=== PATIENT | male | born 1965 | race Caucasian/White ===

== ENCOUNTER 2020-08-28 13:30 | Outpatient (CLI) | payer OTHER, SELFPAY | END 2020-08-28 13:31 | disposition home or self-care (01) | LOC: ANHAUDIO 13:32 | PROVIDERS: PCP Internal Medicine Infectious Disease | DX: H90.3 Sensorineural hearing loss, bilateral (principal) | CPT/HCPCS: 92557; 92567 ==

== ENCOUNTER 2020-10-03 09:00 | Outpatient (RCR) | payer OTHER, SELFPAY | END 2020-11-28 23:59 | disposition home or self-care (01) | LOC: ANHAUDIO 09:00 | PROVIDERS: PCP Internal Medicine Infectious Disease; Visit Provider Internal Medicine Infectious Disease | DX: Z46.1 Encounter for fitting and adjustment of hearing aid (principal) | CPT/HCPCS: V5160; V5261; V5264 ==

== ENCOUNTER 2021-01-16 15:16 | Outpatient (RCR) | payer OTHER, SELFPAY | END 2021-01-16 23:59 | disposition home or self-care (01) | LOC: ANHAUDIO 15:16 | PROVIDERS: PCP Internal Medicine Infectious Disease; Visit Provider Internal Medicine Gastroenterology | DX: Z46.1 Encounter for fitting and adjustment of hearing aid (principal) | CPT/HCPCS: 99199 ==

== ENCOUNTER 2025-03-26 15:28 | Emergency (ER) | payer OTHER, MEDICAID, SELFPAY ==
--- NOTE | ~2025-03-26 | CT_ITS ---
CT ANGIOGRAM NECK AND HEAD History: CVA, metastatic disease. Technique: Serial spiral axial images through the head and neck were obtained during arterial phase I V injection of 100 cc of Omnipaque 350. 3-D postprocessing and MIP images were then reconstructed on the remote workstation. Dose reduction technique was used on this scan by utilizing automated exposur e control and iterative reconstruction technique. The dose-length product (DLP) was 1184.72 mGy-cm. CTA neck findings: Bilateral vertebral arteries are patent. Bilateral common carotid, internal carot id, and external carotid arteries are patent. No large vessel occlusion or stenosis. No aneurysm. The proximal right internal carotid artery demonstrates 0% stenosis relative to the normal distal artery lumen diameter. The proximal left internal carotid artery demonstrates 0% stenosis relative to the n ormal distal artery lumen diameter. There is advanced emphysematous lung apices. There is a 7 mm left apical nodule (series 5 image 63). There is an additional 7 mm left apical nodule (series 5 image 65). There is a large right paratrache al lymph node measuring 4.5 x 3.4 x 6.5 cm in size. CTA head findings: Distal vertebral arteries, basilar artery, and posterior cerebral arteries are pat ent. Distal internal carotid arteries, middle cerebral arteries, and anterior cerebral arteries are p atent. No large vessel occlusion or stenosis. No aneurysm. Intracranial metastatic lesions in the brain are unchanged from prior noncontrast CT scan earlier tod ay. Impression: No significant vascular abnormality. Intracranial masses are stable from prior noncontrast brain CT, compatible with metastatic disease. 4.5 x 3.4 x 6.5 cm right paratracheal mass/lymphadenopathy, compatible with neoplastic or metastatic disease. Two separate 7 mm left upper lobe pulmonary nodules, indeterminate. Advanced emphysema in the visualized lung apices. Reviewed, dictated and finalized at location . Impression: No significant vascular abnormality. Intracranial masses are stable from prior noncontrast brain CT, compatible with metastatic disease. 4.5 x 3.4 x 6.5 cm right paratracheal mass/lymphadenopathy, compatible with damien plastic or metastatic disease. Two separate 7 mm left upper lobe pulmonary nodules, indeterminate. Advanced emphysema in the visualized lung apices.
--- NOTE | ~2025-03-26 | CT_ITS ---
Non-contrast Head CT History: Left leg numbness, metastatic cancer Technique: Axial non-contrast imaging of the brain was performed. Dose reduction technique was used on this scan by utilizing automated exposure control and iterative reconstruction technique. The dose -length product (DLP) was 681.00 mGy-cm. Findings: There is a 2.0 cm hypodense mass at the very superior right cerebral hemisphere (axial imag e 54). There is a 0.8 cm subtle hypodense mass in the medial left frontal lobe adjacent to the falx c erebri (axial image 43). There is a 0.8 cm hypodense mass in the left cerebellar hemisphere (axial im age 18). Questionable small subtle mass in the left caudate head nucleus. No significant mass effect or midline shift. No definite acute infarct seen. The ventricles and subarachnoid spaces are normal i n size. The calvarium appears normal. The visualized paranasal sinuses and mastoid air cells are cl ear. Impression: Hyperdense intracranial masses, as detailed above, compatible with metastatic disease. These could be hemorrhagic lesions given hyperdensity. Reviewed, dictated and finalized at location M. Impression: Hyperdense intracranial masses, as detailed above, compatible with metastatic d isease. These could be hemorrhagic lesions given hyperdensity.
--- NOTE | ~2025-03-26 | CT_ITS ---
Noncontrast CT scan of the lumbar spine CLINICAL HISTORY: Left leg numbness, metastatic cancer TECHNIQUE: Axial noncontrast imaging of the lumbar spine was performed. Sagittal and coronal reformat brent images were constructed. Dose reduction technique was used on this scan by utilizing automated ex posure control and iterative reconstruction technique. The dose-length product (DLP) was 881.16 mGy-c m. FINDINGS: No acute fracture or subluxation identified. No aggressive/destructive osseous lesion seen. At L1-L2, there is mild degenerative disc narrowing with minimal disc bulge and mild to moderate face t arthropathy. No mainor central canal stenosis. Neural foramina are preserved. At L2-L3, there is moderate degenerative disc narrowing. There is mild disc bulge with moderate facet hypertrophy. Probable minimal central canal stenosis. There is moderate to advanced right neural for aminal narrowing, and moderate left neural foraminal narrowing. At L3-L4, there is advanced degenerative disc narrowing. Disc bulge and facet hypertrophy result in m oderate to severe spinal canal stenosis/thecal sac compression. There is severe right neural foramina l narrowing, and moderate to severe left neural foraminal narrowing. At L4-L5, there is advanced degenerative disc narrowing. Disc bulge and advanced facet arthropathy re sult in mild to moderate central canal stenosis. There is severe bilateral neural foraminal narrowing . At L5-S1, there is minimal disc bulge. No definite canal stenosis. There is severe left neural forami nal narrowing, and mild right neural foraminal narrowing. Paravertebral soft tissues are unremarkable. Impression: Advanced degenerative spondylosis, with multilevel neural foraminal narrowing and canal stenosis, as detailed above. No fracture or subluxation. No aggressive/destructive osseous lesion identified. Reviewed, dictated and finalized at location . Impression: Advanced degenerative spondylosis, with multilevel neural foraminal narrowing a nd canal stenosis, as detailed above. No fracture or subluxation. No aggressive/destructive osseous lesion identified.
--- NOTE | ~2025-03-26 | XR_ITS ---
Portable chest x-ray Comparison: 04/22/2012 Clinical History: Lung cancer Findings: There is abnormal prominence along the right paratracheal stripe. There is probable discoi d right basilar atelectasis. Left lung clear. Cardiomediastinal silhouette is stable. Bones and soft tissues are unremarkable. Impression: Abnormal prominence along the right paratracheal stripe, suspicious for adenopathy/mass. Contrast-enh anced chest CT advised for further evaluation. Probable discoid right basilar atelectasis. Reviewed, dictated and finalized at location M. Impression: Abnormal prominence along the right paratracheal stripe, suspicious for adenopa thy/mass. Contrast-enhanced chest CT advised for further evaluation. Probable discoid right basilar atelectasis.
--- OUTSIDE RECORDS SUMMARY | 2025-03-26 15:30 | XMS_ITS | Encounter Summary ---
Author Organization [facility] Address [address] [place] [address] Care Team Providers Care Art Class Model Name Role Phone Shraddha Barrow MD Primary Care Provider + [phone] Manuel Osorio MD Unavailable Reason for Visit * Reason Onset Date Comments Question 03/26/2025 Encounter Details Date Type Department Care Team (Late st Contact Info) Description 03/26/2025 Telephone [facility] - Hematology/Oncology [address] [place] [address] Rojas Macedo DO [address] [facility] [address] [place] [address] Question Social History Tobacco Use Types Packs/Day Years Used Date Smoking Tobacco: Every Day Cigarettes 1 46.5 Started: 1979 Smokeless Tobacco: Never Alcohol Use Standard Drinks/Week Comments Not Currently 0 (1 standard drink = 0.6 oz pur e alcohol) AUDIT-C Answer Date Recorded Q1: How often do you have a drink containing alcohol? Never 09/30/2024 Q2: How many drinks containi ng alcohol do you have on a typical day when you are drinking? Patient does not drink Q3: How often do you have si x or more drinks on one occasion? Never 09/30/2024 Overall Financial Resource Strain (CARDIA) Answe r Date Recorded How hard is it for you to pa y for the very basics like food, housing, medical care, and heating? Not hard at all 09/30/2024 PHQ-2 Answer Date Recorded Patient Health Questionnaire-2 Score 0 02/16/2025 [facility]at [facility] - Occupational Stress Questionnaire Answer Date Recorded Do you feel stress - tense, restless, nervous, or anxious, or unable to sleep at night because your mind is troubled all the time - these days? Not at all 09/30/2024 Hunger Vital Sign Answer Date Recorded Within the past 12 months, y ou worried that your food would run out before you got the money to buy more. Never true 09/30/19 25 Within the past 12 months, t he food you bought just didn't last and you didn't have money to get more. Never true 09/30/2024 PRAPARE - Transportation Answer Date Re corded In the past 12 months, has l ack of transportation kept you from medical appointments or from getting medications? No 09/09 In the past 12 months, has l ack of transportation kept you from meetings, work, or from getting things needed for daily living? No 09/30/2024 Housing Stability Vital Sign Answer Manny e Recorded In the last 12 months, was t here a time when you were not able to pay the mortgage or rent on time? No 09/30/2024 In the past 12 months, how m any times have you moved where you were living? 1 09/30/2024 At any time in the past 12 m [facility], were you homeless or living in a residential (including now)? No 09/30/2024 Sex and Gender Information Value Date Recorded Sex Assigned at Male 08/19/2024 9:03 PM COPIER OPERATOR Legal Sex Male 5:09 AM COPIER OPERATOR Gender Identity Male 08/19/2024 9:03 PM COPIER OPERATOR Sexual Orientation Straight 08/19/2024 9: 03 PM COPIER OPERATOR documented as of this encounter Functional Status * Is person deaf or have serious hearing difficulty? Answer Date of Assessment Author No 09/30/2024 8:46 PM Gallo Jay RN * Is person blind or have serious difficulty seeing? Answer Date of Assessment Author No 09/30/2024 8:46 PM Gallo Jay RN * Does person have serious difficulty walking/climbing stairs? Answer Date of Assessment Author No 09/30/2024 8:46 PM Gallo Jay RN * Does person have difficulty dressing/bathing? Answer Date of Assessment Author No 09/30/2024 8:46 PM Gallo Jay RN * Does person have difficulty doing errands alone? Answer Date of Assessment Author No 09/30/2024 8:46 PM Gallo Jay RN documented as of this encounter Mental Status * Does person have difficulty concentrating/remembering/making decisions? Answer Entry Date Author No 09/30/2024 8:46 PM Gallo Jay RN documented in this encounter Miscellaneous Notes * Telephone Encounter - Rojas Macedo DO - 03/26/2025 12:38 PM CDT Was called by the automatic coil machine operator about this patient. Patient was reached via the number in the chart. Patient is following Dr. Osorio. Patient was having lower extremity weakness with numbness and tingling. It has been going on for 2 to 3 days and is getting worse. Patient was recommended to go to he nearest ER for evaluation. Patient/family agreed. Rojas Macedo DO, PGY-4 Hematology and Oncology Fellow Department of Hematology and Oncology [facility] documented in this encounter Plan of Treatment Upcoming Encounters Date Type Department Care Team (Late st Contact Info) Description 03/30/2025 8:40 AM CDT Office Visit [facility] - Hematology/Oncology [address] [place] [phone] Yessenia Kirkpatrick, TOY ASSEMBLER WOOD-CINDER PITMAN [address] [place] [phone] 04/07/2025 2:40 PM CDT Appointment [facility] CAT SCAN [address] [place] [phone] Vangie Montero, PEPE-CINDER PITMAN [address] [place] [address] 04/07/2025 3:30 PM CDT Appointment [facility] MRI [address] [place] [address] Lauren Skinner MD [address] [place] [phone] 04/08/2025 1:00 PM CDT Office Visit [facility] - Pain Management [address] [place] [phone] Manuel Osorio MD [address] [place] [phone] Ladarius Egan MD [address] [place] [phone] 05/16/2025 9:30 AM CDT Office Visit [facility] - Internal Med [address] [facility], [place] [phone] Yvette Schulz PA-C [address] [place] [address] documented as of this encounter Visit Diagnoses Not on filedocumented in this encounter Care Teams Art Class Model Relationship Specialty [place] [address] [place] [phone] PCP - General 12/01/18 Manuel Osorio MD [address] [place] [address] Hematology and Oncology 12/15/24 documented as of this encounter
--- OUTSIDE RECORDS SUMMARY | 2025-03-26 15:30 | XMS_ITS | Encounter Summary ---
Author Organization [facility] Address [address] [place] [address] Care Team Providers Care Diesel Machinist Name Role Phone Shraddha Barrow MD Primary Care Provider + [phone] Manuel Osorio MD Unavailable Encounter Details Date Type Department Care Team (Late st Contact Info) Description 03/22/2025 Orders Only [facility] [address] [place] [phone] Reuben Lan, PharmD Social History Tobacco Use Types Packs/Day Years [...] Recorded Patient Health Questionnaire-2 Score 0 02/16/2025 [facility] [place] of Occupat ional Health - Occupational Stress Questionnaire Answer Date Recorded [...] any time in the past 12 m [facility], were you homeless or living in a retirement (including now)? No 09/30/2024 Sex and Gender Information Value Date Recorded Sex Assigned at Male 08/19/2024 9:03 PM EQUIPMENT TECH Legal Sex Male 5:09 AM EQUIPMENT TECH Gender Identity Male 08/19/2024 9:03 PM EQUIPMENT TECH Sexual Orientation Straight 08/19/2024 9: 03 PM EQUIPMENT TECH documented as of this encounter Functional Status [...] Gallo Jay RN documented in this encounter Plan of Treatment Upcoming Encounters Date Type Department Care Team (Late st Contact Info) Description 03/30/2025 8:40 AM CDT Office Visit [facility] - Hematology/Oncology [address] [place] [phone] Yessenia Kirkpatrick, RD MECHANICAL ENGINEER-LEAD CASTER HELPER [address] [place] [phone] 04/07/2025 2:40 PM CDT Appointment [facility] CAT SCAN [address] [place] [phone] Vangie Montero RD MECHANICAL ENGINEER-LEAD CASTER HELPER [address] [place], [place] [phone] 04/07/2025 3:30 PM CDT Appointment [facility] MRI [address] [place] [phone] Lauren Skinner MD [address] [place] [phone] 04/08/2025 1:00 PM CDT Office Visit [facility] - Pain Management [address] [place] [phone] Manuel Osorio MD [address] [place] [phone] Ladarius Egan MD [facility] [place] [place] [phone] 05/16/2025 9:30 AM CDT Office Visit [facility] - Internal Med [address] [facility], [place] [phone] Yvette Schulz PA-C [address] [place] [address] documented as of this encounter Visit Diagnoses Not on filedocumented in this encounter Care Teams Diesel Machinist Relationship Specialty Start Date End Date Shraddha Barrow MD [address] [place] [phone] PCP - General 12/01/18 Manuel Osorio MD [address] [place] [phone] Hematology and Oncology 12/15/24 documented as of this encounter
--- OUTSIDE RECORDS SUMMARY | 2025-03-26 15:31 | XMS_ITS | Encounter Summary ---
Author Organization [facility] Address [address] [place] [address] Care Team Providers Care Asphalt Mixer Name Role Phone Shraddha Barrow MD Primary Care Provider + [phone] Manuel Osorio MD Unavailable Reason for Visit * Reason Onset Date Comments MEDICATION REFILL 02/02/2025 Encounter Details Date Type Department Care Team (Late st Contact Info) Description 02/02/2025 Refill [facility] - Hematology/Oncology [address] [place] [address] Sandrita Ybarra MD [address] [place] [address] MEDICATION REFILL Social History Tobacco Use Types Packs/Day Years [...] Date Recorded Patient Health Questionnaire-2 Score 0 08/27/2024 [facility] [place] of Occupat ional Health - Occupational Stress [...] any time in the past 12 m [facility], were you homeless or living in a snf (including now)? No 09/30/2024 Sex and Gender Information Value Date Recorded Sex Assigned at Male 08/19/2024 9:03 PM UROLOGY PHYSICIAN Legal Sex Male 5:09 AM UROLOGY PHYSICIAN Gender Identity Male 08/19/2024 9:03 PM UROLOGY PHYSICIAN Sexual Orientation Straight 08/19/2024 9: 03 PM UROLOGY PHYSICIAN documented as of this encounter Functional Status [...] Description 03/30/2025 8:40 AM CDT Office Visit [facility] - Hematology/Oncology [address] [place] [phone] Yessenia Kirkpatrick, DOCUMENT IMAGE TECHNICIAN-STEAM HAMMER OPERATOR [address] [place] [phone] 04/07/2025 2:40 PM CDT Appointment [facility] CAT SCAN [address] [place] [phone] Vangie Montero, DOCUMENT IMAGE TECHNICIAN-STEAM HAMMER OPERATOR [address] [place], [place] [phone] 04/07/2025 3:30 PM CDT Appointment [facility] MRI [address] [place] [phone] Lauren Skinner MD [address] [place] [address] 04/08/2025 1:00 PM CDT Office Visit [facility] - Pain Management [address] [place] [address] [place] [address] [place] [address] Ladarius Egan MD [address] [place] [phone] 05/16/2025 9:30 AM CDT Office Visit [facility] - Internal Med [address] [facility], [place] [phone] Yvette Schulz PA-C [address] [place] [address] documented as of this encounter Visit Diagnoses Diagnosis 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
--- OUTSIDE RECORDS SUMMARY | 2025-03-26 15:31 | XMS_ITS ---
Author Organization [facility] Address [address] [place] [address] Care Team Providers Care Carpenter General Name Role Phone Shraddha Barrow MD Primary Care Provider [phone] Manuel Osorio MD Unavailable Active Problems Problem Noted Date Diagnosed Date Seasonal allergic rhinitis 02/23/2025 Nicotine dependence with withdrawal 02/23/2025 Hypoxia 09/30/2024 Malignant neoplasm of lung, unspecified laterality, unspecified part of lung 09/30/2024 Malignant neoplasm metastatic to brain Acute nonintractable headache, unspecified heada raz type 09/30/2024 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 08/27/2024 Complete tear of right rotator cuff 12/04/2018 Current Treatment and Therapy Plans SMALL CELL LUNG MET EXTENSIVE STAGE (ATEZOLIZUMAB CARBOPLATIN ETOPOSIDE) Q21 DAYS --> MAINTENANCE (ATEZOLIZUMAB) Q21 DAYS* Plan Start Date:08/26/2024 Plan Provider:Manuel Osorio MD Linked Problems Small cell carcinoma of hilu m of lung, unspecified laterality (HCC) Treatment Medications Current Day (Day 1 , Cycle 10 - Planned for 03/30/2025) Next Day (Day 1, Cycle 11 - Planned for 04/20/2025) atezolizumab (Tecentriq) infusionCARBOplatin (Paraplatin) Infusion (AUC Dosing)etoposide (Vepesid)etoposide (Vepesid) 1000 mL infusion atezolizumab (Tecentriq) 1,200 mg in NaCl IV 0.9 % 270 mL infusion atezolizumab (Tecentriq) 1,200 mg in NaCl IV 0.9 % 270 mL infusion Past Treatment and Therapy Plans No past plan information found. Lifetime Dose Tracking * Chemical Lifetime Dose Automatic Entry Manual Entr y Dose Length Product 1,215.9 mGy-cm 1,215.9 mGy-cm 0 mG y-cm Resolved Problems Problem Noted Date Diagnosed Date Resolved Date Rash 02/23/2025 03/23/2025
--- OUTSIDE RECORDS SUMMARY | 2025-03-26 15:31 | XMS_ITS | Clinical Summary ---
Author Organization [facility] Address [address] [place] [address] Care Team Providers Care Sheet Rock Sander Name Role Phone Shraddha Barrow MD Primary Care Provider Unavail able Social History Tobacco Use Types Packs/Day Years Used Date Smoking Tobacco: Never Assessed Sex and Gender Information Value Date Recorded Sex Assigned at Not on file Legal Sex Male 3:03 PM CDT Gender Identity Not on file Sexual Orientation Not on file Plan of Treatment Health Maintenance Due Date Last Done Comments Colorectal Cancer Screening Colonoscopy (10 Years) 1964 Annual Physical 1967 Hepatitis C 1982 DTaP, Tdap and Td Vaccines ( 1 - Tdap) 1983 Pneumococcal Vaccine: 50+ Ye ars (1 of 1 - PCV) 2014 Zoster Vaccines (1 of 2) 2014 COVID-19 Vaccine ( - 2023-2 5 season) 2024 RSV Immunization or 60+ Years (1 - 1-dose 75+ series) 2039 Meningococcal B Vaccine Aged Out No l onger eligible based on patient's age to complete this topic Meningococcal Vaccine Aged Out No nuno ramandeep eligible based on patient's age to complete this topic RSV Immunizations Under 20 Months Aged Out No longer eligible based on patient's age to complete this topic Insurance 2 [place] [address] [facility] Care Teams Sheet Rock Sander Relationship Specialty Start Date End Date Shraddha Barrow MD PCP - General INTERNAL MEDICINE 01/11/19
--- OUTSIDE RECORDS SUMMARY | 2025-03-26 15:31 | XMS_ITS | Encounter Summary ---
Author Organization [facility] Address [address] [place] [address] Care Team Providers Care Arresting Gear Operator Name Role Phone Shraddha Barrow MD Primary Care Provider + [phone] Manuel Osorio MD Unavailable Reason for Visit * Reason Onset Date Comments MEDICATION REFILL 02/16/2025 Encounter Details Date Type Department Care Team (Late st Contact Info) Description 02/16/2025 Refill [facility] - Hematology/Oncology [address] [place] [address] Manuel Osorio MD [address] [place] [address] MEDICATION REFILL Social History Tobacco Use Types [...] Recorded Patient Health Questionnaire-2 Score 0 02/16/2025 [facility] of Occupat ional [facility] - Occupational Stress Questionnaire Answer Date Recorded [...] any time in the past 12 m [facility], were you homeless or living in a retirement (including now)? No 09/30/2024 Sex and Gender Information Value Date Recorded Sex Assigned at Male 08/19/2024 9:03 PM CLERICAL ADJUDICATOR Legal Sex Male 5:09 AM CLERICAL ADJUDICATOR Gender Identity Male 08/19/2024 9:03 PM CLERICAL ADJUDICATOR Sexual Orientation Straight 08/19/2024 9: 03 PM CLERICAL ADJUDICATOR documented as of this encounter Functional Status [...] 09/30/2024 8:46 PM Gallo Jay RN * Over the past 2 weeks, how often have you been bothered by any of the following problems? Question Answer Date of Assessment Author Little interest or pleasure in doing things Not at all 02/16/2025 8:49 AM CDT Olive Conde R N Feeling down, depressed, or hopeless Not at all 02/16/2025 8:49 AM CDT Olive Conde R N Patient Health Questionnaire -2 Score 0 02/16/2025 8:49 AM CDT Olive Conde R N documented as of this encounter Mental Status * Does person have difficulty concentrating/remembering/making decisions? Answer Entry Date Author No 09/30/2024 8:46 PM Gallo Jay RN documented in this encounter Plan of Treatment Upcoming Encounters Date Type Department Care Team (Late st Contact Info) Description 03/30/2025 8:40 AM CDT Office Visit [facility] - Hematology/Oncology [address] [place] [address] Yessenia Kirkpatrick, DIRECTOR OF HEAD START-HOME THERAPY TEACHER [address] [place] [address] 04/07/2025 2:40 PM CDT Appointment [facility] CAT SCAN [address] [place] [phone] Vangie Montero, DIRECTOR OF HEAD START-HOME THERAPY TEACHER [address] [place], [place] [phone] 04/07/2025 3:30 PM CDT Appointment [facility] MRI [address] [place] [phone] Lauren Skinner MD [address] [place] [address] 04/08/2025 1:00 PM CDT Office Visit [facility] - Pain Management [address] [place] [address] Manuel Osorio MD [address] [place] [phone] Ladarius Egan MD [address] [place] [phone] 05/16/2025 9:30 AM CDT Office Visit [facility] - Internal Med [address] 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
--- OUTSIDE RECORDS SUMMARY | 2025-03-26 15:31 | XMS_ITS | Clinical Summary ---
Author Organization [facility] [email or web address] Address [address] [facility] [place] [address] Care Team Providers Care Oven Press Tender Name Role Phone Shraddha Barrow MD Primary Care Provider [phone] Manuel Osorio MD Unavailable Source Comments [facility] [email or web address],non-owned Affiliates and Associated Physician Practices is amultiple site organization consisting of ambulatory clinics and hospital sitesin [place], [place], [place] and [place]. This disclosure is being madepursuant to the Care Everywhere program and may not contain all information available regarding this patient. Last updated 18.[facility] [email or web address] Allergies No known active allergies Medications * Be aware that medications may not be up to date on this document. Alwaysverify current medications with the patient. albuterol-iprat ropium (Duo-Neb) 0.5-2.5 (3) MG/3ML nebulizer solution Inhale 3 mL by mouth every 4 hours as needed for Shortness of Breath or Wheezing 360 mL 3 08/16/20 24 Active albuterol HFA (Proventil; Ventolin; Proair) 108 (90 Base) MCG/ACT inhaler Inhale 2 (two) puffs by mouth every 6 hours as needed Active ibuprofen (Motrin) 200 MG tablet Take 2 (two) tablets by mouth every 6 hours as needed for Pain 400- 600 mg Active Breztri Aerosphere 160-9-4.8 MCG/ACT inhaler Inhale 2 (two) puffs by mouth 11/19/19 25 Active clobetasol emollient (Temovate E) 0.05 % cream Apply to affected area 2 times daily 30 g 01/27/20 25 Active oxyCODONE, immediate release, (Roxicodone) 10 MG tabletIndicatio ns: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, unspecified laterality (HCC) Take 1 (one) tablet by mouth every 6 hours as needed for Pain (pain) 12 tablet 02/12/20 25 Active triamcinolone acetonide (Kenalog) 0.1 % ointment Apply to affected area 3 times daily 30 g 2 02/23/20 25 Active senna-docusate (Senokot-S) 8.6-50 MG tablet Take 2 (two) tablets by mouth once daily 100 tablet 2 02/23/20 25 Active cetirizine (ZyrTEC) 10 MG chew tabletIndicatio ns:Seasonal allergic rhinitis, unspecified trigger Take 1 (one) tablet by mouth once daily (chew and swallow) 30 tablet 02/24/20 25 Active guaiFENesin ER 12hr (Mucinex) 600 MG tabletIndicatio ns:Seasonal allergic rhinitis, unspecified trigger Take 1 (one) tablet by mouth every 12 hours 60 tablet 02/24/20 25 Active benzonatate (Tessalon) 200 MG capsuleIndicati ons:Cough Take 1 (one) capsule by mouth 3 times daily as needed for Cough Reasons: Cough 90 capsule 1 02/24/20 25 Active fluticasone propionate (Flonase) 50 MCG/ACT nasal sprayIndication s:Seasonal allergic rhinitis, unspecified trigger [place] 2 (two) sprays into each nostril once daily 1 Each 02/24/20 25 Active LORazepam (Ativan) 0.5 MG tablet Take 1 (one) tablet by mouth once as needed for Anxiety (take one tablet 30 minutes prior to MRI scan; take another 5 minutes before if needed) 2 tablet 03/09/20 25 Active morphine CR 12hr (MS Contin) 15 MG tabletIndicatio ns: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) Take 1 (one) tablet by mouth every 8 hours for 60 doses 60 tablet 03/16/20 25 025 Active prochlorperazin e (Compazine) 10 MG tabletIndicatio ns: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, unspecified laterality (HCC) Take 1 (one) tablet by mouth every 6 hours as needed for Nausea/Vomiting 30 tablet 6 08/27/20 24 025 Discontin ued(List Clean-Up) ondansetron (Zofran) 8 MG tabletIndicatio ns: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 Reasons: Nausea and Vomiting caused by Cancer Chemotherapy 8 tablet 1 09/07/20 24 025 Discontin ued(List Clean-Up) polyethylene glycol 3350 (Miralax) 17 GM/SCOOP powder Take 17 (seventeen) g by mouth once daily 238 g 2 09/15/19 25 Discontin ued(List Clean-Up) butalbital-acet aminophen-caffe ine (Fioricet) 50-325-40 MG tablet Take 1 (one) tablet by mouth every 6 hours as needed for Headache or Migraine 30 tablet 1 10/02/19 25 025 Discontin ued(List Clean-Up) budesonide-form oterol (Symbicort) 160-4.5 MCG/ACT inhaler Inhale 2 (two) puffs by mouth 2 times daily 10.2 g 2 10/02/19 25 025 Discontin ued(List Clean-Up) umeclidinium (Incruse Ellipta) 62.5 MCG/ACT inhaler Inhale 1 (one) puff by mouth once daily 7 Each 2 10/03/19 25 Discontin ued(List Clean-Up) melatonin 3 MG tablet Take 2 (two) tablets by mouth at bedtime for 90 days 60 tablet 2 10/02/19 25 025 Discontin ued(List Clean-Up) dexAMETHasone (Decadron) 4 MG tabletIndicatio ns:Cancer Chemotherapy-In duced Nausea and Vomiting Take 2 (two) tablets by mouth once a day on day 4 during cycles 1 through 4. Cycle length is 21 days. 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) Take 1 (one) tablet by mouth every 8 hours for 60 doses 60 tablet 02/12/20 025 Discontin ued(Reord er) Active Problems Problem Noted Date Diagnosed Date Seasonal allergic rhinitis 02/23/2025 Nicotine dependence with withdrawal 02/23/2025 Hypoxia 09/30/2024 Malignant neoplasm of lung, unspecified laterality, unspecified part of lung 09/30/2024 Malignant neoplasm metastatic to brain Acute nonintractable headache, unspecified heada raz type 09/30/2024 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 08/27/2024 Complete tear of right rotator cuff 12/04/2018 Resolved Problems Problem Noted Date Diagnosed Date Resolved Date Rash 02/23/2025 03/23/2025 Encounters Date Type Department Care Team Description 03/26/2025 Telephone [facility] - Hematology/Oncology [address] [place] [phone] Rojas Macedo DO Question 03/22/2025 Orders Only [facility] [address] [place] [phone] Reuben Lan, PharmD 03/14/2025 Refill [facility] - Hematology/Oncology [address] [place] [phone] Manuel Osorio MD MEDICATION REFILL 03/10/2025 Travel 03/09/2025 9:40 AM CDT Office Visit [facility] - Hematology/Oncology [address] [place] [phone] Manuel Osorio MD 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, unspecified laterality (HCC) (Primary Dx); Encounter to establish care; Chronic right shoulder pain; Chronic obstructive pulmonary disease, unspecified COPD type (HCC); Smoking addiction 03/09/2025 8:21 AM CDT - 03/09/2025 11:59 PM CDT Hospital Encounter [facility] [address] [place] [address] Shraddha Barrow MD Discharge Disposition: Home or Self Care 03/09/2025 Refill [facility] - Hematology/Oncology [address] [place] [address] Manuel Osorio MD MEDICATION REFILL 03/09/2025 Telephone [facility] - Internal Med [address] [place] [phone] Robert Rock, RN Appointment; Establish Care 03/09/2025 Telephone [facility] - Internal Med [address] [place] [phone] Shraddha Barrow MD Encounter Opened In Error 03/09/2025 Travel 03/02/2025 Orders Only [facility] [address] [place] [phone] Reuben Lan, PharmD 02/25/2025 Telephone [facility] - Hematology/Oncology [address] [place] [phone] Manuel Osorio MD Record Request 02/23/2025 10:00 AM CDT Office Visit [facility] - Hematology/Oncology [address] [place] [phone] Yessenia Kirkpatrick, INSTRUMENT MAINTENANCE SUPERVISOR-PAPER GOODS MACHINE OPERATOR Seasonal allergic rhinitis, unspecified trigger (Primary Dx); 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); Nicotine dependence with withdrawal, unspecified nicotine product type; Rash 02/21/2025 Refill [facility] - Hematology/Oncology [facility] [place] [address] Manuel Osorio MD MEDICATION REFILL 02/20/2025 Refill [facility] - Hematology/Oncology [address] [place] [phone] Manuel Osorio MD MEDICATION REFILL 02/18/2025 Refill [facility] - Hematology/Oncology [facility] [place] [address] Manuel Osorio MD MEDICATION REFILL 02/18/2025 Refill [facility] - Hematology/Oncology [address] [place] [phone] Manuel Osorio MD MEDICATION REFILL 02/16/2025 9:40 AM CDT Office Visit [facility] - Hematology/Oncology [address] [place] [phone] Montero, Vangie, INSTRUMENT MAINTENANCE SUPERVISOR-PAPER GOODS MACHINE OPERATOR 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) (Primary Dx); Rash; Cancer associated pain 02/16/2025 8:38 AM CDT - 02/16/2025 11:59 PM CDT Hospital Encounter [facility] [address] [place] [phone] Shraddha Barrow MD Discharge Disposition: Home or Self Care 02/16/2025 Refill [facility] - Hematology/Oncology [address] [place] [phone] Manuel Osorio MD MEDICATION REFILL 02/16/2025 Orders Only [facility] [address] [address] Manuel Osorio MD 02/16/2025 Travel 02/11/2025 Refill [facility] - Hematology/Oncology [address] [place] [phone] Manuel Osorio MD MEDICATION REFILL 02/11/2025 Refill [facility] - Hematology/Oncology [address] [place] [phone] Sandrita Ybarra MD MEDICATION REFILL 02/08/2025 Refill [facility] - Hematology/Oncology [address] [place] [phone] Manuel Osorio MD MEDICATION REFILL 02/08/2025 Refill [facility] - Hematology/Oncology [address] [place] [phone] Sandrita Ybarra MD MEDICATION REFILL 02/02/2025 Refill [facility] - Hematology/Oncology [address] [place] [phone] Sandrita Ybarra MD MEDICATION REFILL 02/01/2025 Telephone [facility] - Hematology/Oncology [address] [place] [phone] Марина Snyder, RN Forms/questionnaire s ([facility] Emergency Certificate) 01/27/2025 Refill [facility] - Hematology/Oncology [address] [place] [phone] Manuel Osorio MD MEDICATION REFILL 01/26/2025 9:40 AM CDT Office Visit [facility] - Hematology/Oncology [address] [place] [phone] Manuel Osorio MD Cancer associated pain (Primary Dx); 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); Rash 01/26/2025 8:42 AM CDT - 01/26/2025 11:59 PM CDT Hospital Encounter [facility] [address] [place] [phone] Shraddha Barrow MD Discharge Disposition: Home or Self Care 01/26/2025 Travel 01/20/2025 Refill [facility] - Hematology/Oncology [address] [place] [phone] Manuel Osorio MD MEDICATION REFILL 01/20/2025 Refill [facility] - Hematology/Oncology [address] [place] [phone] Manuel Osorio MD MEDICATION REFILL 01/19/2025 Orders Only [facility] [address] [place] [phone] Reuben Lan, PharmD 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, unspecified laterality (HCC) 01/13/2025 Refill [facility] - Hematology/Oncology [address] [place] [phone] Manuel Osorio MD MEDICATION REFILL 01/13/2025 Refill [facility] - Hematology/Oncology [address] [place] [phone] Manuel Osorio MD MEDICATION REFILL 01/07/2025 Telephone [facility] - [address] [phone] Kizzy Limon, RN Appointment 01/07/2025 Refill [facility] - Hematology/Oncology [address] [place] [phone] Manuel Osorio MD MEDICATION REFILL 01/07/2025 Refill [facility] - Hematology/Oncology [address] [place] [phone] Manuel Osorio MD MEDICATION REFILL 01/05/2025 9:40 AM CDT Office Visit [facility] - Hematology/Oncology [address] [place] [phone] Manuel Osorio MD Malignant neoplasm of lung, unspecified laterality, unspecified part of lung (HCC) (Primary Dx); Malignant neoplasm metastatic to brain (HCC); Cancer associated pain; Chronic bronchitis, unspecified chronic bronchitis type (HCC); Dyspnea, unspecified type 01/05/2025 8:33 AM CDT - 01/05/2025 10:59 AM CDT Hospital Encounter [facility] [address] [place] [phone] Shraddha Barrow MD Discharge Disposition: Home or Self Care 01/05/2025 Travel 01/03/2025 Refill [facility] - Hematology/Oncology [address] [place] [phone] Manuel Osorio MD MEDICATION REFILL 12/29/2024 12:30 PM CDT - 12/29/2024 11:59 PM CDT Hospital Encounter [facility] ONC [address] [place] [phone] Lauren Skinner MD Discharge Disposition: Home or Self Care from Last 3 Months Social History Tobacco Use Types Packs/Day Years Used Date Smoking Tobacco: Every Day Cigarettes 1 46.5 Started: 1979 Smokeless Tobacco: Never Tobacco Cessation:Ready to Q uit: Not Asked; Counseling Given: Not Answered Alcohol Use Standard Drinks/Week Comments Not Currently [...] Recorded Patient Health Questionnaire-2 Score 0 02/16/2025 [facility] - Occupational Stress [...] any time in the past 12 m [facility], were you homeless or living in a detention (including now)? No 09/30/2024 Sex and Gender Information Value Date Recorded Sex Assigned at Male 08/19/2024 9:03 PM WORKSHOP MANAGER Legal Sex Male 5:09 AM WORKSHOP MANAGER Gender Identity Male 08/19/2024 9:03 PM WORKSHOP MANAGER Sexual Orientation Straight 08/19/2024 9: 03 PM WORKSHOP MANAGER Last Filed Vital Signs Vital Sign Reading Time Taken Comments Blood Pressure 130/98 03/09/2025 9:28 AM CDT Pulse 95 03/09/2025 9:28 AM CDT Temperature 36.9 C (98.4 F) 03/09/2025 9:28 AM CDT Respiratory Rate 18 03/09/2025 9:28 AM CDT Oxygen Saturation 95% 03/09/2025 9:28 AM CDT Inhaled Oxygen Concentration - - Weight 83 kg (183 lb) 03/09/2025 9:28 AM CDT Height 167.6 cm (5' 6) 01/05/2025 9:31 AM CDT Body Mass Index 29.54 01/05/2025 9:31 AM CDT Plan of Treatment Upcoming Encounters Date Type Department Care Team (Late st Contact Info) Description 03/30/2025 8:40 AM CDT Office Visit [facility] - Hematology/Oncology [address] [place] [phone] Yessenia Kirkpatrick, INSTRUMENT MAINTENANCE SUPERVISOR-PAPER GOODS MACHINE OPERATOR [address] [place] [phone] 04/07/2025 2:40 PM CDT Appointment [facility] CAT SCAN [address] [place] [phone] Vangie Montero, INSTRUMENT MAINTENANCE SUPERVISOR-PAPER GOODS MACHINE OPERATOR [address] [place], [place] [phone] 04/07/2025 3:30 PM CDT Appointment [facility] MRI [address] [place] [phone] Lauren Skinner MD [address] [place] [phone] 04/08/2025 1:00 PM CDT Office Visit [facility] - Pain Management [address] [place] [phone] Manuel Osorio MD [address] [place] [phone] Ladarius Egan MD [address] [place] [phone] 05/16/2025 9:30 AM CDT Office Visit [facility] - Internal Med [address] [facility] [place] [phone] Yvette Schulz PA-C [address] [place] [phone] Health Maintenance Due Date Last Done Comments COLOGUARD (AGES 45-75) - COLON CA SCREENING 1964 COLON MONITORING 1964 COLONOSCOPY - COLON CA SCREENING 1964 CT COLONOGRAPHY - COLON CA SCREENING 1964 Colorectal Cancer Screening 1964 FIT - COLON CA SCREENING 1964 FLEX SIG - COLON CA SCREENING 1964 LIPID TESTING 1964 Opioid Medication Agreement - Annual 1964 Opioid Medication Urine Drug Screening 1964 HIV SCREENING 1979 DTAP/TDAP/TD VACCINES (1 - Tdap) 1983 PNEUMOCOCCAL VACCINE 50+ (1 of 2 - PCV) 1983 ZOSTER VACCINE (1 of 2) 1983 LUNG CANCER SCREENING 2014 COVID-19 VACCINE (3 - Pfizer risk series) 05/24/2021 04/26/2021, 03/31/2021 HEPATITIS B VACCINE (1 of 3 - Risk 3-dose series) 2024 Respiratory Syncytial Virus (RSV) Vaccine Pt: or over 60 yrs (1 - Risk 60-74 years 1-dose series) 2024 INFLUENZA VACCINE (#1) 2025 07/27/2024 SCREENING FOR DIABETES 03/09/2028 , 02/16/2025, 01/26/2025, Additional history exists HEPATITIS C SCREENING Completed 12/13/2024 , 10/01/2024, 10/01/2024, Additional history exists DEPRESSION SCREENING Completed 02/16/2025, 08/27/20 HIB VACCINE Aged Out No longer eligi ble based on patient's age to complete this topic HPV VACCINE Aged Out No longer eligi ble based on patient's age to complete this topic MENINGOCOCCAL (Group B) VACCINE SHARED DECISION-MAKING Aged Out No longer eligible based on patient's age to complete this topic MENINGOCOCCAL GROUPS A/C/Y/W VACCINE Aged Out No longer eligible based on patient's age to complete this topic Procedures Procedure Name Priority Date/Time Associated Diagnosis Comments TSH Routine 03/09/2025 8:41 AM CDT 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, unspecified laterality (HCC) COMPREHENSIVE METABOLIC PANEL Routine 03/09/2025 8:41 AM CDT 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, unspecified laterality (HCC) CBC W AUTO DIFFERENTIAL Routine 03/09/2025 8:41 AM CDT 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, unspecified laterality (HCC) TSH Routine 02/16/2025 8:55 AM CDT 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, unspecified laterality (HCC) COMPREHENSIVE METABOLIC PANEL Routine 02/16/2025 8:55 AM CDT 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, unspecified laterality (HCC) CBC W AUTO DIFFERENTIAL Routine 02/16/2025 8:55 AM CDT 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, unspecified laterality (HCC) TSH Routine 01/26/2025 8:55 AM CDT 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, unspecified laterality (HCC) COMPREHENSIVE METABOLIC PANEL Routine 01/26/2025 8:55 AM CDT 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, unspecified laterality (HCC) CBC W AUTO DIFFERENTIAL Routine 01/26/2025 8:55 AM CDT 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, unspecified laterality (HCC) TSH Routine 01/05/2025 8:48 AM CDT 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 WBC 6.1 4.0 - 10.7 x10E9/L 03/09/2025 9:01 AM [facility] RBC Count 4.99 4.30 - 5.80 x10E12/L 03/09/2025 9:01 AM [facility] Hemoglobin 15.0 13.3 - 17.5 g/dL 03/09/2025 9:01 AM [facility] Hematocrit 45.1 38.7 - 51.1 % 03/09/2025 9:01 AM [facility] MCV 90.4 80.0 - 98.0 fL 03/09/2025 9:01 AM [facility] MCH 30.1 26.7 - 33.6 pg 03/09/2025 9:01 AM [facility] MCHC 33.3 31.7 - 36.3 g/dL 03/09/2025 9:01 AM [facility] RDW-CV 14.0 11.3 - 14.8 % 03/09/2025 9:01 AM [facility] Platelet Count 213 150 - 420 x10E9/L 03/09/2025 9:01 AM [facility] MPV 9.6 7.8 - 11.4 fL 03/09/2025 9:01 AM [facility] Preliminary Absolute Neutrophil 3.80 1.60 - 7.50 x10E9/L 03/09/2025 9:01 AM [facility] Neutrophil % 62.3 41.0 - 74.0 % 03/09/2025 9:01 AM [facility] Lymphocyte % 21.3 17.0 - 47.0 % 03/09/2025 9:01 AM [facility] Monocyte % 11.6(H) 3.0 - 11.0 % 03/09/2025 9:01 AM [facility] Eosinophil % 4.1 0.0 - 7.0 % 03/09/2025 9:01 AM [facility] Basophil % 0.5 0.0 - 1.6 % 03/09/2025 9:01 AM [facility] Immature Granulocytes % 0.2 0.0 - 1.0 % 03/09/2025 9:01 AM [facility] Neutrophil Absolute 3.80 1.60 - 7.50 x10E9/L 03/09/2025 9:01 AM [facility] Lymphocyte Absolute 1.30 1.00 - 4.40 x10E9/L 03/09/2025 9:01 AM [facility] Monocyte Absolute 0.71 0.15 - 1.00 x10E9/L 03/09/2025 9:01 AM [facility] Eosinophil Absolute 0.25 0.00 - 0.60 x10E9/L 03/09/2025 9:01 AM [facility] Basophil Absolute 0.03 0.00 - 0.13 x10E9/L 03/09/2025 9:01 AM [facility] Blood BLOOD SPECIMEN / Unknown Venipuncture / Unknown 03/09/2025 8:41 AM CDT 03/09/2025 8:53 AM CDT us Manuel Osorio MD LAB - HEMATOLOGY ORDERABLES Candi dong Result [facility] [address] [place] [address], [facility] [phone] * (ABNORMAL) COMPREHENSIVE METABOLIC PANEL (03/09/2025 8:41 AM CDT) Only the most recent of4 resultswithin the time period is included. BUN 19 7 - 26 mg/dL 03/09/2025 10:40 AM [facility] Creatinine 0.79 0.71 - 1.16 mg/dL 03/09/2025 10:40 AM [facility] Sodium 138 136 - 145 mmol/L 03/09/2025 10:40 AM [facility] Potassium 4.0 3.5 - 4.5 mmol/L 03/09/2025 10:40 AM [facility] Chloride 109(H) 98 - 107 mmol/L 03/09/2025 10:40 AM [facility] CO2 24 22 - 29 mmol/L 03/09/2025 10:40 AM [facility] Glucose 100(H) 70 - 99 mg/dL 03/09/2025 10:40 AM [facility] Calcium 9.1 8.4 - 10.2 mg/dL 03/09/2025 10:40 AM [facility] Protein Total 7.4 6.0 - 8.3 g/dL 03/09/2025 10:40 AM [facility] Albumin 3.8 3.4 - 5.0 g/dL 03/09/2025 10:40 AM [facility] Bilirubin Total 0.2 0.2 - 1.2 mg/dL 03/09/2025 10:40 AM [facility] Alkaline Phosphatase 80 40 - 150 U/L 03/09/2025 10:40 AM [facility] ALT 33 5 - 55 U/L 03/09/2025 10:40 AM [facility] AST 26 5 - 34 U/L 03/09/2025 10:40 AM [facility] Anion Gap 5(L) 6 - 16 03/09/2025 10:40 AM [facility] BUN/Creatinine Ratio 24(H) 7 - 23 03/09/2025 10:40 AM [facility] Osmolality Calculated 288 275 - 295 mOsm/kg 03/09/2025 10:40 AM [facility] Albumin/Globulin Ratio 1.1 1.1 - 2.3 03/09/2025 10:40 AM [facility] eGFR by CKD-EPI >90 >=90 mL/min/1.7 3 m2 03/09/2025 10:40 AM [facility] Comment:Estimated Glomerular Filtration Rate (eGFR) calculated using the CKD-EPI Creatinine Equation (2020), per the National Kid[employer] Foundation and [place] [employer] recommendations. Blood BLOOD SPECIMEN / Unknown Venipuncture / Unknown 03/09/2025 8:41 AM CDT 03/09/2025 8:52 AM CDT us Manuel Osorio MD LAB - CHEMISTRY ORDERABLES Final Result [address] [address], [place] [phone] * TSH (03/09/2025 8:41 AM CDT) Only the most recent of4 resultswithin the time period is included. TSH 1.515 0.350 - 4.940 uIU/mL 03/09/2025 9:[address] [facility] Blood BLOOD SPECIMEN / Unknown Venipuncture / Unknown 03/09/2025 8:41 AM CDT 03/09/2025 8:52 AM CDT us Manuel Osorio MD LAB - CHEMISTRY ORDERABLES Final Result Performing Organization Address City/[facility]/ZIP Co de Phone Number [address] [address], [place] [phone] * (ABNORMAL) HEPATITIS C AB SCREEN RFLX NAAT QUANT (10/01/2024 4:34 AM WORKSHOP MANAGER) Hepatitis C Antibody Reactive( A) Non-react connie 10/01/2024 5:47 AM WORKSHOP MANAGER [facility] Comment:Serum for supplement al Hepatitis C quantitative RNA PCR testing will be reflexively sent out by the lab. Blood BLOOD SPECIMEN / Unknown Venipuncture / Unknown 10/01/2024 4:34 AM WORKSHOP MANAGER 10/01/2024 4:43 AM WORKSHOP MANAGER us Aguila Tinoco DO LAB - CHEMISTRY ORDERABLES Fin al Result [facility] [address] [place] [address], [facility] [phone] from Last 3 Months or Most Recently Relevant to Health Maintenance Insurance MEDICAID - [place] AETNA Advance Directives Documents on File Type Date Recorded Patient Seasoner Hand Expl anation Adv Directive/Living Will/POA 08/30/2024 12:44 PM * Full Code (Latest Code Status on File) Date Activated Date Inactivated Comments 09/30/2024 4:21 AM 10/02/2024 7:22 PM Care Teams Oven Press Tender Relationship Specialty Start Date End Date Shraddha Barrow MD [address] [place] [id number] PCP - General 12/01/18 Manuel Osorio MD [facility] [place] [id number] Hematology and Oncology 12/15/24
--- OUTSIDE RECORDS SUMMARY | 2025-03-26 15:31 | XMS_ITS | Data Portability ---
Author Organization [facility], Main Office Address [address] [place] [address] Assessment Encounter Date Assessment Date Assessment LastModified by Organization Details LastModified Time 08/09/2024 08/09/2024 Assessment: Cough Dyspnea Hemoptysis RLL consolidation 20 mm RUL nodule 3.[address] Plan: The following were reviewed and explained to the patient: primary care/referral note Chest CT 08/04/24 RLL consolidation, 20 mm RUL nodule, 3.[address] Chest 1 view 11/19/20 no acute process Chest 1 view 04/17/23 right mid lung atelectasis or scarring INR 04/17/23 1.0 Hgb 04/17/23 15.1 gm% Hgb 04/18/23 13.1 gm% Hct 04/17/23 46.4% Hct 04/18/23 40.2% Platelets 04/17/23 364 Platelets 04/18/23 346 Nicotine cessation counseling provided for 4 minutes. [place]kiss for quitting nicotine include getting ready, getting support and encouragement, learning new skills and behaviors and being prepared to handle slips. Tips for dealing with cravings provided. Prevention of subsequent illnesses from nicotine addiction discussed. Comorbidities include but are not limited to hypertension, cerebrovascular disease, coronary heart disease, congestive heart failure, hyperlipidemia, COPD/asthma, peptic ulcer disease, esophagitis/gastri tis, and osteoporosis. Therapy options offered include: Quitting by total abstinence Receiving nicotine replacement therapy Undergoing hypnosis Filling a bupropion or varenicline prescription Enrolling in Quit For Life program Registering at [email or web address] Making a call to 4-653-IZBZ-NOW ( ). A strong, clear, personalized message was given to the patient to quit smoking. The patient was urged to set a quit date. We discussed patient's barriers to quitting and I will be of assistance when patient is ready to quit. I encouraged patient to inform friends and family of plans to quit with a request for support. I encouraged the patient to remove all cigarettes from the environment. We reviewed any previous quit attempts and lessons learned from them. I encouraged total abstinence from smoking and advised the patient that drinking alcohol and/or associating with other smokers are associated with failure or relapse. Patient can enroll in [facility]'s smoking cessation class through Marianne Baez RN at . Enrollment is free and classes are held every friday of the month from 1:30 pm to 2:30 pm at the conference room next to the cafeteria on the ground floor. Patient has problems chewing the nicotine gums because of poor dentition. I recommended a switch to nicotine lozenges. Patient will be referred to Dr. Bhavin Menchaca , at [facility] for advanced diagnostic and therapeutic bronchoscopy regarding the pulm nodule and lymphadenopathy. Avoid NSAIDs and discontinue regular strength ASA for now. Cough/Dyspnea workup will be done as follows: Respiratory allergen panel for [facility] Serum IgE Serum total IgG, IgG1, IgG2, IgG3, IgG4 [id number] n phenotype and level TB stimulated gamma interferon B-type natriuretic peptide (BNP) Eosinophil count Complete pulmonary function testing (PFT) Minimize albuterol tabs. Continue albuterol HFA as needed. The patient does not know how to accurately administer the inhaler. Today, the patient was shown how to take this medication. The proper technique for delivering this medication was instructed. The patient expressed a clear understanding and demonstrated back how to use this medication. Without the proper technique, the patient will not reap the benefits of the treatment as the contents of the inhaler will not reach the lower airways as intended to be. Adherence to therapy is advocated. Nonadherence may lead to treatment failure, further progression of the condition, and other complications. Hospitals admissions are often the result of individuals not taking prescription medications accurately. Alternatively, greater adherence to medication regimens have shown to lower rates of hospitalization and decrease total medical costs in patients with chronic medical conditions. Advocated influenza vaccination annually and pneumonia vaccination COURTNEY. Advocated weight loss through diet and exercise. Patient's ideal body weight according to height and gender is up to 155 lbs. Encouraged patient to adjust caloric intake to maintain/achieve ideal body weight, emphasizing on fruits, vegetables, whole grains, and fat-free or low-fat products. These include lean meats, poultry, fish, beans, eggs, and nuts and foods that are low in saturated fats, trans-fats, cholesterol, salt (sodium), and glycemic index. Stressed the importance of regular exercise up to the patient's capacity limits. In this case, we recommend 20 min daily walking, 2 days a week of resistance training. Patient to monitor BP daily and bring records to PCP for further management. Follow-up: 1 week after PFT Not available 08/09/2024 10:41:10 10/19/2024 10/19/2024 Assessment: Severe COPD Right small cell lung ca Plan: The following were reviewed and explained to the patient: Chest CT 08/04/24 RLL consolidation, 20 mm RUL nodule, 3.[address] Chest 1 view 11/19/20 no acute process Chest 1 view 04/17/23 right mid lung atelectasis or scarring INR 04/17/23 1.0 Hgb 04/17/23 15.1 gm% Hgb 04/18/23 13.1 gm% Hct 04/17/23 46.4% Hct 04/18/23 40.2% Platelets 04/17/23 364 Platelets 04/18/[address] Menchaca bronchoscopy 08/16/24 right small cell lung ca Lab data 08/09/24 allergic to dust mites PFT 10/11/24 FEV1 0.86 L (32%) Nicotine cessation counseling provided. Hotchkiss for quitting nicotine include getting ready, getting support and encouragement, learning new skills and behaviors and being prepared to handle slips. Tips for dealing with cravings provided. Prevention of subsequent illnesses from nicotine addiction discussed. Comorbidities include but are not limited to hypertension, cerebrovascular disease, coronary heart disease, congestive heart failure, hyperlipidemia, COPD/asthma, peptic ulcer disease, esophagitis/gastri tis, and osteoporosis. Therapy options offered include: Quitting by total abstinence Receiving nicotine replacement therapy Undergoing hypnosis Filling a bupropion or varenicline prescription Enrolling in Quit For Life program Registering at [email or web address] Making a call to 5-871-HOXE-NOW ( ). A strong, clear, personalized message was given to the patient to quit smoking. The patient was urged to set a quit date. We discussed patient's barriers to quitting and I will be of assistance when patient is ready to quit. I encouraged patient to inform friends and family of plans to quit with a request for support. I encouraged the patient to remove all cigarettes from the environment. We reviewed any previous quit attempts and lessons learned from them. I encouraged total abstinence from smoking and advised the patient that drinking alcohol and/or associating with other smokers are associated with failure or relapse. Patient can enroll in [facility]'s smoking cessation class through Marianne Baez RN at . Enrollment is free and classes are held every friday of the month from 1:30 pm to 2:30 pm at the conference room next to the cafeteria on the ground floor. Patient has problems chewing the nicotine gums because of poor dentition. I recommended a switch to nicotine lozenges. General information on COPD was covered. Educational video was shown. The video explained what COPD is and how it affects breathing. Self-care skills such as not smoking, using medications as prescribed, oxygen therapy, and knowing when to contact the healthcare provider are covered. Diaphragmatic breathing and pursed lip breathing are explained and demonstrated. Positive lifestyle changes are introduced. Following these self-care skills will help in the management of COPD so the patient can stay out of the hospital. Continue albuterol HFA as needed. Change Symbicort HFA 160/4.5 mcg to Breztri 160/9/4.8 mcg 2puffs BID. Gargle after use. The patient does not know how to accurately administer the inhalers. Today, the patient was shown how to take these medications. The proper technique for delivering these medications was instructed. The patient expressed a clear understanding and demonstrated back how to use these medications. Without the proper technique, the patient will not reap the benefits of these medications as the contents will not reach the lower airways as intended to be. Adherence to therapy is advocated. Nonadherence may lead to treatment failure, further progression of the condition, and other complications. Hospitals admissions are often the result of individuals not taking prescription medications accurately. Alternatively, greater adherence to medication regimens have shown to lower rates of hospitalization and decrease total medical costs in patients with chronic medical conditions. Advocated influenza vaccination annually and pneumonia vaccination COURTNEY. Advocated weight loss through diet and exercise. Patient's ideal body weight according to height and gender is up to 155 lbs. Encouraged patient to adjust caloric intake to maintain/achieve ideal body weight, emphasizing on fruits, vegetables, whole grains, and fat-free or low-fat products. These include lean meats, poultry, fish, beans, eggs, and nuts and foods that are low in saturated fats, trans-fats, cholesterol, salt (sodium), and glycemic index. Stressed the importance of regular exercise up to the patient's capacity limits. In this case, we recommend 20 min daily walking, 2 days a week of resistance training. Patient to monitor BP daily and bring records to PCP for further management. Follow-up: 3 months, January 2025 [facility] Not available 10/19/2024 10:46:50 12/13/2024 12/13/2024 Assessment: Nicotine smoke: 2 ppd 1989-present (quit 4 years in between) = 62 pack years Postnasal drip Severe COPD Right small cell lung ca Plan: The following were reviewed and explained to the patient: Chest CT 08/04/24 RLL consolidation, 20 mm RUL nodule, 3.[address] Chest CT 12/09/24 decreased right lung ca and lymphadenopathy, pulmonary nodules, right iliac bone and proximal femoral metastases, resolved RLL pneumonia Chest 1 view 11/19/20 no acute process Chest 1 view 04/17/23 right mid lung atelectasis or scarring INR 04/17/23 1.0 Hgb 04/17/23 15.1 gm% Hgb 04/18/23 13.1 gm% Hct 04/17/23 46.4% Hct 04/18/23 40.2% Platelets 04/17/23 364 Platelets 04/18/[address] Menchaca bronchoscopy 08/16/24 right small cell lung ca Lab data 08/09/24 allergic to dust mites PFT 10/11/24 FEV1 0.86 L (32%) Start Atrovent nasal spray 0.06% 1 spray to each nostril up to 4 times a day for postnasal drip. Collect sputum for gram stain and culture. Nicotine cessation counseling provided. Hotchkiss for quitting nicotine include getting ready, getting support and encouragement, learning new skills and behaviors and being prepared to handle slips. Tips for dealing with cravings provided. Prevention of subsequent illnesses from nicotine addiction discussed. Comorbidities include but are not limited to hypertension, cerebrovascular disease, coronary heart disease, congestive heart failure, hyperlipidemia, COPD/asthma, peptic ulcer disease, esophagitis/gastri tis, and osteoporosis. Therapy options offered include: Quitting by total abstinence Receiving nicotine replacement therapy Undergoing hypnosis Filling a bupropion or varenicline prescription Enrolling in Quit For Life program Registering at [email or web address] Making a call to 8-045-GZRT-NOW ( ). A strong, clear, personalized message was given to the patient to quit smoking. The patient was urged to set a quit date. We discussed patient's barriers to quitting and I will be of assistance when patient is ready to quit. I encouraged patient to inform friends and family of plans to quit with a request for support. I encouraged the patient to remove all cigarettes from the environment. We reviewed any previous quit attempts and lessons learned from them. I encouraged total abstinence from smoking and advised the patient that drinking alcohol and/or associating with other smokers are associated with failure or relapse. Patient can enroll in [facility]'s smoking cessation class through Marianne Baez RN at . Enrollment is free and classes are held every friday of the month from 1:30 pm to 2:30 pm at the conference room next to the cafeteria on the ground floor. Patient has problems chewing the nicotine gums because of poor dentition. I recommended a switch to nicotine lozenges. General information on COPD was covered. The video explained what COPD is and how it affects breathing. Self-care skills such as not smoking, using medications as prescribed, oxygen therapy, and knowing when to contact the healthcare provider are covered. Diaphragmatic breathing and pursed lip breathing are explained and demonstrated. Positive lifestyle changes are introduced. Following these self-care skills will help in the management of COPD so the patient can stay out of the hospital. Continue albuterol HFA as needed. Change Symbicort HFA 160/4.5 mcg to Breztri 160/9/4.8 mcg 2puffs BID. Gargle after use. The patient does not know how to accurately administer the inhalers. Today, the patient was shown how to take these medications. The proper technique for delivering these medications was instructed. The patient expressed a clear understanding and demonstrated back how to use these medications. Without the proper technique, the patient will not reap the benefits of these medications as the contents will not reach the lower airways as intended to be. Adherence to therapy is advocated. Nonadherence may lead to treatment failure, further progression of the condition, and other complications. Hospitals admissions are often the result of individuals not taking prescription medications accurately. Alternatively, greater adherence to medication regimens have shown to lower rates of hospitalization and decrease total medical costs in patients with chronic medical conditions. Advocated influenza vaccination annually and pneumonia vaccination COURTNEY. Advocated weight loss through diet and exercise. Patient's ideal body weight according to height and gender is up to 155 lbs. Encouraged patient to adjust caloric intake to maintain/achieve ideal body weight, emphasizing on fruits, vegetables, whole grains, and fat-free or low-fat products. These include lean meats, poultry, fish, beans, eggs, and nuts and foods that are low in saturated fats, trans-fats, cholesterol, salt (sodium), and glycemic index. Stressed the importance of regular exercise up to the patient's capacity limits. In this case, we recommend 20 min daily walking, 2 days a week of resistance training. Patient to monitor BP daily and bring records to PCP for further management. Follow-up: Keep appointment on 01/18/25 Not available 12/13/2024 09:42:11 01/18/2025 01/18/2025 Assessment: Nicotine smoke: 2 ppd 1989-present (quit 4 years in between) = 62 pack years Postnasal drip Severe COPD Right small cell lung ca, on chemotherapy Plan: The following were reviewed and explained to the patient: INR 04/17/23 1.0 Hgb 04/17/23 15.1 gm% Hgb 04/18/23 13.1 gm% Hct 04/17/23 46.4% Hct 04/18/23 40.2% Platelets 04/17/23 364 Platelets 04/18/[address] Menchaca bronchoscopy 08/16/24 right small cell lung ca Lab data 08/09/24 allergic to dust mites Sputum gm stain & culture 12/14/24 normal upper respiratory shayne Chest CT 08/04/24 RLL consolidation, 20 mm RUL nodule, 3.[address] Chest CT 12/09/24 decreased right lung ca and lymphadenopathy, pulmonary nodules, right iliac bone and proximal femoral metastases, resolved RLL pneumonia PFT 10/11/24 FEV1 0.86 L (32%) Continue Atrovent nasal spray 0.06% 1 spray to each nostril up to 4 times a day for postnasal drip. Collect sputum for gram stain and culture when purulent. Nicotine cessation counseling provided. [place]kiss for quitting nicotine include getting ready, getting support and encouragement, learning new skills and behaviors and being prepared to handle slips. Tips for dealing with cravings provided. Prevention of subsequent illnesses from nicotine addiction discussed. Comorbidities include but are not limited to hypertension, cerebrovascular disease, coronary heart disease, congestive heart failure, hyperlipidemia, COPD/asthma, peptic ulcer disease, esophagitis/gastri tis, and osteoporosis. Therapy options offered include: Quitting by total abstinence Receiving nicotine replacement therapy Undergoing hypnosis Filling a bupropion or varenicline prescription Enrolling in Quit For Life program Registering at [email or web address] Making a call to 4-697-PYQW-NOW ( ). A strong, clear, personalized message was given to the patient to quit smoking. The patient was urged to set a quit date. We discussed patient's barriers to quitting and I will be of assistance when patient is ready to quit. I encouraged patient to inform friends and family of plans to quit with a request for support. I encouraged the patient to remove all cigarettes from the environment. We reviewed any previous quit attempts and lessons learned from them. I encouraged total abstinence from smoking and advised the patient that drinking alcohol and/or associating with other smokers are associated with failure or relapse. Patient can enroll in [facility]'s smoking cessation class through Marianne Baez RN at . Enrollment is free and classes are held every second Friday of the month from 1:30 pm to 2:30 pm at the conference room next to the cafeteria on the ground floor. Patient has problems chewing the nicotine gums because of poor dentition. I recommended a switch to nicotine lozenges. General information on COPD was covered. COPD affects breathing. Self-care skills such as not smoking, using medications as prescribed, oxygen therapy, and knowing when to contact the healthcare provider are covered. Diaphragmatic breathing and pursed lip breathing are explained and demonstrated. Positive lifestyle changes are introduced. Following these self-care skills will help in the management of COPD so the patient can stay out of the hospital. Continue albuterol HFA as needed. Continue Breztri 160/9/4.8 mcg 2 puffs BID. Gargle after use. The patient does not know how to accurately administer the inhalers. Today, the patient was shown how to take these medications. The proper technique for delivering these medications was instructed. The patient expressed a clear understanding and demonstrated back how to use these medications. Without the proper technique, the patient will not reap the benefits of these medications as the contents will not reach the lower airways as intended to be. Adherence to therapy is advocated. Nonadherence may lead to treatment failure, further progression of the condition, and other complications. Hospitals admissions are often the result of individuals not taking prescription medications accurately. Alternatively, greater adherence to medication regimens have shown to lower rates of hospitalization and decrease total medical costs in patients with chronic medical conditions. Advocated influenza vaccination annually and pneumonia vaccination COURTNEY. Advocated weight loss through diet and exercise. Patient's ideal body weight according to height and gender is up to 155 lbs. Encouraged patient to adjust caloric intake to maintain/achieve ideal body weight, emphasizing on fruits, vegetables, whole grains, and fat-free or low-fat products. These include lean meats, poultry, fish, beans, eggs, and nuts and foods that are low in saturated fats, trans-fats, cholesterol, salt (sodium), and glycemic index. Stressed the importance of regular exercise up to the patient's capacity limits. In this case, we recommend 20 min daily walking, 2 days a week of resistance training. Patient to monitor BP daily and bring records to PCP for further management. Follow-up: 9 months, October 2025 Not available 01/18/2025 11:39:26 Plan of Treatment Reminders Order Date Submit Date Provider Last Modified By Organization Details Last Modified Time Details Appointments Any 30 2025 10:30A M Alberto Hernandez MD Not available Not available Not available Lab culture, sputum 2024 025 2 [facility] (Lab), [address] [place], [address], 02/03/2025 09:14:56 culture, sputum 2024 025 [facility] (Lab), [address] [place], [address], 12/16/2024 12:23:36 alpha-1-a ntitrypsi n (aat) phenotype , serum 2023 024 [facility] (Lab), [address] [place], [address], 08/17/2024 17:03:14 BNP (B-type natriuret ic peptide), serum or plasma 2023 024 [facility] (Lab), [address] [place], [address], 08/09/2024 13:23:02 ige, total, serum [address] (Lab), [address] [place], [address], 08/19/2024 14:26:03 tb (M tuberculo sis), ifn-gamma pelon, blood [address] (Lab), [address] [place], [address], 08/19/2024 14:26:03 [address] s 1+2+3+4, serum [address] (Lab), [address] [place], [address], 08/19/2024 14:26:03 respirato ry allergen panel, [facility] A, serum [address] (Lab), [address] [place], [address], 08/19/2024 14:26:03 respirato ry allergen panel - [facility] b 2023 024 2 [facility] ([facility]), [address], [place], [address], 08/19/2024 14:26:03 Referral pulmonolo gist referral - Please call patient to schedule. Note from provider: Hemoptysi s; RLL consolida tion on Augmentin until 08/14/24; 20 mm RUL nodule; 3.[address] 2023 024 [email or web address] 2 Bhavin Menchaca MD, [address] [place], [address], 02/07/2025 08:22:36 Procedures None recorded. Surgeries None recorded. Imaging None recorded. Medication Orders ipratropi um bromide 42 mcg (0.06 %) nasal spray 2024 025 [facility] [employer] [facility] #[id number], [address], [id number], 01/18/2025 11:37:24 Breztri Aerospher e 160 mcg-9mcg- 4.8mcg/ac tuation HFA aerosol inhaler [address] [id number] [address] [place], [id number], 01/18/2025 11:37:25 albuterol sulfate HFA 90 mcg/actua tion aerosol inhaler [address] [id number], [address], [place], [place], [id number], 01/18/2025 11:37:25 ipratropi um bromide 42 mcg (0.06 %) nasal spray 2024 025 [facility] #[id number], [address], [place], [address], 12/13/2024 09:45:30 Breztri Aerospher e 160 mcg-9mcg- 4.8mcg/ac tuation HFA aerosol inhaler 2024 025 [facility]acy #[id number], [address], [place], [address], 12/13/2024 09:45:30 albuterol sulfate HFA 90 mcg/actua tion aerosol inhaler 2024 025 [facility]armacy #[id number], [address], [place], [address], 12/13/2024 09:45:29 Breztri Aerospher e 160 mcg-9mcg- 4.8mcg/ac tuation HFA aerosol inhaler 2024 025 [facility] #[id number], [address], [place], [address], 10/19/2024 10:48:03 albuterol sulfate HFA 90 mcg/actua tion aerosol inhaler 2024 025 [id number] [address], [place], [address], 10/19/2024 10:48:04 Patient TargetsNo targets recorded. Patient Instructions Encounter Date Encounter Id Patient Instructions Last Modified By Organization Details Last Modified Time 08/09/2024 [id number] complete PFT w/ post bronchodilator spirometry* - Please call patient to schedule. REESE [id number] per [facility]. [email or web address] Not available 10/25/2024 17:21:19 01/18/2025 [id number] complete PFT w/ post bronchodilator spirometry* Not available 01/18/2025 11:35:54 Reason for Referral Recreation Program Specialist Referral for S olitary nodule of lung Please call patient to schedule.Note from provider: Hemoptysis; RLL consolidation on Augmentin until 08/14/24; 20 mm RUL nodule; 3.6 cm right paratracheal LN Referring Physician: Alberto Hernandez, Pulmonary Disease, Encounter Date: 08/09/2024 Results Created Date Observation Date Name Description Value Unit Range Abnormal Flag Note LastModifiedBy Organization Detail LastModifiedTime 08/03/2011/19/2020 XR, chest , 1 view No observ ation record ed. BARCODE Not Available 2023 15:00:02 08/03/20 24 04/17/2023 XR, chest , 1 view No observ ation record ed. BARCODE Not Available 2023 15:00:02 08/09/20 24 08/04/2024 CT, chest , w/o contr ast No observ ation record ed. BARCODE Not Available 2023 14:32:27 10/14/1910/11/2024 pre/p ost [facility] hodil ator sofia metry * No observ ation record ed. [facility] ([employer]) [address] [place], [address], 10/14/2024 12:48:05 Result Notes None recorded. Problems Name Problem SNOMED Code Status Onset Date Resolution Date Notes Provider Name and Address Organization Details Recorded Time Full thickness rotator cuff tear 142594528 Active Not Available [facility] 3 18:54:04 Disorder of bursa of shoulder region 23186175 Active Not Available [facility] 3 18:54:04 Smoker 00634928 Active 2023 Alberto Hernandez MD [address], [place], [address] , [employer] 4 10:29:35 Severe chronic obstructive pulmonary disease 822120032 Active 2024 Alberto Hernandez MD [address], [place], [address] , [employer] 5 10:31:28 Posterior rhinorrhea 15218634 Active 2024 Alberto Hernandez MD [address], [place], [address] , [employer] 5 09:44:25 Notes:Medical History: Anxie ty R>L hearing loss Eosinophils 370/uL Rhinitis to dust mites with postnasal drip AAT PiMM 193 mg% Nicotine use Severe COPD, on 2.5 Lpm nocturnal & exertional O2 c/o [employer] Right small cell lung ca on chemotherapy and immunotherapy Hepatitis C Vit B12 deficiency Vit D deficiency Right rotator cuff tear Right hand ganglion cyst Procedure History: Right knee surgery 1982 Right gynecomastia surgery 1982 Bilateral inguinal herniorrhaphy 2017 Right hydrocele repair 2017 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 Medical Equipment None Reported. Allergies No known drug allergies Medications Name Sig Start Date Stop Date Status Note LastModified by Organization Details LastModified Time amoxicillin 500 mg capsule 11/04 completed Not Available Not Available Not Available hydrocodone 7.5 mg-ibuprofe n 200 mg tablet TK 1 T PO Q 6 HOURS PRN 11/04 completed Not Available Not Available Not Available ipratropium 0.5 mg-albutero l 3 mg (2.5 mg base)/3 mL nebulizatio n soln INHALE CONTENTS OF 1 VIAL NEBULIZED EVERY 4 HOURS NEEDED FOR SHORTNESS OF BREATH/WH EEZING 10/19 completed Not Available Not Available Not Available albuterol sulfate 2.5 mg/3 mL (0.083 %) solution for nebulizatio n INHALE 3 ML BY NEBULIZAT ION 3 TIMES A DAY NEEDED 10/19 completed Not Available Not Available Not Available nicotine (polacrilex ) 2 mg gum CHEW 1 PIECE OF GUM BY MOUTH EVERY 2 HOURS NEEDED. 08/09 completed Not Available Not Available Not Available ofloxacin 0.3 % eye drops 11/04 completed Not Available Not Available Not Available benzonatate 200 mg capsule TAKE 1 CAPSULE BY MOUTH THREE TIMES A DAY 10/19 completed Not Available Not Available Not Available hydrocodone 5 mg-acetamin ophen 325 mg tablet TK 1 T PO QD PRN 11/04 completed Not Available Not Available Not Available ondansetron HCl 8 mg tablet TAKE 1 TABLET BY MOUTH EVERY 8 HOURS NEEDED FOR NAUSEA AND VOMITING 12/10 completed Not Available Not Available Not Available prednisone 20 mg tablet TAKE 2 (TWO) TABLETS BY MOUTH DAILY WITH BREAKFAST FOR 2 DOSES 10/19 completed Not Available Not Available Not Available olanzapine 5 mg tablet TAKE 1 TABLET BY MOUTH DIRECTED AT BEDTIME ON DAYS 1 THROUGH 4 OF EACH 21 DAY CYCLE. 2024 active Not Available Not Available Not Avai lable naproxen 250 mg tablet TK 1 T PO BID 11/04 completed Not Available Not Available Not Available diphenoxyla te-atropine 2.5 mg-0.025 mg tablet TK 1 T PO Q 8 H PRN 11/04 completed Not Available Not Available Not Available melatonin 3 mg tablet Take by oral route. active Not Available Not Available No t Available prochlorper azine maleate 10 mg tablet TAKE 1 TABLET BY MOUTH EVERY 6 HOURS NEEDED FOR NAUSEA AND VOMITING 12/10 completed Not Available Not Available Not Available tramadol 50 mg tablet TK 2 TS PO BID 11/04 completed Not Available Not Available Not Available butalbital- acetaminoph en-caffeine 50 mg-325 mg-40 mg tablet TAKE 1 (ONE) TABLET BY MOUTH EVERY 6 HOURS NEEDED FOR HEADACHE OR MIGRAINE active Not Available Not Available No t Available nicotine (polacrilex ) 4 mg gum 11/04 completed Not Available Not Available Not Available diazepam 2 mg tablet TK 1 T PO TID 11/04 completed Not Available Not Available Not Available cephalexin 500 mg capsule TK ONE C PO QID 11/04 completed Not Available Not Available Not Available tobramycin 0.3 % eye drops 11/04 completed Not Available Not Available Not Available triamcinolo ne acetonide 0.1 % topical ointment APPLY TOPICALLY TO THE AFFECTED AREA THREE TIMES DAILY active Not Available Not Available No t Available dexamethaso ne 4 mg tablet TAKE 2 TABS BY MOUTH ONCE A DAY ON DAY 4 DURING CYCLES 1 THROUGH 4 FOR NAUSEA/VO MITING *NOT COVERED* active Not Available Not Available No t Available polymyxin B sulfate 10,000 unit-trimet hoprim 1 mg/mL eye drops INSTILL 1-2 DROPS IN AFFECTED EYE 4 TIMES A DAY NEEDED FOR 7 DAYS 08/09 completed Not Available Not Available Not Available butalbital- aspirin-caf feine 50 mg-325 mg-40 mg capsule 11/04 completed Not Available Not Available Not Available buspirone 7.5 mg tablet 11/04 completed Not Available Not Available Not Available diclofenac sodium 75 mg tablet,erin downey release TK 1 T PO QD 11/04 completed Not Available Not Available Not Available morphine ER 15 mg tablet,exte nded release TAKE 1 TABLET BY MOUTH EVERY 8 HOURS FOR 60 DOSES active Not Available Not Available No t Available polyethylen e glycol 3350 17 gram/dose oral powder TAKE 17 GRAMS BY MOUTH ONCE EVERY DAY 12/10 completed Not Available Not Available Not Available levofloxaci n 500 mg tablet TK 1 T PO QD 11/04 completed Not Available Not Available Not Available hydrocodone 10 mg-chlorphe niramine 8 mg/5 mL oral susp extend.rel 12hr TK 5 ML PO BID 11/04 completed Not Available Not Available Not Available albuterol sulfate HFA 90 mcg/actuati on aerosol inhaler INHALE 1 PUFF BY MOUTH EVERY 4 HOURS NEEDED active Not Available Not Available No t Available ipratropium bromide 42 mcg (0.06 %) nasal spray USE 1 SPRAY IN EACH NOSTRIL FOUR TIMES DAILY NEEDED active Not Available Not Available No t Available albuterol sulfate 2 mg tablet TAKE 1 TABLET BY MOUTH THREE TIMES A DAY 10/19 completed Not Available Not Available Not Available ondansetron 4 mg disintegrat ing tablet 11/04 completed Not Available Not Available Not Available fluticasone propionate 50 mcg/actuati on nasal spray,suspe nsion 11/04 completed Not Available Not Available Not Available sertraline 50 mg tablet 11/04 completed Not Available Not Available Not Available diazepam 5 mg tablet 11/04 completed Not Available Not Available Not Available amoxicillin 875 mg-potassiu m clavulanate 125 mg tablet 11/04 completed Not Available Not Available Not Available amoxicillin 500 mg-potassiu m clavulanate 125 mg tablet TAKE 1 TABLET BY MOUTH EVERY 12 HOURS 10/08 completed Not Available Not Available Not Available oxycodone 5 mg tablet TAKE 1 TABLET BY MOUTH EVERY 6 HOURS NEEDED FOR PAIN 12/13 completed Not Available Not Available Not Available senna-docus ate sodium 8.6 mg-50 mg tablet Take by oral route. 10/19 completed Not Available Not Available Not Available clobetasol- emollient 0.05 % topical cream APPLY TOPICALLY TO THE AFFECTED AREA TWICE DAILY active Not Available Not Available No t Available Symbicort 160 mcg-4.5 mcg/actuati on HFA aerosol inhaler INHALE 2 PUFFS INTO THE LUNGS TWICE A DAY 12/13 completed Not Available Not Available Not Available Symbicort 80 mcg-4.5 mcg/actuati on HFA aerosol inhaler 11/04 completed Not Available Not Available Not Available oxycodone 10 mg tablet TAKE 1 TABLET BY MOUTH EVERY 6 HOURS NEEDED FOR PAIN active Not Available Not Available No t Available Senexon-S 8.6 mg-50 mg tablet TAKE 2 TABLETS BY MOUTH ONCE DAILY 10/19 completed Not Available Not Available Not Available Virtussin AC 10 mg-100 mg/5 mL oral liquid 11/04 completed Not Available Not Available Not Available fluticasone 232 mcg-salmete rol 14 mcg/actuati on breath activated powdr 11/04 completed Not Available Not Available Not Available Breztri Aerosphere 160 mcg-9mcg-4. 8mcg/actuat ion HFA aerosol inhaler Inhale 2 puffs twice a day by inhalatio n route. 2024 active Not Available Not Available Not Avai lable albuterol 90 mcg-budeson grace 80 mcg/actuati on HFA aerosol inhaler Inhale by inhalatio n route. 10/19 completed Not Available Not Available Not Available Vitals Date Recorded Oxygen saturation Oxygen saturation in Arterial blood by Pulse oximetry Heart rate Respiratory rate Provider Name and Address Organization Details Last Updated DateTime 10/19/2024 93 % 93 % 94 /min 14 /min Alberto Hernandez MD [address] [facility], [facility] [address], [place], [address], [facility] [employer] 5 11:04:23 Date Recorded Body height Body mass index (BMI) Body weight Body temperature Heart rate Systolic And Diastolic Provider Name and Address Organization Details Last Updated DateTime 167.64 cm 31.5 kg/m2 55685.5 1 g 98.3 [degF] 94 /min 120/74 mm[Hg] Alma Jarrett MA [employer] 5 10:30:24 Date Recorded Oxygen saturation Oxygen saturation in Arterial blood by Pulse oximetry Heart rate Respiratory rate Provider Name and Address Organization Details Last Updated DateTime 12/13/2024 92 % 92 % 94 /min 15 /min Alberto Hernandez MD [address], [place], [address], [employer] [facility] [employer] 5 09:30:17 Date Recorded Body height Body mass index (BMI) Body weight Body temperature Heart rate Systolic And Diastolic Provider Name and Address Organization Details Last Updated DateTime 5 167.64 cm 31.2 kg/m2 01577.3 3 g 97.7 [degF] 94 /min 120/74 mm[Hg] Alma Jarrett MA [employer] [facility] [employer] 5 09:06:02 Date Recorded Heart rate Oxygen saturation Oxygen saturation in Arterial blood by Pulse oximetry Respiratory rate Heart rate Provider Name and Address Organization Details Last Updated DateTime 5 97 /min 91 % 91 % 14 /min 97 /min Alberto Hernandez MD [address], [place], [address], [employer] [facility] [employer] 5 11:31:00 Date Recorded Body height Body mass index (BMI) Body weight Body temperature Systolic And Diastolic Provider Name and Address Organization Details Last Updated DateTime 01/18/2025 167.64 cm 28.6 kg/m2 66332.8 5 g 98.2 [degF] 118/78 mm[Hg] Alma Jarrett MA [employer] [facility] [employer] 5 11:14:53 Date Recorded Heart rate Respiratory rate Provider N bravo and Address Organization Details Last Updated DateTime 08/09/2024 79 /min 15 /min Alberto Hernandez MD [address], [place], [address], [employer] [facility] [employer] 08/09/2024 10:14:03 Date Recorded Body height Body mass index (BMI) Body weight Body temperature Heart rate Oxygen saturation Oxygen saturation in Arterial blood by Pulse oximetry Systolic And Diastolic Provider Name and Address Organization Details Last Updated DateTime 167.64 cm 29.7 kg/m2 64503 g 98.6 [degF] 79 /min 94 % 94 % 118/74 mm[Hg] Alma Jarrett MA [employer] [facility] [employer] 10:01:48 Social History Question Answer Notes LastModified by Organizat ion Details LastModified Time Tobacco Smoking Status Current Every Day Smoker Alma Jarrett MA null, [facility] [employer] [facility] 08/09/2024 09:58:19 What Is Your Level Of Caffeine Consumption? Moderate Information not available 08/09/2024 In The 14 Days Before Symptom Onset, Have You Had Close Contact With A Laboratory-confir med COVID-19 While That Case Was Ill? No Information not available 08/09/2024 In The 14 Days Before Symptom Onset, Have You Had Close Contact With A Person Who Is Under Investigation For COVID-19 While That Person Was Ill? No Information not available 08/09/2024 What Type Of Diet Are You Following? REGULAR Information not available 08/09/2024 Do You Have An Electrostatic Air Filter? No Information not available 08/09/2024 Do You Have A Humidifier? No Information not available 08/09/2024 Do You Have Moisture Problems In Your Home? No Information not available 08/09/2024 What Was The Date Of Your Most Recent Tobacco Screening? 01/18/2025 Information not available 01/18/2025 What Is Your Current Pack Years? 30ormorepack years Information not available 08/09/2024 Do You Have Any Pets? Yes Information not available 08/09/2024 Do You Use Your Seat Belt Or Car Seat Routinely? Yes Information not available 08/09/2024 Do You Have Smoke And Carbon Monoxide Detectors In Your Home? Yes Information not available 08/09/2024 Are You Passively Exposed To Smoke? Yes Information no t available 08/09/2024 How Much Tobacco Do You Smoke? 0.5 PPD Pack Every 3 Days Information not available 10/19/2024 Do You Use Sunscreen Routinely? No Information not available 08/09/2024 Have You Recently Traveled Abroad? No Information not available 08/09/2024 Do You Have Any Dietary Restrictions? No Information not available 08/09/2024 Sex: Unknown Functional Status Question Answer Note LastModified by Organizat ion Details LastModified Time Do you use any illicit or recreational drugs? No Information not available 08/09/2024 Do you or have you ever used any other forms of tobacco or nicotine? No Information not available 01/18/2025 What is your level of alcohol consumption? Occasional Information not available 08/09/2024 Are you currently employed? Yes Information not available 08/09/2024 Have you been exposed to chemicals or toxins? 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 Occasional Information not available 08/09/2024 Mental Status Question Answer Note LastModified by Organization D etails LastModified Time Do you feel stressed (tense, restless, nervous, or anxious, or unable to sleep at night)? [id number] Information not available 08/09/2024 Family History Relationship Description Onset Age of this Age Resolved Age Notes LastModified by Organization Details LastModified Time Mother Myocardial infarction Not available 08/09 10:41:17 Maternal Grandfather Gangrenous disorder Not available 2023 10:42:01 Medical History No medical history recorded. Past Encounters Encounter ID Performer Location Encounter Start Date Encounter Closed Date Diagnosis/Indication Diagnosis SNOMED-CT Code Diagnosis ICD10 Code Diagnosis Note [id number] Alberto Hernandez MD [facility] [address] 08/09/2024 09:39:18 08/09/2024 16:53:21 Dyspnea on exertion 85004110 R06.09 R05.9 T78.40XA D89.9 Solitary n odule of lung 635765440 R91.1 R59.0 R04.2 Smoker 33608849 F17.218 F17.219 Z87.122 [id number] MD [facility]Y [facility] [address] 10/19/2024 09:35:56 10/19/2024 11:09:26 Smoker 60467259 F17.218 F17.219 Z87.891 Severe chr onic obstructive pulmonary disease 418539674 J44.9 [id number] Alberto Hernandez MD [facility] [address] 12/13/2024 08:47:32 12/15/2024 12:55:20 Smoker 22854575 F17.218 F17.219 Z87.891 Severe chr onic obstructive pulmonary disease 234923577 J44.9 Posterior rhinorrhea 758 15650 R09.82 [id number] MD IVY [facility] [place] [address] 01/18/2025 10:46:18 01/24/2025 15:16:48 Smoker 96333582 F17.218 F17.219 Z87.891 Severe chr onic obstructive pulmonary disease 919643651 J44.9 Posterior rhinorrhea 758 61790 R09.82 Health Concerns Section Related Observation LastModified by Organization Detai ls LastModified Time None Recorded Concern Status LastModified by Organization Details LastModified Time None Recorded Advance Directives Directive None Recorded Payers Insurance Date Sequence Insurance Name Policy Number Policy Capps Covered Member ID Capps Member ID Guarantor Name 01/24/2025 1 [employer] (POS II) [id number] Adolfo Reyez [id number] Adolfo Reyez 01/24/2025 2 MEDICAID-[place]: [place] [employer] A[employer] Adolfo Reyez [id number] Adolfo Reyez 01/24/2025 1 [facility] (MEDICAID HMO) [id number] Adolfo Reyez [id number] Adolfo Reyez 01/24/2025 1 [facility] - DOS PRIOR TO 2021 (MEDICAID REPLACEMENT - HMO) Adolfo Reyez [id number] Adolfo Reyez Notes Date Note Type Note Provider Name and Address Organization Details Recorded Time 4 text/html Primary care/Referring provider: Shraddha Barrow MD Patient is here to go over shortness of breath evaluation/management. Initial development of shortness of breath: 05/2024 Duration of shortness of breath: 3 months Condition of shortness of breath: stable Timing of shortness of breath: none Frequency: up to 10 times a day Limits activities: yes Aggravating factors: walking to the bus stop 1.5 block away; carrying groceries Alleviating factors: rest Modified [employer] (mMRC) Dyspnea Scale - Grade 2 Grade 0 I only get breathless with strenuous exercise . Grade 1 I get short of breath when hurrying on the level or walking up a slight hill . Grade 2 I walk slower than people of the same age on the level because of breathlessness or have to stop for breath when walking at my own pace on the level . Grade 3 I stop for breath after walking about 100 yards or after a few minutes on the level . Grade 4 I am too breathless to leave the house or I am breathless when dressing . Treatment history: Albuterol HFA as needed since 2016Albuterol tabs 3 x a day since 2015 Symbicort HFA 80/4.5 mcg 2 puffs BID 2016-2017Symbicort HFA 160/4.5 mcg 2 puffs BID 9971-8506 Augmentin 500/125 mg q 12 hours 08/05/24 - 08/14/24 Other symptoms: Drooling: no Dysarthria: no Neck pain: no Odynophagia: no Dysphagia: no Weak mastication: no Facial weakness: no Nasal speech: no Protruding tongue: no Productive cough: greenish, blood tinged, occasionally dark blood clot Wheezing: yes Chest tightness: yes Orthopnea: 2-pillow Frequent throat clearing or swallowing: no Palpitations: no Heartburn: no Edema: no Environmental exposures: Nicotine smoke: 2 ppd 1989-present (quit 4 years in between) = 60 pack years [place]: no Dye: no Dust mites: yes Mold: no Damp basement: no Wood burning stove: no Animal dander: 2 dogs Cockroaches: no Pollen: yes Arsenic: no Asbestos: no Beryllium: no Cadmium: no Chromium: no [place] smoke: no Diesel fumes: no Nickel: no Silica: no Soot: no EPWORTH SLEEPINESS SCALE (ESS) CHANCE OF DOZING SCORE 0 = would never doze 1 = slight chance of dozing 2 = moderate chance of dozing 3 = high chance of dozing SITUATION AND CHANCE OF DOZING Sitting and reading - 3 Watching television - 3 Sitting inactive in a public place (e.g. a theater or meeting) - 3 As a passenger in a car for an hour without a break - 1 Lying down to rest in the afternoon when circumstances permit - 1 Sitting and talking to someone - 3 Sitting quietly after lunch without alcohol - 3 In a car, while stopped for a few minutes in the traffic - 1 TOTAL SCORE 18 Subjectively, patient has a high chance of dozing. Alberto Hernandez MD [address] [place] [address], [facility] [address], [place], [address], [place] [employer] 08/09/2024 10:44:58 5 text/html Primary care/Referring provider: Shraddha Barrow MD CC: My insurance is not covering [employer]. Patient is here to go over his severe COPD and right small cell lung ca management. Initial development of shortness of breath: uration of shortness of breath: 5 monthsCondition of shortness of breath: stableTiming of shortness of breath: noneFrequency: up to 9 times a dayLimits activities: yesAggravating factors: walking to the bus stop 1.5 block away; carrying groceriesAlleviating factors: rest Modified [employer] (mMRC) Dyspnea Scale - Grade 2Grade 0 I only get breathless with strenuous exercise .Grade 1 I get short of breath when hurrying on the level or walking up a slight hill .Grade 2 I walk slower than people of the same age on the level because of breathlessness or have to stop for breath when walking at my own pace on the level .Grade 3 I stop for breath after walking about 100 yards or after a few minutes on the level .Grade 4 I am too breathless to leave the house or I am breathless when dressing . Treatment history: Albuterol HFA as needed since 2016Albuterol tabs 3 x a day since 2015 Symbicort HFA 80/4.5 mcg 2 puffs BID 2016-2017Symbicort HFA 160/4.5 mcg 2 puffs BID 2017-2018Symbicort HFA 160/4.5 mcg 2 puffs BID since 09/2024 Augmentin 500/125 mg q 12 hours 08/05/24 - 08/14/24 Other symptoms:Drooling: noDysarthria: noNeck pain: noOdynophagia: noDysphagia: noWeak mastication: noFacial weakness: noNasal speech: noProtruding tongue: noProductive cough: greenish, blood tinged, occasionally dark blood clotWheezing: yesChest tightness: yesOrthopnea: 2-pillowFrequent throat clearing or swallowing: noPalpitations: noHeartburn: noEdema: no Environmental exposures:Nicotine smoke: 2 ppd 1989-present (quit 4 years in between) = 60 pack yearsPaint: noDye: noDust mites: yesMold: noDamp basement: noWood burning stove: noAnimal dander: 2 dogsCockroaches: noPollen: yesArsenic: noAsbestos: noBeryllium: noCadmium: noChromium: noCoal smoke: noDiesel fumes: noNickel: noSilica: noSoot: no EPWORTH SLEEPINESS SCALE (ESS) CHANCE OF DOZING SCORE0 = would never doze1 = slight chance of dozing2 = moderate chance of dozing3 = high chance of dozing SITUATION AND CHANCE OF DOZINGSitting and reading - 3Watching television - 3Sitting inactive in a public place (e.g. a theater or meeting) - 2As a passenger in a car for an hour without a break - 1Lying down to rest in the afternoon when circumstances permit - 3Sitting and talking to someone - 1Sitting quietly after lunch without alcohol - 3In a car, while stopped for a few minutes in the traffic - 2TOTAL SCORE 18Subjectively, patient has a high chance of dozing. Alberto Hernandez MD [address] [place] [address], [facility] [address], [place], [address], [facility] [employer] 10/19/2024 11:05:03 5 text/html Primary care/Referring provider: Shraddha Barrow MD CC: My breathing is improved compared to 2 weeks ago but I still have postnasal drip and green sputum. I finally got Breztri approved because I switched to Medicare. I am undergoing chemotherapy and immunotherapy but have not started on radiation therapy. Patient is here to go over his severe COPD and right small cell lung ca management. Initial development of shortness of breath:uration of shortness of breath: 1 yearCondition of shortness of breath: stableTiming of shortness of breath: noneFrequency: up to 9 times a dayLimits activities: yesAggravating factors: walking to the bus stop 1.5 block away; carrying groceriesAlleviating factors: rest Modified [employer] (mMRC) Dyspnea Scale - Grade 2Grade 0 I only get breathless with strenuous exercise .Grade 1 I get short of breath when hurrying on the level or walking up a slight hill .Grade 2 I walk slower than people of the same age on the level because of breathlessness or have to stop for breath when walking at my own pace on the level .Grade 3 I stop for breath after walking about 100 yards or after a few minutes on the level .Grade 4 I am too breathless to leave the house or I am breathless when dressing . Treatment history: Albuterol HFA as needed since 2016Albuterol tabs 3 x a day since 2015 Symbicort HFA 80/4.5 mcg 2 puffs BID 2016-2017Symbicort HFA 160/4.5 mcg 2 puffs BID 2017-2018Symbicort HFA 160/4.5 mcg 2 puffs BID reztri aerosphere 160/9/4.8 mcg 2 puffs BID since 10/2024 Augmentin 500/125 mg q 12 hours 08/05/24 - 08/14/24 Other symptoms:Drooling: noDysarthria: noNeck pain: noOdynophagia: noDysphagia: noWeak mastication: noFacial weakness: noNasal speech: noProtruding tongue: noProductive cough: greenish, blood tinged, occasionally dark blood clotWheezing: yesChest tightness: yesOrthopnea: 2-pillowFrequent throat clearing or swallowing: noPalpitations: noHeartburn: noEdema: no Environmental exposures:Nicotine smoke: 2 ppd 1989-present (quit 4 years in between) = 62 pack yearsPaint: noDye: noDust mites: yesMold: noDamp basement: noWood burning stove: noAnimal dander: 2 dogsCockroaches: noPollen: yesArsenic: noAsbestos: noBeryllium: noCadmium: noChromium: noCoal smoke: noDiesel fumes: noNickel: noSilica: noSoot: no EPWORTH SLEEPINESS SCALE (ESS) CHANCE OF DOZING SCORE0 = would never doze1 = slight chance of dozing2 = moderate chance of dozing3 = high chance of dozing SITUATION AND CHANCE OF DOZINGSitting and reading - 2Watching television - 3Sitting inactive in a public place (e.g. a theater or meeting) - 2As a passenger in a car for an hour without a break - 2Lying down to rest in the afternoon when circumstances permit - 3Sitting and talking to someone - 1Sitting quietly after lunch without alcohol - 2In a car, while stopped for a few minutes in the traffic - 1TOTAL SCORE 16Subjectively, patient has a moderate chance of dozing. Primary care/Referring provider: Shraddha Barrow MD; Manuel Osorio MD (medical oncologist) CC: My insurance is not covering Incruse Ellipta. Patient is here to go over his severe COPD and right small cell lung ca management. Initial development of shortness of breath: uration of shortness of breath: 5 monthsCondition of shortness of breath: stableTiming of shortness of breath: noneFrequency: up to 9 times a dayLimits activities: yesAggravating factors: walking to the bus stop 1.5 block away; carrying groceriesAlleviating factors: rest Modified [employer] (mMRC) Dyspnea Scale - Grade 2Grade 0 I only get breathless with strenuous exercise .Grade 1 I get short of breath when hurrying on the level or walking up a slight hill .Grade 2 I walk slower than people of the same age on the level because of breathlessness or have to stop for breath when walking at my own pace on the level .Grade 3 I stop for breath after walking about 100 yards or after a few minutes on the level .Grade 4 I am too breathless to leave the house or I am breathless when dressing . Treatment history: Albuterol HFA as needed since 2017Albuterol tabs 3 x a day since 2016 Symbicort HFA 80/4.5 mcg 2 puffs BID 2016-2017Symbicort HFA 160/4.5 mcg 2 puffs BID 2017-2018Symbicort HFA 160/4.5 mcg 2 puffs BID since 09/2024 Augmentin 500/125 mg q 12 hours 08/05/24 - 08/14/24 Other symptoms:Drooling: noDysarthria: noNeck pain: noOdynophagia: noDysphagia: noWeak mastication: noFacial weakness: noNasal speech: noProtruding tongue: noProductive cough: greenish, blood tinged, occasionally dark blood clotWheezing: yesChest tightness: yesOrthopnea: 2-pillowFrequent throat clearing or swallowing: noPalpitations: noHeartburn: noEdema: no Environmental exposures:Nicotine smoke: 2 ppd 1989-present (quit 4 years in between) = 60 pack yearsPaint: noDye: noDust mites: yesMold: noDamp basement: noWood burning stove: noAnimal dander: 2 dogsCockroaches: noPollen: yesArsenic: noAsbestos: noBeryllium: noCadmium: noChromium: noCoal smoke: noDiesel fumes: noNickel: noSilica: noSoot: no EPWORTH SLEEPINESS SCALE (ESS) CHANCE OF DOZING SCORE0 = would never doze1 = slight chance of dozing2 = moderate chance of dozing3 = high chance of dozing SITUATION AND CHANCE OF DOZINGSitting and reading - 3Watching television - 3Sitting inactive in a public place (e.g. a theater or meeting) - 2As a passenger in a car for an hour without a break - 1Lying down to rest in the afternoon when circumstances permit - 3Sitting and talking to someone - 1Sitting quietly after lunch without alcohol - 3In a car, while stopped for a few minutes in the traffic - 2TOTAL SCORE 18Subjectively, patient has a high chance of dozing. Alberto Hernandez MD [address] [place] [address] [address], [place], [address], [facility] [place] 12/13/2024 09:53:30 5 text/html Primary care/Referring provider: Shraddha Barrow MD; Manuel Osorio MD (medical oncologist) CC: My breathing is improved compared to 2 weeks ago but I still have postnasal drip and green sputum. I finally got Breztri approved because I switched to Medicare. I am undergoing chemotherapy and immunotherapy but have not started on radiation therapy. Patient is here to go over his severe COPD and right small cell lung ca management. Initial development of shortness of breath:uration of shortness of breath: 1 yearCondition of shortness of breath: stableTiming of shortness of breath: noneFrequency: up to 9 times a dayLimits activities: yesAggravating factors: walking to the bus stop 1.5 block away; carrying groceriesAlleviating factors: rest Modified Medical Research [employer] (mMRC) Dyspnea Scale - Grade 2Grade 0 I only get breathless with strenuous exercise .Grade 1 I get short of breath when hurrying on the level or walking up a slight hill .Grade 2 I walk slower than people of the same age on the level because of breathlessness or have to stop for breath when walking at my own pace on the level .Grade 3 I stop for breath after walking about 100 yards or after a few minutes on the level .Grade 4 I am too breathless to leave the house or I am breathless when dressing . Treatment history: Albuterol HFA as needed since 2016Albuterol tabs 3 x a day since 2015 Symbicort HFA 80/4.5 mcg 2 puffs BID 2016-2017Symbicort HFA 160/4.5 mcg 2 puffs BID 2017-2018Symbicort HFA 160/4.5 mcg 2 puffs BID reztri aerosphere 160/9/4.8 mcg 2 puffs BID since 10/2024 Augmentin 500/125 mg q 12 hours 08/05/24 - 08/14/24 Other symptoms:Drooling: noDysarthria: noNeck pain: noOdynophagia: noDysphagia: noWeak mastication: noFacial weakness: noNasal speech: noProtruding tongue: noProductive cough: greenish, blood tinged, occasionally dark blood clotWheezing: yesChest tightness: yesOrthopnea: 2-pillowFrequent throat clearing or swallowing: noPalpitations: noHeartburn: noEdema: no Environmental exposures:Nicotine smoke: 2 ppd 1989-present (quit 4 years in between) = 62 pack yearsPaint: noDye: noDust mites: yesMold: noDamp basement: noWood burning stove: noAnimal dander: 2 dogsCockroaches: noPollen: yesArsenic: noAsbestos: noBeryllium: noCadmium: noChromium: noCoal smoke: noDiesel fumes: noNickel: noSilica: noSoot: no EPWORTH SLEEPINESS SCALE (ESS) CHANCE OF DOZING SCORE0 = would never doze1 = slight chance of dozing2 = moderate chance of dozing3 = high chance of dozing SITUATION AND CHANCE OF DOZINGSitting and reading - 2Watching television - 2Sitting inactive in a public place (e.g. a theater or meeting) - 2As a passenger in a car for an hour without a break - 2Lying down to rest in the afternoon when circumstances permit - 3Sitting and talking to someone - 2Sitting quietly after lunch without alcohol - 2In a car, while stopped for a few minutes in the traffic - 1TOTAL SCORE 16Subjectively, patient has a moderate chance of dozing. Alberto Hernandez MD [address] [place] [address], [place], [address], [place] - [facility] 01/18/2025 11:39:40
--- OUTSIDE RECORDS SUMMARY | 2025-03-26 15:31 | XMS_ITS | Encounter Summary ---
Author Organization [facility] Address [address] [facility] [place] [address] Care Team Providers Care Newspaper Photo Editor Name Role Phone Shraddha Barrow MD Primary Care Provider + [phone] Manuel Osorio MD Unavailable Reason for Visit * Reason Onset Date Comments MEDICATION REFILL 12/13/2024 Encounter Details Date Type Department Care Team (Late st Contact Info) Description 12/13/2024 Refill [facility] - Hematology/Oncology [address] [place] [address] Manuel Osorio MD [address] [place] [address] MEDICATION REFILL Social History Tobacco [...] Recorded Patient Health Questionnaire-2 Score 0 08/27/2024 [facility] of Occupat ional [facility] - Occupational Stress Questionnaire Answer Date [...] any time in the past 12 m [facility], were you homeless or living in a intermediate (including now)? No 09/30/2024 Sex and Gender Information Value Date Recorded Sex Assigned at Male 08/19/2024 9:03 PM FUR MIXER Legal Sex Male 5:09 AM FUR MIXER Gender Identity Male 08/19/2024 9:03 PM FUR MIXER Sexual Orientation Straight 08/19/2024 9: 03 PM FUR MIXER documented as of this encounter Functional Status [...] Description 03/30/2025 8:40 AM CDT Office Visit [facility] - Hematology/Oncology [address] [place] [phone] Yessenia Kirkpatrick, PROCESS LINE OPERATOR-EQUIPMENT SERVICE ENGINEER [address] [place] [phone] 04/07/2025 2:40 PM CDT Appointment [facility] CAT SCAN [address] [place] [phone] Vangie Montero PROCESS LINE OPERATOR-EQUIPMENT SERVICE ENGINEER [address] [place], [place] [phone] 04/07/2025 3:30 PM CDT Appointment [facility] MRI [address] [place] [phone] Lauren Skinner MD [address] [place] [address] 04/08/2025 1:00 PM CDT Office Visit [facility] - Pain Management [address] [place] [address] Manuel Osorio MD [address] [place] [address] Ladarius Egan MD [address] [place] [phone] 05/16/2025 9:30 AM CDT Office Visit [facility] - Internal Med [address] [facility] [place] [address] Yvette Schulz PA-C [address] [place] [address] documented as of this encounter Visit Diagnoses Diagnosis 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
--- OUTSIDE RECORDS SUMMARY | 2025-03-26 15:31 | XMS_ITS | Encounter Summary ---
Author Organization [facility] Address [address] [facility] [place] [address] Care Team Providers Care Catering Sous Chef Name Role Phone Shraddha Barrow MD Primary Care Provider + [phone] Manuel Osorio MD Unavailable Reason for Visit * Reason Onset Date Comments MEDICATION REFILL 02/08/2025 Encounter Details Date Type Department Care Team (Late st Contact Info) Description 02/08/2025 Refill [facility] - Hematology/Oncology [address] [place] [address] Sandrita Ybarra MD [address] [place] [address] MEDICATION REFILL Social History Tobacco [...] Recorded Patient Health Questionnaire-2 Score 0 08/27/2024 [facility] of Occupat ional Health - Occupational Stress [...] any time in the past [address] [facility], were you homeless or living in a fdc (including now)? No 09/30/2024 Sex and Gender Information Value Date Recorded Sex Assigned at Male 08/19/2024 9:03 PM PROGRAM PLANNER Legal Sex Male 5:09 AM PROGRAM PLANNER Gender Identity Male 08/19/2024 9:03 PM PROGRAM PLANNER Sexual Orientation Straight 08/19/2024 9: 03 PM PROGRAM PLANNER documented as of this encounter Functional Status [...] encounter Miscellaneous Notes * Telephone Encounter - Марина Snyder RN - 02/11/2025 2:09 PM CDT Duplicate request documented in this encounter Plan of Treatment Upcoming Encounters Date Type Department Care Team (Late st Contact Info) Description 03/30/2025 8:40 AM CDT Office Visit [facility] - Hematology/Oncology [address] [place] [address] Yessenia Kirkpatrick, SCALEMAN-CRUSHER SETTER [address] [place] [phone] 04/07/2025 2:40 PM CDT Appointment [facility] CAT SCAN [address] [place] [phone] Vangie Montero, SCALEMAN-CRUSHER SETTER [address] [place] [address] 04/07/2025 3:30 PM CDT Appointment [facility] MRI [address] [place] [phone] Lauren Skinner MD [address] [place] [phone] 04/08/2025 1:00 PM CDT Office Visit [facility] - Pain Management [address] [place] [address] Manuel Osorio MD [address] [place] [address] Ladarius Egan MD [address] [place] [phone] 05/16/2025 9:30 AM CDT Office Visit [facility] - Internal Med [address] [facility], [place] [phone] Yvette Schulz PA-C [address] [place] [address] documented as of this encounter Visit Diagnoses Diagnosis 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, unspecified laterality (HCC) documented in this encounter Care Teams Catering Sous Chef Relationship Specialty Start Date End Date Shraddha Barrow MD [address] [place] [phone] PCP - General 12/01/18 Manuel Osorio MD [address] [place] [phone] Hematology and Oncology 12/15/24 documented as of this encounter
--- OUTSIDE RECORDS SUMMARY | 2025-03-26 15:31 | XMS_ITS | Encounter Summary ---
Author Organization [facility] Address [address] [facility] [place] [address] Care Team Providers Care Ordnance Artificer Name Role Phone hSraddha Barrow MD Primary Care Provider + [phone] Manuel Osorio MD Unavailable Reason for Visit * Reason Onset Date Comments MEDICATION REFILL 09/17/2024 Encounter Details Date Type Department Care Team (Late st Contact Info) Description 09/17/2024 Refill [facility] [address] [place] [address] Manuel Osorio MD [address] [place] [address] MEDICATION REFILL Social History Tobacco Use Types Packs/Day Years Used Date Smoking Tobacco: Every Day Cigarettes 1 46.5 Started: 1979 Smokeless Tobacco: Never Alcohol Use Standard Drinks/Week Comments Not Currently 0 (1 standard drink = 0.6 oz pur e alcohol) AUDIT-C Answer Date Recorded Q1: How often do you have a drink containing alcohol? Never 08/16/2024 Q2: How many drinks containi ng alcohol do you have on a typical day when you are drinking? Patient does not drink Q3: How often do you have si x or more drinks on one occasion? Never 08/16/2024 PHQ-2 Answer Date Recorded Patient Health Questionnaire-2 Score 0 08/27/2024 Sex and Gender Information Value Date Recorded Sex Assigned at Male 08/19/2024 9:03 PM SET DESIGNER Legal Sex Male 5:09 AM SET DESIGNER Gender Identity Male 08/19/2024 9:03 PM SET DESIGNER Sexual Orientation Straight 08/19/2024 9: 03 PM SET DESIGNER documented as of this encounter Functional Status * Is person deaf or have serious hearing difficulty? Answer Date of Assessment Author No 08/16/2024 7:25 PM SET DESIGNER Ondina Branch RN * Is person blind or have serious difficulty seeing? Answer Date of Assessment Author No 08/16/2024 7:25 PM Ondina Samuel RN * Does person have serious difficulty walking/climbing stairs? Answer Date of Assessment Author No 08/16/2024 7:25 PM Ondina Samuel RN * Does person have difficulty dressing/bathing? Answer Date of Assessment Author No 08/16/2024 7:25 PM Ondina Samuel RN * Does person have difficulty doing errands alone? Answer Date of Assessment Author No 08/16/2024 7:25 PM Ondina Samuel RN documented as of this encounter Mental Status * Does person have difficulty concentrating/remembering/making decisions? Answer Entry Date Author No 08/16/2024 7:25 PM Ondina Samuel RN documented in this encounter Plan of Treatment Upcoming Encounters Date Type Department Care Team (Late st Contact Info) Description 03/30/2025 8:40 AM CDT Office Visit [facility] - Hematology/Oncology [address] [place] [phone] Yessenia Kirkpatrick, OB/GYN-GRUBBER [address] [place] [phone] 04/07/2025 2:40 PM CDT Appointment [facility] CAT SCAN [address] [place] [phone] Vangie Montero APRN-GRUBBER [address] [place] [address] 04/07/2025 3:30 PM CDT Appointment [facility] MRI [address] [place] [phone] Lauren Skinner MD [address] [place] [address] 04/08/2025 1:00 PM CDT Office Visit [facility] - Pain Management [address] [place] [address] Manuel Osorio MD [facility] [place] [phone] Ladarius Egan MD [facility] [place] [address] 05/16/2025 9:30 AM CDT Office Visit [facility] - Internal Med [address] [facility] [place] [phone] Yvette Schulz PA-C [address] [place] [address] documented as of this encounter Visit Diagnoses Diagnosis 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, unspecified laterality (HCC) documented in this encounter Additional Health Concerns Infection Onset Date Last Indicated Resolved Time COVID-19 Under Investigation 09/30/2024 09/30/2024 09/30/2024 4:56 AM SET DESIGNER documented as of this encounter Care Teams Ordnance Artificer Relationship Specialty Start Date End Date Shraddha Barrow MD [address] [place] [phone] PCP - General 12/01/18 Manuel Osorio MD [address] [place] [phone] Hematology and Oncology 12/15/24 documented as of this encounter
--- OUTSIDE RECORDS SUMMARY | 2025-03-26 15:31 | XMS_ITS | Encounter Summary ---
Author Organization [facility] Address [address] [facility] [place] [address] Care Team Providers Care Catering Assistant Name Role Phone Shraddha Barrow MD Primary Care Provider + [phone] Manuel Osorio MD Unavailable Reason for Visit * Reason Onset Date Comments MEDICATION REFILL 02/20/2025 Encounter Details Date Type Department Care Team (Late st Contact Info) Description 02/20/2025 Refill [facility] - Hematology/Oncology [address] [place] [address] Manuel Osorio MD [address] [place] [address] MEDICATION REFILL Social History Tobacco [...] Recorded Patient Health Questionnaire-2 Score 0 02/16/2025 [facility] of Occupat ional [facility] - Occupational Stress Questionnaire Answer Date [...] any time in the past 12 m [facility], were you homeless or living in a prison (including now)? No 09/30/2024 Sex and Gender Information Value Date Recorded Sex Assigned at Male 08/19/2024 9:03 PM VEHICLE BODY MAKER Legal Sex Male 5:09 AM VEHICLE BODY MAKER Gender Identity Male 08/19/2024 9:03 PM VEHICLE BODY MAKER Sexual Orientation Straight 08/19/2024 9: 03 PM VEHICLE BODY MAKER documented as of this encounter Functional Status [...] Description 03/30/2025 8:40 AM CDT Office Visit [facility] - Hematology/Oncology [address] [place] [phone] Yessenia Kirkpatrick, PERINATAL BREASTFEEDING ASSISTANT-FREIGHT RECEIVER [address] [place] [phone] 04/07/2025 2:40 PM CDT Appointment [facility] CAT SCAN [address] [place] [phone] Vangie Montero PERINATAL BREASTFEEDING ASSISTANT-FREIGHT RECEIVER [address] [place], [place] [phone] 04/07/2025 3:30 PM CDT Appointment [facility] MRI [address] [place] [phone] Lauren Skinner MD [address] [place] [address] 04/08/2025 1:00 PM CDT Office Visit [facility] - Pain Management [address] [place] [address] Manuel Osorio MD [address] [place] [address] Ladarius Egan MD [address] [place] [address] 05/16/2025 9:30 AM CDT Office Visit [facility] - Internal Med [address] [facility] [place] [address] Yvette Schulz PA-C [address] [place] [address] documented as of this encounter Visit Diagnoses Diagnosis 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, unspecified laterality (HCC) documented in this encounter Care Teams Catering Assistant Relationship Specialty Start Date End Date Shraddha Barrow MD [address] [place] [address] PCP - General 12/01/18 Manuel Osorio MD [address] [place] [address] Hematology and Oncology 12/15/24 documented as of this encounter
--- OUTSIDE RECORDS SUMMARY | 2025-03-26 15:31 | XMS_ITS | Data Portability ---
Author Organization TAYLER VIKKIFavio Jackman Address [address] [place] [address] Assessment No assessment recorded. Plan of Treatment Reminders Order Date Submit Date Provider Last Modified By Organization Details Last Modified Time Details Appointments None recorded . Lab None recorded . Referral pulmonol ogist referral 2023 024 [facility], [address] [facility], [facility] [address], [place], [address], 4 20:15:29 pulmonol ogist referral 2020 021 [facility], [address] [facility] [address], [place], [address], 1 11:26:30 Procedures None recorded . Surgeries None recorded . Imaging CT, chest, w/o contrast 2023 024 [facility] Sched[facility], [address] [place], [address], 4 10:16:14 Medication Orders nicotine (polacri ivet) 2 mg gum 2023 024 [facility]/Pharmacy #[id number], [address] [facility], [place], [address], 4 12:53:47 Symbicor t 160 mcg-4.5 mcg/actu ation HFA aerosol inhaler 2023 024 [email or web address] [facility]/Pharmacy #[id number], [address], [place], [address], 4 13:40:39 albutero l sulfate 2 mg tablet 2023 024 [facility]/Pharmacy #[id number], [address], [place], [address], 4 12:42:57 albutero l sulfate HFA 90 mcg/actu ation aerosol inhaler 2023 024 [facility]/Pharmacy #[id number], [address], [place], [address], 4 12:42:55 azithrom ycin 250 mg tablet 2021 022 [facility] #[id number], [address], [id number], 4 12:11:51 albutero l sulfate 2 mg tablet [address] [facility] #[id number], [address], [id number], 3 15:53:20 albutero l sulfate HFA 90 mcg/actu ation aerosol inhaler 2021 023 [facility] #23522, [address], [id number], 3 17:39:09 Symbicor t 160 mcg-4.5 mcg/actu ation HFA aerosol inhaler 2021 023 [facility] #75009, [address], [id number], 3 17:39:30 ibuprofe n 800 mg tablet 2021 [facility] #77795, [address], [place], [place], [id number], 17:39:16 cetirizi ne 10 mg tablet 2021 [facility] #99151, [address], [id number], 17:39:11 albutero l sulfate 2 mg tablet 2021 [facility] #22518, [address] [place], [place], [id number], 3 17:38:56 albutero l sulfate HFA 90 mcg/actu ation aerosol inhaler 2021 [facility] #84273, [address], [id number], 3 17:38:59 Symbicor t 160 mcg-4.5 mcg/actu ation HFA aerosol inhaler 2021 [facility] #43435, [address] [place], [place], [id number], 3 17:39:20 Symbicor t 160 mcg-4.5 mcg/actu ation HFA aerosol inhaler 2020 021 [facility] #10089, [address], [id number], 3 17:39:20 albutero l sulfate 2 mg tablet 2020 021 [facility] #18613, [address], [id number], 17:38:56 albutero l sulfate HFA 90 mcg/actu ation aerosol inhaler 2020 021 [facility] #00262, [address], [place], [place], [id number], 17:38:59 tramadol 50 mg tablet 2020 021 [facility] #06292, [address], [place], [place], [id number], 09:38:02 Patient TargetsNo targets recorded. Patient Instructions Encounter Date Encounter Id Patient Instructions Last Modified By Organization Details Last Modified Time 06/24/2022 [id number] learning about chronic bronchitis [email or web address] Not available 06/24/2022 16:09:06 03/17/2023 [id number] A healthy lifestyle: care instructions [email or web address] Not available 03/18/2023 14:45:28 07/27/2024 [id number] deciding about using medicines to quit smoking Not available 07/27/2024 12:42:50 Quitting Tobacco : Care Instructions [email or web address] Not available 07/27/2024 12:42:50 coughing up blood: care instructions [email or web address] Not available 07/27/2024 12:42:50 learning about chronic bronchitis [email or web address] Not available 07/27/2024 12:42:50 Reason for Referral Outside Physical Damage Appraiser Referral for C hronic obstructive pulmonary disease Referring Physician: Shraddha Barrow, Internal Medicine, Encounter Date: 11/27/2020 Outside Physical Damage Appraiser Referral for H emoptysis Increased SOB and hemoptysis Referring Physician: Shraddha Barrow, Internal Medicine, Encounter Date: 07/27/2024 Results Created Date Observation Date Name Description Value Unit Range Abnormal Flag Note LastModifiedBy Organization Detail LastModifiedTime 04/30/20 21 05/03/2021 COMPL IANCE DRUG TAINA SIS, UR summary report (summary) FINAL ===== ===== ===== ===== ===== ===== ===== ===== ===== ===== ===== ===== ===== === TOXAS SURE COMP DRUG TAINA SIS,U R ===== ===== ===== ===== ===== ===== ===== ===== ===== ===== ===== ===== ===== === Test Resul t Flag Units Drug Prese nt Metha mphet amine >2404 ng/mg creat Amphe tamin e >4808 ng/mg creat Sourc es of metha mphet amine inclu de illic it sourc es, as a sched uled presc ripti on medic ation , as a metab olite of some presc ripti on drugs , or use of an l-met hamph etami ne inhal er. Amphe tamin e is an expec brent metab olite of metha mphet amine . Amphe tamin e is also avail able as a sched ule [place]. [place] 2161 ng/mg creat Benzo ylecg onine 1928 ng/mg creat Sourc e of cocai ne is most commo nly illic it, but cocai ne is prese nt in some topic al anest hetic solut ions. Benzo ylecg onine is an expec brent metab olite of cocai ne. Ephed rine/ Pseud oephe drine PRESE NT Pheny lprop anola mine PRESE NT Sourc e of ephed rine/ pseud oephe drine is most commo nly pseud oephe drine in over- the-c ounte r or presc ripti on cold and aller gy medic ation s. Pheny lprop anola mine is an expec brent metab olite of ephed rine/ pseud oephe drine . ===== ===== ===== ===== ===== ===== ===== ===== ===== ===== ===== ===== ===== === Test Resul t Flag Units Ref Range Creat inine 208 mg/dL >=20 ===== ===== ===== ===== ===== ===== ===== ===== ===== ===== ===== ===== ===== === Decla red Medic ation s: Medic ation list was not provi ded. ===== ===== ===== ===== ===== ===== ===== ===== ===== ===== ===== ===== ===== === For clini mamta consu ltati on, pleas e call . ===== ===== ===== ===== ===== ===== ===== ===== ===== ===== ===== ===== ===== === Not Available [facility] [address] [facility] [address], [place], [address], 05/04/2021 06:17:39 04/30/20 21 05/03/2021 COMPL IANCE DRUG TAINA SIS, UR pdf . Not Available [facility] [address] [facility] [address], [place], [address], 05/04/2021 06:17:39 08/16/20 24 08/18/2024 Cytol ogy repor t of Tissu e fine needl e aspir ate Cyto stain pathology report.secti on heading Medica l Cytolo gy Report Case: [id number] Author viktoria Gipson er: Bhavin Chapin MD [facility] brent: 2023 05:04 PM Orderi ng Locati on: [facility] Receiv ed: 2023 07:20 AM Pathol ogist: Bhavin Sarabia MD Specim ens: A) - Lymph Node, 4R B) - Lymph Node, 11L C) - Lymph Node, 7 Case Repor t Medic al Cytol ogy Repor t Case: [id number] Autho zunilda amador Provi kirk: Bhavin Albert MD Colle cted: 08/16 05:04 PM Order ing Locat ion: [facility] Recei darian: 08/17 07:20 AM Patho logis t: Bhavin Wild MD Speci mens: A) - Lymph Node, 4R B) - Lymph Node, 11L C) - Lymph Node, 7 08/18 4:30 PM [facility] Not Available Not Available 11/25/2024 15:38:04 08/16/20 24 08/18/2024 Cytol ogy repor t of Tissu e fine needl e aspir ate Cyto stain specimen adequacy Adequa te cellul arity for evalua tion. Speci men Adequ acy Adequ ate cellu larit y for evalu ation . 08/18 4:30 PM [facility] Not Available Not Available 11/25/2024 15:38:04 08/16/20 24 08/18/2024 Cytol ogy repor t of Tissu e fine needl e aspir ate Cyto stain pathology report final diagnosis narrative A. 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 B. Statio n 11L lymph node, EBUS fine-n eedle aspira tion: - Cellul ar lympho id specim en. - Negati ve for malign garcia. C. 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 COMMEN T: The cytolo gic findin gs correl ate with the concom itant tissue biopsy findin gs (see separa te report [id number]). Final Diagn osis A. 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 B. Stati on 11L lymph node, EBUS fine- needl e aspir ation : - Cellu lar lymph oid speci men. - Negat connie for mars amezcua . C. Stati on 7 lymph node, EBUS fine- needl e aspir ation : Posit connie for mars amezcua : Small cell carci noma. COMME NT: The cytol ogic findi ngs corre late with the conco mitan t tissu e biops y findi ngs (see separ ate repor t [id number] ). 08/18 4:30 PM [facility] Elect myesha martines d by Bhavin Wild MD on 08/18 at 4:30 PM Not Available Not Available 11/25/2024 15:38:04 08/16/20 24 08/18/2024 Cytol ogy repor t of Tissu e fine needl e aspir ate Cyto stain pathology report relevant history narrative Right lower lobe lung mass, right paratr acheal lympha denopa thy Clini mamta Histo ry Right lower lobe lung mass, right parat rache al lymph adeno yehuda 08/18 4:30 PM [facility] Not Available Not Available 11/25/2024 15:38:04 08/16/20 24 08/18/2024 Cytol ogy repor t of Tissu e fine needl e aspir ate Cyto stain pathology report gross observation narrative A) 3 DQ Staine d slides , 3 Pap staine d slides and 1 cell block from 35cc of bloody collec tion fluid B) 1 Pap staine d cytosp in and 1 cell block from 25cc of bloody collec tion fluid C) 1 Pap staine d cytosp in and 1 cell block from 25cc of cloudy collec tion fluid Gross Descr iptio n A) 3 DQ Stain ed slide s, 3 Pap stain ed slide s and 1 cell block from 35cc of blood y colle ction fluid B) 1 Pap stain ed cytos pin and 1 cell block from 25cc of blood y colle ction fluid C) 1 Pap stain ed cytos pin and 1 cell block from 25cc of cloud y colle ction fluid 08/18 4:30 PM [facility] [employer] [facility] Not Available Not Available 11/25/2024 15:38:04 08/16/20 24 08/18/2024 Cytol ogy repor t of Tissu e fine needl e aspir ate Cyto stain pathology report microscopic observation narrative other stain Micros copic examin ation is perfor med and suppor ts the final diagno sis. Micro scopi c Descr iptio n Micro scopi c exami natio n is perfo rmed and suppo rts the final diagn osis. 08/18 4:30 PM [facility] Not Available Not Available 11/25/2024 15:38:04 08/16/20 24 08/18/2024 Cytol ogy repor t of Tissu e fine needl e aspir ate Cyto stain pathologist location at [facility] Patho logis t Locat ion at [facility] 08/18 4:30 PM [facility] [employer] [facility] [facility] Not Available Not Available 11/25/2024 15:38:04 08/16/20 24 08/18/2024 Cytol ogy repor t of Tissu e fine needl e aspir ate Cyto stain service comment The perfor cornell charac terist ics of all immuno histoc hemica l and indire ct immuno fluore scence stains (if any) cited in this report were determ ined by the [facility]. Some of these tests rely on the use of taina te-spe cific reagen ts and are subjec t to specif ic labeli ng requir ements by the [place] Food and Drug Admini strati on. Such tests were develo ped by the Histol desirae [facility] and have not been cleare d or approv ed by the FDA. The FDA has determ ined that such cleara nce and approv al is not necess ankur. These tests are used for clinic al purpos es and should not be regard ed as invest igatio nal or for resear ch. [facility] is certif ied under the Clinic al Lien inman Improv ement Amendm ents (CLIA) as qualif ied to perfor high comple xity clinic al labora tory testin g. This case has been person ally review ed and interp reted by the attend ing (teach ing) pathol ogist. Discl aimer The perfo rmanc e deric cteri stics of all immun ohist ochem ical and indir ect immun ofluo resce nce stain s (if any) cited in this repor t were deter mined by the Histo patho logy Labor atory of [facility] . Some of these tests rely on the use of anal yte-s pecif ic reage nts and are subje ct to speci fic label ing requi remen ts by the [place] Food and Drug Admin istra tion. Such tests were devel oped by the Histo logy Labor atory of [facility] and have not been clear ed or appro darian by the FDA. The FDA has deter mined that such clear ance and appro vishnu is not neces marcel. These tests are used for clini mamta purpo ses and shoul d not be regar ded as inves tigat ional or for resea rch. This labor atory is certi fied under the Clini mamta Labor atory Impro vemen t Amend ments (CLIA ) as quali fied to perfo rm high compl exity clini mamta labor atory testi ng. This case has been perso parker revie wed and inter prete d by the atten mary ([facility]) patho logis t. 08/18 4:30 PM [facility] [facility] [facility] Not Available Not Available 11/25/2024 15:38:04 08/16/20 24 08/18/2024 Cytol ogy repor t of Tissu e fine needl e aspir ate Cyto stain embedded images Embed ded Image s 08/18 4:30 PM [facility] [employer] [facility] Not Available Not Available 11/25/2024 15:38:04 08/16/20 24 08/18/2024 Tissu e Patho logy biops y repor t pathology report.secti on heading Surgic al Pathol ogy Report Case: [id number] Author izing Provid er: Bhavin Chapin MD [facility] brent: 2023 04:57 PM Orderi ng Locati on: [facility] Receiv ed: 2023 07:20 AM Pathol ogist: Shanae Morgan MD Specim en: Lung, Right Lower Lobe Case Repor t Surgi mamta Patho logy Repor t Case: [id number] Autho zunilda amador Provi kirk: Bhavin Albert MD Colle cted: 08/16 04:57 PM Order ing Locat ion: [facility] Recei darian: 08/17 07:20 AM Patho logis t: Kenia Reilly MD Speci men: Lung, Right Lower Lobe 08/18 3:36 PM [facility] Not Available Not Available 11/25/2024 15:38:04 08/16/20 24 08/18/2024 Tissu e Patho logy biops y repor t pathology report final diagnosis narrative Lung, right lower lobe, transb ronchi al biopsy : - Small cell carcin sinai Final Diagn osis Lung, right lower lobe, trans bronc hial biops y: - Small cell carci noma 08/18 3:36 PM [facility] Elect stephenjames martines d by Kenia Reilly MD on 08/18 at 3:36 PM Not Available Not Available 11/25/2024 15:38:04 08/16/20 24 08/18/2024 Tissu e Patho logy biops y repor t pathology report microscopic observation narrative other stain Micros copic examin ation substa ntiate s the above captio cassi diagno sis. Chromo granin and synapt ophysi n immuno histoc hemist ry stains with reacti ve contro ls are perfor med to confir m the morpho logic impres dimas of small cell carcin sinai. The stains are positi ve confir mary lou small cell carcin sinai. Synapt ophysi n is more strong ly expres sed than chromo granin . Micro scopi c Descr iptio n and Comme nt Micro scopi c exami natio n subst antia jeanne the above capti oned diagn osis. Chrom ogran in and synap tophy sin immun ohist ochem istry stain s with react connie contr ols are perfo rmed to confi rm the morph ologi c impre ssion of small cell carci noma. The stain s are posit connie confi rming small cell carci noma. Synap tophy sin is more stron gly expre ssed than chrom ogran in. 08/18 3:36 PM [facility] Not Available Not Available 11/25/2024 15:38:04 08/16/20 24 08/18/2024 Tissu e Patho logy biops y repor t pathology report relevant history narrative 59-yea r-old man with a 90-pac k-year smokin g histor y presen ts with a right hilar mass and right hilar lympha denopa thy. Clini mamta Histo ry 59-ye ar-ol d man with a 89-pa ck-ye ar smoki ng histo ry prese nts with a right hilar mass and right hilar lymph adeno yehuda . 08/18 3:36 PM [facility] Not Available Not Available 11/25/2024 15:38:04 08/16/20 24 08/18/2024 Tissu e Patho logy biops y repor t pathology report gross observation narrative The requis ition and specim en(s) are identi fied with the efraín t's name, Adolfo Reyez . Receiv ed in formal in, specim en A, consis ts of multip le vazquez-wh ite to vazquez-re d tissue fragme nts, 0.1-0. [address] dimens ion and 0.5 x 0.5 x 0.2 cm in aggreg ate. The specim en is submit brent in toto in casset te A1. MB Gross Descr iptio n The requi sitio n and speci men(s ) are ident ified with the torrie nt's name, Adolfo Bajwa r. Recei darian in forma dayana, speci men A, consi sts of multi ple vazquez-w vickie to vazquez-r ed tissu e fragm ents, 0.1-0 .2 cm in great est dimen dimas and 0.5 x 0.5 x 0.2 [address]. The speci men is submi tted in toto in casse tte A1. MB 08/18 3:36 PM [facility] [employer] [facility] Not Available Not Available 11/25/2024 15:38:04 08/16/20 24 08/18/2024 Tissu e Patho logy biops y repor [facility] [place] Patho logis t Locat ion at [facility] [place] 08/18 3:36 PM [facility] [employer] [facility] Not Available Not Available 11/25/2024 15:38:04 08/16/20 24 08/18/2024 Tissu e Patho logy biops y repor t service comment The perfor cornell charac terist ics of all immuno histoc hemica l and indire ct immuno fluore scence stains (if any) cited in this report were determ ined by the Histop atholo gy Labora tory of [facility]. Some of these tests were develo ped by our own labora tory and have not been cleare d or approv ed by the US Food and Drug Admini strati on. The FDA does not requir e this test to go throug h premar ket FDA review . These tests are used for clinic al purpos es. They should not be regard ed as invest igatio nal or for resear ch. This labora tory is certif ied under the Clinic al Lien inman Improv ement Amendm ents (CLIA) as qualif ied to perfor m high comple xity clinic al lien inman testin g. This case has been person ally review ed and interp reted by the attend ing (teach ing) pathol ogist. Discl aimer The perfo rmanc e deric cteri stics of all immun ohist ochem ical and indir ect immun ofluo resce nce stain s (if any) cited in this repor t were deter mined by the Histo patho logy Labor atory of [facility]ity . Some of these tests were devel oped by our own labor atory and have not been clear ed or appro darian by the US Food and Drug Admin istra tion. The FDA does not requi re this test to go throu gh iftikhar rket FDA revie w. These tests are used for clini mamta purpo ses. They shoul d not be regar ded as inves tigat ional or for resea [facility]. This labor atory is certi fied under the Clini mamta Labor atory Impro vemen t Amend ments (CLIA ) as quali fied to perfo rm high compl exity clini mamta labor atory testi ng. This case has been perso parker revie wed and inter prete d by the holli hernandez ([facility]) patho logis t. 08/18 3:36 PM [employer] [facility] [facility] Not Available Not Available 11/25/2024 15:38:04 08/16/20 24 08/18/2024 Tissu e Patho logy biops y repor t embedded images Embed ded Image s 08/18 3:36 PM [facility] [facility] Not Available Not Available 11/25/2024 15:38:04 08/16/20 24 08/16/2024 ABO and Rh group [Type ] in Blood ABO and Rh group [type] in blood AB POS ABO Rh AB POS 08/16 2:56 PM [employer] [facility] [facility] Not Available Not Available 11/25/2024 15:38:04 08/16/20 24 08/16/2024 Blood type and Indir ect antib macey scree n panel - Blood blood group antibody screen [presence] in serum or plasma NEG Antib macey Scree n NEG 08/16 2:48 PM [facility] Not Available Not Available 11/25/2024 15:38:03 08/16/20 24 08/16/2024 Blood type and Indir ect antib macey scree n panel - Blood ABO and Rh group [type] in blood AB POS ABO Rh AB POS 08/16 2:48 PM [employer] [facility] Not Available Not Available 11/25/2024 15:38:03 08/16/20 24 08/16/2024 CBC panel - Blood by Autom ated count leukocytes [#/volume] in blood by automated count 6.9 text: 4.0 - 10.7 x10e9/ L WBC 6.9 4.0 - 10.7 x10E9 /L 08/16 2:14 PM [facility] Not Available Not Available 11/25/2024 15:38:03 08/16/20 24 08/16/2024 CBC panel - Blood by Autom ated count erythrocytes [#/volume] in blood by automated count 4.86 text: 4.30 - 5.80 x10e12 /L RBC Count 4.86 4.30 - 5.80 x10E1 2/L 08/16 2:14 PM [facility] Not Available Not Available 11/25/2024 15:38:03 08/16/20 24 08/16/2024 CBC panel - Blood by Autom ated count hemoglobin [mass/volume ] in blood 14.2 g/dL low: 13.3g/ dLhigh : 17.5g/ dL Hemog lobin 14.2 13.3 - 17.5 g/dL 08/16 2:14 PM [facility] Not Available Not Available 11/25/2024 15:38:03 08/16/20 24 08/16/2024 CBC panel - Blood by Autom ated count hematocrit [volume fraction] of blood by automated count 43.7 % low: 38.7%h igh: 51.1% Hemat ocrit 43.7 38.7 - 51.1 % 08/16 2:14 PM [facility] Not Available Not Available 11/25/2024 15:38:03 08/16/20 24 08/16/2024 CBC panel - Blood by Autom ated count MCV [entitic volume] by automated count 89.9 fL low: 80fLhi gh: 98fL MCV 89.9 80.0 - 98.0 fL 08/16 2:14 PM [facility] Not Available Not Available 11/25/2024 15:38:03 08/16/20 24 08/16/2024 CBC panel - Blood by Autom ated count MCH [entitic mass] by automated count 29.2 pg low: 26.7pg high: 33.6pg MCH 29.2 26.7 - 33.6 pg 08/16 2:14 PM [employer] [facility] Not Available Not Available 11/25/2024 15:38:03 08/16/20 24 08/16/2024 CBC panel - Blood by Autom ated count MCHC [mass/volume ] by automated count 32.5 g/dL low: 31.7g/ dLhigh : 36.3g/ dL MCHC 32.5 31.7 - 36.3 g/dL 08/16 2:14 PM [facility] Not Available Not Available 11/25/2024 15:38:03 08/16/20 24 08/16/2024 CBC panel - Blood by Autom ated count erythrocyte distribution width [ratio] by automated count 14.3 % low: 11.3%h igh: 14.8% RDW-C V 14.3 11.3 - 14.8 % 08/16 2:14 PM [facility] Not Available Not Available 11/25/2024 15:38:03 08/16/20 24 08/16/2024 CBC panel - Blood by Autom ated count platelets [#/volume] in blood by automated count 212 text: 150 - 420 x10e9/ L Plate let Count 212 150 - 420 x10E9 /L 08/16 2:14 PM [facility] Not Available Not Available 11/25/2024 15:38:03 08/16/20 24 08/16/2024 CBC panel - Blood by Autom ated count platelet mean volume [entitic volume] in blood by automated count 9.9 fL low: 7.8fLh igh: 11.4fL MPV 9.9 7.8 - 11.4 fL 08/16 2:14 PM [facility] Not Available Not Available 11/25/2024 15:38:03 08/16/20 24 08/16/2024 CBC panel - Blood by Autom ated count interpretati on and review of laboratory results Normal Not Available Not Available 11/07 15:38:03 08/16/20 24 08/16/2024 Basic metab olic 2000 panel - Serum or Plasm a urea nitrogen [mass/volume ] in serum or plasma 10 mg/dL low: 7mg/dL high: 26mg/d L BUN 10 7 - 26 mg/dL 08/16 2:39 PM [facility] Not Available Not Available 11/25/2024 15:38:03 08/16/20 24 08/16/2024 Basic metab olic 1999 panel - Serum or Plasm a creatinine [mass/volume ] in serum or plasma 0.68 mg/dL low: 0.71mg /dLhig h: 1.16mg /dL low Creat inine 0.68 (L) 0.71 - 1.16 mg/dL 08/16 2:39 PM [facility] Not Available Not Available 11/25/2024 15:38:03 08/16/20 24 08/16/2024 Basic metab olic 1999 panel - Serum or Plasm a sodium [moles/volum e] in serum or plasma 139 mmol/ L low: 136mmo l/Lhig h: 145mmo l/L Sodiu m 139 136 - 145 mmol/ L 08/16 2:39 PM [facility] Not Available Not Available 11/25/2024 15:38:03 08/16/20 24 08/16/2024 Basic metab olic 1999 panel - Serum or Plasm a potassium [moles/volum e] in serum or plasma 4.2 mmol/ L low: 3.5mmo l/Lhig h: 4.5mmo l/L Potas sium 4.2 3.5 - 4.5 mmol/ L 08/16 2:39 PM [facility] Not Available Not Available 11/25/2024 15:38:03 08/16/20 24 08/16/2024 Basic metab olic 1999 panel - Serum or Plasm a chloride [moles/volum e] in serum or plasma 106 mmol/ L low: 98mmol /Lhigh : 107mmo l/L Chlor grace 106 98 - 107 mmol/ L 08/16 2:39 PM [facility] Not Available Not Available 11/25/2024 15:38:03 08/16/20 24 08/16/2024 Basic metab olic 1999 panel - Serum or Plasm a carbon dioxide, total [moles/volum e] in serum or plasma 28 mmol/ L low: 22mmol /Lhigh : 29mmol /L CO2 28 22 - 29 mmol/ L 08/16 2:39 PM [facility] [employer] [facility] [facility] Not Available Not Available 11/25/2024 15:38:03 08/16/20 24 08/16/2024 Basic metab olic 2000 panel - Serum or Plasm a glucose [mass/volume ] in serum or plasma 96 mg/dL low: 70mg/d Lhigh: 99mg/d L Gluco se 96 70 - 99 mg/dL 08/16 2:39 PM [facility] [facility] [facility] Not Available Not Available 11/25/2024 15:38:03 08/16/20 24 08/16/2024 Basic metab olic 1999 panel - Serum or Plasm a calcium [moles/volum e] in serum or plasma 8.7 mg/dL low: 8.4mg/ dLhigh : 10.2mg /dL Calci um 8.7 8.4 - 10.2 mg/dL 08/16 2:39 PM [facility] [facility] Not Available Not Available 11/25/2024 15:38:03 08/16/20 24 08/16/2024 Basic metab olic 2000 panel - Serum or Plasm a anion gap 5 low: 6high: 16 low Anion Gap 5 (L) 6 - 16 08/16 2:39 PM [facility] [facility] Not Available Not Available 11/25/2024 15:38:03 08/16/20 24 08/16/2024 Basic metab olic 2000 panel - Serum or Plasm a urea nitrogen/cre atinine [mass ratio] in serum or plasma 15 low: 7high: 23 BUN/C reati nine Ratio 15 7 - 23 08/16 2:39 PM [facility] [facility] Not Available Not Available 11/25/2024 15:38:03 08/16/20 24 08/16/2024 Basic metab olic 2000 panel - Serum or Plasm a osmolality calculated 287 text: 275 - 295 mOsm/k g Osmol ality Calcu lated 287 275 - 295 mOsm/ kg 08/16 2:39 PM [employer] [facility] Not Available Not Available 11/25/2024 15:38:03 08/16/20 24 08/16/2024 Basic metab olic 2000 panel - Serum or Plasm a glomerular filtration rate/1.73 sq M.predicted [volume rate/area] in serum, plasma or blood by creatinine-b ased formula (CKD-epi 2020) text: >=90 mL/min /1.73 m2 eGFR by CKD-E PI >90 >=90 mL/mi n/1.7 3 m2 08/16 2:39 PM [employer] [facility]SI Not Available Not Available 11/25/2024 15:38:03 08/16/20 24 08/16/2024 Basic metab olic 2000 panel - Serum or Plasm a interpretati on and review of laboratory results Abnorm al Not Available Not Available 15:38:03 08/27/20 24 08/27/2024 Thyro tropi n [Unit s/vol ume] in Serum or Plasm a by Detec tion limit <= 0.005 mIU/L thyrotropin [units/volum e] in serum or plasma by detection limit <= 0.005 mIU/L 0.683 text: 0.350 - 4.940 uIU/mL TSH 0.683 0.350 - 4.940 uIU/m L 08/27 10:54 AM [employer] [facility]SI Not Available Not Available 11/25/2024 15:18:07 08/27/20 24 08/27/2024 Thyro tropi n [Unit s/vol ume] in Serum or Plasm a by Detec tion limit <= 0.005 mIU/L interpretati on and review of laboratory results Normal Not Available Not Available 11/07 15:18:07 08/27/20 24 08/27/2024 Compr ehens connie metab olic 2000 panel - Serum or Plasm a urea nitrogen [mass/volume ] in serum or plasma 14 mg/dL low: 7mg/dL high: 26mg/d L BUN 14 7 - 26 mg/dL 08/27 10:36 AM [employer] [facility] Not Available Not Available 11/25/2024 15:18:07 08/27/20 24 08/27/2024 Compr ehens connie metab olic 1999 panel - Serum or Plasm a creatinine [mass/volume ] in serum or plasma 0.77 mg/dL low: 0.71mg /dLhig h: 1.16mg /dL Creat inine 0.77 0.71 - 1.16 mg/dL 08/27 10:36 AM [facility] Not Available Not Available 11/25/2024 15:18:07 08/27/20 24 08/27/2024 Compr ehens connie metab olic 1999 panel - Serum or Plasm a sodium [moles/volum e] in serum or plasma 138 mmol/ L low: 136mmo l/Lhig h: 145mmo l/L Sodiu m 138 136 - 145 mmol/ L 08/27 10:36 AM [facility] Not Available Not Available 11/25/2024 15:18:07 08/27/20 24 08/27/2024 Compr ehens connie metab olic 1999 panel - Serum or Plasm a potassium [moles/volum e] in serum or plasma 4.2 mmol/ L low: 3.5mmo l/Lhig h: 4.5mmo l/L Potas sium 4.2 3.5 - 4.5 mmol/ L 08/27 10:36 AM [facility] Not Available Not Available 11/25/2024 15:18:07 08/27/20 24 08/27/2024 Compr ehens connie metab olic 1999 panel - Serum or Plasm a chloride [moles/volum e] in serum or plasma 103 mmol/ L low: 98mmol /Lhigh : 107mmo l/L Chlor grace 103 98 - 107 mmol/ L 08/27 10:36 AM [facility] Not Available Not Available 11/25/2024 15:18:07 08/27/20 24 08/27/2024 Compr ehens connie metab olic 1999 panel - Serum or Plasm a carbon dioxide, total [moles/volum e] in serum or plasma 28 mmol/ L low: 22mmol /Lhigh : 29mmol /L CO2 28 22 - 29 mmol/ L 08/27 10:36 AM [facility] Not Available Not Available 11/25/2024 15:18:07 08/27/20 24 08/27/2024 Compr ehens connie metab olic 2000 panel - Serum or Plasm a glucose [mass/volume ] in serum or plasma 111 mg/dL low: 70mg/d Lhigh: 99mg/d L high Gluco se 111 (H) 70 - 99 mg/dL 08/27 10:36 AM [facility] Not Available Not Available 11/25/2024 15:18:07 08/27/20 24 08/27/2024 Compr ehens connie metab olic 2000 panel - Serum or Plasm a calcium [moles/volum e] in serum or plasma 9.5 mg/dL low: 8.4mg/ dLhigh : 10.2mg /dL Calci um 9.5 8.4 - 10.2 mg/dL 08/27 10:36 AM [facility] Not Available Not Available 11/25/2024 15:18:07 08/27/20 24 08/27/2024 Compr ehens connie metab olic 2000 panel - Serum or Plasm a protein [mass/volume ] in serum or plasma 8 g/dL low: 6g/dLh igh: 8.3g/d L Prote in Total 8.0 6.0 - 8.3 g/dL 08/27 10:36 AM [facility] Not Available Not Available 11/25/2024 15:18:07 08/27/20 24 08/27/2024 Compr ehens connie metab olic 2000 panel - Serum or Plasm a albumin [mass/volume ] in serum or plasma by bromocresol green (bcg) dye binding method 4 g/dL low: 3.4g/d Lhigh: 5g/dL Album in 4.0 3.4 - 5.0 g/dL 08/27 10:36 AM [facility] Not Available Not Available 11/25/2024 15:18:07 08/27/20 24 08/27/2024 Compr ehens connie metab olic 2000 panel - Serum or Plasm a bilirubin.to jassi [mass/volume ] in serum or plasma 0.4 mg/dL low: 0.2mg/ dLhigh : 1.2mg/ dL Bilir ubin Total 0.4 0.2 - 1.2 mg/dL 08/27 10:36 AM [facility] [facility] Not Available Not Available 11/25/2024 15:18:07 08/27/20 24 08/27/2024 Compr ehens connie metab olic 1999 panel - Serum or Plasm a alkaline phosphatase [enzymatic activity/vol ume] in serum or plasma 83 U/L low: 40U/Lh igh: 150U/L Alkal ine Phosp hatas e 83 40 - 150 U/L 08/27 10:36 AM [employer] [facility] Not Available Not Available 11/25/2024 15:18:07 08/27/20 24 08/27/2024 Compr ehens connie metab olic 1999 panel - Serum or Plasm a alanine aminotransfe rase [enzymatic activity/vol ume] in serum or plasma by no addition of P-5'-P 25 U/L low: 5U/Lhi gh: 55U/L ALT 25 5 - 55 U/L 08/27 10:36 AM [facility] [facility]SI Not Available Not Available 11/25/2024 15:18:07 08/27/20 24 08/27/2024 Compr ehens connie metab olic 1999 panel - Serum or Plasm a aspartate aminotransfe rase [enzymatic activity/vol ume] in serum or plasma 25 U/L low: 5U/Lhi gh: 34U/L AST 25 5 - 34 U/L 08/27 10:36 AM [facility] [facility] Not Available Not Available 11/25/2024 15:18:07 08/27/20 24 08/27/2024 Compr ehens connie metab olic 2000 panel - Serum or Plasm a anion gap 7 low: 6high: 16 Anion Gap 7 6 - 16 08/27 10:36 AM [facility] [facility] J[facility]SI Not Available Not Available 11/25/2024 15:18:07 08/27/20 24 08/27/2024 Compr ehens connie metab olic 2000 panel - Serum or Plasm a urea nitrogen/cre atinine [mass ratio] in serum or plasma 18 low: 7high: 23 BUN/C reati nine Ratio 18 7 - 23 08/27 10:36 AM [facility] [facility] Not Available Not Available 11/25/2024 15:18:07 08/27/20 24 08/27/2024 Compr ehens connie metab olic 2000 panel - Serum or Plasm a osmolality calculated 287 text: 275 - 295 mOsm/k g Osmol aliami Calcu lated 287 275 - 295 mOsm/ kg 08/27 10:36 AM [facility] [employer] [facility] [facility] Not Available Not Available 11/25/2024 15:18:07 08/27/20 24 08/27/2024 Compr ehens connie metab olic 2000 panel - Serum or Plasm a albumin/glob ulin ratio 1 low: 1.1hig h: 2.3 low Album in/Gl obuli n Ratio 1.0 (L) 1.1 - 2.3 08/27 10:36 AM [facility] Not Available Not Available 11/25/2024 15:18:07 08/27/20 24 08/27/2024 Compr ehens connie metab olic 2000 panel - Serum or Plasm a glomerular filtration rate/1.73 sq M.predicted [volume rate/area] in serum, plasma or blood by creatinine-b ased formula (CKD-epi 2020) text: >=90 mL/min /1.73 m2 eGFR by CKD-E PI >90 >=90 mL/mi n/1.7 3 m2 08/27 10:36 AM [facility] Not Available Not Available 11/25/2024 15:18:07 08/27/20 24 08/27/2024 Compr ehens connie metab olic 2000 panel - Serum or Plasm a interpretati on and review of laboratory results Abnorm al Not Available Not Available 15:18:07 08/27/20 24 08/27/2024 CBC W Auto Diffe renti al panel - Blood leukocytes [#/volume] in blood by automated count 8.3 text: 4.0 - 10.7 x10e9/ L WBC 8.3 4.0 - 10.7 x10E9 /L 08/27 10:16 AM [facility] Not Available Not Available 11/25/2024 15:18:07 08/27/20 24 08/27/2024 CBC W Auto Diffe renti al panel - Blood erythrocytes [#/volume] in blood by automated count 5.2 text: 4.30 - 5.80 x10e12 /L RBC Count 5.20 4.30 - 5.80 x10E1 2/L 08/27 10:16 AM [facility] Not Available Not Available 11/25/2024 15:18:07 08/27/20 24 08/27/2024 CBC W Auto Diffe taylor al panel - Blood hemoglobin [mass/volume ] in blood 15.1 g/dL low: 13.3g/ dLhigh : 17.5g/ dL Hemog lobin 15.1 13.3 - 17.5 g/dL 08/27 10:16 AM [facility] Not Available Not Available 11/25/2024 15:18:07 08/27/20 24 08/27/2024 CBC W Auto Diffe taylor al panel - Blood hematocrit [volume fraction] of blood by automated count 46.6 % low: 38.7%h igh: 51.1% Hemat ocrit 46.6 38.7 - 51.1 % 08/27 10:16 AM [facility] Not Available Not Available 11/25/2024 15:18:07 08/27/20 24 08/27/2024 CBC W Auto Diffe perryti al panel - Blood MCV [entitic volume] by automated count 89.6 fL low: 80fLhi gh: 98fL MCV 89.6 80.0 - 98.0 fL 08/27 10:16 AM [facility] Not Available Not Available 11/25/2024 15:18:07 08/27/20 24 08/27/2024 CBC W Auto Diffe taylor al panel - Blood MCH [entitic mass] by automated count 29 pg low: 26.7pg high: 33.6pg MCH 29.0 26.7 - 33.6 pg 08/27 10:16 AM [facility] [facility] J[facility]SI Not Available Not Available 11/25/2024 15:18:07 08/27/20 24 08/27/2024 CBC W Auto Diffe renti al panel - Blood MCHC [mass/volume ] by automated count 32.4 g/dL low: 31.7g/ dLhigh : 36.3g/ dL MCHC 32.4 31.7 - 36.3 g/dL 08/27 10:16 AM [facility] [facility] JASSI Not Available Not Available 11/25/2024 15:18:07 08/27/20 24 08/27/2024 CBC W Auto Diffe renti al panel - Blood erythrocyte distribution width [ratio] by automated count 14.5 % low: 11.3%h igh: 14.8% RDW-C V 14.5 11.3 - 14.8 % 08/27 10:16 AM [employer] [facility] J[facility]SI Not Available Not Available 11/25/2024 15:18:07 08/27/20 24 08/27/2024 CBC W Auto Diffe perryti al panel - Blood platelets [#/volume] in blood by automated count 270 text: 150 - 420 x10e9/ L Plate let Count 270 150 - 420 x10E9 /L 08/27 10:16 AM [facility] Not Available Not Available 11/25/2024 15:18:07 08/27/20 24 08/27/2024 CBC W Auto Diffe renti al panel - Blood platelet mean volume [entitic volume] in blood by automated count 9.7 fL low: 7.8fLh igh: 11.4fL MPV 9.7 7.8 - 11.4 fL 08/27 10:16 AM [facility] [facility] [facility] J[facility]SI Not Available Not Available 11/25/2024 15:18:07 08/27/20 24 08/27/2024 CBC W Auto Diffe renti al panel - Blood neutrophils/ 100 leukocytes in blood by automated count 69.7 % low: 41%hig h: 74% Neutr ophil % 69.7 41.0 - 74.0 % 08/27 10:16 AM [facility] [facility] J[facility]SI Not Available Not Available 11/25/2024 15:18:07 08/27/20 24 08/27/2024 CBC W Auto Diffe renti al panel - Blood lymphocytes/ 100 leukocytes in blood by automated count 16.5 % low: 17%hig h: 47% low Lymph ocyte % 16.5 (L) 17.0 - 47.0 % 08/27 10:16 AM [facility] [facility]SI Not Available Not Available 11/25/2024 15:18:07 08/27/20 24 08/27/2024 CBC W Auto Diffe renti al panel - Blood monocytes/10 0 leukocytes in blood by automated count 9.3 % low: 3%high : 11% Monoc yte % 9.3 3.0 - 11.0 % 08/27 10:16 AM [facility] [facility] [facility]SI Not Available Not Available 11/25/2024 15:18:07 08/27/20 24 08/27/2024 CBC W Auto Diffe renti al panel - Blood eosinophils/ 100 leukocytes in blood by automated count 3.5 % low: 0%high : 7% Eosin ophil % 3.5 0.0 - 7.0 % 08/27 10:16 AM [facility] [facility]SI Not Available Not Available 11/25/2024 15:18:07 08/27/20 24 08/27/2024 CBC W Auto Diffe renti al panel - Blood basophils/10 0 leukocytes in blood by automated count 0.6 % low: 0%high : 1.6% Basop hil % 0.6 0.0 - 1.6 % 08/27 10:16 AM [facility] [facility] J[facility]SI Not Available Not Available 11/25/2024 15:18:07 08/27/20 24 08/27/2024 CBC W Auto Diffe renti al panel - Blood immature granulocytes /100 leukocytes in blood by automated count 0.4 % low: 0%high : 1% Immat ure Granu locyt es % 0.4 0.0 - 1.0 % 08/27 10:16 AM [facility] [facility] J[facility]SI Not Available Not Available 11/25/2024 15:18:07 08/27/20 24 08/27/2024 CBC W Auto Diffe renti al panel - Blood neutrophils [#/volume] in blood by automated count 5.8 text: 1.60 - 7.50 x10e9/ L Neutr ophil Absol emmonak 5.80 1.60 - 7.50 x10E9 /L 08/27 10:16 AM [facility] [facility] [facility]SI Not Available Not Available 11/25/2024 15:18:07 08/27/20 24 08/27/2024 CBC W Auto Diffe renti al panel - Blood lymphocytes [#/volume] in blood by automated count 1.37 text: 1.00 - 4.40 x10e9/ L Lymph ocyte Absol emmonak 1.37 1.00 - 4.40 x10E9 /L 08/27 10:16 AM [facility] Not Available Not Available 11/25/2024 15:18:07 08/27/20 24 08/27/2024 CBC W Auto Diffe renti al panel - Blood monocytes [#/volume] in blood by automated count 0.77 text: 0.15 - 1.00 x10e9/ L Monoc yte Absol emmonak 0.77 0.15 - 1.00 x10E9 /L 08/27 10:16 AM [facility] Not Available Not Available 11/25/2024 15:18:07 08/27/20 24 08/27/2024 CBC W Auto Diffe renti al panel - Blood eosinophils [#/volume] in blood 0.29 text: 0.00 - 0.60 x10e9/ L Eosin ophil Absol emmonak 0.29 0.00 - 0.60 x10E9 /L 08/27 10:16 AM [facility] [facility]SI Not Available Not Available 11/25/2024 15:18:07 08/27/20 24 08/27/2024 CBC W Auto Diffe renti al panel - Blood basophils [#/volume] in blood by automated count 0.05 text: 0.00 - 0.13 x10e9/ L Basop hil Absol emmonak 0.05 0.00 - 0.13 x10E9 /L 08/27 10:16 AM [facility] [facility] Not Available Not Available 11/25/2024 15:18:07 08/27/20 24 08/27/2024 CBC W Auto Diffe renti al panel - Blood interpretati on and review of laboratory results Abnorm al Not Available Not Available 15:18:07 08/27/20 24 08/27/2024 Urate [Mass /volu me] in Serum or Plasm a urate [mass/volume ] in serum or plasma 5.5 mg/dL low: 3.5mg/ dLhigh : 7.2mg/ dL Uric Acid 5.5 3.5 - 7.2 mg/dL 08/27 10:36 AM [facility] [facility] Not Available Not Available 11/25/2024 15:17:56 08/27/20 24 08/27/2024 Urate [Mass /volu me] in Serum or Plasm a interpretati on and review of laboratory results Normal Not Available Not Available 11/07 15:17:56 08/27/20 24 08/27/2024 Fibri nogen [Mass /volu me] in Plate let poor plasm a by Coagu latio n assay fibrinogen [mass/volume ] in platelet poor plasma by coagulation assay 492 mg/dL low: 200mg/ dLhigh : 400mg/ dL high Fibri nogen Helio s 492 (H) 200 - 400 mg/dL 08/27 11:30 AM [facility] Not Available Not Available 11/25/2024 15:17:56 08/27/20 24 08/27/2024 Fibri nogen [Mass /volu me] in Plate let poor plasm a by Coagu latio n assay interpretati on and review of laboratory results Abnorm al Not Available Not Available 15:17:56 08/27/20 24 08/27/2024 Lacta te dehyd rogen ase [Enzy matic activ ity/v olume ] in Serum or Plasm a by Lacta te to pyruv ate react ion lactate dehydrogenas e [enzymatic activity/vol ume] in serum or plasma by lactate to pyruvate reaction 233 text: 125 - 243 units/ L LDH Total 233 125 - 243 Units /L 08/27 10:36 AM [facility] Not Available Not Available 11/25/2024 15:17:56 08/27/20 24 08/27/2024 Lacta te dehyd rogen ase [Enzy matic activ ity/v olume ] in Serum or Plasm a by Lacta te to pyruv ate react ion interpretati on and review of laboratory results Normal Not Available Not Available 11/07 15:17:56 09/03/20 24 09/03/2024 Thyro tropi n [Unit s/vol ume] in Serum or Plasm a by Detec tion limit <= 0.005 mIU/L thyrotropin [units/volum e] in serum or plasma by detection limit <= 0.005 mIU/L 1.1 text: 0.350 - 4.940 uIU/mL TSH 1.100 0.350 - 4.940 uIU/m L 09/03 10:58 AM [facility] Not Available Not Available 11/25/2024 15:18:10 09/03/20 24 09/03/2024 Thyro tropi n [Unit s/vol ume] in Serum or Plasm a by Detec tion limit <= 0.005 mIU/L interpretati on and review of laboratory results Normal Not Available Not Available 11/07 15:18:10 09/03/20 24 09/03/2024 Compr ehens connie metab olic 1999 panel - Serum or Plasm a urea nitrogen [mass/volume ] in serum or plasma 9 mg/dL low: 7mg/dL high: 26mg/d L BUN 9 7 - 26 mg/dL 09/03 11:47 AM [facility] Not Available Not Available 11/25/2024 15:18:10 09/03/20 24 09/03/2024 Compr ehens connie metab olic 1999 panel - Serum or Plasm a creatinine [mass/volume ] in serum or plasma 0.73 mg/dL low: 0.71mg /dLhig h: 1.16mg /dL Creat inine 0.73 0.71 - 1.16 mg/dL 09/03 11:47 AM [employer] [facility] Not Available Not Available 11/25/2024 15:18:10 09/03/20 24 09/03/2024 Compr ehens connie metab olic 1999 panel - Serum or Plasm a sodium [moles/volum e] in serum or plasma 138 mmol/ L low: 136mmo l/Lhig h: 145mmo l/L Sodiu m 138 136 - 145 mmol/ L 09/03 11:47 AM [facility] Not Available Not Available 11/25/2024 15:18:10 09/03/20 24 09/03/2024 Compr ehens connie metab olic 2000 panel - Serum or Plasm a potassium [moles/volum e] in serum or plasma 4.4 mmol/ L low: 3.5mmo l/Lhig h: 4.5mmo l/L Potas sium 4.4 3.5 - 4.5 mmol/ L 09/03 11:47 AM [facility] Not Available Not Available 11/25/2024 15:18:10 09/03/20 24 09/03/2024 Compr ehens connie metab olic 1999 panel - Serum or Plasm a chloride [moles/volum e] in serum or plasma 105 mmol/ L low: 98mmol /Lhigh : 107mmo l/L Chlor grace 105 98 - 107 mmol/ L 09/03 11:47 AM [facility] Not Available Not Available 11/25/2024 15:18:10 09/03/20 24 09/03/2024 Compr ehens connie metab olic 1999 panel - Serum or Plasm a carbon dioxide, total [moles/volum e] in serum or plasma 25 mmol/ L low: 22mmol /Lhigh : 29mmol /L CO2 25 22 - 29 mmol/ L 09/03 11:47 AM [facility] Not Available Not Available 11/25/2024 15:18:10 09/03/20 24 09/03/2024 Compr ehens connie metab olic 2000 panel - Serum or Plasm a glucose [mass/volume ] in serum or plasma 111 mg/dL low: 70mg/d Lhigh: 99mg/d L high Gluco se 111 (H) 70 - 99 mg/dL 09/03 11:47 AM [facility] Not Available Not Available 11/25/2024 15:18:10 09/03/20 24 09/03/2024 Compr ehens connie metab olic 2000 panel - Serum or Plasm a calcium [moles/volum e] in serum or plasma 9.3 mg/dL low: 8.4mg/ dLhigh : 10.2mg /dL Calci um 9.3 8.4 - 10.2 mg/dL 09/03 11:47 AM [facility] Not Available Not Available 11/25/2024 15:18:10 09/03/20 24 09/03/2024 Compr Attenderens connie metab olic 2000 panel - Serum or Plasm a protein [mass/volume ] in serum or plasma 7.5 g/dL low: 6g/dLh igh: 8.3g/d L Prote in Total 7.5 6.0 - 8.3 g/dL 09/03 11:47 AM [facility] Not Available Not Available 11/25/2024 15:18:10 09/03/20 24 09/03/2024 Compr Attenderens connie Punch! olic 2000 panel - Serum or Plasm a albumin [mass/volume ] in serum or plasma by bromocresol green (bcg) dye binding method 3.9 g/dL low: 3.4g/d Lhigh: 5g/dL Album in 3.9 3.4 - 5.0 g/dL 09/03 11:47 AM [facility] Not Available Not Available 11/25/2024 15:18:10 09/03/20 24 09/03/2024 Compr Attenderens connie metab olic 2000 panel - Serum or Plasm a bilirubin.to jassi [mass/volume ] in serum or plasma 0.4 mg/dL low: 0.2mg/ dLhigh : 1.2mg/ dL Bilir ubin Total 0.4 0.2 - 1.2 mg/dL 09/03 11:47 AM [facility] Not Available Not Available 11/25/2024 15:18:10 09/03/20 24 09/03/2024 Compr ehens connie metab olic 1999 panel - Serum or Plasm a alkaline phosphatase [enzymatic activity/vol ume] in serum or plasma 72 U/L low: 40U/Lh igh: 150U/L Alkal ine Phosp hatas e 72 40 - 150 U/L 09/03 11:47 AM [facility] Not Available Not Available 11/25/2024 15:18:10 09/03/20 24 09/03/2024 Compr ehens connie metab olic 1999 panel - Serum or Plasm a alanine aminotransfe rase [enzymatic activity/vol ume] in serum or plasma by no addition of P-5'-P 20 U/L low: 5U/Lhi gh: 55U/L ALT 20 5 - 55 U/L 09/03 11:47 AM [facility] Not Available Not Available 11/25/2024 15:18:10 09/03/20 24 09/03/2024 Compr ehens connie metab olic 1999 panel - Serum or Plasm a aspartate aminotransfe rase [enzymatic activity/vol ume] in serum or plasma 22 U/L low: 5U/Lhi gh: 34U/L AST 22 5 - 34 U/L 09/03 11:47 AM [facility] Not Available Not Available 11/25/2024 15:18:10 09/03/20 24 09/03/2024 Compr ehens connie metab olic 1999 panel - Serum or Plasm a anion gap 8 low: 6high: 16 Anion Gap 8 6 - 16 09/03 11:47 AM [facility] Not Available Not Available 11/25/2024 15:18:10 09/03/20 24 09/03/2024 Compr ehens connie metab olic 2000 panel - Serum or Plasm a urea nitrogen/cre atinine [mass ratio] in serum or plasma 12 low: 7high: 23 BUN/C reati nine Ratio 12 7 - 23 09/03 11:47 AM [facility] Not Available Not Available 11/25/2024 15:18:10 09/03/20 24 09/03/2024 Compr ehens connie metab olic 2000 panel - Serum or Plasm a osmolality calculated 285 text: 275 - 295 mOsm/k g Osmol yg Faustin lated 285 275 - 295 mOsm/ kg 09/03 11:47 AM [facility] Not Available Not Available 11/25/2024 15:18:10 09/03/20 24 09/03/2024 Compr ehens connie metab olic 2000 panel - Serum or Plasm a albumin/glob ulin ratio 1.1 low: 1.1hig h: 2.3 Album in/Gl obuli n Ratio 1.1 1.1 - 2.3 09/03 11:47 AM [facility] Not Available Not Available 11/25/2024 15:18:10 09/03/20 24 09/03/2024 Compr ehens connie metab olic 2000 panel - Serum or Plasm a glomerular filtration rate/1.73 sq M.predicted [volume rate/area] in serum, plasma or blood by creatinine-b ased formula (CKD-epi 2020) text: >=90 mL/min /1.73 m2 eGFR by CKD-E PI >90 >=90 mL/mi n/1.7 3 m2 09/03 11:47 AM [facility] Not Available Not Available 11/25/2024 15:18:10 09/03/20 24 09/03/2024 Compr ehens connie metab olic 2000 panel - Serum or Plasm a interpretati on and review of laboratory results Abnorm al Not Available Not Available 15:18:10 09/03/20 24 09/03/2024 CBC W Auto Diffe renti al panel - Blood leukocytes [#/volume] in blood by automated count 6.9 text: 4.0 - 10.7 x10e9/ L WBC 6.9 4.0 - 10.7 x10E9 /L 09/03 10:10 AM [facility] Not Available Not Available 11/25/2024 15:18:09 09/03/20 24 09/03/2024 CBC W Auto Diffe renti al panel - Blood erythrocytes [#/volume] in blood by automated count 5.18 text: 4.30 - 5.80 x10e12 /L RBC Count 5.18 4.30 - 5.80 x10E1 2/L 09/03 10:10 AM [facility] Not Available Not Available 11/25/2024 15:18:09 09/03/20 24 09/03/2024 CBC W Auto Diffe renti al panel - Blood hemoglobin [mass/volume ] in blood 14.8 g/dL low: 13.3g/ dLhigh : 17.5g/ dL Hemog lobin 14.8 13.3 - 17.5 g/dL 09/03 10:10 AM [facility] Not Available Not Available 11/25/2024 15:18:09 09/03/20 24 09/03/2024 CBC W Auto Diffe taylor al panel - Blood hematocrit [volume fraction] of blood by automated count 46.3 % low: 38.7%h igh: 51.1% Hemat ocrit 46.3 38.7 - 51.1 % 09/03 10:10 AM [facility] Not Available Not Available 11/25/2024 15:18:09 09/03/20 24 09/03/2024 CBC W Auto Diffe perryti al panel - Blood MCV [entitic volume] by automated count 89.4 fL low: 80fLhi gh: 98fL MCV 89.4 80.0 - 98.0 fL 09/03 10:10 AM [facility] Not Available Not Available 11/25/2024 15:18:09 09/03/20 24 09/03/2024 CBC W Auto Diffe renti al panel - Blood MCH [entitic mass] by automated count 28.6 pg low: 26.7pg high: 33.6pg MCH 28.6 26.7 - 33.6 pg 09/03 10:10 AM [facility] Not Available Not Available 11/25/2024 15:18:09 09/03/20 24 09/03/2024 CBC W Auto Diffe renti al panel - Blood MCHC [mass/volume ] by automated count 32 g/dL low: 31.7g/ dLhigh : 36.3g/ dL MCHC 32.0 31.7 - 36.3 g/dL 09/03 10:10 AM [facility] Not Available Not Available 11/25/2024 15:18:09 09/03/20 24 09/03/2024 CBC W Auto Diffe renti al panel - Blood erythrocyte distribution width [ratio] by automated count 14.3 % low: 11.3%h igh: 14.8% RDW-C V 14.3 11.3 - 14.8 % 09/03 10:10 AM [facility] Not Available Not Available 11/25/2024 15:18:09 09/03/20 24 09/03/2024 CBC W Auto Diffe renti al panel - Blood platelets [#/volume] in blood by automated count 270 text: 150 - 420 x10e9/ L Plate let Count 270 150 - 420 x10E9 /L 09/03 10:10 AM [facility] Not Available Not Available 11/25/2024 15:18:09 09/03/20 24 09/03/2024 CBC W Auto Diffe renti al panel - Blood platelet mean volume [entitic volume] in blood by automated count 9.9 fL low: 7.8fLh igh: 11.4fL MPV 9.9 7.8 - 11.4 fL 09/03 10:10 AM [facility] Not Available Not Available 11/25/2024 15:18:09 09/03/20 24 09/03/2024 CBC W Auto Diffe renti al panel - Blood neutrophils [#/volume] in blood by automated count 4.47 text: 1.60 - 7.50 x10e9/ L Preli minar y Absol emmonak Neutr ophil 4.47 1.60 - 7.50 x10E9 /L 09/03 10:10 AM [facility] Not Available Not Available 11/25/2024 15:18:09 09/03/20 24 09/03/2024 CBC W Auto Diffe renti al panel - Blood neutrophils/ 100 leukocytes in blood by automated count 64.5 % low: 41%hig h: 74% Neutr ophil % 64.5 41.0 - 74.0 % 09/03 10:10 AM [facility] Not Available Not Available 11/25/2024 15:18:09 09/03/20 24 09/03/2024 CBC W Auto Diffe renti al panel - Blood lymphocytes/ 100 leukocytes in blood by automated count 19.4 % low: 17%hig h: 47% Lymph ocyte % 19.4 17.0 - 47.0 % 09/03 10:10 AM [facility] Not Available Not Available 11/25/2024 15:18:09 09/03/20 24 09/03/2024 CBC W Auto Diffe renti al panel - Blood monocytes/10 0 leukocytes in blood by automated count 10 % low: 3%high : 11% Monoc yte % 10.0 3.0 - 11.0 % 09/03 10:10 AM [facility] Not Available Not Available 11/25/2024 15:18:09 09/03/20 24 09/03/2024 CBC W Auto Diffe renti al panel - Blood eosinophils/ 100 leukocytes in blood by automated count 5.1 % low: 0%high : 7% Eosin ophil % 5.1 0.0 - 7.0 % 09/03 10:10 AM [facility] Not Available Not Available 11/25/2024 15:18:09 09/03/20 24 09/03/2024 CBC W Auto Diffe renti al panel - Blood basophils/10 0 leukocytes in blood by automated count 0.7 % low: 0%high : 1.6% Basop hil % 0.7 0.0 - 1.6 % 09/03 10:10 AM [facility] Not Available Not Available 11/25/2024 15:18:09 09/03/20 24 09/03/2024 CBC W Auto Diffe renti al panel - Blood immature granulocytes /100 leukocytes in blood by automated count 0.3 % low: 0%high : 1% Immat ure Granu locyt es % 0.3 0.0 - 1.0 % 12/27 /2024 10:10 AM [facility] Not Available Not Available 11/25/2024 15:18:09 09/03/20 24 09/03/2024 CBC W Auto Diffe renti al panel - Blood neutrophils [#/volume] in blood by automated count 4.47 text: 1.60 - 7.50 x10e9/ L Neutr ophil Absol emmonak 4.47 1.60 - 7.50 x10E9 /L 09/03 10:10 AM [facility] Not Available Not Available 11/25/2024 15:18:09 09/03/20 24 09/03/2024 CBC W Auto Diffe renti al panel - Blood lymphocytes [#/volume] in blood by automated count 1.34 text: 1.00 - 4.40 x10e9/ L Lymph ocyte Absol emmonak 1.34 1.00 - 4.40 x10E9 /L 09/03 10:10 AM [facility] Not Available Not Available 11/25/2024 15:18:09 09/03/20 24 09/03/2024 CBC W Auto Diffe renti al panel - Blood monocytes [#/volume] in blood by automated count 0.69 text: 0.15 - 1.00 x10e9/ L Monoc yte Absol emmonak 0.69 0.15 - 1.00 x10E9 /L 09/03 10:10 AM [facility] Not Available Not Available 11/25/2024 15:18:09 09/03/20 24 09/03/2024 CBC W Auto Diffe renti al panel - Blood eosinophils [#/volume] in blood 0.35 text: 0.00 - 0.60 x10e9/ L Eosin ophil Absol emmonak 0.35 0.00 - 0.60 x10E9 /L 09/03 10:10 AM [facility] Not Available Not Available 11/25/2024 15:18:09 09/03/20 24 09/03/2024 CBC W Auto Diffe renti al panel - Blood basophils [#/volume] in blood by automated count 0.05 text: 0.00 - 0.13 x10e9/ L Basop hil Absol emmonak 0.05 0.00 - 0.13 x10E9 /L 09/03 10:10 AM [facility] Not Available Not Available 11/25/2024 15:18:09 09/03/20 24 09/03/2024 CBC W Auto Diffe renti al panel - Blood interpretati on and review of laboratory results Normal Not Available Not Available 11/07 15:18:09 09/29/19 25 09/29/2024 Compr ehens connie metab olic 1999 panel - Serum or Plasm a urea nitrogen [mass/volume ] in serum or plasma 16 mg/dL low: 7mg/dL high: 26mg/d L BUN 16 7 - 26 mg/dL 09/29 1:26 PM [facility] Not Available Not Available 10/27/2024 02:53:11 09/29/19 25 09/29/2024 Compr ehens connie metab olic 1999 panel - Serum or Plasm a creatinine [mass/volume ] in serum or plasma 0.73 mg/dL low: 0.71mg /dLhig h: 1.16mg /dL Creat inine 0.73 0.71 - 1.16 mg/dL 09/29 1:26 PM [facility] Not Available Not Available 10/27/2024 02:53:11 09/29/19 25 09/29/2024 Compr ehens connie metab olic 1999 panel - Serum or Plasm a sodium [moles/volum e] in serum or plasma 136 mmol/ L low: 136mmo l/Lhig h: 145mmo l/L Sodiu m 136 136 - 145 mmol/ L 09/29 1:26 PM [facility] Not Available Not Available 10/27/2024 02:53:11 09/29/19 25 09/29/2024 Compr ehens connie metab olic 2000 panel - Serum or Plasm a potassium [moles/volum e] in serum or plasma 4.5 mmol/ L low: 3.5mmo l/Lhig h: 4.5mmo l/L Potas sium 4.5 3.5 - 4.5 mmol/ L 09/29 1:26 PM [facility] Not Available Not Available 10/27/2024 02:53:11 09/29/19 25 09/29/2024 Compr ehens connie metab olic 1999 panel - Serum or Plasm a chloride [moles/volum e] in serum or plasma 98 mmol/ L low: 98mmol /Lhigh : 107mmo l/L Chlor grace 98 98 - 107 mmol/ L 09/29 1:26 PM [facility] [employer] [facility] Not Available Not Available 10/27/2024 02:53:11 09/29/19 25 09/29/2024 Compr ehens connie metab olic 1999 panel - Serum or Plasm a carbon dioxide, total [moles/volum e] in serum or plasma 32 mmol/ L low: 22mmol /Lhigh : 29mmol /L high CO2 32 (H) 22 - 29 mmol/ L 09/29 1:26 PM [facility] Not Available Not Available 10/27/2024 02:53:11 09/29/19 25 09/29/2024 Compr ehens connie metab olic 1999 panel - Serum or Plasm a glucose [mass/volume ] in serum or plasma 93 mg/dL low: 70mg/d Lhigh: 99mg/d L Gluco se 93 70 - 99 mg/dL 09/29 1:26 PM [facility] Not Available Not Available 10/27/2024 02:53:11 09/29/19 25 09/29/2024 Compr ehens connie metab olic 1999 panel - Serum or Plasm a calcium [moles/volum e] in serum or plasma 8.9 mg/dL low: 8.4mg/ dLhigh : 10.2mg /dL Calci um 8.9 8.4 - 10.2 mg/dL 09/29 1:26 PM [facility] [facility] [facility] Not Available Not Available 10/27/2024 02:53:11 09/29/19 25 09/29/2024 Compr ehens connie metab olic 1999 panel - Serum or Plasm a protein [mass/volume ] in serum or plasma 7.2 g/dL low: 6g/dLh igh: 8.3g/d L Prote in Total 7.2 6.0 - 8.3 g/dL 09/29 1:26 PM [facility] Not Available Not Available 10/27/2024 02:53:11 09/29/19 25 09/29/2024 Compr ens connie metab olic 1999 panel - Serum or Plasm a albumin [mass/volume ] in serum or plasma by bromocresol green (bcg) dye binding method 3.4 g/dL low: 3.4g/d Lhigh: 5g/dL Album in 3.4 3.4 - 5.0 g/dL 09/29 1:26 PM [facility] [employer] [facility] [facility] Not Available Not Available 10/27/2024 02:53:11 09/29/1909/29/2024 Compr ehens connie metab olic 1999 panel - Serum or Plasm a bilirubin.to jassi [mass/volume ] in serum or plasma 0.1 mg/dL low: 0.2mg/ dLhigh : 1.2mg/ dL low Bilir ubin Total 0.1 (L) 0.2 - 1.2 mg/dL 09/29 1:26 PM [facility] Not Available Not Available 10/27/2024 02:53:11 09/29/1909/29/2024 Compr ehens connie metab olic 1999 panel - Serum or Plasm a alkaline phosphatase [enzymatic activity/vol ume] in serum or plasma 75 U/L low: 40U/Lh igh: 150U/L Alkal ine Phosp hatas e 75 40 - 150 U/L 09/29 1:26 PM [facility] [facility] Not Available Not Available 10/27/2024 02:53:11 09/29/19 25 09/29/2024 Compr ehens connie metab olic 2000 panel - Serum or Plasm a alanine aminotransfe rase [enzymatic activity/vol ume] in serum or plasma by no addition of P-5'-P 22 U/L low: 5U/Lhi gh: 55U/L ALT 22 5 - 55 U/L 09/29 1:26 PM [facility] [facility] Not Available Not Available 10/27/2024 02:53:11 09/29/19 25 09/29/2024 Compr ehens connie metab olic 1999 panel - Serum or Plasm a aspartate aminotransfe rase [enzymatic activity/vol ume] in serum or plasma 22 U/L low: 5U/Lhi gh: 34U/L AST 22 5 - 34 U/L 09/29 1:26 PM [facility] [facility] Not Available Not Available 10/27/2024 02:53:11 09/29/19 25 09/29/2024 Compr ehens connie metab olic 1999 panel - Serum or Plasm a anion gap 6 low: 6high: 16 Anion Gap 6 6 - 16 09/29 1:26 PM [facility] [employer] [facility] [facility] Not Available Not Available 10/27/2024 02:53:11 09/29/19 25 09/29/2024 Compr ehens connie metab olic 1999 panel - Serum or Plasm a urea nitrogen/cre atinine [mass ratio] in serum or plasma 22 low: 7high: 23 BUN/C reati nine Ratio 22 7 - 23 09/29 1:26 PM [facility] [facility] Not Available Not Available 10/27/2024 02:53:11 09/29/19 25 09/29/2024 Compr ehens connie metab olic 2000 panel - Serum or Plasm a osmolality calculated 283 text: 275 - 295 mOsm/k g Osmol yg Calcu lated 283 275 - 295 mOsm/ kg 09/29 1:26 PM [facility] [employer] [facility] [facility] Not Available Not Available 10/27/2024 02:53:11 09/29/19 25 09/29/2024 Compr ehens connie metab olic 2000 panel - Serum or Plasm a albumin/glob ulin ratio 0.9 low: 1.1hig h: 2.3 low Album in/Gl obuli n Ratio 0.9 (L) 1.1 - 2.3 09/29 1:26 PM [facility] [facility] Not Available Not Available 10/27/2024 02:53:11 09/29/1909/29/2024 Compr ehens connie metab olic 2000 panel - Serum or Plasm a glomerular filtration rate/1.73 sq M.predicted [volume rate/area] in serum, plasma or blood by creatinine-b ased formula (CKD-epi 2020) text: >=90 mL/min /1.73 m2 eGFR by CKD-E PI >90 >=90 mL/mi n/1.7 3 m2 09/29 1:26 PM [facility] [facility] [facility] Not Available Not Available 10/27/2024 02:53:11 09/29/1909/29/2024 Compr ehens connie metab olic 2000 panel - Serum or Plasm a interpretati on and review of laboratory results Abnorm al Not Available Not Available 02:53:11 09/29/1909/29/2024 CBC W Auto Diffe renti al panel - Blood leukocytes [#/volume] in blood by automated count 10.1 text: 4.0 - 10.7 x10e9/ L WBC 10.1 4.0 - 10.7 x10E9 /L 09/29 1:12 PM [facility] [facility] [facility] Not Available Not Available 10/27/2024 02:53:11 09/29/1909/29/2024 CBC W Auto Diffe renti al panel - Blood erythrocytes [#/volume] in blood by automated count 4.56 text: 4.30 - 5.80 x10e12 /L RBC Count 4.56 4.30 - 5.80 x10E1 2/L 09/29 1:12 PM [facility] Not Available Not Available 10/27/2024 02:53:11 09/29/19 25 09/29/2024 CBC W Auto Diffe renti al panel - Blood hemoglobin [mass/volume ] in blood 13.4 g/dL low: 13.3g/ dLhigh : 17.5g/ dL Hemog lobin 13.4 13.3 - 17.5 g/dL 09/29 1:12 PM [facility] [employer] [facility] [facility] Not Available Not Available 10/27/2024 02:53:11 09/29/19 25 09/29/2024 CBC W Auto Diffe renti al panel - Blood hematocrit [volume fraction] of blood by automated count 41.3 % low: 38.7%h igh: 51.1% Hemat ocrit 41.3 38.7 - 51.1 % 09/29 1:12 PM [facility] [employer] [facility] [facility] Not Available Not Available 10/27/2024 02:53:11 09/29/19 25 09/29/2024 CBC W Auto Diffe renti al panel - Blood MCV [entitic volume] by automated count 90.6 fL low: 80fLhi gh: 98fL MCV 90.6 80.0 - 98.0 fL 09/29 1:12 PM [facility] [employer] [facility] [facility] Not Available Not Available 10/27/2024 02:53:11 09/29/19 25 09/29/2024 CBC W Auto Diffe renti al panel - Blood MCH [entitic mass] by automated count 29.4 pg low: 26.7pg high: 33.6pg MCH 29.4 26.7 - 33.6 pg 09/29 1:12 PM [facility] [facility] [facility] Not Available Not Available 10/27/2024 02:53:11 09/29/19 25 09/29/2024 CBC W Auto Diffe renti al panel - Blood MCHC [mass/volume ] by automated count 32.4 g/dL low: 31.7g/ dLhigh : 36.3g/ dL MCHC 32.4 31.7 - 36.3 g/dL 09/29 1:12 PM [facility] [employer] [facility] [facility] Not Available Not Available 10/27/2024 02:53:11 09/29/19 25 09/29/2024 CBC W Auto Diffe renti al panel - Blood erythrocyte distribution width [ratio] by automated count 15.1 % low: 11.3%h igh: 14.8% high RDW-C V 15.1 (H) 11.3 - 14.8 % 09/29 1:12 PM [facility] Not Available Not Available 10/27/2024 02:53:11 09/29/19 25 09/29/2024 CBC W Auto Diffe renti al panel - Blood platelets [#/volume] in blood by automated count 406 text: 150 - 420 x10e9/ L Plate let Count 406 150 - 420 x10E9 /L 09/29 1:12 PM [facility] Not Available Not Available 10/27/2024 02:53:11 09/29/19 25 09/29/2024 CBC W Auto Diffe renti al panel - Blood platelet mean volume [entitic volume] in blood by automated count 9.3 fL low: 7.8fLh igh: 11.4fL MPV 9.3 7.8 - 11.4 fL 09/29 1:12 PM [facility] Not Available Not Available 10/27/2024 02:53:11 09/29/19 25 09/29/2024 CBC W Auto Diffe renti al panel - Blood neutrophils/ 100 leukocytes in blood by automated count 73.6 % low: 41%hig h: 74% Neutr ophil % 73.6 41.0 - 74.0 % 09/29 1:12 PM [facility] Not Available Not Available 10/27/2024 02:53:11 09/29/19 25 09/29/2024 CBC W Auto Diffe renti al panel - Blood lymphocytes/ 100 leukocytes in blood by automated count 15.4 % low: 17%hig h: 47% low Lymph ocyte % 15.4 (L) 17.0 - 47.0 % 09/29 1:12 PM [facility] Not Available Not Available 10/27/2024 02:53:11 09/29/19 25 09/29/2024 CBC W Auto Diffe renti al panel - Blood monocytes/10 0 leukocytes in blood by automated count 7 % low: 3%high : 11% Monoc yte % 7.0 3.0 - 11.0 % 09/29 1:12 PM [facility] Not Available Not Available 10/27/2024 02:53:11 09/29/19 25 09/29/2024 CBC W Auto Diffe renti al panel - Blood eosinophils/ 100 leukocytes in blood by automated count 1.5 % low: 0%high : 7% Eosin ophil % 1.5 0.0 - 7.0 % 09/29 1:12 PM [facility] [facility] Not Available Not Available 10/27/2024 02:53:11 09/29/19 25 09/29/2024 CBC W Auto Diffe renti al panel - Blood basophils/10 0 leukocytes in blood by automated count 0.7 % low: 0%high : 1.6% Basop hil % 0.7 0.0 - 1.6 % 09/29 1:12 PM [facility] [facility] Not Available Not Available 10/27/2024 02:53:11 09/29/19 25 09/29/2024 CBC W Auto Diffe renti al panel - Blood immature granulocytes /100 leukocytes in blood by automated count 1.8 % low: 0%high : 1% high Immat ure Granu locyt es % 1.8 (H) 0.0 - 1.0 % 09/29 1:12 PM [facility] [facility] [facility] Not Available Not Available 10/27/2024 02:53:11 09/29/19 25 09/29/2024 CBC W Auto Diffe renti al panel - Blood neutrophils [#/volume] in blood by automated count 7.42 text: 1.60 - 7.50 x10e9/ L Neutr ophil Absol emmonak 7.42 1.60 - 7.50 x10E9 /L 09/29 1:12 PM [facility] [facility] Not Available Not Available 10/27/2024 02:53:11 09/29/19 25 09/29/2024 CBC W Auto Diffe renti al panel - Blood lymphocytes [#/volume] in blood by automated count 1.55 text: 1.00 - 4.40 x10e9/ L Lymph ocyte Absol emmonak 1.55 1.00 - 4.40 x10E9 /L 09/29 1:12 PM [facility] [facility] [facility] Not Available Not Available 10/27/2024 02:53:11 09/29/19 25 09/29/2024 CBC W Auto Diffe renti al panel - Blood monocytes [#/volume] in blood by automated count 0.7 text: 0.15 - 1.00 x10e9/ L Monoc yte Absol emmonak 0.70 0.15 - 1.00 x10E9 /L 09/29 1:12 PM [facility] Not Available Not Available 10/27/2024 02:53:11 09/29/19 25 09/29/2024 CBC W Auto Diffe renti al panel - Blood eosinophils [#/volume] in blood 0.15 text: 0.00 - 0.60 x10e9/ L Eosin ophil Absol emmonak 0.15 0.00 - 0.60 x10E9 /L 09/29 1:12 PM [facility] Not Available Not Available 10/27/2024 02:53:11 09/29/19 25 09/29/2024 CBC W Auto Diffe renti al panel - Blood basophils [#/volume] in blood by automated count 0.07 text: 0.00 - 0.13 x10e9/ L Basop hil Absol emmonak 0.07 0.00 - 0.13 x10E9 /L 09/29 1:12 PM [facility] Not Available Not Available 10/27/2024 02:53:11 09/29/19 25 09/29/2024 CBC W Auto Diffe renti al panel - Blood interpretati on and review of laboratory results Abnorm al Not Available Not Available 02:53:11 09/29/19 25 09/29/2024 Thyro tropi n [Unit s/vol ume] in Serum or Plasm a by Detec tion limit <= 0.005 mIU/L thyrotropin [units/volum e] in serum or plasma by detection limit <= 0.005 mIU/L 0.93 text: 0.350 - 4.940 uIU/mL TSH 0.930 0.350 - 4.940 uIU/m L 09/29 10:29 AM [facility] Not Available Not Available 10/27/2024 02:53:51 09/29/19 25 09/29/2024 Thyro tropi n [Unit s/vol ume] in Serum or Plasm a by Detec tion limit <= 0.005 mIU/L interpretati on and review of laboratory results Normal Not Available Not Available 10/09 02:53:51 09/29/19 25 09/29/2024 Compr ehens connie metab olic 1999 panel - Serum or Plasm a urea nitrogen [mass/volume ] in serum or plasma 15 mg/dL low: 7mg/dL high: 26mg/d L BUN 15 7 - 26 mg/dL 09/29 10:29 AM [facility] Not Available Not Available 10/27/2024 02:53:51 09/29/19 25 09/29/2024 Compr ehens connie metab olic 1999 panel - Serum or Plasm a creatinine [mass/volume ] in serum or plasma 0.81 mg/dL low: 0.71mg /dLhig h: 1.16mg /dL Creat inine 0.81 0.71 - 1.16 mg/dL 09/29 10:29 AM [facility] Not Available Not Available 10/27/2024 02:53:51 09/29/19 25 09/29/2024 Compr ehens connie metab olic 1999 panel - Serum or Plasm a sodium [moles/volum e] in serum or plasma 136 mmol/ L low: 136mmo l/Lhig h: 145mmo l/L Sodiu m 136 136 - 145 mmol/ L 09/29 10:29 AM [facility] Not Available Not Available 10/27/2024 02:53:51 09/29/19 25 09/29/2024 Compr ehens connie metab olic 1999 panel - Serum or Plasm a potassium [moles/volum e] in serum or plasma 4.4 mmol/ L low: 3.5mmo l/Lhig h: 4.5mmo l/L Potas sium 4.4 3.5 - 4.5 mmol/ L 09/29 10:29 AM [facility] Not Available Not Available 10/27/2024 02:53:51 09/29/19 25 09/29/2024 Compr ehens connie metab olic 1999 panel - Serum or Plasm a chloride [moles/volum e] in serum or plasma 98 mmol/ L low: 98mmol /Lhigh : 107mmo l/L Chlor grace 98 98 - 107 mmol/ L 09/29 10:29 AM [facility] Not Available Not Available 10/27/2024 02:53:51 09/29/19 25 09/29/2024 Compr ehens connie metab olic 2000 panel - Serum or Plasm a carbon dioxide, total [moles/volum e] in serum or plasma 30 mmol/ L low: 22mmol /Lhigh : 29mmol /L high CO2 30 (H) 22 - 29 mmol/ L 09/29 10:29 AM [facility] Not Available Not Available 10/27/2024 02:53:51 09/29/19 25 09/29/2024 Compr ehens connie metab olic 2000 panel - Serum or Plasm a glucose [mass/volume ] in serum or plasma 114 mg/dL low: 70mg/d Lhigh: 99mg/d L high Gluco se 114 (H) 70 - 99 mg/dL 09/29 10:29 AM [facility] Not Available Not Available 10/27/2024 02:53:51 09/29/19 25 09/29/2024 Compr ehens connie metab olic 2000 panel - Serum or Plasm a calcium [moles/volum e] in serum or plasma 9 mg/dL low: 8.4mg/ dLhigh : 10.2mg /dL Calci um 9.0 8.4 - 10.2 mg/dL 09/29 10:29 AM [facility] Not Available Not Available 10/27/2024 02:53:51 09/29/19 25 09/29/2024 Compr ehens connie metab olic 2000 panel - Serum or Plasm a protein [mass/volume ] in serum or plasma 7.4 g/dL low: 6g/dLh igh: 8.3g/d L Prote in Total 7.4 6.0 - 8.3 g/dL 09/29 10:29 AM [facility] Not Available Not Available 10/27/2024 02:53:51 09/29/19 25 09/29/2024 Compr ens connie metab olic 1999 panel - Serum or Plasm a albumin [mass/volume ] in serum or plasma by bromocresol green (bcg) dye binding method 3.4 g/dL low: 3.4g/d Lhigh: 5g/dL Album in 3.4 3.4 - 5.0 g/dL 09/29 10:29 AM [facility] Not Available Not Available 10/27/2024 02:53:51 09/29/19 25 09/29/2024 Com[facility] connie metab olic 1999 panel - Serum or Plasm a bilirubin.to jassi [mass/volume ] in serum or plasma 0.1 mg/dL low: 0.2mg/ dLhigh : 1.2mg/ dL low Bilir ubin Total 0.1 (L) 0.2 - 1.2 mg/dL 09/29 10:29 AM [facility] Not Available Not Available 10/27/2024 02:53:51 09/29/19 25 09/29/2024 Compr ens connie metab olic 1999 panel - Serum or Plasm a alkaline phosphatase [enzymatic activity/vol ume] in serum or plasma 76 U/L low: 40U/Lh igh: 150U/L Alkal ine Phosp hatas e 76 40 - 150 U/L 09/29 10:29 AM [facility] Not Available Not Available 10/27/2024 02:53:51 09/29/19 25 09/29/2024 Compr [employer] connie metab olic 2000 panel - Serum or Plasm a alanine aminotransfe rase [enzymatic activity/vol ume] in serum or plasma by no addition of P-5'-P 23 U/L low: 5U/Lhi gh: 55U/L ALT 23 5 - 55 U/L 09/29 10:29 AM [facility] Not Available Not Available 10/27/2024 02:53:51 09/29/19 25 09/29/2024 Compr ehens connie metab olic 2000 panel - Serum or Plasm a aspartate aminotransfe rase [enzymatic activity/vol ume] in serum or plasma 22 U/L low: 5U/Lhi gh: 34U/L AST 22 5 - 34 U/L 09/29 10:29 AM [employer] [facility] [facility] Not Available Not Available 10/27/2024 02:53:51 09/29/19 25 09/29/2024 Compr ehens connie metab olic 2000 panel - Serum or Plasm a anion gap 8 low: 6high: 16 Anion Gap 8 6 - 16 09/29 10:29 AM [employer] [facility] Not Available Not Available 10/27/2024 02:53:51 09/29/19 25 09/29/2024 Compr ehens connie metab olic 2000 panel - Serum or Plasm a urea nitrogen/cre atinine [mass ratio] in serum or plasma 19 low: 7high: 23 BUN/C reati nine Ratio 19 7 - 23 09/29 10:29 AM [employer] [facility] Not Available Not Available 10/27/2024 02:53:51 09/29/19 25 09/29/2024 Compr ehens connie metab olic 2000 panel - Serum or Plasm a osmolality calculated 284 text: 275 - 295 mOsm/k g Osmol ality Calcu lated 284 275 - 295 mOsm/ kg 09/29 10:29 AM [employer] [facility] Not Available Not Available 10/27/2024 02:53:51 09/29/19 25 09/29/2024 Compr ehens connie metab olic 2000 panel - Serum or Plasm a albumin/glob ulin ratio 0.9 low: 1.1hig h: 2.3 low Album in/Gl obuli n Ratio 0.9 (L) 1.1 - 2.3 09/29 10:29 AM [employer] [facility] Not Available Not Available 10/27/2024 02:53:51 09/29/19 25 09/29/2024 Compr ehens connie metab olic 2000 panel - Serum or Plasm a glomerular filtration rate/1.73 sq M.predicted [volume rate/area] in serum, plasma or blood by creatinine-b ased formula (CKD-epi 2020) text: >=90 mL/min /1.73 m2 eGFR by CKD-E PI >90 >=90 mL/mi n/1.7 3 m2 09/29 10:29 AM [facility] Not Available Not Available 10/27/2024 02:53:51 09/29/1909/29/2024 Compr ehens connie metab olic 2000 panel - Serum or Plasm a interpretati on and review of laboratory results Abnorm al Not Available Not Available 02:53:51 09/29/1909/29/2024 CBC W Auto Diffe renti al panel - Blood leukocytes [#/volume] in blood by automated count 11.3 text: 4.0 - 10.7 x10e9/ L high WBC 11.3 (H) 4.0 - 10.7 x10E9 /L 09/29 10:04 AM [facility] Not Available Not Available 10/27/2024 02:53:51 09/29/1909/29/2024 CBC W Auto Diffe renti al panel - Blood erythrocytes [#/volume] in blood by automated count 4.74 text: 4.30 - 5.80 x10e12 /L RBC Count 4.74 4.30 - 5.80 x10E1 2/L 09/29 10:04 AM [facility] Not Available Not Available 10/27/2024 02:53:51 09/29/1909/29/2024 CBC W Auto Diffe renti al panel - Blood hemoglobin [mass/volume ] in blood 13.8 g/dL low: 13.3g/ dLhigh : 17.5g/ dL Hemog lobin 13.8 13.3 - 17.5 g/dL 09/29 10:04 AM [facility] Not Available Not Available 10/27/2024 02:53:51 09/29/1909/29/2024 CBC W Auto Diffe renti al panel - Blood hematocrit [volume fraction] of blood by automated count 42.1 % low: 38.7%h igh: 51.1% Hemat ocrit 42.1 38.7 - 51.1 % 09/29 10:04 AM [facility] Not Available Not Available 10/27/2024 02:53:51 09/29/19 25 09/29/2024 CBC W Auto Diffe renti al panel - Blood MCV [entitic volume] by automated count 88.8 fL low: 80fLhi gh: 98fL MCV 88.8 80.0 - 98.0 fL 09/29 10:04 AM [employer] [facility] Not Available Not Available 10/27/2024 02:53:51 09/29/19 25 09/29/2024 CBC W Auto Diffe renti al panel - Blood MCH [entitic mass] by automated count 29.1 pg low: 26.7pg high: 33.6pg MCH 29.1 26.7 - 33.6 pg 09/29 10:04 AM [facility] Not Available Not Available 10/27/2024 02:53:51 09/29/19 25 09/29/2024 CBC W Auto Diffe renti al panel - Blood MCHC [mass/volume ] by automated count 32.8 g/dL low: 31.7g/ dLhigh : 36.3g/ dL MCHC 32.8 31.7 - 36.3 g/dL 09/29 10:04 AM [facility] Not Available Not Available 10/27/2024 02:53:51 09/29/1909/29/2024 CBC W Auto Diffe renti al panel - Blood erythrocyte distribution width [ratio] by automated count 15.1 % low: 11.3%h igh: 14.8% high RDW-C V 15.1 (H) 11.3 - 14.8 % 09/29 10:04 AM [facility] Not Available Not Available 10/27/2024 02:53:51 09/29/1909/29/2024 CBC W Auto Diffe renti al panel - Blood platelets [#/volume] in blood by automated count 405 text: 150 - 420 x10e9/ L Plate let Count 405 150 - 420 x10E9 /L 09/29 10:04 AM [facility] Not Available Not Available 10/27/2024 02:53:51 09/29/19 25 09/29/2024 CBC W Auto Diffe renti al panel - Blood platelet mean volume [entitic volume] in blood by automated count 8.8 fL low: 7.8fLh igh: 11.4fL MPV 8.8 7.8 - 11.4 fL 09/29 10:04 AM [facility] Not Available Not Available 10/27/2024 02:53:51 09/29/19 25 09/29/2024 CBC W Auto Diffe renti al panel - Blood neutrophils [#/volume] in blood by automated count 8.43 text: 1.60 - 7.50 x10e9/ L high Preli minar y Absol emmonak Neutr ophil 8.43 (H) 1.60 - 7.50 x10E9 /L 09/29 10:04 AM [facility] Not Available Not Available 10/27/2024 02:53:51 09/29/1909/29/2024 CBC W Auto Diffe renti al panel - Blood neutrophils/ 100 leukocytes in blood by automated count 74.8 % low: 41%hig h: 74% high Neutr ophil % 74.8 (H) 41.0 - 74.0 % 09/29 10:04 AM [facility] Not Available Not Available 10/27/2024 02:53:51 09/29/19 25 09/29/2024 CBC W Auto Diffe renti al panel - Blood lymphocytes/ 100 leukocytes in blood by automated count 14.7 % low: 17%hig h: 47% low Lymph ocyte % 14.7 (L) 17.0 - 47.0 % 09/29 10:04 AM [employer] [facility] Not Available Not Available 10/27/2024 02:53:51 09/29/19 25 09/29/2024 CBC W Auto Diffe renti al panel - Blood monocytes/10 0 leukocytes in blood by automated count 6.5 % low: 3%high : 11% Monoc yte % 6.5 3.0 - 11.0 % 09/29 10:04 AM [employer] [facility] Not Available Not Available 10/27/2024 02:53:51 09/29/19 25 09/29/2024 CBC W Auto Diffe renti al panel - Blood eosinophils/ 100 leukocytes in blood by automated count 1.6 % low: 0%high : 7% Eosin ophil % 1.6 0.0 - 7.0 % 09/29 10:04 AM [employer] [facility] Not Available Not Available 10/27/2024 02:53:51 09/29/19 25 09/29/2024 CBC W Auto Diffe renti al panel - Blood basophils/10 0 leukocytes in blood by automated count 0.5 % low: 0%high : 1.6% Basop hil % 0.5 0.0 - 1.6 % 09/29 10:04 AM [employer] [facility] Not Available Not Available 10/27/2024 02:53:51 09/29/19 25 09/29/2024 CBC W Auto Diffe renti al panel - Blood immature granulocytes /100 leukocytes in blood by automated count 1.9 % low: 0%high : 1% high Immat ure Granu locyt es % 1.9 (H) 0.0 - 1.0 % 09/29 10:04 AM [facility] Not Available Not Available 10/27/2024 02:53:51 09/29/19 25 09/29/2024 CBC W Auto Diffe renti al panel - Blood neutrophils [#/volume] in blood by automated count 8.43 text: 1.60 - 7.50 x10e9/ L high Neutr ophil Absol emmonak 8.43 (H) 1.60 - 7.50 x10E9 /L 09/29 10:04 AM [facility] Not Available Not Available 10/27/2024 02:53:51 09/29/19 25 09/29/2024 CBC W Auto Diffe renti al panel - Blood lymphocytes [#/volume] in blood by automated count 1.66 text: 1.00 - 4.40 x10e9/ L Lymph ocyte Absol emmonak 1.66 1.00 - 4.40 x10E9 /L 09/29 10:04 AM [employer] [facility] [facility] Not Available Not Available 10/27/2024 02:53:51 09/29/19 25 09/29/2024 CBC W Auto Diffe renti al panel - Blood monocytes [#/volume] in blood by automated count 0.73 text: 0.15 - 1.00 x10e9/ L Monoc yte Absol emmonak 0.73 0.15 - 1.00 x10E9 /L 09/29 10:04 AM [employer] [facility] Not Available Not Available 10/27/2024 02:53:51 09/29/19 25 09/29/2024 CBC W Auto Diffe renti al panel - Blood eosinophils [#/volume] in blood 0.18 text: 0.00 - 0.60 x10e9/ L Eosin ophil Absol emmonak 0.18 0.00 - 0.60 x10E9 /L 09/29 10:04 AM [employer] [facility] Not Available Not Available 10/27/2024 02:53:51 09/29/19 25 09/29/2024 CBC W Auto Diffe renti al panel - Blood basophils [#/volume] in blood by automated count 0.06 text: 0.00 - 0.13 x10e9/ L Basop hil Absol emmonak 0.06 0.00 - 0.13 x10E9 /L 09/29 10:04 AM [employer] [facility] Not Available Not Available 10/27/2024 02:53:51 09/29/1909/29/2024 CBC W Auto Diffe renti al panel - Blood interpretati on and review of laboratory results Abnorm al Not Available Not Available 02:53:51 09/30/19 25 10/02/2024 Bacte mary carmen ident ified in Sputu m by Cultu re microorganis m identified in specimen by culture Heavy normal oropha ryngea l shayne Cultu re Heavy marvel l oroph aryng eal shayne BLANCA 10/02 7:20 AM [employer] [facility] G[facility] Not Available Not Available 10/27/2024 02:53:11 09/30/19 25 10/02/2024 Bacte mary carmen ident ified in Sputu m by Cultu re microscopic observation [identifier] in specimen by gram stain >= 25 per low power field Polymo rphonu clear cells Gram Stain >= 25 per low power field Polym orpho nucle ar cells 10/02 7:20 AM [employer] [facility] MICRO BIOLO GY Not Available Not Available 10/27/2024 02:53:11 09/30/1910/02/2024 Bacte mary carmen ident ified in Sputu m by Cultu re microscopic observation [identifier] in specimen by gram stain <10 per low power field Squamo us epithe lial cells Gram Stain <10 per low power field Squam ous epith elial cells 10/02 7:20 AM [employer] [facility] [facility] Not Available Not Available 10/27/2024 02:53:11 09/30/19 25 10/02/2024 Bacte mary carmen ident ified in Sputu m by Cultu re microscopic observation [identifier] in specimen by gram stain Modera te Gram-p ositiv e cocci Gram Stain Moder ate Gram- posit connie cocci 10/02 7:20 AM [employer] [facility] Not Available Not Available 10/27/2024 02:53:11 09/30/19 25 10/02/2024 Bacte mary carmen ident ified in Sputu m by Cultu re microscopic observation [identifier] in specimen by gram stain Light Gram-p ositiv e bacill i Gram Stain Light Gram- posit connie bacil li 10/02 7:20 AM [employer] [facility] Not Available Not Available 10/27/2024 02:53:11 09/30/1910/02/2024 Bacte mary carmen ident ified in Sputu m by Cultu re microscopic observation [identifier] in specimen by gram stain Rare Gram-n egativ e bacill i Gram Stain Rare Gram- negat connie bacil li 10/02 7:20 AM [employer] [facility] GY Not Available Not Available 10/27/2024 02:53:11 09/30/1909/30/2024 Influ zane virus A and B and SARS- CoV-2 (COVI D-19) and Respi rator y syncy tial virus RNA panel - Respi rator y syste m speci men by MATEO with probe detec tion sars-cov-2 (covid-19) RNA [presence] in respiratory system specimen by MATEO with probe detection Not detect ed text: not detect ed COVID -19 PCR Not detec brent Not detec brent 09/30 4:56 AM [employer] [facility] Not Available Not Available 10/27/2024 02:53:11 09/30/19 25 09/30/2024 Influ zane virus A and B and SARS- CoV-2 (COVI D-19) and Respi rator y syncy tial virus RNA panel - Respi rator y syste m speci men by MATEO with probe detec tion influenza virus A RNA [presence] in specimen by MATEO with probe detection Not detect ed text: not detect ed Influ zane A PCR Not detec brent Not detec brent 09/30 4:56 AM [employer] [facility] [facility] Not Available Not Available 10/27/2024 02:53:11 09/30/19 25 09/30/2024 Influ zane virus A and B and SARS- CoV-2 (COVI D-19) and Respi rator y syncy tial virus RNA panel - Respi rator y syste m speci men by MATEO with probe detec tion influenza virus B RNA [presence] in specimen by MATEO with probe detection Not detect ed text: not detect ed Influ zane B PCR Not detec brent Not detec brent 09/30 4:56 AM [employer] [facility] Not Available Not Available 10/27/2024 02:53:11 09/30/19 25 09/30/2024 Influ zane virus A and B and SARS- CoV-2 (COVI D-19) and Respi rator y syncy tial virus RNA panel - Respi rator y syste m speci men by MATEO with probe detec tion respiratory syncytial virus RNA [identifier] in specimen by MATEO with probe detection Not detect ed text: not detect ed RSV PCR Not detec brent Not detec brent 09/30 4:56 AM [employer] [facility] Not Available Not Available 10/27/2024 02:53:11 09/30/19 25 09/30/2024 Influ zane virus A and B and SARS- CoV-2 (COVI D-19) and Respi rator y syncy tial virus RNA panel - Respi rator y syste m speci men by MATEO with probe detec tion Unknown Analyte This nuclei c acid amplif icatio n assay has been author ized by the Food and Drug admini strati on (FDA) under an Emerge ncy Use Author edis archer (EUA). This test is only author ized for the durati on of time the declar ation that circum stance s exist justif doe the author edis archer of emerge ncy use of in vitro diagno stic tests for detect ion of SARS-C oV-2 virus and/or diagno sis of COVID- 19 infect ion under sectio n 564(b) (1) of the Act, 21 U.S.C 360bbb -3 (b)(1) , unless the author edis archer is termin ated or revoke d sooner . Fact Sheets for this EUA assay are availa ble upon reques t. This nucle ic acid ampli ficat ion assay has been autho rized by the Food and Drug admin istra tion (FDA) under an Emerg ency Use Autho rizat ion (EUA) . This test is only autho rized for the durat ion of time the decla ratio n that circu mstan layne exist justi fying the autho rizat ion of emerg ency use of in vitro diagn ostic tests for detec tion of SARS- CoV-2 virus and/o r diagn osis of COVID -19 infec tion under secti on 564(b )(1) of the Act, 21 U.S.C 360bb b-3 (b)(1 ), unles s the autho rizat ion is termi nated or revok ed soone r. Fact Sheet s for this EUA assay are avail able upon reque st. Not Available Not Available 10/27/2024 02:53:11 09/30/19 25 09/30/2024 Influ zane virus A and B and SARS- CoV-2 (COVI D-19) and Respi rator y syncy tial virus RNA panel - Respi rator y syste m speci men by MATEO with probe detec tion interpretati on and review of laboratory results Normal Not Available Not Available 10/09 02:53:11 10/01/1910/04/2024 Hepat itis C virus RNA [Unit s/vol ume] (shanti l load) in Serum or Plasm a by MATEO with probe detec tion hepatitis C virus quant by PCR, blood [id number] text: not detect ed IU/mL high Hepat itis C Virus Quant by PCR, Blood 0,000 (H) Not detec brent IU/mL 10/04 10:03 AM [employer] [facility] Not Available Not Available 10/27/2024 02:53:12 10/01/19 25 10/04/2024 Hepat itis C virus RNA [Unit s/vol ume] (shanti l load) in Serum or Plasm a by MATEO with probe detec tion hepatitis C RNA PCR, interp Detect ed text: not detect ed abnormal Hepat itis C RNA PCR, Inter p Detec brent (A) Not detec brent 10/04 10:03 AM [employer] [facility] BI[facility] GY Not Available Not Available 10/27/2024 02:53:12 10/01/19 25 10/04/2024 Hepat itis C virus RNA [Unit s/vol ume] (shanti l load) in Serum or Plasm a by MATEO with probe detec tion hepatitis C quant by PCR, log 7.28 text: log IU/mL Hepat itis C Quant by PCR, Log 7.28 log IU/mL 10/04 10:03 AM [employer] [facility] Not Available Not Available 10/27/2024 02:53:12 10/01/19 25 10/04/2024 Hepat itis C virus RNA [Unit s/vol ume] (shanti l load) in Serum or Plasm a by MATEO with probe detec tion Unknown Analyte The Hepati tis C viral (HCV) RNA analys is utiliz ed a serum sample , real-t judit revers e transc riptio n PCR, and is report ed as Not Detect ed, Detect ed (<15 IU/mL) , Quanti ty (IU/mL ) or >100,0 00,000 IU/mL. The analyt ic sensit ivity (LOD) of the assay is 15 IU/mL. The linear range is from 15 IU/mL to 100,00 0,000 IU/mL. Values less than 15 IU/mL are report ed as Detect ed (<15 IU/mL) . Values greate r than 100,00 0,000 IU/mL are report ed as >100,0 00,000 IU/mL. The detect ion/qu antita tion of HCV RNA in serum is based on the isolat ion of HCV RNA with revers e transc riptio n of genomi c HCV RNA follow ed by real-t judit PCR in the presen ce of an unrela brent RNA multicultural internship al contro l. The multicultural internship al contro l ensure s that RNA is isolat ed, and that no genera l signif icant inhibi tors of the RT-PCR proces s are presen t. The analys is was perfor med using a [place] FDA approv ed test method ology Violeta brodie HCV. The Hepat itis C viral (HCV) RNA taina sis utili zed a serum sampl e, real- time rever se trans cript ion PCR, and is repor brent as Not Detec brent, Detec brent (<15 IU/mL ), Quant ity (IU/m L) or >100, 000,0 00 IU/mL . The taina tic sensi tivit y (LOD) of the assay is 15 IU/mL . The linea r range is from 15 IU/mL to 100,0 00,00 0 IU/mL . Value s less than 15 IU/mL are repor brent as Detec brent (<15 IU/mL ). Value s great er than 100,0 00,00 0 IU/mL are repor brent as >100, 000,0 00 IU/mL . The detec tion/ quant itati on of HCV RNA in serum is based on the isola tion of HCV RNA with rever se trans cript ion of genom ic HCV RNA follo wed by real- time PCR in the prese nce of an unrel ated RNA inter nal contr ol. The inter nal contr ol ensur es that RNA is isola brent, and that no gener al signi fican t inhib itors of the RT-PC R proce ss are prese nt. The taina sis was perfo rmed using a [place] FDA appro darian test metho dolog y Violeta brodie HCV. Not Available Not Available 10/27/2024 02:53:12 10/01/19 25 10/04/2024 Hepat itis C virus RNA [Unit s/vol ume] (shanti l load) in Serum or Plasm a by MATEO with probe detec tion interpretati on and review of laboratory results Abnorm al Not Available Not Available 02:53:12 10/01/19 25 10/01/2024 Magne sium [Mass /volu me] in Serum or Plasm a magnesium [mass/volume ] in serum or plasma 2 mg/dL low: 1.6mg/ dLhigh : 2.6mg/ dL Magne sium 2.0 1.6 - 2.6 mg/dL 10/01 5:21 AM [employer] [facility] Not Available Not Available 10/27/2024 02:53:12 10/01/19 25 10/01/2024 Magne sium [Mass /volu me] in Serum or Plasm a interpretati on and review of laboratory results Normal Not Available Not Available 10/09 02:53:12 10/01/19 25 10/01/2024 Renal funct ion 1999 panel - Serum or Plasm a urea nitrogen [mass/volume ] in serum or plasma 14 mg/dL low: 7mg/dL high: 26mg/d L BUN 14 7 - 26 mg/dL 10/01 5:21 AM [employer] [facility] Not Available Not Available 10/27/2024 02:53:12 10/01/19 25 10/01/2024 Renal funct ion 1999 panel - Serum or Plasm a creatinine [mass/volume ] in serum or plasma 0.66 mg/dL low: 0.71mg /dLhig h: 1.16mg /dL low Creat inine 0.66 (L) 0.71 - 1.16 mg/dL 10/01 5:21 AM [employer] [facility] Not Available Not Available 10/27/2024 02:53:12 10/01/19 25 10/01/2024 Renal funct ion 1999 panel - Serum or Plasm a sodium [moles/volum e] in serum or plasma 139 mmol/ L low: 136mmo l/Lhig h: 145mmo l/L Sodiu m 139 136 - 145 mmol/ L 10/01 5:21 AM [facility] Not Available Not Available 10/27/2024 02:53:12 10/01/19 25 10/01/2024 Renal funct ion 1999 panel - Serum or Plasm a potassium [moles/volum e] in serum or plasma 4.2 mmol/ L low: 3.5mmo l/Lhig h: 4.5mmo l/L Potas sium 4.2 3.5 - 4.5 mmol/ L 10/01 5:21 AM [facility] Not Available Not Available 10/27/2024 02:53:12 10/01/19 25 10/01/2024 Renal funct ion 1999 panel - Serum or Plasm a chloride [moles/volum e] in serum or plasma 101 mmol/ L low: 98mmol /Lhigh : 107mmo l/L Chlor grace 101 98 - 107 mmol/ L 10/01 5:21 AM [facility] Not Available Not Available 10/27/2024 02:53:12 10/01/19 25 10/01/2024 Renal funct ion 1999 panel - Serum or Plasm a carbon dioxide, total [moles/volum e] in serum or plasma 31 mmol/ L low: 22mmol /Lhigh : 29mmol /L high CO2 31 (H) 22 - 29 mmol/ L 10/01 5:21 AM [facility] Not Available Not Available 10/27/2024 02:53:12 10/01/1910/01/2024 Renal funct ion 1999 panel - Serum or Plasm a glucose [mass/volume ] in serum or plasma 120 mg/dL low: 70mg/d Lhigh: 99mg/d L high Gluco se 120 (H) 70 - 99 mg/dL 10/01 5:21 AM [facility] Not Available Not Available 10/27/2024 02:53:12 10/01/19 25 10/01/2024 Renal funct ion 1999 panel - Serum or Plasm a albumin [mass/volume ] in serum or plasma by bromocresol green (bcg) dye binding method 3 g/dL low: 3.4g/d Lhigh: 5g/dL low Album in 3.0 (L) 3.4 - 5.0 g/dL 10/01 5:21 AM [employer] [facility] Not Available Not Available 10/27/2024 02:53:12 10/01/19 25 10/01/2024 Renal funct ion 1999 panel - Serum or Plasm a calcium [moles/volum e] in serum or plasma 8.6 mg/dL low: 8.4mg/ dLhigh : 10.2mg /dL Calci um 8.6 8.4 - 10.2 mg/dL 10/01 5:21 AM [facility] Not Available Not Available 10/27/2024 02:53:12 10/01/19 25 10/01/2024 Renal funct ion 1999 panel - Serum or Plasm a phosphate [mass/volume ] in serum or plasma 3 mg/dL low: 2.8mg/ dLhigh : 5.1mg/ dL Phosp horus 3.0 2.8 - 5.1 mg/dL 10/01 5:21 AM [facility] Not Available Not Available 10/27/2024 02:53:12 10/01/19 25 10/01/2024 Renal funct ion 1999 panel - Serum or Plasm a anion gap 7 low: 6high: 16 Anion Gap 7 6 - 16 10/01 5:21 AM [facility] Not Available Not Available 10/27/2024 02:53:12 10/01/19 25 10/01/2024 Renal funct ion 1999 panel - Serum or Plasm a urea nitrogen/cre atinine [mass ratio] in serum or plasma 21 low: 7high: 23 BUN/C reati nine Ratio 21 7 - 23 10/01 5:21 AM [facility] Not Available Not Available 10/27/2024 02:53:12 10/01/19 25 10/01/2024 Renal funct ion 2000 panel - Serum or Plasm a osmolality calculated 290 text: 275 - 295 mOsm/k g Osmol yg Faustin lated 290 275 - 295 mOsm/ kg 10/01 5:21 AM [employer] [facility] Not Available Not Available 10/27/2024 02:53:12 10/01/19 25 10/01/2024 Renal funct ion 2000 panel - Serum or Plasm a glomerular filtration rate/1.73 sq M.predicted [volume rate/area] in serum, plasma or blood by creatinine-b ased formula (CKD-epi 2020) text: >=90 mL/min /1.73 m2 eGFR by CKD-E PI >90 >=90 mL/mi n/1.7 3 m2 10/01 5:21 AM [facility] Not Available Not Available 10/27/2024 02:53:12 10/01/1910/01/2024 Renal funct ion 2000 panel - Serum or Plasm a interpretati on and review of laboratory results Abnorm al Not Available Not Available 02:53:12 10/01/19 25 10/01/2024 CBC W Auto Diffe renti al panel - Blood leukocytes [#/volume] in blood by automated count 10.5 text: 4.0 - 10.7 x10e9/ L WBC 10.5 4.0 - 10.7 x10E9 /L 10/01 5:02 AM [facility] Not Available Not Available 10/27/2024 02:53:12 10/01/19 25 10/01/2024 CBC W Auto Diffe renti al panel - Blood erythrocytes [#/volume] in blood by automated count 4.03 text: 4.30 - 5.80 x10e12 /L low RBC Count 4.03 (L) 4.30 - 5.80 x10E1 2/L 10/01 5:02 AM [employer] [facility] Not Available Not Available 10/27/2024 02:53:12 10/01/19 25 10/01/2024 CBC W Auto Diffe renti al panel - Blood hemoglobin [mass/volume ] in blood 11.9 g/dL low: 13.3g/ dLhigh : 17.5g/ dL low Hemog lobin 11.9 (L) 13.3 - 17.5 g/dL 10/01 5:02 AM [facility] Not Available Not Available 10/27/2024 02:53:12 10/01/19 25 10/01/2024 CBC W Auto Diffe perryti al panel - Blood hematocrit [volume fraction] of blood by automated count 36.6 % low: 38.7%h igh: 51.1% low Hemat ocrit 36.6 (L) 38.7 - 51.1 % 10/01 5:02 [facility] Not Available Not Available 10/27/2024 02:53:12 10/01/19 25 10/01/2024 CBC W Auto Diffe perryti al panel - Blood MCV [entitic volume] by automated count 90.8 fL low: 80fLhi gh: 98fL MCV 90.8 80.0 - 98.0 fL 10/01 5:02 AM [facility] Not Available Not Available 10/27/2024 02:53:12 10/01/19 25 10/01/2024 CBC W Auto Diffe perryti al panel - Blood MCH [entitic mass] by automated count 29.5 pg low: 26.7pg high: 33.6pg MCH 29.5 26.7 - 33.6 pg 10/01 5:02 AM [facility] Not Available Not Available 10/27/2024 02:53:12 10/01/19 25 10/01/2024 CBC W Auto Diffe renti al panel - Blood MCHC [mass/volume ] by automated count 32.5 g/dL low: 31.7g/ dLhigh : 36.3g/ dL MCHC 32.5 31.7 - 36.3 g/dL 10/01 5:02 AM [facility] Not Available Not Available 10/27/2024 02:53:12 10/01/19 25 10/01/2024 CBC W Auto Diffe renti al panel - Blood erythrocyte distribution width [ratio] by automated count 15.3 % low: 11.3%h igh: 14.8% high RDW-C V 15.3 (H) 11.3 - 14.8 % 10/01 5:02 AM [facility] Not Available Not Available 10/27/2024 02:53:12 10/01/19 25 10/01/2024 CBC W Auto Diffe renti al panel - Blood platelets [#/volume] in blood by automated count 390 text: 150 - 420 x10e9/ L Plate let Count 390 150 - 420 x10E9 /L 10/01 5:02 AM [facility] Not Available Not Available 10/27/2024 02:53:12 10/01/1910/01/2024 CBC W Auto Diffe renti al panel - Blood platelet mean volume [entitic volume] in blood by automated count 9.4 fL low: 7.8fLh igh: 11.4fL MPV 9.4 7.8 - 11.4 fL 10/01 5:02 AM [facility] Not Available Not Available 10/27/2024 02:53:12 10/01/19 25 10/01/2024 CBC W Auto Diffe renti al panel - Blood neutrophils [#/volume] in blood by automated count 8.1 text: 1.60 - 7.50 x10e9/ L high Preli minar y Absol emmonak Neutr ophil 8.10 (H) 1.60 - 7.50 x10E9 /L 10/01 5:02 AM [facility] Not Available Not Available 10/27/2024 02:53:12 10/01/19 25 10/01/2024 CBC W Auto Diffe renti al panel - Blood neutrophils/ 100 leukocytes in blood by automated count 77.2 % low: 41%hig h: 74% high Neutr ophil % 77.2 (H) 41.0 - 74.0 % 10/01 5:02 AM [facility] Not Available Not Available 10/27/2024 02:53:12 10/01/19 25 10/01/2024 CBC W Auto Diffe renti al panel - Blood lymphocytes/ 100 leukocytes in blood by automated count 13.1 % low: 17%hig h: 47% low Lymph ocyte % 13.1 (L) 17.0 - 47.0 % 10/01 5:02 AM [facility] Not Available Not Available 10/27/2024 02:53:12 10/01/19 25 10/01/2024 CBC W Auto Diffe renti al panel - Blood monocytes/10 0 leukocytes in blood by automated count 8.3 % low: 3%high : 11% Monoc yte % 8.3 3.0 - 11.0 % 10/01 5:02 AM [facility] Not Available Not Available 10/27/2024 02:53:12 10/01/19 25 10/01/2024 CBC W Auto Diffe renti al panel - Blood eosinophils/ 100 leukocytes in blood by automated count 0.3 % low: 0%high : 7% Eosin ophil % 0.3 0.0 - 7.0 % 10/01 5:02 AM [facility] Not Available Not Available 10/27/2024 02:53:12 10/01/19 25 10/01/2024 CBC W Auto Diffe renti al panel - Blood basophils/10 0 leukocytes in blood by automated count 0.4 % low: 0%high : 1.6% Basop hil % 0.4 0.0 - 1.6 % 10/01 5:02 AM [facility] Not Available Not Available 10/27/2024 02:53:12 10/01/19 25 10/01/2024 CBC W Auto Diffe renti al panel - Blood immature granulocytes /100 leukocytes in blood by automated count 0.7 % low: 0%high : 1% Immat ure Granu locyt es % 0.7 0.0 - 1.0 % 10/01 5:02 AM [facility] Not Available Not Available 10/27/2024 02:53:12 10/01/19 25 10/01/2024 CBC W Auto Diffe renti al panel - Blood neutrophils [#/volume] in blood by automated count 8.1 text: 1.60 - 7.50 x10e9/ L high Neutr ophil Absol emmonak 8.10 (H) 1.60 - 7.50 x10E9 /L 10/01 5:02 AM [facility] Not Available Not Available 10/27/2024 02:53:12 10/01/19 25 10/01/2024 CBC W Auto Diffe renti al panel - Blood lymphocytes [#/volume] in blood by automated count 1.37 text: 1.00 - 4.40 x10e9/ L Lymph ocyte Absol emmonak 1.37 1.00 - 4.40 x10E9 /L 10/01 5:02 AM [facility] Not Available Not Available 10/27/2024 02:53:12 10/01/1910/01/2024 CBC W Auto Diffe renti al panel - Blood monocytes [#/volume] in blood by automated count 0.87 text: 0.15 - 1.00 x10e9/ L Monoc yte Absol emmonak 0.87 0.15 - 1.00 x10E9 /L 10/01 5:02 AM [facility] Not Available Not Available 10/27/2024 02:53:12 10/01/1910/01/2024 CBC W Auto Diffe renti al panel - Blood eosinophils [#/volume] in blood 0.03 text: 0.00 - 0.60 x10e9/ L Eosin ophil Absol emmonak 0.03 0.00 - 0.60 x10E9 /L 10/01 5:02 AM [facility] Not Available Not Available 10/27/2024 02:53:12 10/01/19 25 10/01/2024 CBC W Auto Diffe renti al panel - Blood basophils [#/volume] in blood by automated count 0.04 text: 0.00 - 0.13 x10e9/ L Basop hil Absol emmonak 0.04 0.00 - 0.13 x10E9 /L 10/01 5:02 AM [facility] Not Available Not Available 10/27/2024 02:53:12 10/01/1910/01/2024 CBC W Auto Diffe renti al panel - Blood interpretati on and review of laboratory results Abnorm al Not Available Not Available 02:53:12 10/02/1910/02/2024 Magne sium [Mass /volu me] in Serum or Plasm a magnesium [mass/volume ] in serum or plasma 2.1 mg/dL low: 1.6mg/ dLhigh : 2.6mg/ dL Magne sium 2.1 1.6 - 2.6 mg/dL 10/02 7:28 AM [facility] Not Available Not Available 10/27/2024 02:53:12 10/02/1910/02/2024 Magne sium [Mass /volu me] in Serum or Plasm a interpretati on and review of laboratory results Normal Not Available Not Available 10/09 02:53:12 10/02/1910/02/2024 Renal funct ion 1999 panel - Serum or Plasm a urea nitrogen [mass/volume ] in serum or plasma 13 mg/dL low: 7mg/dL high: 26mg/d L BUN 13 7 - 26 mg/dL 10/02 7:28 AM [facility] Not Available Not Available 10/27/2024 02:53:12 10/02/1910/02/2024 Renal funct ion 1999 panel - Serum or Plasm a creatinine [mass/volume ] in serum or plasma 0.65 mg/dL low: 0.71mg /dLhig h: 1.16mg /dL low Creat inine 0.65 (L) 0.71 - 1.16 mg/dL 10/02 7:28 AM [facility] Not Available Not Available 10/27/2024 02:53:12 10/02/1910/02/2024 Renal funct ion 1999 panel - Serum or Plasm a sodium [moles/volum e] in serum or plasma 138 mmol/ L low: 136mmo l/Lhig h: 145mmo l/L Sodiu m 138 136 - 145 mmol/ L 10/02 7:28 AM [facility] Not Available Not Available 10/27/2024 02:53:12 10/02/1910/02/2024 Renal funct ion 1999 panel - Serum or Plasm a potassium [moles/volum e] in serum or plasma 4.2 mmol/ L low: 3.5mmo l/Lhig h: 4.5mmo l/L Potas sium 4.2 3.5 - 4.5 mmol/ L 10/02 7:28 AM [facility] Not Available Not Available 10/27/2024 02:53:12 10/02/1910/02/2024 Renal funct ion 1999 panel - Serum or Plasm a chloride [moles/volum e] in serum or plasma 103 mmol/ L low: 98mmol /Lhigh : 107mmo l/L Chlor grace 103 98 - 107 mmol/ L 10/02 7:28 [facility] Not Available 10/27/2024 02:53:12 10/02/1910/02/2024 Renal funct ion 1999 panel - Serum or Plasm a carbon dioxide, total [moles/volum e] in serum or plasma 28 mmol/ L low: 22mmol /Lhigh : 29mmol /L CO2 28 22 - 29 mmol/ L 10/02 7:28 [facility] Not Available Not Available 10/27/2024 02:53:12 10/02/1910/02/2024 Renal funct ion 1999 panel - Serum or Plasm a glucose [mass/volume ] in serum or plasma 80 mg/dL low: 70mg/d Lhigh: 99mg/d L Gluco se 80 70 - 99 mg/dL 10/02 7:28 [facility] Not Available Not Available 10/27/2024 02:53:12 10/02/1910/02/2024 Renal funct ion 1999 panel - Serum or Plasm a albumin [mass/volume ] in serum or plasma by bromocresol green (bcg) dye binding method 2.9 g/dL low: 3.4g/d Lhigh: 5g/dL low Album in 2.9 (L) 3.4 - 5.0 g/dL 10/02 7:28 AM [facility] Not Available Not Available 10/27/2024 02:53:12 10/02/1910/02/2024 Renal funct ion 1999 panel - Serum or Plasm a calcium [moles/volum e] in serum or plasma 8.5 mg/dL low: 8.4mg/ dLhigh : 10.2mg /dL Calci um 8.5 8.4 - 10.2 mg/dL 10/02 7:28 AM [facility] Not Available Not Available 10/27/2024 02:53:12 10/02/1910/02/2024 Renal funct ion 1999 panel - Serum or Plasm a phosphate [mass/volume ] in serum or plasma 2.8 mg/dL low: 2.8mg/ dLhigh : 5.1mg/ dL Phosp horus 2.8 2.8 - 5.1 mg/dL 10/02 7:28 AM [facility] Not Available Not Available 10/27/2024 02:53:12 10/02/1910/02/2024 Renal funct ion 1999 panel - Serum or Plasm a anion gap 7 low: 6high: 16 Anion Gap 7 6 - 16 10/02 7:28 AM [facility] Not Available Not Available 10/27/2024 02:53:12 10/02/1910/02/2024 Renal funct ion 2000 panel - Serum or Plasm a urea nitrogen/cre atinine [mass ratio] in serum or plasma 20 low: 7high: 23 BUN/C reati nine Ratio 20 7 - 23 10/02 7:28 AM [facility] Not Available Not Available 10/27/2024 02:53:12 10/02/1910/02/2024 Renal funct ion 2000 panel - Serum or Plasm a osmolality calculated 285 text: 275 - 295 mOsm/k g Osmol ality Calcu lated 285 275 - 295 mOsm/ kg 10/02 7:28 AM [facility] Not Available Not Available 10/27/2024 02:53:12 10/02/1910/02/2024 Renal funct ion 2000 panel - Serum or Plasm a glomerular filtration rate/1.73 sq M.predicted [volume rate/area] in serum, plasma or blood by creatinine-b ased formula (CKD-epi 2020) text: >=90 mL/min /1.73 m2 eGFR by CKD-E PI >90 >=90 mL/mi n/1.7 3 m2 10/02 7:28 AM [facility] Not Available Not Available 10/27/2024 02:53:12 10/02/1910/02/2024 Renal funct ion 1999 panel - Serum or Plasm a interpretati on and review of laboratory results Abnorm al Not Available Not Available 02:53:12 10/02/1910/02/2024 CBC W Auto Diffe renti al panel - Blood leukocytes [#/volume] in blood by automated count 9.7 text: 4.0 - 10.7 x10e9/ L WBC 9.7 4.0 - 10.7 x10E9 /L 10/02 7:10 AM [facility] Not Available Not Available 10/27/2024 02:53:12 10/02/1910/02/2024 CBC W Auto Diffe renti al panel - Blood erythrocytes [#/volume] in blood by automated count 4.19 text: 4.30 - 5.80 x10e12 /L low RBC Count 4.19 (L) 4.30 - 5.80 x10E1 2/L 10/02 7:10 AM [facility] Not Available Not Available 10/27/2024 02:53:12 10/02/1910/02/2024 CBC W Auto Diffe renti al panel - Blood hemoglobin [mass/volume ] in blood 12.1 g/dL low: 13.3g/ dLhigh : 17.5g/ dL low Hemog lobin 12.1 (L) 13.3 - 17.5 g/dL 10/02 7:10 AM [facility] Not Available Not Available 10/27/2024 02:53:12 10/02/1910/02/2024 CBC W Auto Diffe renti al panel - Blood hematocrit [volume fraction] of blood by automated count 38.4 % low: 38.7%h igh: 51.1% low Hemat ocrit 38.4 (L) 38.7 - 51.1 % 10/02 7:10 AM [facility] Not Available Not Available 10/27/2024 02:53:12 10/02/1910/02/2024 CBC W Auto Diffe renti al panel - Blood MCV [entitic volume] by automated count 91.6 fL low: 80fLhi gh: 98fL MCV 91.6 80.0 - 98.0 fL 10/02 7:10 AM [facility] Not Available Not Available 10/27/2024 02:53:12 10/02/1910/02/2024 CBC W Auto Diffe perryti al panel - Blood MCH [entitic mass] by automated count 28.9 pg low: 26.7pg high: 33.6pg MCH 28.9 26.7 - 33.6 pg 10/02 7:10 AM [facility] Not Available Not Available 10/27/2024 02:53:12 10/02/1910/02/2024 CBC W Auto Diffe perryti al panel - Blood MCHC [mass/volume ] by automated count 31.5 g/dL low: 31.7g/ dLhigh : 36.3g/ dL low MCHC 31.5 (L) 31.7 - 36.3 g/dL 10/02 7:10 AM [facility] Not Available Not Available 10/27/2024 02:53:12 10/02/1910/02/2024 CBC W Auto Diffe renti al panel - Blood erythrocyte distribution width [ratio] by automated count 15.5 % low: 11.3%h igh: 14.8% high RDW-C V 15.5 (H) 11.3 - 14.8 % 10/02 7:10 AM [facility] Not Available Not Available 10/27/2024 02:53:12 10/02/1910/02/2024 CBC W Auto Diffe renti al panel - Blood platelets [#/volume] in blood by automated count 407 text: 150 - 420 x10e9/ L Plate let Count 407 150 - 420 x10E9 /L 10/02 7:10 AM [facility] Not Available Not Available 10/27/2024 02:53:12 10/02/1910/02/2024 CBC W Auto Diffe renti al panel - Blood platelet mean volume [entitic volume] in blood by automated count 9.5 fL low: 7.8fLh igh: 11.4fL MPV 9.5 7.8 - 11.4 fL 10/02 7:10 AM [facility] [facility] Not Available Not Available 10/27/2024 02:53:12 10/02/1910/02/2024 CBC W Auto Diffe renti al panel - Blood neutrophils [#/volume] in blood by automated count 6.64 text: 1.60 - 7.50 x10e9/ L Preli minar y Absol emmonak Neutr ophil 6.64 1.60 - 7.50 x10E9 /L 10/02 7:10 AM [facility] Not Available Not Available 10/27/2024 02:53:12 10/02/1910/02/2024 CBC W Auto Diffe renti al panel - Blood neutrophils/ 100 leukocytes in blood by automated count 68.7 % low: 41%hig h: 74% Neutr ophil % 68.7 41.0 - 74.0 % 10/02 7:10 AM [facility] Not Available Not Available 10/27/2024 02:53:12 10/02/19 25 10/02/2024 CBC W Auto Diffe renti al panel - Blood lymphocytes/ 100 leukocytes in blood by automated count 19.5 % low: 17%hig h: 47% Lymph ocyte % 19.5 17.0 - 47.0 % 10/02 7:10 AM [facility] Not Available Not Available 10/27/2024 02:53:12 10/02/19 25 10/02/2024 CBC W Auto Diffe renti al panel - Blood monocytes/10 0 leukocytes in blood by automated count 10.2 % low: 3%high : 11% Monoc yte % 10.2 3.0 - 11.0 % 10/02 7:10 AM [facility] Not Available Not Available 10/27/2024 02:53:12 10/02/1910/02/2024 CBC W Auto Diffe renti al panel - Blood eosinophils/ 100 leukocytes in blood by automated count 0.5 % low: 0%high : 7% Eosin ophil % 0.5 0.0 - 7.0 % 10/02 7:10 AM [facility] Not Available Not Available 10/27/2024 02:53:12 10/02/1910/02/2024 CBC W Auto Diffe renti al panel - Blood basophils/10 0 leukocytes in blood by automated count 0.3 % low: 0%high : 1.6% Basop hil % 0.3 0.0 - 1.6 % 10/02 7:10 AM [facility] Not Available Not Available 10/27/2024 02:53:12 10/02/1910/02/2024 CBC W Auto Diffe renti al panel - Blood immature granulocytes /100 leukocytes in blood by automated count 0.8 % low: 0%high : 1% Immat ure Granu locyt es % 0.8 0.0 - 1.0 % 10/02 7:10 AM [facility] Not Available Not Available 10/27/2024 02:53:12 10/02/1910/02/2024 CBC W Auto Diffe renti al panel - Blood neutrophils [#/volume] in blood by automated count 6.64 text: 1.60 - 7.50 x10e9/ L Neutr ophil Absol emmonak 6.64 1.60 - 7.50 x10E9 /L 10/02 7:10 AM [facility] Not Available Not Available 10/27/2024 02:53:12 10/02/19 25 10/02/2024 CBC W Auto Diffe renti al panel - Blood lymphocytes [#/volume] in blood by automated count 1.89 text: 1.00 - 4.40 x10e9/ L Lymph ocyte Absol emmonak 1.89 1.00 - 4.40 x10E9 /L 10/02 7:10 AM [facility] Not Available Not Available 10/27/2024 02:53:12 10/02/1910/02/2024 CBC W Auto Diffe renti al panel - Blood monocytes [#/volume] in blood by automated count 0.99 text: 0.15 - 1.00 x10e9/ L Monoc yte Absol emmonak 0.99 0.15 - 1.00 x10E9 /L 10/02 7:10 AM [facility] Not Available Not Available 10/27/2024 02:53:12 10/02/1910/02/2024 CBC W Auto Diffe renti al panel - Blood eosinophils [#/volume] in blood 0.05 text: 0.00 - 0.60 x10e9/ L Eosin ophil Absol emmonak 0.05 0.00 - 0.60 x10E9 /L 10/02 7:10 AM [facility] Not Available Not Available 10/27/2024 02:53:12 10/02/1910/02/2024 CBC W Auto Diffe renti al panel - Blood basophils [#/volume] in blood by automated count 0.03 text: 0.00 - 0.13 x10e9/ L Basop hil Absol emmonak 0.03 0.00 - 0.13 x10E9 /L 10/02 7:10 AM [facility] Not Available Not Available 10/27/2024 02:53:12 10/02/1910/02/2024 CBC W Auto Diffe renti al panel - Blood interpretati on and review of laboratory results Abnorm al Not Available Not Available 02:53:12 10/13/1910/13/2024 Thyro tropi n [Unit s/vol ume] in Serum or Plasm a by Detec tion limit <= 0.005 mIU/L thyrotropin [units/volum e] in serum or plasma by detection limit <= 0.005 mIU/L 0.045 text: 0.350 - 4.940 uIU/mL low TSH 0.045 (L) 0.350 - 4.940 uIU/m L 10/13 11:49 [facility] Not Available 10/27/2024 02:53:08 10/13/19 25 10/13/2024 Thyro tropi n [Unit s/vol ume] in Serum or Plasm a by Detec tion limit <= 0.005 mIU/L interpretati on and review of laboratory results Abnorm al Not Available Not Available 02:53:08 10/13/1910/13/2024 Compr ehens connie metab olic 1999 panel - Serum or Plasm a urea nitrogen [mass/volume ] in serum or plasma 10 mg/dL low: 7mg/dL high: 26mg/d L BUN 10 7 - 26 mg/dL 10/13 11:58 AM [facility] Not Available Not Available 10/27/2024 02:53:08 10/13/19 25 10/13/2024 Compr ehens connie metab olic 1999 panel - Serum or Plasm a creatinine [mass/volume ] in serum or plasma 0.65 mg/dL low: 0.71mg /dLhig h: 1.16mg /dL low Creat inine 0.65 (L) 0.71 - 1.16 mg/dL 10/13 11:58 AM [facility] Not Available Not Available 10/27/2024 02:53:08 10/13/19 25 10/13/2024 Compr ehens connie metab olic 1999 panel - Serum or Plasm a sodium [moles/volum e] in serum or plasma 137 mmol/ L low: 136mmo l/Lhig h: 145mmo l/L Sodiu m 137 136 - 145 mmol/ L 10/13 11:58 AM [facility] Not Available Not Available 10/27/2024 02:53:08 10/13/19 25 10/13/2024 Compr ehens connie metab olic 2000 panel - Serum or Plasm a potassium [moles/volum e] in serum or plasma 4.6 mmol/ L low: 3.5mmo l/Lhig h: 4.5mmo l/L high Potas sium 4.6 (H) 3.5 - 4.5 mmol/ L 10/13 11:58 AM [facility] Not Available Not Available 10/27/2024 02:53:08 10/13/19 25 10/13/2024 Compr ehens connie metab olic 1999 panel - Serum or Plasm a chloride [moles/volum e] in serum or plasma 104 mmol/ L low: 98mmol /Lhigh : 107mmo l/L Chlor grace 104 98 - 107 mmol/ L 10/13 11:58 AM [facility] Not Available Not Available 10/27/2024 02:53:08 10/13/19 25 10/13/2024 Compr ehens connie metab olic 1999 panel - Serum or Plasm a carbon dioxide, total [moles/volum e] in serum or plasma 20 mmol/ L low: 22mmol /Lhigh : 29mmol /L low CO2 20 (L) 22 - 29 mmol/ L 10/13 11:58 AM [facility] Not Available Not Available 10/27/2024 02:53:08 10/13/19 25 10/13/2024 Compr ehens connie metab olic 1999 panel - Serum or Plasm a glucose [mass/volume ] in serum or plasma 95 mg/dL low: 70mg/d Lhigh: 99mg/d L Gluco se 95 70 - 99 mg/dL 10/13 11:58 AM [facility] Not Available Not Available 10/27/2024 02:53:08 10/13/19 25 10/13/2024 Compr ehens connie metab olic 1999 panel - Serum or Plasm a calcium [moles/volum e] in serum or plasma 9.2 mg/dL low: 8.4mg/ dLhigh : 10.2mg /dL Calci um 9.2 8.4 - 10.2 mg/dL 10/13 11:58 AM [facility] Not Available Not Available 10/27/2024 02:53:08 10/13/19 25 10/13/2024 Compr ehens connie metab olic 2000 panel - Serum or Plasm a protein [mass/volume ] in serum or plasma 7.4 g/dL low: 6g/dLh igh: 8.3g/d L Prote in Total 7.4 6.0 - 8.3 g/dL 10/13 11:58 AM [employer] [facility] Not Available Not Available 10/27/2024 02:53:08 10/13/19 25 10/13/2024 Compr ens connie metab olic 2000 panel - Serum or Plasm a albumin [mass/volume ] in serum or plasma by bromocresol green (bcg) dye binding method 3.6 g/dL low: 3.4g/d Lhigh: 5g/dL Album in 3.6 3.4 - 5.0 g/dL 10/13 11:58 AM [employer] [facility] Not Available Not Available 10/27/2024 02:53:08 10/13/1910/13/2024 Compr ens connie metab olic 2000 panel - Serum or Plasm a bilirubin.to jassi [mass/volume ] in serum or plasma 0.3 mg/dL low: 0.2mg/ dLhigh : 1.2mg/ dL Bilir ubin Total 0.3 0.2 - 1.2 mg/dL 10/13 11:58 AM [facility] [facility] [facility] Not Available Not Available 10/27/2024 02:53:08 10/13/19 25 10/13/2024 Compr ehens connie metab olic 2000 panel - Serum or Plasm a alkaline phosphatase [enzymatic activity/vol ume] in serum or plasma 69 U/L low: 40U/Lh igh: 150U/L Alkal ine Phosp hatas e 69 40 - 150 U/L 10/13 11:58 AM [employer] [facility] Not Available Not Available 10/27/2024 02:53:08 10/13/19 25 10/13/2024 Compr ehens connie metab olic 2000 panel - Serum or Plasm a alanine aminotransfe rase [enzymatic activity/vol ume] in serum or plasma by no addition of P-5'-P 24 U/L low: 5U/Lhi gh: 55U/L ALT 24 5 - 55 U/L 10/13 11:58 AM [employer] [facility] Not Available Not Available 10/27/2024 02:53:08 10/13/19 25 10/13/2024 Compr ehens connie metab olic 2000 panel - Serum or Plasm a aspartate aminotransfe rase [enzymatic activity/vol ume] in serum or plasma 27 U/L low: 5U/Lhi gh: 34U/L AST 27 5 - 34 U/L 10/13 11:58 AM [facility] [facility] [facility] Not Available Not Available 10/27/2024 02:53:08 10/13/19 25 10/13/2024 Compr ehens connie metab olic 2000 panel - Serum or Plasm a anion gap 13 low: 6high: 16 Anion Gap 13 6 - 16 10/13 11:58 AM [employer] [facility] Not Available Not Available 10/27/2024 02:53:08 10/13/19 25 10/13/2024 Compr ehens connie metab olic 2000 panel - Serum or Plasm a urea nitrogen/cre atinine [mass ratio] in serum or plasma 15 low: 7high: 23 BUN/C reati nine Ratio 15 7 - 23 10/13 11:58 AM [facility] Not Available Not Available 10/27/2024 02:53:08 10/13/19 25 10/13/2024 Compr ehens connie metab olic 2000 panel - Serum or Plasm a osmolality calculated 283 text: 275 - 295 mOsm/k g Osmol ality Calcu lated 283 275 - 295 mOsm/ kg 10/13 11:58 AM [facility] [facility] [facility] Not Available Not Available 10/27/2024 02:53:08 10/13/19 25 10/13/2024 Compr ehens connie metab olic 2000 panel - Serum or Plasm a albumin/glob ulin ratio 0.9 low: 1.1hig h: 2.3 low Album in/Gl obuli n Ratio 0.9 (L) 1.1 - 2.3 10/13 11:58 AM [employer] [facility] Not Available Not Available 10/27/2024 02:53:08 10/13/1910/13/2024 Compr ehens connie metab olic 2000 panel - Serum or Plasm a glomerular filtration rate/1.73 sq M.predicted [volume rate/area] in serum, plasma or blood by creatinine-b ased formula (CKD-epi 2020) text: >=90 mL/min /1.73 m2 eGFR by CKD-E PI >90 >=90 mL/mi n/1.7 3 m2 10/13 11:58 [facility] Not Available Not Available 10/27/2024 02:53:08 10/13/1910/13/2024 Compr ehens connie metab olic 2000 panel - Serum or Plasm a interpretati on and review of laboratory results Abnorm al Not Available Not Available 02:53:08 10/13/1910/13/2024 CBC W Auto Diffe renti al panel - Blood leukocytes [#/volume] in blood by automated count 7.8 text: 4.0 - 10.7 x10e9/ L WBC 7.8 4.0 - 10.7 x10E9 /L 10/13 10:17 AM [employer] [facility] Not Available Not Available 10/27/2024 02:53:08 10/13/1910/13/2024 CBC W Auto Diffe renti al panel - Blood erythrocytes [#/volume] in blood by automated count 4.97 text: 4.30 - 5.80 x10e12 /L RBC Count 4.97 4.30 - 5.80 x10E1 2/L 10/13 10:17 AM [employer] [facility] Not Available Not Available 10/27/2024 02:53:08 10/13/1910/13/2024 CBC W Auto Diffe renti al panel - Blood hemoglobin [mass/volume ] in blood 14.5 g/dL low: 13.3g/ dLhigh : 17.5g/ dL Hemog lobin 14.5 13.3 - 17.5 g/dL 10/13 10:17 AM [employer] [facility] Not Available Not Available 10/27/2024 02:53:08 10/13/1910/13/2024 CBC W Auto Diffe renti al panel - Blood hematocrit [volume fraction] of blood by automated count 44.7 % low: 38.7%h igh: 51.1% Hemat ocrit 44.7 38.7 - 51.1 % 10/13 10:17 [facility] Available Not Available 10/27/2024 02:53:08 10/13/1910/13/2024 CBC W Auto Diffe renti al panel - Blood MCV [entitic volume] by automated count 89.9 fL low: 80fLhi gh: 98fL MCV 89.9 80.0 - 98.0 fL 10/13 10:17 [facility] Not Available Not Available 10/27/2024 02:53:08 10/13/1910/13/2024 CBC W Auto Diffe renti al panel - Blood MCH [entitic mass] by automated count 29.2 pg low: 26.7pg high: 33.6pg MCH 29.2 26.7 - 33.6 pg 10/13 10:17 [facility] Not Available Not Available 10/27/2024 02:53:08 10/13/1910/13/2024 CBC W Auto Diffe renti al panel - Blood MCHC [mass/volume ] by automated count 32.4 g/dL low: 31.7g/ dLhigh : 36.3g/ dL MCHC 32.4 31.7 - 36.3 g/dL 10/13 10:17 [facility] Not Available Not Available 10/27/2024 02:53:08 10/13/1910/13/2024 CBC W Auto Diffe renti al panel - Blood erythrocyte distribution width [ratio] by automated count 15.9 % low: 11.3%h igh: 14.8% high RDW-C V 15.9 (H) 11.3 - 14.8 % 10/13 10:17 [facility] Not Available Not Available 10/27/2024 02:53:08 10/13/19 25 10/13/2024 CBC W Auto Diffe renti al panel - Blood platelets [#/volume] in blood by automated count 266 text: 150 - 420 x10e9/ L Plate let Count 266 150 - 420 x10E9 /L 10/13 10:17 AM [facility] Not Available Not Available 10/27/2024 02:53:08 10/13/1910/13/2024 CBC W Auto Diffe renti al panel - Blood platelet mean volume [entitic volume] in blood by automated count 9.8 fL low: 7.8fLh igh: 11.4fL MPV 9.8 7.8 - 11.4 fL 10/13 10:17 AM [facility] Not Available Not Available 10/27/2024 02:53:08 10/13/1910/13/2024 CBC W Auto Diffe renti al panel - Blood neutrophils [#/volume] in blood by automated count 5 text: 1.60 - 7.50 x10e9/ L Preli minar y Absol emmonak Neutr ophil 5.00 1.60 - 7.50 x10E9 /L 10/13 10:17 AM [facility] Not Available Not Available 10/27/2024 02:53:08 10/13/1910/13/2024 CBC W Auto Diffe renti al panel - Blood neutrophils/ 100 leukocytes in blood by automated count 64.4 % low: 41%hig h: 74% Neutr ophil % 64.4 41.0 - 74.0 % 10/13 10:17 AM [facility] Not Available Not Available 10/27/2024 02:53:08 10/13/19 25 10/13/2024 CBC W Auto Diffe renti al panel - Blood lymphocytes/ 100 leukocytes in blood by automated count 16.7 % low: 17%hig h: 47% low Lymph ocyte % 16.7 (L) 17.0 - 47.0 % 10/13 10:17 AM [facility] JSASI Not Available Not Available 10/27/2024 02:53:08 10/13/19 25 10/13/2024 CBC W Auto Diffe renti al panel - Blood monocytes/10 0 leukocytes in blood by automated count 12.5 % low: 3%high : 11% high Monoc yte % 12.5 (H) 3.0 - 11.0 % 10/13 10:17 AM [facility] [facility] [facility] Not Available Not Available 10/27/2024 02:53:08 10/13/19 25 10/13/2024 CBC W Auto Diffe renti al panel - Blood eosinophils/ 100 leukocytes in blood by automated count 5.4 % low: 0%high : 7% Eosin ophil % 5.4 0.0 - 7.0 % 10/13 10:17 AM [facility] Not Available Not Available 10/27/2024 02:53:08 10/13/19 25 10/13/2024 CBC W Auto Diffe renti al panel - Blood basophils/10 0 leukocytes in blood by automated count 0.6 % low: 0%high : 1.6% Basop hil % 0.6 0.0 - 1.6 % 10/13 10:17 AM [facility] Not Available Not Available 10/27/2024 02:53:08 10/13/19 25 10/13/2024 CBC W Auto Diffe renti al panel - Blood immature granulocytes /100 leukocytes in blood by automated count 0.4 % low: 0%high : 1% Immat ure Granu locyt es % 0.4 0.0 - 1.0 % 10/13 10:17 AM [facility] Not Available Not Available 10/27/2024 02:53:08 10/13/19 25 10/13/2024 CBC W Auto Diffe renti al panel - Blood neutrophils [#/volume] in blood by automated count 5 text: 1.60 - 7.50 x10e9/ L Neutr ophil Absol emmonak 5.00 1.60 - 7.50 x10E9 /L 10/13 10:17 AM [facility] Not Available Not Available 10/27/2024 02:53:08 10/13/19 25 10/13/2024 CBC W Auto Diffe renti al panel - Blood lymphocytes [#/volume] in blood by automated count 1.3 text: 1.00 - 4.40 x10e9/ L Lymph ocyte Absol emmonak 1.30 1.00 - 4.40 x10E9 /L 10/13 10:17 AM [facility] Not Available Not Available 10/27/2024 02:53:08 10/13/1910/13/2024 CBC W Auto Diffe renti al panel - Blood monocytes [#/volume] in blood by automated count 0.97 text: 0.15 - 1.00 x10e9/ L Monoc yte Absol emmonak 0.97 0.15 - 1.00 x10E9 /L 10/13 10:17 AM [facility] Not Available Not Available 10/27/2024 02:53:08 10/13/1910/13/2024 CBC W Auto Diffe renti al panel - Blood eosinophils [#/volume] in blood 0.42 text: 0.00 - 0.60 x10e9/ L Eosin ophil Absol emmonak 0.42 0.00 - 0.60 x10E9 /L 10/13 10:17 AM [facility] Not Available Not Available 10/27/2024 02:53:08 10/13/1910/13/2024 CBC W Auto Diffe renti al panel - Blood basophils [#/volume] in blood by automated count 0.05 text: 0.00 - 0.13 x10e9/ L Basop hil Absol emmonak 0.05 0.00 - 0.13 x10E9 /L 10/13 10:17 AM [facility] Not Available Not Available 10/27/2024 02:53:08 10/13/1910/13/2024 CBC W Auto Diffe renti al panel - Blood interpretati on and review of laboratory results Abnorm al Not Available Not Available 02:53:08 11/03/1911/03/2024 Thyro tropi n [Unit s/vol ume] in Serum or Plasm a by Detec tion limit <= 0.005 mIU/L thyrotropin [units/volum e] in serum or plasma by detection limit <= 0.005 mIU/L 0.774 text: 0.350 - 4.940 uIU/mL TSH 0.774 0.350 - 4.940 uIU/m L 11/03 10:02 AM [employer] [facility] Not Available Not Available 11/25/2024 15:18:04 11/03/1911/03/2024 Thyro tropi n [Unit s/vol ume] in Serum or Plasm a by Detec tion limit <= 0.005 mIU/L interpretati on and review of laboratory results Normal Not Available Not Available 11/07 15:18:04 11/03/1911/03/2024 Compr ehens connie metab olic 1999 panel - Serum or Plasm a urea nitrogen [mass/volume ] in serum or plasma 10 mg/dL low: 7mg/dL high: 26mg/d L BUN 10 7 - 26 mg/dL 11/03 9:50 AM [facility] Not Available Not Available 11/25/2024 15:18:04 11/03/1911/03/2024 Compr ehens connie metab olic 1999 panel - Serum or Plasm a creatinine [mass/volume ] in serum or plasma 0.68 mg/dL low: 0.71mg /dLhig h: 1.16mg /dL low Creat inine 0.68 (L) 0.71 - 1.16 mg/dL 11/03 9:50 AM [facility] Not Available Not Available 11/25/2024 15:18:04 11/03/1911/03/2024 Compr ehens connie metab olic 1999 panel - Serum or Plasm a sodium [moles/volum e] in serum or plasma 141 mmol/ L low: 136mmo l/Lhig h: 145mmo l/L Sodiu m 141 136 - 145 mmol/ L 11/03 9:50 AM [employer] [facility] Not Available Not Available 11/25/2024 15:18:04 11/03/19 25 11/03/2024 Compr ehens connie metab olic 1999 panel - Serum or Plasm a potassium [moles/volum e] in serum or plasma 3.9 mmol/ L low: 3.5mmo l/Lhig h: 4.5mmo l/L Potas sium 3.9 3.5 - 4.5 mmol/ L 11/03 9:50 AM [employer] [facility] [facility]SI Not Available Not Available 11/25/2024 15:18:04 11/03/19 25 11/03/2024 Compr ehens connie metab olic 1999 panel - Serum or Plasm a chloride [moles/volum e] in serum or plasma 105 mmol/ L low: 98mmol /Lhigh : 107mmo l/L Chlor grace 105 98 - 107 mmol/ L 11/03 9:50 AM [employer] [facility] Not Available Not Available 11/25/2024 15:18:04 11/03/19 25 11/03/2024 Compr ehens connie metab olic 1999 panel - Serum or Plasm a carbon dioxide, total [moles/volum e] in serum or plasma 27 mmol/ L low: 22mmol /Lhigh : 29mmol /L CO2 27 22 - 29 mmol/ L 11/03 9:50 AM [employer] [facility] J[facility]SI Not Available Not Available 11/25/2024 15:18:04 11/03/19 25 11/03/2024 Compr ehens connie metab olic 1999 panel - Serum or Plasm a glucose [mass/volume ] in serum or plasma 120 mg/dL low: 70mg/d Lhigh: 99mg/d L high Gluco se 120 (H) 70 - 99 mg/dL 11/03 9:50 AM [employer] [facility] J[facility]SI Not Available Not Available 11/25/2024 15:18:04 11/03/19 25 11/03/2024 Compr ehens connie metab olic 2000 panel - Serum or Plasm a calcium [moles/volum e] in serum or plasma 9.4 mg/dL low: 8.4mg/ dLhigh : 10.2mg /dL Calci um 9.4 8.4 - 10.2 mg/dL 11/03 9:50 AM [employer] [facility] Not Available Not Available 11/25/2024 15:18:04 11/03/19 25 11/03/2024 Compr ehens connie metab olic 2000 panel - Serum or Plasm a protein [mass/volume ] in serum or plasma 7.7 g/dL low: 6g/dLh igh: 8.3g/d L Prote in Total 7.7 6.0 - 8.3 g/dL 11/03 9:50 AM [employer] [facility] J[facility]SI Not Available Not Available 11/25/2024 15:18:04 11/03/19 25 11/03/2024 Compr ehens connie metab olic 2000 panel - Serum or Plasm a albumin [mass/volume ] in serum or plasma by bromocresol green (bcg) dye binding method 3.6 g/dL low: 3.4g/d Lhigh: 5g/dL Album in 3.6 3.4 - 5.0 g/dL 11/03 9:50 AM [employer] [facility] Not Available Not Available 11/25/2024 15:18:04 11/03/1911/03/2024 Compr ehens connie metab olic 2000 panel - Serum or Plasm a bilirubin.to jassi [mass/volume ] in serum or plasma 0.2 mg/dL low: 0.2mg/ dLhigh : 1.2mg/ dL Bilir ubin Total 0.2 0.2 - 1.2 mg/dL 11/03 9:50 AM [employer] [facility]SI Not Available Not Available 11/25/2024 15:18:04 11/03/1911/03/2024 Compr ehens connie metab olic 2000 panel - Serum or Plasm a alkaline phosphatase [enzymatic activity/vol ume] in serum or plasma 80 U/L low: 40U/Lh igh: 150U/L Alkal ine Phosp hatas e 80 40 - 150 U/L 11/03 9:50 AM [employer] [facility] J[facility]SI Not Available Not Available 11/25/2024 15:18:04 11/03/19 25 11/03/2024 Compr ehens connie metab olic 2000 panel - Serum or Plasm a alanine aminotransfe rase [enzymatic activity/vol ume] in serum or plasma by no addition of P-5'-P 18 U/L low: 5U/Lhi gh: 55U/L ALT 18 5 - 55 U/L 11/03 9:50 AM [employer] [facility] J[facility]SI Not Available Not Available 11/25/2024 15:18:04 11/03/19 25 11/03/2024 Compr ehens connie metab olic 1999 panel - Serum or Plasm a aspartate aminotransfe rase [enzymatic activity/vol ume] in serum or plasma 16 U/L low: 5U/Lhi gh: 34U/L AST 16 5 - 34 U/L 11/03 9:50 AM [employer] [facility]SI Not Available Not Available 11/25/2024 15:18:04 11/03/19 25 11/03/2024 Compr ehens connie metab olic 1999 panel - Serum or Plasm a anion gap 9 low: 6high: 16 Anion Gap 9 6 - 16 11/03 9:50 AM [employer] [facility] J[facility]SI Not Available Not Available 11/25/2024 15:18:04 11/03/19 25 11/03/2024 Compr ehens connie metab olic 1999 panel - Serum or Plasm a urea nitrogen/cre atinine [mass ratio] in serum or plasma 15 low: 7high: 23 BUN/C reati nine Ratio 15 7 - 23 11/03 9:50 AM [employer] [facility] Not Available Not Available 11/25/2024 15:18:04 11/03/19 25 11/03/2024 Compr ehens connie metab olic 1999 panel - Serum or Plasm a osmolality calculated 292 text: 275 - 295 mOsm/k g Osmol ality Calcu lated 292 275 - 295 mOsm/ kg 11/03 9:50 AM [facility] [facility] Not Available Not Available 11/25/2024 15:18:04 11/03/19 25 11/03/2024 Compr ehens connie metab olic 1999 panel - Serum or Plasm a albumin/glob ulin ratio 0.9 low: 1.1hig h: 2.3 low Album in/Gl obuli n Ratio 0.9 (L) 1.1 - 2.3 11/03 9:50 AM [employer] [facility] Not Available Not Available 11/25/2024 15:18:04 11/03/1911/03/2024 Compr ehens connie metab olic 2000 panel - Serum or Plasm a glomerular filtration rate/1.73 sq M.predicted [volume rate/area] in serum, plasma or blood by creatinine-b ased formula (CKD-epi 2020) text: >=90 mL/min /1.73 m2 eGFR by CKD-E PI >90 >=90 mL/mi n/1.7 3 m2 11/03 9:50 AM [employer] [facility] Not Available Not Available 11/25/2024 15:18:04 11/03/1911/03/2024 Compr ehens connie metab olic 2000 panel - Serum or Plasm a interpretati on and review of laboratory results Abnorm al Not Available Not Available 15:18:04 11/03/1911/03/2024 CBC W Auto Diffe renti al panel - Blood leukocytes [#/volume] in blood by automated count 5.6 text: 4.0 - 10.7 x10e9/ L WBC 5.6 4.0 - 10.7 x10E9 /L 11/03 9:40 AM [employer] [facility] Not Available Not Available 11/25/2024 15:18:04 11/03/1911/03/2024 CBC W Auto Diffe renti al panel - Blood erythrocytes [#/volume] in blood by automated count 5.02 text: 4.30 - 5.80 x10e12 /L RBC Count 5.02 4.30 - 5.80 x10E1 2/L 11/03 9:40 AM [employer] [facility] Not Available Not Available 11/25/2024 15:18:04 11/03/1911/03/2024 CBC W Auto Diffe renti al panel - Blood hemoglobin [mass/volume ] in blood 14.5 g/dL low: 13.3g/ dLhigh : 17.5g/ dL Hemog lobin 14.5 13.3 - 17.5 g/dL 11/03 9:40 [facility] Not Available Not Available 11/25/2024 15:18:04 11/03/19 25 11/03/2024 CBC W Auto Diffe renti al panel - Blood hematocrit [volume fraction] of blood by automated count 44.1 % low: 38.7%h igh: 51.1% Hemat ocrit 44.1 38.7 - 51.1 % 11/03 9:40 [facility] Not Available 11/25/2024 15:18:04 11/03/19 25 11/03/2024 CBC W Auto Diffe renti al panel - Blood MCV [entitic volume] by automated count 87.8 fL low: 80fLhi gh: 98fL MCV 87.8 80.0 - 98.0 fL 11/03 9:40 [facility] Not Available 11/25/2024 15:18:04 11/03/19 25 11/03/2024 CBC W Auto Diffe renti al panel - Blood MCH [entitic mass] by automated count 28.9 pg low: 26.7pg high: 33.6pg MCH 28.9 26.7 - 33.6 pg 11/03 9:40 [facility] Available Not Available 11/25/2024 15:18:04 11/03/19 25 11/03/2024 CBC W Auto Diffe renti al panel - Blood MCHC [mass/volume ] by automated count 32.9 g/dL low: 31.7g/ dLhigh : 36.3g/ dL MCHC 32.9 31.7 - 36.3 g/dL 11/03 9:40 [facility] Not [facility] Not Available 11/25/2024 15:18:04 11/03/19 25 11/03/2024 CBC W Auto Diffe renti al panel - Blood erythrocyte distribution width [ratio] by automated count 15.2 % low: 11.3%h igh: 14.8% high RDW-C V 15.2 (H) 11.3 - 14.8 % 02/26 /2025 9:40 AM [employer] [facility] Not Available Not Available 11/25/2024 15:18:04 11/03/1911/03/2024 CBC W Auto Diffe renti al panel - Blood platelets [#/volume] in blood by automated count 466 text: 150 - 420 x10e9/ L high Plate let Count 466 (H) 150 - 420 x10E9 /L 11/03 9:40 AM [facility] Not Available Not Available 11/25/2024 15:18:04 11/03/19 25 11/03/2024 CBC W Auto Diffe renti al panel - Blood platelet mean volume [entitic volume] in blood by automated count 9.1 fL low: 7.8fLh igh: 11.4fL MPV 9.1 7.8 - 11.4 fL 11/03 9:40 AM [facility] Not Available Not Available 11/25/2024 15:18:04 11/03/19 25 11/03/2024 CBC W Auto Diffe renti al panel - Blood neutrophils [#/volume] in blood by automated count 2.73 text: 1.60 - 7.50 x10e9/ L Preli minar y Absol emmonak Neutr ophil 2.73 1.60 - 7.50 x10E9 /L 11/03 9:40 AM [facility] Not Available Not Available 11/25/2024 15:18:04 11/03/1911/03/2024 CBC W Auto Diffe renti al panel - Blood neutrophils/ 100 leukocytes in blood by automated count 48.6 % low: 41%hig h: 74% Neutr ophil % 48.6 41.0 - 74.0 % 11/03 9:40 AM [facility] [facility] [facility] Not Available Not Available 11/25/2024 15:18:04 11/03/19 25 11/03/2024 CBC W Auto Diffe renti al panel - Blood lymphocytes/ 100 leukocytes in blood by automated count 30.1 % low: 17%hig h: 47% Lymph ocyte % 30.1 17.0 - 47.0 % 11/03 9:40 AM [facility] [facility] Not Available Not Available 11/25/2024 15:18:04 11/03/19 25 11/03/2024 CBC W Auto Diffe renti al panel - Blood monocytes/10 0 leukocytes in blood by automated count 16.6 % low: 3%high : 11% high Monoc yte % 16.6 (H) 3.0 - 11.0 % 11/03 9:40 AM [facility] [facility] [facility] Not Available Not Available 11/25/2024 15:18:04 11/03/19 25 11/03/2024 CBC W Auto Diffe renti al panel - Blood eosinophils/ 100 leukocytes in blood by automated count 0.4 % low: 0%high : 7% Eosin ophil % 0.4 0.0 - 7.0 % 11/03 9:40 AM [facility] Not Available Not Available 11/25/2024 15:18:04 11/03/19 25 11/03/2024 CBC W Auto Diffe renti al panel - Blood basophils/10 0 leukocytes in blood by automated count 1.1 % low: 0%high : 1.6% Basop hil % 1.1 0.0 - 1.6 % 11/03 9:40 AM [facility] Not Available Not Available 11/25/2024 15:18:04 11/03/19 25 11/03/2024 CBC W Auto Diffe renti al panel - Blood immature granulocytes /100 leukocytes in blood by automated count 3.2 % low: 0%high : 1% high Immat ure Granu locyt es % 3.2 (H) 0.0 - 1.0 % 11/03 9:40 AM [facility] Not Available Not Available 11/25/2024 15:18:04 11/03/19 25 11/03/2024 CBC W Auto Diffe renti al panel - Blood neutrophils [#/volume] in blood by automated count 2.73 text: 1.60 - 7.50 x10e9/ L Neutr ophil Absol emmonak 2.73 1.60 - 7.50 x10E9 /L 11/03 9:40 AM [facility] Not Available Not Available 11/25/2024 15:18:04 11/03/19 25 11/03/2024 CBC W Auto Diffe renti al panel - Blood lymphocytes [#/volume] in blood by automated count 1.69 text: 1.00 - 4.40 x10e9/ L Lymph ocyte Absol emmonak 1.69 1.00 - 4.40 x10E9 /L 11/03 9:40 AM [facility] Not Available Not Available 11/25/2024 15:18:04 11/03/19 25 11/03/2024 CBC W Auto Diffe renti al panel - Blood monocytes [#/volume] in blood by automated count 0.93 text: 0.15 - 1.00 x10e9/ L Monoc yte Absol emmonak 0.93 0.15 - 1.00 x10E9 /L 11/03 9:40 AM [facility] Not Available Not Available 11/25/2024 15:18:04 11/03/19 25 11/03/2024 CBC W Auto Diffe renti al panel - Blood eosinophils [#/volume] in blood 0.02 text: 0.00 - 0.60 x10e9/ L Eosin ophil Absol emmonak 0.02 0.00 - 0.60 x10E9 /L 11/03 9:40 AM [facility] Not Available Not Available 11/25/2024 15:18:04 11/03/19 25 11/03/2024 CBC W Auto Diffe renti al panel - Blood basophils [#/volume] in blood by automated count 0.06 text: 0.00 - 0.13 x10e9/ L Basop hil Absol emmonak 0.06 0.00 - 0.13 x10E9 /L 11/03 9:40 AM [employer] [facility] JASSI Not Available Not Available 11/25/2024 15:18:04 11/03/19 25 11/03/2024 CBC W Auto Diffe renti al panel - Blood interpretati on and review of laboratory results Abnorm al Not Available Not Available 15:18:04 11/25/19 25 11/24/2024 CBC W Auto Diffe renti al panel - Blood leukocytes [#/volume] in blood by automated count 8.6 text: 4.0 - 10.7 x10e9/ L WBC 8.6 4.0 - 10.7 x10E9 /L 11/24 9:15 AM CDT [facility]SI Not Available Not Available 11/25/2024 15:17:56 11/25/19 25 11/24/2024 CBC W Auto Diffe renti al panel - Blood erythrocytes [#/volume] in blood by automated count 4.99 text: 4.30 - 5.80 x10e12 /L RBC Count 4.99 4.30 - 5.80 x10E1 2/L 11/24 9:15 AM CDT [facility] J[facility]SI Not Available Not Available 11/25/2024 15:17:56 11/25/19 25 11/24/2024 CBC W Auto Diffe taylor al panel - Blood hemoglobin [mass/volume ] in blood 14.4 g/dL low: 13.3g/ dLhigh : 17.5g/ dL Hemog lobin 14.4 13.3 - 17.5 g/dL 11/24 9:15 AM CDT [facility] JASSI Not Available Not Available 11/25/2024 15:17:56 11/25/19 25 11/24/2024 CBC W Auto Diffe renti al panel - Blood hematocrit [volume fraction] of blood by automated count 46.2 % low: 38.7%h igh: 51.1% Hemat ocrit 46.2 38.7 - 51.1 % 11/24 9:15 AM CDT [facility] JASSI Not Available Not Available 11/25/2024 15:17:56 11/25/19 25 11/24/2024 CBC W Auto Diffe renti al panel - Blood MCV [entitic volume] by automated count 92.6 fL low: 80fLhi gh: 98fL MCV 92.6 80.0 - 98.0 fL 11/24 9:15 AM CDT [facility] JASSI Not Available Not Available 11/25/2024 15:17:56 11/25/19 25 11/24/2024 CBC W Auto Diffe renti al panel - Blood MCH [entitic mass] by automated count 28.9 pg low: 26.7pg high: 33.6pg MCH 28.9 26.7 - 33.6 pg 11/24 9:15 AM CDT [facility] Not Available Not Available 11/25/2024 15:17:56 11/25/19 25 11/24/2024 CBC W Auto Diffe renti al panel - Blood MCHC [mass/volume ] by automated count 31.2 g/dL low: 31.7g/ dLhigh : 36.3g/ dL low MCHC 31.2 (L) 31.7 - 36.3 g/dL 11/24 9:15 AM CDT [facility] Not Available Not Available 11/25/2024 15:17:56 11/25/19 25 11/24/2024 CBC W Auto Diffe perryti al panel - Blood erythrocyte distribution width [ratio] by automated count 15.9 % low: 11.3%h igh: 14.8% high RDW-C V 15.9 (H) 11.3 - 14.8 % 11/24 9:15 AM CDT [facility] Not Available Not Available 11/25/2024 15:17:56 11/25/19 25 11/24/2024 CBC W Auto Diffe perryti al panel - Blood platelets [#/volume] in blood by automated count 378 text: 150 - 420 x10e9/ L Plate let Count 378 150 - 420 x10E9 /L 11/24 9:15 AM CDT [facility] Not Available Not Available 11/25/2024 15:17:56 11/25/19 25 11/24/2024 CBC W Auto Diffe renti al panel - Blood platelet mean volume [entitic volume] in blood by automated count 9 fL low: 7.8fLh igh: 11.4fL MPV 9.0 7.8 - 11.4 fL 11/24 9:15 AM CDT [facility] Not Available Not Available 11/25/2024 15:17:56 11/25/19 25 11/24/2024 CBC W Auto Diffe renti al panel - Blood neutrophils [#/volume] in blood by automated count 5.78 text: 1.60 - 7.50 x10e9/ L Preli minar y Absol emmonak Neutr ophil 5.78 1.60 - 7.50 x10E9 /L 11/24 9:15 AM CDT [facility] JASSI Not Available Not Available 11/25/2024 15:17:56 11/25/19 25 11/24/2024 CBC W Auto Diffe renti al panel - Blood neutrophils/ 100 leukocytes in blood by automated count 67.2 % low: 41%hig h: 74% Neutr ophil % 67.2 41.0 - 74.0 % 11/24 9:15 AM CDT [facility] JASSI Not Available Not Available 11/25/2024 15:17:56 11/25/19 25 11/24/2024 CBC W Auto Diffe renti al panel - Blood lymphocytes/ 100 leukocytes in blood by automated count 17.5 % low: 17%hig h: 47% Lymph ocyte % 17.5 17.0 - 47.0 % 11/24 9:15 AM CDT [facility] JASSI Not Available Not Available 11/25/2024 15:17:56 11/25/19 25 11/24/2024 CBC W Auto Diffe renti al panel - Blood monocytes/10 0 leukocytes in blood by automated count 9.8 % low: 3%high : 11% Monoc yte % 9.8 3.0 - 11.0 % 11/24 9:15 AM CDT [facility] JSASI Not Available Not Available 11/25/2024 15:17:56 11/25/19 25 11/24/2024 CBC W Auto Diffe renti al panel - Blood eosinophils/ 100 leukocytes in blood by automated count 0.3 % low: 0%high : 7% Eosin ophil % 0.3 0.0 - 7.0 % 11/24 9:15 AM CDT [facility] JASSI Not Available Not Available 11/25/2024 15:17:56 11/25/19 25 11/24/2024 CBC W Auto Diffe renti al panel - Blood basophils/10 0 leukocytes in blood by automated count 1 % low: 0%high : 1.6% Basop hil % 1.0 0.0 - 1.6 % 11/24 9:15 AM CDT [facility] JASSI Not Available Not Available 11/25/2024 15:17:56 11/25/19 25 11/24/2024 CBC W Auto Diffe renti al panel - Blood immature granulocytes /100 leukocytes in blood by automated count 4.2 % low: 0%high : 1% high Immat ure Granu locyt es % 4.2 (H) 0.0 - 1.0 % 11/24 9:15 AM CDT [facility] Sekal [facility] Not Available Not Available 11/25/2024 15:17:56 11/25/19 25 11/24/2024 CBC W Auto Diffe renti al panel - Blood neutrophils [#/volume] in blood by automated count 5.78 text: 1.60 - 7.50 x10e9/ L Neutr ophil Absol emmonak 5.78 1.60 - 7.50 x10E9 /L 11/24 9:15 AM CDT [facility] Not Available Not Available 11/25/2024 15:17:56 11/25/19 25 11/24/2024 CBC W Auto Diffe renti al panel - Blood lymphocytes [#/volume] in blood by automated count 1.51 text: 1.00 - 4.40 x10e9/ L Lymph ocyte Absol emmonak 1.51 1.00 - 4.40 x10E9 /L 11/24 9:15 AM CDT [facility] JASSI Not Available Not Available 11/25/2024 15:17:56 11/25/19 25 11/24/2024 CBC W Auto Diffe renti al panel - Blood monocytes [#/volume] in blood by automated count 0.84 text: 0.15 - 1.00 x10e9/ L Monoc yte Absol emmonak 0.84 0.15 - 1.00 x10E9 /L 11/24 9:15 AM CDT [facility] JASSI Not Available Not Available 11/25/2024 15:17:56 11/25/19 25 11/24/2024 CBC W Auto Diffe renti al panel - Blood eosinophils [#/volume] in blood 0.03 text: 0.00 - 0.60 x10e9/ L Eosin ophil Absol emmonak 0.03 0.00 - 0.60 x10E9 /L 11/24 9:15 AM CDT [facility] JASSI Not Available Not Available 11/25/2024 15:17:56 11/25/19 25 11/24/2024 CBC W Auto Diffe renti al panel - Blood basophils [#/volume] in blood by automated count 0.09 text: 0.00 - 0.13 x10e9/ L Basop hil Absol emmonak 0.09 0.00 - 0.13 x10E9 /L 11/24 9:15 AM CDT [facility] JASSI Not Available Not Available 11/25/2024 15:17:56 11/25/19 25 11/24/2024 CBC W Auto Diffe renti al panel - Blood interpretati on and review of laboratory results Abnorm al Not Available Not Available 15:17:56 11/25/19 25 11/24/2024 Compr ehens connie metab olic 1999 panel - Serum or Plasm a urea nitrogen [mass/volume ] in serum or plasma 9 mg/dL low: 7mg/dL high: 26mg/d L BUN 9 7 - 26 mg/dL 11/24 9:31 AM CDT [facility] JASSI Not Available Not Available 11/25/2024 15:17:56 11/25/19 25 11/24/2024 Compr ehens connie metab olic 2000 panel - Serum or Plasm a creatinine [mass/volume ] in serum or plasma 0.74 mg/dL low: 0.71mg /dLhig h: 1.16mg /dL Creat inine 0.74 0.71 - 1.16 mg/dL 11/24 9:31 AM CDT [facility] JASSI Not Available Not Available 11/25/2024 15:17:56 11/25/19 25 11/24/2024 Compr ehens connie metab olic 1999 panel - Serum or Plasm a sodium [moles/volum e] in serum or plasma 141 mmol/ L low: 136mmo l/Lhig h: 145mmo l/L Sodiu m 141 136 - 145 mmol/ L 11/24 9:31 AM CDT [facility] JASSI Not Available Not Available 11/25/2024 15:17:56 11/25/19 25 11/24/2024 Compr ehens connie metab olic 1999 panel - Serum or Plasm a potassium [moles/volum e] in serum or plasma 4.4 mmol/ L low: 3.5mmo l/Lhig h: 4.5mmo l/L Potas sium 4.4 3.5 - 4.5 mmol/ L 11/24 9:31 AM CDT [facility] JASSI Not Available Not Available 11/25/2024 15:17:56 11/25/19 25 11/24/2024 Compr ehens connie metab olic 1999 panel - Serum or Plasm a chloride [moles/volum e] in serum or plasma 100 mmol/ L low: 98mmol /Lhigh : 107mmo l/L Chlor grace 100 98 - 107 mmol/ L 11/24 9:31 AM T [facility] JASSI Not Available Not Available 11/25/2024 15:17:56 11/25/19 25 11/24/2024 Compr ehens connie metab olic 1999 panel - Serum or Plasm a carbon dioxide, total [moles/volum e] in serum or plasma 30 mmol/ L low: 22mmol /Lhigh : 29mmol /L high CO2 30 (H) 22 - 29 mmol/ L 11/24 9:31 AM CDT [facility] JASSI Not Available Not Available 11/25/2024 15:17:56 11/25/19 25 11/24/2024 Compr ehens connie metab olic 2000 panel - Serum or Plasm a glucose [mass/volume ] in serum or plasma 118 mg/dL low: 70mg/d Lhigh: 99mg/d L high Gluco se 118 (H) 70 - 99 mg/dL 11/24 9:31 AM CDT [facility] JASSI Not Available Not Available 11/25/2024 15:17:56 11/25/19 25 11/24/2024 Compr ehens connie metab olic 2000 panel - Serum or Plasm a calcium [moles/volum e] in serum or plasma 9.3 mg/dL low: 8.4mg/ dLhigh : 10.2mg /dL Calci um 9.3 8.4 - 10.2 mg/dL 11/24 9:31 AM CDT [facility] JASSI Not Available Not Available 11/25/2024 15:17:56 11/25/1911/24/2024 Compr Attenderens connie metab olic 2000 panel - Serum or Plasm a protein [mass/volume ] in serum or plasma 7.7 g/dL low: 6g/dLh igh: 8.3g/d L Prote in Total 7.7 6.0 - 8.3 g/dL 11/24 9:31 AM CDT [facility] JASSI Not Available Not Available 11/25/2024 15:17:56 11/25/1911/24/2024 Compr Attenderens connie metab olic 2000 panel - Serum or Plasm a albumin [mass/volume ] in serum or plasma by bromocresol green (bcg) dye binding method 3.4 g/dL low: 3.4g/d Lhigh: 5g/dL Album in 3.4 3.4 - 5.0 g/dL 11/24 9:31 AM CDT [facility] JASSI Not Available Not Available 11/25/2024 15:17:56 11/25/19 25 11/24/2024 Compr Attenderens connie metab olic 2000 panel - Serum or Plasm a bilirubin.to jassi [mass/volume ] in serum or plasma 0.1 mg/dL low: 0.2mg/ dLhigh : 1.2mg/ dL low Bilir ubin Total 0.1 (L) 0.2 - 1.2 mg/dL 11/24 9:31 AM CDT [facility] JASSI Not Available Not Available 11/25/2024 15:17:56 11/25/19 11/24/2024 Compr ehens connie metab olic 1999 panel - Serum or Plasm a alkaline phosphatase [enzymatic activity/vol ume] in serum or plasma 91 U/L low: 40U/Lh igh: 150U/L Alkal ine Phosp hatas e 91 40 - 150 U/L 11/24 9:31 AM CDT [facility] JASSI Not Available Not Available 11/25/2024 15:17:56 11/25/19 25 11/24/2024 Compr ehens connie metab olic 1999 panel - Serum or Plasm a alanine aminotransfe rase [enzymatic activity/vol ume] in serum or plasma by no addition of P-5'-P 21 U/L low: 5U/Lhi gh: 55U/L ALT 21 5 - 55 U/L 11/24 9:31 AM CDT [facility] JASSI Not Available Not Available 11/25/2024 15:17:56 11/25/19 25 11/24/2024 Compr ehens connie metab olic 1999 panel - Serum or Plasm a aspartate aminotransfe rase [enzymatic activity/vol ume] in serum or plasma 20 U/L low: 5U/Lhi gh: 34U/L AST 20 5 - 34 U/L 11/24 9:31 AM CDT [facility] JASSI Not Available Not Available 11/25/2024 15:17:56 11/25/19 25 11/24/2024 Compr ehens connie metab olic 1999 panel - Serum or Plasm a anion gap 11 low: 6high: 16 Anion Gap 11 6 - 16 11/24 9:31 AM CDT [facility] JASSI Not Available Not Available 11/25/2024 15:17:56 11/25/19 25 11/24/2024 Compr ehens connie metab olic 1999 panel - Serum or Plasm a urea nitrogen/cre atinine [mass ratio] in serum or plasma 12 low: 7high: 23 BUN/C reati nine Ratio 12 7 - 23 11/24 9:31 AM CDT [facility] JASSI Not Available Not Available 11/25/2024 15:17:56 11/25/19 25 11/24/2024 Compr ehens connie metab olic 2000 panel - Serum or Plasm a osmolality calculated 292 text: 275 - 295 mOsm/k g Osmol yg Faustin lated 292 275 - 295 mOsm/ kg 11/24 9:31 AM T [facility] Sekal AS ATORY [facility]OS[facility] JASSI Not Available Not Available 11/25/2024 15:17:56 11/25/19 25 11/24/2024 Compr ehens connie metab olic 2000 panel - Serum or Plasm a albumin/glob ulin ratio 0.8 low: 1.1hig h: 2.3 low Album in/Gl obuli n Ratio 0.8 (L) 1.1 - 2.3 11/24 9:31 AM CDT [facility] Sekal [facility] ATORY [facility]OS[facility] JASSI Not Available Not Available 11/25/2024 15:17:56 11/25/19 25 11/24/2024 Compr ehens connie metab olic 2000 panel - Serum or Plasm a glomerular filtration rate/1.73 sq M.predicted [volume rate/area] in serum, plasma or blood by creatinine-b ased formula (CKD-epi 2020) text: >=90 mL/min /1.73 m2 eGFR by CKD-E PI >90 >=90 mL/mi n/1.7 3 m2 11/24 9:31 AM [facility] JASSI Not Available Not Available 11/25/2024 15:17:56 11/25/19 25 11/24/2024 Compr Attenderens connie metab olic 2000 panel - Serum or Plasm a interpretati on and review of laboratory results Abnorm al Not Available Not Available 15:17:56 11/25/19 25 11/24/2024 Thyro tropi n [Unit s/vol ume] in Serum or Plasm a by Detec tion limit <= 0.005 mIU/L thyrotropin [units/volum e] in serum or plasma by detection limit <= 0.005 mIU/L 0.925 text: 0.350 - 4.940 uIU/mL TSH 0.925 0.350 - 4.940 uIU/m L 11/24 9:39 AM T [facility] Se[facility] ATORY [facility]OS[facility] JASSI Not Available Not Available 11/25/2024 15:17:56 11/25/19 25 11/24/2024 Thyro tropi n [Unit s/vol ume] in Serum or Plasm a by Detec tion limit <= 0.005 mIU/L interpretati on and review of laboratory results Normal Not Available Not Available 11/07 15:17:56 12/10/19 25 12/09/2024 Creat inine [Mass /volu me] in Blood creatinine [mass/volume ] in blood 0.95 mg/dL low: 0.3mg/ dLhigh : 1.3mg/ dL Not Available Not Available 02/22/2025 17:44:34 12/10/19 25 12/09/2024 Creat inine [Mass /volu me] in Blood glomerular filtration rate [volume rate/area] in serum, plasma or blood by creatinine-b ased formula (CKD-epi 2020)/1.73 sq M text: >=90 mL/min /1.73 m2 Not Available Not Available 02/22/2025 17:44:34 12/10/19 25 12/09/2024 Creat inine [Mass /volu me] in Blood interpretati on and review of laboratory results Normal Not Available Not Available 02/06 17:44:34 12/16/19 25 12/15/2024 Thyro tropi n [Unit s/vol ume] in Serum or Plasm a by Detec tion limit <= 0.005 mIU/L thyrotropin [units/volum e] in serum or plasma by detection limit <= 0.005 mIU/L 1.482 text: 0.350 - 4.940 uIU/mL Not Available Not Available 02/22/2025 17:54:31 12/16/19 25 12/15/2024 Thyro tropi n [Unit s/vol ume] in Serum or Plasm a by Detec tion limit <= 0.005 mIU/L interpretati on and review of laboratory results Normal Not Available Not Available 02/06 17:54:31 12/16/19 25 12/15/2024 Compr ehens connie metab olic 2000 panel - Serum or Plasm a urea nitrogen [mass/volume ] in serum or plasma 8 mg/dL low: 7mg/dL high: 26mg/d L Not Available Not Available 02/22/2025 17:54:31 12/16/19 25 12/15/[address] [facility] Celsione Punch! [facility] 1999 panel - Serum or Plasm a creatinine [mass/volume ] in serum or plasma 0.69 mg/dL low: 0.71mg /dLhig h: 1.16mg /dL low Not Available Not Available 02/22/2025 17:54:31 12/16/19 25 12/15/2024 Compr Jobulous connie Punch! ic 1999 panel - Serum or Plasm a sodium [moles/volum e] in serum or plasma 141 mmol/ L low: 136mmo l/Lhig h: 145mmo l/L Not Available Not Available 02/22/2025 17:54:31 12/16/19 25 12/15/2024 Compr Jobulous connie [facility]! ic 1999 panel - Serum or Plasm a potassium [moles/volum e] in serum or plasma 4.6 mmol/ L low: 3.5mmo l/Lhig h: 4.5mmo l/L high Not Available Not Available 02/22/2025 17:54:31 12/16/19 25 12/15/2024 Compr Jobulous connie [facility]! ic 1999 panel - Serum or Plasm a chloride [moles/volum e] in serum or plasma 103 mmol/ L low: 98mmol /Lhigh : 107mmo l/L Not Available Not Available 02/22/2025 17:54:31 12/16/19 25 12/15/2024 Compr Jobulous connie [facility]! [facility] 1999 panel - Serum or Plasm a carbon dioxide, total [moles/volum e] in serum or plasma 28 mmol/ L low: 22mmol /Lhigh : 29mmol /L Not Available Not Available 02/22/2025 17:54:31 12/16/19 25 12/15/2024 Compr Celsione Punch! ic 1999 panel - Serum or Plasm a glucose [mass/volume ] in serum or plasma 100 mg/dL low: 70mg/d Lhigh: 99mg/d L high Not Available Not Available 02/22/2025 17:54:31 12/16/19 25 12/15/2024 [facility] 1999 panel - Serum or Plasm a calcium [moles/volum e] in serum or plasma 9.2 mg/dL low: 8.4mg/ dLhigh : 10.2mg /dL Not Available Not Available 02/22/2025 17:54:31 12/16/19 25 12/15/2024 [place] [id number] panel - Serum or Plasm a protein [mass/volume ] in serum or plasma 7.4 g/dL low: 6g/dLh igh: 8.3g/d L Not Available Not Available 02/22/2025 17:54:31 12/16/19 25 12/15/2024 [facility] 1999 panel - Serum or Plasm a albumin [mass/volume ] in serum or plasma by bromocresol green (bcg) dye binding method 3.9 g/dL low: 3.4g/d Lhigh: 5g/dL Not Available Not Available 02/22/2025 17:54:31 12/16/19 25 12/15/2024 [place] [address] panel - Serum or Plasm a bilirubin.to jassi [mass/volume ] in serum or plasma 0.2 mg/dL low: 0.2mg/ dLhigh : 1.2mg/ dL Not Available Not Available 02/22/2025 17:54:31 12/16/19 25 12/15/2024 [place] [address] panel - Serum or Plasm a alkaline phosphatase [enzymatic activity/vol ume] in serum or plasma 84 U/L low: 40U/Lh igh: 150U/L Not Available Not Available 02/22/2025 17:54:31 12/16/1912/15/2024 [place] [address] panel - Serum or Plasm a alanine aminotransfe rase [enzymatic activity/vol ume] in serum or plasma by no addition of P-5'-P 20 U/L low: 5U/Lhi gh: 55U/L Not Available Not Available 02/22/2025 17:54:31 12/16/19 25 12/15/2024 [place] [address] panel - Serum or Plasm a aspartate aminotransfe rase [enzymatic activity/vol ume] in serum or plasma 19 U/L low: 5U/Lhi gh: 34U/L Not Available Not Available 02/22/2025 17:54:31 12/16/19 25 12/15/2024 Compr ehens connie metab olic 1999 panel - Serum or Plasm a anion gap 10 low: 6high: 16 Not Available Not Available 02/22/2025 17:54:31 12/16/19 25 12/15/2024 Compr ehens connie metab olic 1999 panel - Serum or Plasm a urea nitrogen/cre atinine [mass ratio] in serum or plasma 12 low: 7high: 23 Not Available Not Available 02/22/2025 17:54:31 12/16/19 25 12/15/2024 Compr ehens connie metab olic 1999 panel - Serum or Plasm a osmolality calculated 290 text: 275 - 295 mOsm/k g Not Available Not Available 02/22/2025 17:54:31 12/16/19 25 12/15/2024 Compr ehens connie metab olic 2000 panel - Serum or Plasm a albumin/glob ulin ratio 1.1 low: 1.1hig h: 2.3 Not Available Not Available 02/22/2025 17:54:31 12/16/19 25 12/15/2024 Compr ehens connie metab olic 2000 panel - Serum or Plasm a glomerular filtration rate [volume rate/area] in serum, plasma or blood by creatinine-b ased formula (CKD-epi 2020)/1.73 sq M text: >=90 mL/min /1.73 m2 Not Available Not Available 02/22/2025 17:54:31 12/16/19 25 12/15/2024 Compr ehens connie metab olic 2000 panel - Serum or Plasm a interpretati on and review of laboratory results Abnorm al Not Available Not Available 17:54:31 12/16/19 25 12/15/2024 CBC W Auto Diffe renti al panel - Blood leukocytes [#/volume] in blood by automated count 2.4 text: 4.0 - 10.7 x10e9/ L low Not Available Not Available 02/22/2025 17:54:31 12/16/19 25 12/15/2024 CBC W Auto Diffe renti al panel - Blood erythrocytes [#/volume] in blood by automated count 4.64 text: 4.30 - 5.80 x10e12 /L Not Available Not Available 02/22/2025 17:54:31 12/16/1912/15/2024 CBC W Auto Diffe renti al panel - Blood hemoglobin [mass/volume ] in blood 13.8 g/dL low: 13.3g/ dLhigh : 17.5g/ dL Not Available Not Available 02/22/2025 17:54:31 12/16/1912/15/2024 CBC W Auto Diffe renti al panel - Blood hematocrit [volume fraction] of blood by automated count 42.8 % low: 38.7%h igh: 51.1% Not Available Not Available 02/22/2025 17:54:31 12/16/1912/15/2024 CBC W Auto Diffe renti al panel - Blood MCV [entitic mean volume] in red blood cells by automated count 92.2 fL low: 80fLhi gh: 98fL Not Available Not Available 02/22/2025 17:54:31 12/16/1912/15/2024 CBC W Auto Diffe renti al panel - Blood MCH [entitic mass] by automated count 29.7 pg low: 26.7pg high: 33.6pg Not Available Not Available 02/22/2025 17:54:31 12/16/1912/15/2024 CBC W Auto Diffe renti al panel - Blood MCHC [entitic mass/volume] in red blood cells by automated count 32.2 g/dL low: 31.7g/ dLhigh : 36.3g/ dL Not Available Not Available 02/22/2025 17:54:31 12/16/1912/15/2024 CBC W Auto Diffe renti al panel - Blood erythrocyte [distwidth] in red blood cells by automated count 17.2 % low: 11.3%h igh: 14.8% high Not Available Not Available 02/22/2025 17:54:31 12/16/1912/15/2024 CBC W Auto Diffe renti al panel - Blood platelets [#/volume] in blood by automated count 293 text: 150 - 420 x10e9/ L Not Available Not Available 02/22/2025 17:54:31 12/16/1912/1512/15/2024 CBC W Auto Diffe renti al panel - Blood platelet [entitic mean volume] in blood by automated count 9 fL low: 7.8fLh igh: 11.4fL Not Available Not Available 02/22/2025 17:54:31 12/16/19 25 12/15/2024 CBC W Auto Diffe renti al panel - Blood neutrophils [#/volume] in blood by automated count 0.89 text: 1.60 - 7.50 x10e9/ L low Preli minar y ANC pendi ng manua l confi rmati on Not Available Not Available 02/22/2025 17:54:31 12/16/19 25 12/15/2024 CBC W Auto Diffe renti al panel - Blood interpretati on and review of laboratory results Abnorm al Not Available Not Available 17:54:31 01/06/20 25 01/05/2025 Thyro tropi n [Unit s/vol ume] in Serum or Plasm a by Detec tion limit <= 0.005 mIU/L thyrotropin [units/volum e] in serum or plasma by detection limit <= 0.005 mIU/L 0.614 text: 0.350 - 4.940 uIU/mL Not Available Not Available 02/22/2025 17:44:32 01/06/20 25 01/05/2025 Thyro tropi n [Unit s/vol ume] in Serum or Plasm a by Detec tion limit <= 0.005 mIU/L interpretati on and review of laboratory results Normal Not Available Not Available 02/06 17:44:32 01/06/20 25 01/05/2025 Compr ehens connie metab olic 2000 panel - Serum or Plasm a urea nitrogen [mass/volume ] in serum or plasma 10 mg/dL low: 7mg/dL high: 26mg/d L Not Available Not Available 02/22/2025 17:44:32 01/06/20 25 01/05/2025 Compr ehens connie metab olic 2000 panel - Serum or Plasm a creatinine [mass/volume ] in serum or plasma 0.68 mg/dL low: 0.71mg /dLhig h: 1.16mg /dL low Not Available Not Available 02/22/2025 17:44:32 01/06/20 25 01/05/2025 Compr ehens connie metab olic 1999 panel - Serum or Plasm a sodium [moles/volum e] in serum or plasma 139 mmol/ L low: 136mmo l/Lhig h: 145mmo l/L Not Available Not Available 02/22/2025 17:44:32 01/06/20 25 01/05/2025 Compr ehens connie metab olic 1999 panel - Serum or Plasm a potassium [moles/volum e] in serum or plasma 3.9 mmol/ L low: 3.5mmo l/Lhig h: 4.5mmo l/L Not Available Not Available 02/22/2025 17:44:32 01/06/20 25 01/05/2025 Compr ehens connie metab olic 1999 panel - Serum or Plasm a chloride [moles/volum e] in serum or plasma 106 mmol/ L low: 98mmol /Lhigh : 107mmo l/L Not Available Not Available 02/22/2025 17:44:32 01/06/20 25 01/05/2025 Compr ehens connie metab olic 1999 panel - Serum or Plasm a carbon dioxide, total [moles/volum e] in serum or plasma 22 mmol/ L low: 22mmol /Lhigh : 29mmol /L Not Available Not Available 02/22/2025 17:44:32 01/06/20 25 01/05/2025 Compr ehens connie metab olic 1999 panel - Serum or Plasm a glucose [mass/volume ] in serum or plasma 115 mg/dL low: 70mg/d Lhigh: 99mg/d L high Not Available Not Available 02/22/2025 17:44:32 01/06/20 25 01/05/2025 Compr ehens connie metab olic 1999 panel - Serum or Plasm a calcium [moles/volum e] in serum or plasma 8.8 mg/dL low: 8.4mg/ dLhigh : 10.2mg /dL Not Available Not Available 02/22/2025 17:44:32 01/06/20 25 01/05/2025 Compr ehens connie metab olic 1999 panel - Serum or Plasm a protein [mass/volume ] in serum or plasma 7 g/dL low: 6g/dLh igh: 8.3g/d L Not Available Not Available 02/22/2025 17:44:32 01/06/20 25 01/05/2025 [facility] - Serum or Plasm a albumin [mass/volume ] in serum or plasma by bromocresol green (bcg) dye binding method 3.7 g/dL low: 3.4g/d Lhigh: 5g/dL Not Available Not Available 02/22/2025 17:44:32 01/06/20 25 01/05/2025 [facility] panel - Serum or Plasm a bilirubin.to jassi [mass/volume ] in serum or plasma 0.3 mg/dL low: 0.2mg/ dLhigh : 1.2mg/ dL Not Available Not Available 02/22/2025 17:44:32 01/06/20 25 01/05/2025 [facility] 1999 panel - Serum or Plasm a alkaline phosphatase [enzymatic activity/vol ume] in serum or plasma 79 U/L low: 40U/Lh igh: 150U/L Not Available Not Available 02/22/2025 17:44:32 01/06/20 25 01/05/[address] [facility] panel - Serum or Plasm a alanine aminotransfe rase [enzymatic activity/vol ume] in serum or plasma by no addition of P-5'-P 39 U/L low: 5U/Lhi gh: 55U/L Not Available Not Available 02/22/2025 17:44:32 01/06/20 25 01/05/2025 [facility] 1999 panel - Serum or Plasm a aspartate aminotransfe rase [enzymatic activity/vol ume] in serum or plasma 34 U/L low: 5U/Lhi gh: 34U/L Not Available Not Available 02/22/2025 17:44:32 01/06/20 25 01/05/2025 [facility] [employer] [place] [id number] panel - Serum or Plasm a anion gap 11 low: 6high: 16 Not Available Not Available 02/22/2025 17:44:32 01/06/20 25 01/05/2025 [facility] [employer] [place] [id number] panel - Serum or Plasm a urea nitrogen/cre atinine [mass ratio] in serum or plasma 15 low: 7high: 23 Not Available Not Available 02/22/2025 17:44:32 01/06/2001/05/2025 Compr ehens connie metab olic 1999 panel - Serum or Plasm a osmolality calculated 288 text: 275 - 295 mOsm/k g Not Available Not Available 02/22/2025 17:44:32 01/06/20 25 01/05/2025 Compr ehens connie metab olic 2000 panel - Serum or Plasm a albumin/glob ulin ratio 1.1 low: 1.1hig h: 2.3 Not Available Not Available 02/22/2025 17:44:32 01/06/2001/05/2025 Compr ehens connie metab olic 2000 panel - Serum or Plasm a glomerular filtration rate [volume rate/area] in serum, plasma or blood by creatinine-b ased formula (CKD-epi 2020)/1.73 sq M text: >=90 mL/min /1.73 m2 Not Available Not Available 02/22/2025 17:44:32 01/06/20 25 01/05/2025 Compr ehens connie metab olic 2000 panel - Serum or Plasm a interpretati on and review of laboratory results Abnorm al Not Available Not Available 17:44:32 01/06/20 25 01/05/2025 [facility] panel - Blood leukocytes [#/volume] in blood by automated count 7.1 text: 4.0 - 10.7 x10e9/ L Not Available Not Available 02/22/2025 17:44:32 01/06/2001/05/2025 [facility] panel - Blood erythrocytes [#/volume] in blood by automated count 4.57 text: 4.30 - 5.80 x10e12 /L Not Available Not Available 02/22/2025 17:44:32 01/06/20 25 01/05/2025 [facility] panel - Blood hemoglobin [mass/volume ] in blood 13.9 g/dL low: 13.3g/ dLhigh : 17.5g/ dL Not Available Not Available 02/22/2025 17:44:32 01/06/20 01/05/2025 [facility] panel - Blood hematocrit [volume fraction] of blood by automated count 41.9 % low: 38.7%h igh: 51.1% Not Available Not Available 02/22/2025 17:44:32 01/06/20 25 01/05/2025 [facility] panel - Blood MCV [entitic mean volume] in red blood cells by automated count 91.7 fL low: 80fLhi gh: 98fL Not Available Not Available 02/22/2025 17:44:32 01/06/20 25 01/05/2025 [facility] panel - Blood MCH [entitic mass] by automated count 30.4 pg low: 26.7pg high: 33.6pg Not Available Not Available 02/22/2025 17:44:32 01/06/20 25 01/05/2025 [facility] panel - Blood MCHC [entitic mass/volume] in red blood cells by automated count 33.2 g/dL low: 31.7g/ dLhigh : 36.3g/ dL Not Available Not Available 02/22/2025 17:44:32 01/06/20 25 01/05/2025 [facility] panel - Blood erythrocyte [distwidth] in red blood cells by automated count 16.6 % low: 11.3%h igh: 14.8% high Not Available Not Available 02/22/2025 17:44:32 01/06/20 25 01/05/2025 [facility] panel - Blood platelets [#/volume] in blood by automated count 256 text: 150 - 420 x10e9/ L Not Available Not Available 02/22/2025 17:44:32 01/06/20 25 01/05/2025 [facility] panel - Blood platelet [entitic mean volume] in blood by automated count 9.4 fL low: 7.8fLh igh: 11.4fL Not Available Not Available 02/22/2025 17:44:32 01/06/20 25 01/05/2025 [facility] panel - Blood neutrophils [#/volume] in blood by automated count 5.01 text: 1.60 - 7.50 x10e9/ L Not Available Not Available 02/22/2025 17:44:32 01/06/20 25 01/05/2025 [facility] panel - Blood neutrophils/ leukocytes in blood by automated count 70.6 % low: 41%hig h: 74% Not Available Not Available 02/22/2025 17:44:32 01/06/20 25 01/05/2025 [facility] panel - Blood lymphocytes/ leukocytes in blood by automated count 9.3 % low: 17%hig h: 47% low Not Available Not Available 02/22/2025 17:44:32 01/06/20 25 01/05/2025 [facility] panel - Blood monocytes/le ukocytes in blood by automated count 13.6 % low: 3%high : 11% high Not Available Not Available 02/22/2025 17:44:32 01/06/20 25 01/05/2025 [facility] panel - Blood eosinophils/ leukocytes in blood by automated count 6 % low: 0%high : 7% Not Available Not Available 02/22/2025 17:44:32 01/06/20 25 01/05/2025 [facility] panel - Blood basophils/le ukocytes in blood by automated count 0.4 % low: 0%high : 1.6% Not Available Not Available 02/22/2025 17:44:32 01/06/20 25 01/05/2025 [facility] panel - Blood immature granulocytes /leukocytes in blood by automated count 0.1 % low: 0%high : 1% Not Available Not Available 02/22/2025 17:44:32 01/06/20 25 01/05/2025 [facility] panel - Blood neutrophils [#/volume] in blood by automated count 5.01 text: 1.60 - 7.50 x10e9/ L Not Available Not Available 02/22/2025 17:44:32 01/06/20 25 01/05/2025 [facility] panel - Blood lymphocytes [#/volume] in blood by automated count 0.66 text: 1.00 - 4.40 x10e9/ L low Not Available Not Available 02/22/2025 17:44:32 01/06/20 25 01/05/2025 [facility] panel - Blood monocytes [#/volume] in blood by automated count 0.97 text: 0.15 - 1.00 x10e9/ L Not Available Not Available 02/22/2025 17:44:32 01/06/20 25 01/05/2025 [facility] panel - Blood eosinophils [#/volume] in blood 0.43 text: 0.00 - 0.60 x10e9/ L Not Available Not Available 02/22/2025 17:44:32 01/06/20 25 01/05/2025 [facility] panel - Blood basophils [#/volume] in blood by automated count 0.03 text: 0.00 - 0.13 x10e9/ L Not Available Not Available 02/22/2025 17:44:32 01/06/20 25 01/05/2025 [facility] panel - Blood interpretati on and review of laboratory results Abnorm al Not Available Not Available 17:44:32 01/27/20 25 01/26/2025 Thyro tropi n [Unit s/vol ume] in Serum or Plasm a by Detec tion limit <= 0.005 mIU/L thyrotropin [units/volum e] in serum or plasma by detection limit <= 0.005 mIU/L 1.283 text: 0.350 - 4.940 uIU/mL Not Available Not Available 02/22/2025 17:54:27 01/27/20 25 01/26/2025 Thyro tropi n [Unit s/vol ume] in Serum or Plasm a by Detec tion limit <= 0.005 mIU/L interpretati on and review of laboratory results Normal Not Available Not Available 02/06 17:54:27 01/27/20 25 01/26/2025 Compr ehens connie metab olic 2000 panel - Serum or Plasm a urea nitrogen [mass/volume ] in serum or plasma 11 mg/dL low: 7mg/dL high: 26mg/d L Not Available Not Available 02/22/2025 17:54:27 01/27/20 25 01/26/2025 Compr [employer] connie metab olic 1999 panel - Serum or Plasm a creatinine [mass/volume ] in serum or plasma 0.7 mg/dL low: 0.71mg /dLhig h: 1.16mg /dL low Not Available Not Available 02/22/2025 17:54:27 01/27/20 25 01/26/2025 Compr ens connie metab olic 1999 panel - Serum or Plasm a sodium [moles/volum e] in serum or plasma 137 mmol/ L low: 136mmo l/Lhig h: 145mmo l/L Not Available Not Available 02/22/2025 17:54:27 01/27/20 25 01/26/2025 Compr ehens connie metab olic 1999 panel - Serum or Plasm a potassium [moles/volum e] in serum or plasma 3.9 mmol/ L low: 3.5mmo l/Lhig h: 4.5mmo l/L Not Available Not Available 02/22/2025 17:54:27 01/27/20 25 01/26/2025 Compr ehens connie metab olic 1999 panel - Serum or Plasm a chloride [moles/volum e] in serum or plasma 102 mmol/ L low: 98mmol /Lhigh : 107mmo l/L Not Available Not Available 02/22/2025 17:54:27 01/27/20 25 01/26/2025 Compr ehens connie metab olic 1999 panel - Serum or Plasm a carbon dioxide, total [moles/volum e] in serum or plasma 26 mmol/ L low: 22mmol /Lhigh : 29mmol /L Not Available Not Available 02/22/2025 17:54:27 01/27/20 25 01/26/2025 Compr [employer] connie metab olic 1999 panel - Serum or Plasm a glucose [mass/volume ] in serum or plasma 112 mg/dL low: 70mg/d Lhigh: 99mg/d L high Not Available Not Available 02/22/2025 17:54:27 01/27/20 25 01/26/2025 Compr ehens connei metab olic 1999 panel - Serum or Plasm a calcium [moles/volum e] in serum or plasma 9.2 mg/dL low: 8.4mg/ dLhigh : 10.2mg /dL Not Available Not Available 02/22/2025 17:54:27 01/27/20 25 01/26/2025 [facility] 1999 panel - Serum or Plasm a protein [mass/volume ] in serum or plasma 8 g/dL low: 6g/dLh igh: 8.3g/d L Not Available Not Available 02/22/2025 17:54:27 01/27/20 25 01/26/2025 [facility] 1999 panel - Serum or Plasm a albumin [mass/volume ] in serum or plasma by bromocresol green (bcg) dye binding method 3.6 g/dL low: 3.4g/d Lhigh: 5g/dL Not Available Not Available 02/22/2025 17:54:27 01/27/20 25 01/26/2025 [facility] 1999 panel - Serum or Plasm a bilirubin.to jassi [mass/volume ] in serum or plasma 0.4 mg/dL low: 0.2mg/ dLhigh : 1.2mg/ dL Not Available Not Available 02/22/2025 17:54:27 01/27/20 25 01/26/2025 [facility] 1999 panel - Serum or Plasm a alkaline phosphatase [enzymatic activity/vol ume] in serum or plasma 77 U/L low: 40U/Lh igh: 150U/L Not Available Not Available 02/22/2025 17:54:27 01/27/20 25 01/26/2025 [facility] 1999 panel - Serum or Plasm a alanine aminotransfe rase [enzymatic activity/vol ume] in serum or plasma by no addition of P-5'-P 50 U/L low: 5U/Lhi gh: 55U/L Not Available Not Available 02/22/2025 17:54:27 01/27/20 25 01/26/2025 [place] [id number] panel - Serum or Plasm a aspartate aminotransfe rase [enzymatic activity/vol ume] in serum or plasma 38 U/L low: 5U/Lhi gh: 34U/L high Not Available Not Available 02/22/2025 17:54:27 01/27/20 25 01/26/[address] [facility] [employer] connie metab olic 2000 panel - Serum or Plasm a anion gap 9 low: 6high: 16 Not Available Not Available 02/22/2025 17:54:27 01/27/20 25 01/26/2025 Compr ehens connie metab olic 2000 panel - Serum or Plasm a urea nitrogen/cre atinine [mass ratio] in serum or plasma 16 low: 7high: 23 Not Available Not Available 02/22/2025 17:54:27 01/27/20 25 01/26/2025 [facility] panel - Serum or Plasm a osmolality calculated 284 text: 275 - 295 mOsm/k g Not Available Not Available 02/22/2025 17:54:27 01/27/20 25 01/26/2025 [facility] ehens connie metab olic 2000 panel - Serum or Plasm a albumin/glob ulin ratio 0.8 low: 1.1hig h: 2.3 low Not Available Not Available 02/22/2025 17:54:27 01/27/20 25 01/26/2025 [facility] panel - Serum or Plasm a glomerular filtration rate [volume rate/area] in serum, plasma or blood by creatinine-b ased formula (CKD-epi 2020)/1.73 sq M text: >=90 mL/min /1.73 m2 Not Available Not Available 02/22/2025 17:54:27 01/27/20 25 01/26/[address]25 [facility] [employer] connie metab olic 2000 panel - Serum or Plasm a interpretati on and review of laboratory results Abnorm al Not Available Not Available 17:54:27 01/27/2001/26/2025 [facility] panel - Blood leukocytes [#/volume] in blood by automated count 6.9 text: 4.0 - 10.7 x10e9/ L Not Available Not Available 02/22/2025 17:54:27 01/27/20 25 01/26/2025 [facility] panel - Blood erythrocytes [#/volume] in blood by automated count 4.96 text: 4.30 - 5.80 x10e12 /L Not Available Not Available 02/22/2025 17:54:27 01/27/20 25 01/26/2025 [facility] panel - Blood hemoglobin [mass/volume ] in blood 14.9 g/dL low: 13.3g/ dLhigh : 17.5g/ dL Not Available Not Available 02/22/2025 17:54:27 01/27/20 25 01/26/2025 [facility] [employer] panel - Blood hematocrit [volume fraction] of blood by automated count 45.4 % low: 38.7%h igh: 51.1% Not Available Not Available 02/22/2025 17:54:27 01/27/20 25 01/26/2025 [facility] [employer] panel - Blood MCV [entitic mean volume] in red blood cells by automated count 91.5 fL low: 80fLhi gh: 98fL Not Available Not Available 02/22/2025 17:54:27 01/27/20 25 01/26/2025 [facility] [employer] panel - Blood MCH [entitic mass] by automated count 30 pg low: 26.7pg high: 33.6pg Not Available Not Available 02/22/2025 17:54:27 01/27/20 25 01/26/2025 [facility] [employer] panel - Blood MCHC [entitic mass/volume] in red blood cells by automated count 32.8 g/dL low: 31.7g/ dLhigh : 36.3g/ dL Not Available Not Available 02/22/2025 17:54:27 01/27/20 25 01/26/2025 [facility] [employer] panel - Blood erythrocyte [distwidth] in red blood cells by automated count 15.9 % low: 11.3%h igh: 14.8% high Not Available Not Available 02/22/2025 17:54:27 01/27/20 25 01/26/2025 [facility] [employer] panel - Blood platelets [#/volume] in blood by automated count 343 text: 150 - 420 x10e9/ L Not Available Not Available 02/22/2025 17:54:27 01/27/20 25 01/26/2025 [facility] [employer] panel - Blood platelet [entitic mean volume] in blood by automated count 9.5 fL low: 7.8fLh igh: 11.4fL Not Available Not Available 02/22/2025 17:54:27 01/27/20 25 01/26/2025 [facility] panel - Blood neutrophils [#/volume] in blood by automated count 5.02 text: 1.60 - 7.50 x10e9/ L Not Available Not Available 02/22/2025 17:54:27 01/27/20 25 01/26/2025 [facility] [employer] panel - Blood neutrophils/ leukocytes in blood by automated count 72.4 % low: 41%hig h: 74% Not Available Not Available 02/22/2025 17:54:27 01/27/20 25 01/26/2025 [facility] panel - Blood lymphocytes/ leukocytes in blood by automated count 15.4 % low: 17%hig h: 47% low Not Available Not Available 02/22/2025 17:54:27 01/27/20 25 01/26/2025 [facility] [employer] panel - Blood monocytes/le ukocytes in blood by automated count 10.2 % low: 3%high : 11% Not Available Not Available 02/22/2025 17:54:27 01/27/20 25 01/26/2025 [facility] [employer] panel - Blood eosinophils/ leukocytes in blood by automated count 1 % low: 0%high : 7% Not Available Not Available 02/22/2025 17:54:27 01/27/20 25 01/26/2025 [facility] [employer] panel - Blood basophils/le ukocytes in blood by automated count 0.7 % low: 0%high : 1.6% Not Available Not Available 02/22/2025 17:54:27 01/27/20 25 01/26/2025 [facility] [employer] panel - Blood immature granulocytes /leukocytes in blood by automated count 0.3 % low: 0%high : 1% Not Available Not Available 02/22/2025 17:54:27 01/27/20 25 01/26/2025 [facility] [employer] panel - Blood neutrophils [#/volume] in blood by automated count 5.02 text: 1.60 - 7.50 x10e9/ L Not Available Not Available 02/22/2025 17:54:27 01/27/20 25 01/26/2025 [facility] [employer] panel - Blood lymphocytes [#/volume] in blood by automated count 1.07 text: 1.00 - 4.40 x10e9/ L Not Available Not Available 02/22/2025 17:54:27 01/27/20 25 01/26/2025 [facility] [employer] panel - Blood monocytes [#/volume] in blood by automated count 0.71 text: 0.15 - 1.00 x10e9/ L Not Available Not Available 02/22/2025 17:54:27 01/27/20 25 01/26/2025 [facility] [employer] panel - Blood eosinophils [#/volume] in blood 0.07 text: 0.00 - 0.60 x10e9/ L Not Available Not Available 02/22/2025 17:54:27 01/27/20 25 01/26/2025 [facility] [employer] panel - Blood basophils [#/volume] in blood by automated count 0.05 text: 0.00 - 0.13 x10e9/ L Not Available Not Available 02/22/2025 17:54:27 01/27/20 25 01/26/2025 [facility] panel - Blood interpretati on and review of laboratory results Abnorm al Not Available Not Available 17:54:27 02/17/20 25 02/16/2025 Thyro tropi n [Unit s/vol ume] in Serum or Plasm a by Detec tion limit <= 0.005 mIU/L thyrotropin [units/volum e] in serum or plasma by detection limit <= 0.005 mIU/L 1.073 text: 0.350 - 4.940 uIU/mL Not Available Not Available 02/22/2025 17:44:27 02/17/20 25 02/16/2025 Thyro tropi n [Unit s/vol ume] in Serum or Plasm a by Detec tion limit <= 0.005 mIU/L interpretati on and review of laboratory results Normal Not Available Not Available 02/06 17:44:27 02/17/20 25 02/16/[address]25 [facility] [employer] connie [employer]lic 1999 panel - Serum or Plasm a urea nitrogen [mass/volume ] in serum or plasma 10 mg/dL low: 7mg/dL high: 26mg/d L Not Available Not Available 02/22/2025 17:44:27 02/17/20 25 02/16/2025 Compr ens connie metab olic 1999 panel - Serum or Plasm a creatinine [mass/volume ] in serum or plasma 0.72 mg/dL low: 0.71mg /dLhig h: 1.16mg /dL Not Available Not Available 02/22/2025 17:44:27 02/17/20 25 02/16/2025 Compr [employer] connie metab olic 1999 panel - Serum or Plasm a sodium [moles/volum e] in serum or plasma 134 mmol/ L low: 136mmo l/Lhig h: 145mmo l/L low Not Available Not Available 02/22/2025 17:44:27 02/17/20 25 02/16/2025 [facility] panel - Serum or Plasm a potassium [moles/volum e] in serum or plasma 4.3 mmol/ L low: 3.5mmo l/Lhig h: 4.5mmo l/L Not Available Not Available 02/22/2025 17:44:27 02/17/20 25 02/16/2025 [facility] panel - Serum or Plasm a chloride [moles/volum e] in serum or plasma 102 mmol/ L low: 98mmol /Lhigh : 107mmo l/L Not Available Not Available 02/22/2025 17:44:27 02/17/20 25 02/16/2025 Compr [employer] 1999 panel - Serum or Plasm a carbon dioxide, total [moles/volum e] in serum or plasma 25 mmol/ L low: 22mmol /Lhigh : 29mmol /L Not Available Not Available 02/22/2025 17:44:27 02/17/20 25 02/16/2025 [facility] [employer] 1999 panel - Serum or Plasm a glucose [mass/volume ] in serum or plasma 102 mg/dL low: 70mg/d Lhigh: 99mg/d L high Not Available Not Available 02/22/2025 17:44:27 02/17/20 25 02/16/2025 [facility] connie [facility] 1999 panel - Serum or Plasm a calcium [moles/volum e] in serum or plasma 9.3 mg/dL low: 8.4mg/ dLhigh : 10.2mg /dL Not Available Not Available 02/22/2025 17:44:27 02/17/20 25 02/16/2025 [facility] panel - Serum or Plasm a protein [mass/volume ] in serum or plasma 7.8 g/dL low: 6g/dLh igh: 8.3g/d L Not Available Not Available 02/22/2025 17:44:27 02/17/20 25 02/16/2025 [facility] [place] [id number] panel - Serum or Plasm a albumin [mass/volume ] in serum or plasma by bromocresol green (bcg) dye binding method 3.7 g/dL low: 3.4g/d Lhigh: 5g/dL Not Available Not Available 02/22/2025 17:44:27 02/17/20 25 02/16/2025 [facility] 1999 panel - Serum or Plasm a bilirubin.to jassi [mass/volume ] in serum or plasma 0.3 mg/dL low: 0.2mg/ dLhigh : 1.2mg/ dL Not Available Not Available 02/22/2025 17:44:27 02/17/20 25 02/16/2025 [facility] 1999 panel - Serum or Plasm a alkaline phosphatase [enzymatic activity/vol ume] in serum or plasma 81 U/L low: 40U/Lh igh: 150U/L Not Available Not Available 02/22/2025 17:44:27 02/17/20 25 02/16/2025 [facility] panel - Serum or Plasm a alanine aminotransfe rase [enzymatic activity/vol ume] in serum or plasma by no addition of P-5'-P 41 U/L low: 5U/Lhi gh: 55U/L Not Available Not Available 02/22/2025 17:44:27 02/17/20 25 02/16/2025 Compr ehens connie metab olic 2000 panel - Serum or Plasm a aspartate aminotransfe rase [enzymatic activity/vol ume] in serum or plasma 35 U/L low: 5U/Lhi gh: 34U/L high Not Available Not Available 02/22/2025 17:44:27 02/17/20 25 02/16/2025 Compr ehens connie metab olic 2000 panel - Serum or Plasm a anion gap 7 low: 6high: 16 Not Available Not Available 02/22/2025 17:44:27 02/17/20 25 02/16/2025 Compr ehens connie metab olic 2000 panel - Serum or Plasm a urea nitrogen/cre atinine [mass ratio] in serum or plasma 14 low: 7high: 23 Not Available Not Available 02/22/2025 17:44:27 02/17/20 25 02/16/2025 Compr ehens connie metab olic 2000 panel - Serum or Plasm a osmolality calculated 277 text: 275 - 295 mOsm/k g Not Available Not Available 02/22/2025 17:44:27 02/17/20 25 02/16/2025 Compr ehens connie metab olic 2000 panel - Serum or Plasm a albumin/glob ulin ratio 0.9 low: 1.1hig h: 2.3 low Not Available Not Available 02/22/2025 17:44:27 02/17/20 25 02/16/2025 Compr ehens connie metab olic 2000 panel - Serum or Plasm a glomerular filtration rate [volume rate/area] in serum, plasma or blood by creatinine-b ased formula (CKD-epi 2020)/1.73 sq M text: >=90 mL/min /1.73 m2 Not Available Not Available 02/22/2025 17:44:27 02/17/20 25 02/16/2025 Compr ehens connie metab olic 2000 panel - Serum or Plasm a Unknown Analyte Estima brent Glomer ular Filtra tion Rate (eGFR) calcul ated using the CKD-EP I Creati nine Equati on (2020) , per the [facility] and [place] [employer] recomm endati ons. Not Available Not Available 17:44:27 02/17/20 25 02/16/2025 Compr ehens connie metab olic 2000 panel - Serum or Plasm a interpretati on and review of laboratory results Abnorm al Not Available Not Available 17:44:27 02/17/20 25 02/16/2025 [facility] panel - Blood leukocytes [#/volume] in blood by automated count 6.2 text: 4.0 - 10.7 x10e9/ L Not Available Not Available 02/22/2025 17:44:27 02/17/20 25 02/16/2025 [facility] panel - Blood erythrocytes [#/volume] in blood by automated count 5.18 text: 4.30 - 5.80 x10e12 /L Not Available Not Available 02/22/2025 17:44:27 02/17/20 25 02/16/2025 [facility] panel - Blood hemoglobin [mass/volume ] in blood 15.2 g/dL low: 13.3g/ dLhigh : 17.5g/ dL Not Available Not Available 02/22/2025 17:44:27 02/17/20 25 02/16/2025 [facility] [employer] panel - Blood hematocrit [volume fraction] of blood by automated count 47.2 % low: 38.7%h igh: 51.1% Not Available Not Available 02/22/2025 17:44:27 02/17/20 25 02/16/2025 [facility] panel - Blood MCV [entitic mean volume] in red blood cells by automated count 91.1 fL low: 80fLhi gh: 98fL Not Available Not Available 02/22/2025 17:44:27 02/17/20 25 02/16/2025 [facility] panel - Blood MCH [entitic mass] by automated count 29.3 pg low: 26.7pg high: 33.6pg Not Available Not Available 02/22/2025 17:44:27 02/17/20 25 02/16/2025 CBC W [facility] panel - Blood MCHC [entitic mass/volume] in red blood cells by automated count 32.2 g/dL low: 31.7g/ dLhigh : 36.3g/ dL Not Available Not Available 02/22/2025 17:44:27 02/17/20 25 02/16/2025 CBC W Auto Diffe renti al panel - Blood erythrocyte [distwidth] in red blood cells by automated count 14.9 % low: 11.3%h igh: 14.8% high Not Available Not Available 02/22/2025 17:44:27 02/17/20 25 02/16/2025 CBC W Auto Diffe renti al panel - Blood platelets [#/volume] in blood by automated count 256 text: 150 - 420 x10e9/ L Not Available Not Available 02/22/2025 17:44:27 02/17/20 25 02/16/2025 CBC W Auto Diffe renti al panel - Blood platelet [entitic mean volume] in blood by automated count 9.8 fL low: 7.8fLh igh: 11.4fL Not Available Not Available 02/22/2025 17:44:27 02/17/20 25 02/16/2025 CBC W Auto Diffe renti al panel - Blood neutrophils [#/volume] in blood by automated count 4.04 text: 1.60 - 7.50 x10e9/ L Not Available Not Available 02/22/2025 17:44:27 02/17/20 25 02/16/2025 CBC W Auto Diffe renti al panel - Blood neutrophils/ leukocytes in blood by automated count 65.2 % low: 41%hig h: 74% Not Available Not Available 02/22/2025 17:44:27 02/17/20 25 02/16/2025 CBC W Auto Diffe renti al panel - Blood lymphocytes/ leukocytes in blood by automated count 18.1 % low: 17%hig h: 47% Not Available Not Available 02/22/2025 17:44:27 02/17/20 25 02/16/2025 CBC W Auto Diffe renti al panel - Blood monocytes/le ukocytes in blood by automated count 11.3 % low: 3%high : 11% high Not Available Not Available 02/22/2025 17:44:27 02/17/20 25 02/16/2025 CBC W Auto Diffe renti al panel - Blood eosinophils/ leukocytes in blood by automated count 4.5 % low: 0%high : 7% Not Available Not Available 02/22/2025 17:44:27 02/17/20 25 02/16/2025 CBC W Auto Diffe renti al panel - Blood basophils/le ukocytes in blood by automated count 0.6 % low: 0%high : 1.6% Not Available Not Available 02/22/2025 17:44:27 02/17/20 25 02/16/2025 CBC W Auto Diffe renti al panel - Blood immature granulocytes /leukocytes in blood by automated count 0.3 % low: 0%high : 1% Not Available Not Available 02/22/2025 17:44:27 02/17/20 25 02/16/2025 CBC W Auto Diffe renti al panel - Blood neutrophils [#/volume] in blood by automated count 4.04 text: 1.60 - 7.50 x10e9/ L Not Available Not Available 02/22/2025 17:44:27 02/17/20 25 02/16/2025 CBC W Auto Diffe renti al panel - Blood lymphocytes [#/volume] in blood by automated count 1.12 text: 1.00 - 4.40 x10e9/ L Not Available Not Available 02/22/2025 17:44:27 02/17/20 25 02/16/2025 CBC W Auto Diffe renti al panel - Blood monocytes [#/volume] in blood by automated count 0.7 text: 0.15 - 1.00 x10e9/ L Not Available Not Available 02/22/2025 17:44:27 02/17/20 25 02/16/2025 CBC W Auto Diffe renti al panel - Blood eosinophils [#/volume] in blood 0.28 text: 0.00 - 0.60 x10e9/ L Not Available Not Available 02/22/2025 17:44:27 02/17/20 25 02/16/2025 CBC W Auto Diffe renti al panel - Blood basophils [#/volume] in blood by automated count 0.04 text: 0.00 - 0.13 x10e9/ L Not Available Not Available 02/22/2025 17:44:27 02/17/20 25 02/16/2025 CBC W Auto Diffe renti al panel - Blood interpretati on and review of laboratory results Abnorm al Not Available Not Available 17:44:27 11/21/19 21 11/19/2020 XR, chest No observ ation record ed. [facility] [address] [place], [address], 11/21/2020 09:38:15 02/18/20 22 02/16/2022 XR, ankle , 3 or more view No observ ation record ed. [address] [facility] On [facility] [address] [place], [address], 02/28/2022 10:49:20 02/24/20 23 02/23/2023 XR, ankle No observ ation record ed. [address] [place], [address], 02/25/2023 15:34:04 02/24/20 23 02/23/2023 XR, foot No observ ation record ed. [address] [place], [address], 02/25/2023 15:51:53 04/17/20 23 04/17/2023 XR, chest No observ ation record ed. [address] [place], [address], 05/05/2023 15:51:59 08/04/20 24 08/04/2024 CT, chest , w/o contr ast No observ ation record ed. [email or web address] [address] [place], [address], 08/27/2024 16:08:47 Result Notes None recorded. Problems Name Problem SNOMED Code Status Onset Date Resolution Date Notes Provider Name and Address Organization Details Recorded Time Pain of right shoulder joint 1356196221147 9100 Active 2017 Not Available [facility] 3 08:10:47 Rupture of rotator cuff of right shoulder 2800172595847 9103 Active 2017 Not Available [facility] 3 08:10:47 Chronic obstructiv e pulmonary disease 85261431 Active 2017 Not Available [facility] 3 08:10:47 Tobacco dependence syndrome 84193348 Active 2017 Not Available [facility] 3 08:10:47 Allergic rhinitis 20261872 Active 2017 Not Available [facility] 3 08:10:47 Anxiety disorder 418984932 Active 2017 Not Available [facility] 3 08:10:47 Medication monitoring Active 2017 Not Available [facility] 3 08:10:47 Screening for malignant neoplasm of colon Active 2017 Not Available [facility] 3 08:10:47 Screening for malignant neoplasm of prostate Active 2017 Not Available [facility] 3 08:10:47 History of hepatitis C 0444106161447 1 Active 2017 Not Available [facility] 3 08:10:47 Acute upper respirator y infection 91557329 Active 2017 Not Available [facility] 3 08:10:47 Laryngitis 41651967 Active 2018 Not Available [facility] 3 08:10:47 Headache 70508288 Active 2018 Not Available [facility] 3 08:10:47 Pain of ear 759857314 Active 2018 right Not Available [facility] 3 08:10:47 Bilateral hearing loss 60437695 Active 2018 Not Available [facility] 3 08:10:47 Venereal disease screening Active 2018 Not Available [facility] 3 08:10:47 Ganglion cyst Active 2018 right hand Not Available [facility] 3 08:10:47 Sinusitis 65820654 Active 2019 Not Available [facility] 3 08:10:47 Cough 52000247 Active 2019 Not Available [facility] 3 08:10:47 Acute exacerbati on of chronic obstructiv e pulmonary disease 596890147 Active 2019 Not Available [facility] 3 16:04:53 Pleuritic pain 8455472 Active 2019 Not Available [facility] 3 08:10:47 Chronic bronchitis 45765786 Active 2019 Not Available [facility] 3 08:10:47 Sprain of left ankle 4554814393197 9105 Active 2021 Not Available [facility] 3 08:10:47 Bone spur of left foot 7177032125854 08 Active 2022 Not Available [facility] 3 08:10:47 Hemoptysis 08719745 Active 2023 Shraddha Barrow MD Attn: Accounting ,[address] [place], [address] , [facility] 4 12:25:01 Active immunizati on Active 2023 Shraddha Barrow MD Attn: Accounting ,[address] [place], [address] , [facility] 4 12:39:31 Problem Notes None recorded. Procedures Surgical History Date Name Laterality Status Provider Name and Address Organization Details Recorded Time 0 Cerumen removal without microscope completed Lidia Trinh [place] - [facility] 08/08/2020 13:42:17 Knee Surgery completed Glenna Ferrera MA [facility] 02/26/2018 10:50:47 Hernia Repair completed Glenna Ferrera MA [facility] 02/26/2018 10:50:52 Imaging Results None recorded. Procedure Notes None recorded. Medical Equipment None Reported. Allergies No known drug allergies Medications Name Sig Start Date Stop Date Status Note LastModified by Organization Details LastModified Time nicotine transderm al system 21 mg/24hr pt24 10/26 completed Not Available Not Available Not Available amoxicill in 500 mg caps 10/26 completed Not Available Not Available Not Available cefdinir 300 mg caps 10/26 completed Not Available Not Available Not Available albuterol sulfate 2 mg tabs 09/09 completed Not Available Not Available Not Available levofloxa fabio 500 mg tabs 10/26 completed Not Available Not Available Not Available flovent hfa 110 mcg/act aero 10/26 completed Not Available Not Available Not Available ventolin hfa 108 (90 base) mcg/actae rs 10/26 completed Not Available Not Available Not Available amoxicill in/clavul anate potassium 875-125 mg tabs 10/26 completed Not Available Not Available Not Available ibuprofen 800 mg tabs 10/26 completed Not Available Not Available Not Available hydrocodo ne/acetam inophen 5-325 mgtabs 10/26 completed Not Available Not Available Not Available symbicort 80-4.5 mcg/act aero 10/26 completed Not Available Not Available Not Available cyclobenz aprine 10 mg tablet TAKE 1 TABLET BY MOUTH EVERY NIGHT AT BEDTIME 07/27 completed Not Available Not Available Not Available amoxicill in 500 mg capsule Take 1 capsule 3 times a day by oral route. 08/08 completed Not Available Not Available Not Available bupropion HCl SR 150 mg tablet,12 hr sustained -release Take 1 tablet twice a day by oral route. 07/12 completed Not Available Not Available Not Available nicotine 14 mg/24 hr daily transderm al patch Apply 1 patch every day by transder mal route for 28 days. 08/08 completed Not Available Not Available Not Available ipratropi um 0.5 mg-albute rol 3 mg (2.5 mg base)/3 mL nebulizat ion soln INHALE CONTENTS OF 1 VIAL NEBULIZE D EVERY 4 HOURS NEEDED FOR SHORTNES S OF BREATH/W HEEZING active Not Available Not Available No t Available albuterol sulfate 2.5 mg/3 mL (0.083 %) solution for nebulizat ion INHALE 3 ML BY NEBULIZA TION 3 TIMES A DAY NEEDED active Not Available Not Available No t Available cetirizin e 10 mg tablet TAKE 1 TABLET BY MOUTH DAILY 2023 active Not Available Not Available Not Avai lable azithromy fabio 250 mg tablet TK 2 TS PO ON DAY 1, THEN TK 1 T PO D FOR 4 DAYS 07/27 completed Not Available Not Available Not Available ibuprofen 800 mg tablet TAKE 1 TABLET BY MOUTH THREE TIMES DAILY BEFORE MEALS active Not Available Not Available No t Available nicotine (polacril ex) 2 mg gum Chew 1 piece of gum every 2 hours by oral route as needed. active Not Available Not Available No t Available ofloxacin 0.3 % eye drops 10/28 completed Not Available Not Available Not Available benzonata te 200 mg capsule TAKE 1 CAPSULE BY MOUTH THREE TIMES A DAY active Not Available Not Available No t Available albuterol sulfate 1.25 mg/3 mL solution for nebulizat ion USE 1 VIAL VIA NEBULIZE R THREE TIMES DAILY NEEDED 02/19 completed Not Available Not Available Not Available hydrocodo ne 5 mg-acetam inophen 325 mg tablet Take 1 tablet twice a day by oral route as needed. 12/21 completed Not Available Not Available Not Available ondansetr on HCl 8 mg tablet TAKE 1 TABLET BY MOUTH EVERY 8 HOURS NEEDED FOR NAUSEA AND VOMITING active Not Available Not Available No t Available meloxicam 15 mg tablet 07/12 completed Not Available Not Available Not Available prednison e 20 mg tablet TAKE 2 (TWO) TABLETS BY MOUTH DAILY WITH BREAKFAS T FOR 2 DOSES active Not Available Not Available No t Available olanzapin e 5 mg tablet TAKE 1 TABLET BY MOUTH DIRECTED AT BEDTIME ON DAYS 1 THROUGH 4 OF EACH 21 DAY CYCLE. active Not Available Not Available No t Available albuterol sulfate 4 mg tablet Take by oral route for 30 days. 09/05 completed Not Available Not Available Not Available prochlorp erazine maleate 10 mg tablet TAKE 1 TABLET BY MOUTH EVERY 6 HOURS NEEDED FOR NAUSEA AND VOMITING active Not Available Not Available No t Available tramadol 50 mg tablet TAKE 1 TABLET BY MOUTH THREE TIMES DAILY NEEDED active Not Available Not Available No t Available butalbita l-acetami nophen-ca ffeine 50 mg-325 mg-40 mg tablet TAKE 1 (ONE) TABLET BY MOUTH EVERY 6 HOURS NEEDED FOR HEADACHE OR MIGRAINE active Not Available Not Available No t Available Tessalon Perles 100 mg capsule Take 2 capsules 3 times a day by oral route. 10/28 completed Not Available Not Available Not Available diazepam 2 mg tablet 10/26 completed Not Available Not Available Not Available cephalexi n 500 mg capsule 10/26 completed Not Available Not Available Not Available erythromy fabio 5 mg/gram (0.5 %) eye ointment 02/19 completed Not Available Not Available Not Available tobramyci n 0.3 % eye drops 10/26 completed Not Available Not Available Not Available triamcino lone acetonide 0.1 % topical ointment APPLY TO AFFECTED AREA 3 TIMES A DAY active Not Available Not Available No t Available Nicorette 4 mg gum Chew one piece every two hours while awake and as needed up to 24 pieces daily 08/08 completed Not Available Not Available Not Available dexametha sone 4 mg tablet PLEASE SEE ATTACHED FOR DETAILED DIRECTIO NS active Not Available Not Available No t Available polymyxin B sulfate 10,000 unit-trim ethoprim 1 mg/mL eye drops INSTILL 1-2 DROPS IN AFFECTED EYE 4 TIMES A DAY NEEDED FOR 7 DAYS 07/27 completed Not Available Not Available Not Available butalbita l-aspirin -caffeine 50 mg-325 mg-40 mg capsule 10/26 completed Not Available Not Available Not Available buspirone 7.5 mg tablet Take 1 tablet twice a day by oral route. 05/05 completed unable to tolerate Not Available Not Available Not Available morphine ER 15 mg tablet,ex tended release TAKE 1 TABLET BY MOUTH EVERY 12 HOURS active Not Available Not Available No t Available polyethyl diane glycol 3350 17 gram/dose oral powder TAKE 17 GRAMS BY MOUTH ONCE EVERY DAY active Not Available Not Available No t Available levofloxa fabio 500 mg tablet 10/28 completed Not Available Not Available Not Available levofloxa fabio 750 mg tablet 10/28 completed Not Available Not Available Not Available methylpre dnisolone 4 mg tablets in a dose pack 08/08 completed Not Available Not Available Not Available albuterol sulfate HFA 90 mcg/actua tion aerosol inhaler INHALE 2 PUFFS BY MOUTH EVERY 4 HOURS NEEDED FOR RESPIRAT ORY PROBLEMS 2024 active Not Available Not Available Not Avai lable albuterol sulfate 2 mg tablet Take 1 tablet 3 times a day by oral route. active Not Available Not Available No t Available ondansetr on 4 mg disintegr ating tablet 10/26 completed Not Available Not Available Not Available fluticaso ne propionat e 50 mcg/actua tion nasal spray,mehul pension TWo sprays in each nostril daily 08/08 completed Not Available Not Available Not Available sertralin e 50 mg tablet Take 1 tablet every day by oral route. 01/18 completed Not Available Not Available Not Available doxycycli ne hyclate 100 mg tablet TAKE 1 TABLET BY MOUTH TWICE DAILY X 10 DAYS 02/19 completed Not Available Not Available Not Available naproxen 500 mg tablet TAKE 1 TABLET BY MOUTH TWICE DAILY active Not Available Not Available No t Available diazepam 5 mg tablet 10/26 completed Not Available Not Available Not Available amoxicill in 875 mg-potass ium clavulana te 125 mg tablet TAKE 1 TABLET BY MOUTH TWICE DAILY 03/17 completed Not Available Not Available Not Available amoxicill in 500 mg-potass ium clavulana te 125 mg tablet Take 1 tablet every 12 hours by oral route. active Not Available Not Available No t Available oxycodone 5 mg tablet TAKE 1 TABLET BY MOUTH EVERY 6 HOURS NEEDED FOR PAIN active Not Available Not Available No t Available Symbicort 160 mcg-4.5 mcg/actua tion HFA aerosol inhaler INHALE 2 PUFFS INTO THE LUNGS TWICE A DAY 2024 active Not Available Not Available Not Avai lable Symbicort 80 mcg-4.5 mcg/actua tion HFA aerosol inhaler 10/26 completed Not Available Not Available Not Available Senexon-S 8.6 mg-50 mg tablet TAKE 2 TABLETS BY MOUTH ONCE DAILY active Not Available Not Available No t Available Virtussin AC 10 mg-100 mg/5 mL oral liquid 10/26 completed Not Available Not Available Not Available fluticaso ne 113 mcg-salme terol 14 mcg/actua tion breath activated powdr Inhale 1 puff twice a day by inhalati on route. 08/08 completed Not Available Not Available Not Available fluticaso ne 232 mcg-salme terol 14 mcg/actua tion breath activated powdr active Not Available Not Available Not Available Vitals Date Recorded Body height Body mass index (BMI) Body weight Provider Name and Address Organization Details Last Updated DateTime 11/27/2020 167.64 cm 28.2 kg/m2 63026.66 g Christen Buck MA [place] - [facility] 11/27/2020 11:31:34 Date Recorded Body height Body mass index (BMI) Body weight Oxygen saturation Oxygen saturation in Arterial blood by Pulse oximetry Body temperature Heart rate Systolic And Diastolic Provider Name and Address Organization Details Last Updated DateTime 2 167.64 cm 26 kg/m2 44197.3 7 g 95 % 95 % 98.1 [degF] 96 /min 116/76 mm[Hg] Glenna Ferrera MA [facility] 2 12:20:24 Date Recorded Body height Body mass index (BMI) Body weight Heart rate Body temperature Oxygen saturation Oxygen saturation in Arterial blood by Pulse oximetry Systolic And Diastolic Provider Name and Address Organization Details Last Updated DateTime 3 167.64 cm 27.6 kg/m2 16437.3 g 79 /min 98.1 [degF] 96 % 96 % 118/76 mm[Hg] Glenna Ferrera MA [facility] 3 17:38:39 Date Recorded Body height Body mass index (BMI) Body weight Heart rate Body temperature Oxygen saturation Oxygen saturation in Arterial blood by Pulse oximetry Systolic And Diastolic Provider Name and Address Organization Details Last Updated DateTime 2 167.64 cm 27.6 kg/m2 89997.3 g 100 /min 98.1 [degF] 92 % 92 % 108/78 mm[Hg] Glenna Ferrera MA [facility] 2 14:44:58 Date Recorded Body height Body mass index (BMI) Body weight Oxygen saturation Oxygen saturation in Arterial blood by Pulse oximetry Heart rate Systolic And Diastolic Provider Name and Address Organization Details Last Updated DateTime 4 167.64 cm 28.4 kg/m2 63914.2 6 g 92 % 92 % 85 /min 121/76 mm[Hg] Dav Motley MA [facility] 4 12:13:48 Social History Question Answer Notes LastModified by Organizat ion Details LastModified Time Tobacco Smoking Status Current Every Day Smoker Glenna Ferrera MA null, [facility] 02/26/2018 10:50:27 Do You Have An Advance Directive? No Information n ot available 11/27/2020 Are You Blind Or Do You Have Difficulty Seeing? No Information n ot available 11/27/2020 What Is Your Level Of Caffeine Consumption? Moderate Coffee Information not available 11/27/2020 In The 14 Days Before Symptom Onset, Have You Had Close Contact With A Laboratory-confirm ed COVID-19 While That Case Was Ill? No Information n ot available 11/27/2020 In The 14 Days Before Symptom Onset, Have You Had Close Contact With A Person Who Is Under Investigation For COVID-19 While That Person Was Ill? No Information not available 11/27/2020 Have You Been To An Area Known To Be High Risk For COVID-19? No Information not available 11/27/2020 Are You Deaf Or Do You Have Serious Difficulty Hearing? Yes Information not available 11/27/2020 What Type Of Diet Are You Following? REGULAR Information n ot available 11/27/2020 What Is The Highest Grade Or Level Of School You Have Completed Or The Highest Degree You Have Received? [id number] Information not available 11/27/2020 Are There Any Guns Present In Your Home? No Information not available 11/27/2020 What Was The Date Of Your Most Recent Tobacco Screening? 07/27/2024 Information not available 07/27/2024 What Is Your Relationship Status? Information not available 11/27/2020 Do You Use Your Seat Belt Or Car Seat Routinely? Yes Information not available 11/27/2020 Do You Have Smoke And Carbon Monoxide Detectors In Your Home? Yes Information not available 11/27/2020 At What Age Did You Start Smoking Tobacco? 14 Information not available 11/27/2020 How Much Tobacco Do You Smoke? 1 PPD Information not available 02/26/2018 Do You Use Sunscreen Routinely? No Information not available 11/27/2020 Has Tobacco Cessation Counseling Been Provided? Yes Information not available 03/17/2023 On What Date Was Tobacco Cessation Counseling Provided? 07/27/2024 Information not available 07/27/2024 How Many Years Have You Smoked Tobacco? 41 Information not available 11/27/2020 Sex: Male Functional Status Question Answer Note LastModified by Organizat ion Details LastModified Time Do you use any illicit or recreational drugs? No Information not available 11/27/2020 Do you or have you ever used any other forms of tobacco or nicotine? No Information not available 11/27/2020 What is your level of alcohol consumption? None Information not available 11/27/2020 Are you currently employed? Yes Information not available 11/27/2020 Are you able to care for yourself? 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 None Information not available 11/27/2020 Mental Status None recorded. Family History Relationship Description Onset Age of this Age Resolved Age Notes LastModified by Organization Details LastModified Time Father No current problems or disability [email or web address] Not available 02/26 10:50:38 Mother No current problems or disability [email or web address] Not available 02/26 10:50:38 Medical History Condition Response Hepatitis Y Muscle, Joint, or Bone Problems Y COPD Y Immunizations Vaccine Type Date Status Note Provider Nam e and Address Organization Details Recorded Time Influenza, split virus, trivalent, preservative 4 completed Dav Motley MA [place], [place] - [facility] 07/27/2024 16:40:23 Past Encounters Encounter ID Performer Location Encounter Start Date Encounter Closed Date Diagnosis/Indication Diagnosis SNOMED-CT Code Diagnosis ICD10 Code Diagnosis Note [id number] Shraddha Barrow MD [facility] (Adult Med) [address] [place] [address] [phone] 02/26/2018 09:52:46 02/26/2018 12:14:37 Chronic obstructive pulmonary disease 46950137 J44.9 Tobacco de pendence syndrome 94612074 F17.200 Pain of ri ght shoulder joint 8505229396 3232035 M25.511 Chronic hepatitis C 1283 83490 B18.2 Allergic rhinitis 089526 04 J30.9 Anxiety disorder 5987506 06 F41.9 Medication monitoring 39 6128930 Z51.81 Screening for malignant neoplasm of colon 766068006 Z12.11 Screening for malignant neoplasm of prostate 877400621 Z12.5 [id number] Shraddha Barrow [facility] [address] [place] [address] [id number] 05/05/2018 14:54:46 05/05/2018 16:52:15 Chronic obstructive pulmonary disease 04977202 J44.9 Acute uppe r respiratory infection 89935957 J06.9 complete antibiotic regimen Pain of ri ght shoulder joint 4426095817 8874340 M25.511 Anxiety disorder 0626359 06 F41.9 [id number] MD [facility] (Adult Med) [address] [place] [address] [id number] 09/09/2018 16:22:15 09/10/2018 09:22:21 Acute upper respiratory infection 42127045 J06.9 Rupture of rotator cuff of right shoulder 7846810467 4344540 M75.101 Tobacco de pendence syndrome 69123548 F17.200 Allergic rhinitis 471178 04 J30.9 Chronic ob structive pulmonary disease 17353327 J44.9 Pain of ri ght shoulder joint 2575897739 7999452 M25.295 [id number] MD [facility]s (Adult Med) [address] [place] [address] [phone] 10/26/2018 15:20:48 10/26/2018 17:35:58 Acute upper respiratory infection 42804059 J06.9 Pain of ri ght shoulder joint 6364487424 4413763 M25.511 Medication monitoring 39 5553209 Z51.81 [id number] MD [facility] Bonds (Adult Med) [address] [place] [address] [id number] 11/03/2018 11:48:35 11/04/2018 09:35:28 Acute upper respiratory infection 84930563 J06.9 Tobacco de pendence syndrome 44815602 F17.200 Allergic rhinitis 642271 04 J30.9 Laryngitis 01288638 J04. 0 Rupture of rotator cuff of right shoulder 8658498391 4474998 M75.956 [id number] MD [facility] (Adult Med) [address] [place] [address] [id number] 11/09/2018 15:03:49 11/10/2018 13:12:56 Acute upper respiratory infection 04708575 J06.9 Chronic ob structive pulmonary disease 46419054 J44.9 Add flutcasons e/salmeter ol 232/14 to regimen Rupture of rotator cuff of right shoulder 1564196272 7920043 M75.418 [id number] MD [facility] Bonds (Adult Med) [address] [place] [address] [phone] 01/18/2019 09:59:49 01/18/2019 12:52:13 Pain of right shoulder joint 6426553681 4570135 M25.511 Tobacco de pendence syndrome 28800214 F17.200 Chronic ob structive pulmonary disease 41025206 J44.9 Add flutcasons e/salmeter ol 232/14 to regimen [id number] MD [facility] (Adult Med) [address] [place] [address] [id number] 04/20/2019 12:42:25 04/21/2019 13:23:37 Headache 34263798 R51 Start fioricet Pain of ear 969216891 H9 2.09 Chronic ob structive pulmonary disease [id number] J44.9 Tobacco de pendence syndrome 68656699 F17.824 [id number] MD Rylee Bonds (Adult Med) [address] [place] [address] 34362-398 0 06/21/2019 15:55:44 06/22/2019 13:55:06 Chronic obstructive pulmonary disease 81733496 J44.9 Bilateral hearing loss 55821218 H91.93 Ganglion cyst 76735582 M 67.40 Venereal d isease screening 570021600 Z11.3 [id number] MD Rylee Bonds (Adult Med) [address] [place] [address] 07835-475 0 09/16/2019 16:58:06 09/17/2019 12:16:03 Allergic rhinitis 67904066 J30.9 Sinusitis 34935649 J32.9 Cough 12128920 R05 Tessalon [id number] BEV RADFORD (Adult Med) [address] [place] [address] 13862-087 0 10/28/2019 15:37:32 10/28/2019 19:06:10 [id number] MD Rylee Bonds (Adult Med) [address] [place] [address] 99442-025 0 10/28/2019 15:48:13 10/29/2019 09:42:24 Pleuritic pain 0174149 R07.81 [id number] MD Rylee Bonds (Adult Med) [address] [place] [address] 67833-593 0 12/22/2019 12:01:44 12/30/2019 17:21:41 Pain of right shoulder joint 8462342793 1545775 M25.383 [id number] MD Rylee Bonds (Adult Med) [address] [place] [address] 86111-988 0 01/26/2020 09:27:27 01/27/2020 11:13:47 Allergic rhinitis 00857233 J30.9 Chronic bronchitis 70036 004 J42 Pain of ri ght shoulder joint 6388128017 8264501 M25.988 [id number] MD Rylee Bonds (Adult Med) [address] [place] [address] 67905-029 0 07/12/2020 08:27:25 07/13/2020 09:53:03 Acute upper respiratory infection 83827647 J06.9 Bilateral hearing loss 05645918 H91.93 Chronic ob structive pulmonary disease 52418589 J44.9 Tobacco de pendence syndrome 98805230 F17.755 [id number] Daniel Treviño MD [facility] [address] [address]158[address] 2 08/08/2020 13:40:16 08/10/2020 09:05:47 Impacted cerumen 96541848 H61.20 Sensorineu ral hearing loss of bilateral ears 767827306 H90.3 [id number] MD Rylee Bonds (Adult Med) [address] [place] [address] 12382-926 0 11/27/2020 08:34:35 11/27/2020 12:50:42 Chronic obstructive pulmonary disease 47775029 J44.9 Discussed importance of better compliance with med use. Pain of ri ght shoulder joint 4050362378 2645584 M25.511 Increase #pills x1 [id number] MD Rylee Bonds (Adult Med) [address] [place] [address] 41741-552 0 02/19/2022 11:55:49 02/20/2022 12:37:24 Sprain of left ankle 0032328324 6044928 S93.402A Tobacco de pendence syndrome 10290771 F17.200 Allergic rhinitis 534225 04 J30.9 [id number] MD Rylee Bonds (Adult Med) [address] [place] [address] 73547-976 0 06/24/2022 14:24:34 06/25/2022 10:42:44 Chronic obstructive pulmonary disease 91461460 J44.9 Discussed importance of better compliance with med use. Chronic bronchitis 31329 004 J42 [id number] Shraddha Barrow MD [facility] (Adult Med) [address] [place] [address] 53839-227 0 03/17/2023 15:52:35 04/09/2023 14:47:56 Overweight 887761407 E66.3 [id number] Shraddha Barrow MD [facility] (Adult Med) [address] [place] [address] 44503-264 0 07/27/2024 11:52:53 08/03/2024 15:58:33 Hemoptysis 99372970 R04.2 Chronic bronchitis 88158 004 J42 Tobacco de pendence syndrome 54516779 F17.200 Chronic ob structive pulmonary disease 25342324 J44.9 Discussed importance of better compliance with med use. Active immunization 3387 9002 Z23 Health Concerns Section Related Observation LastModified by Organization Detai ls LastModified Time None Recorded Concern Status LastModified by Organization Details LastModified Time None Recorded Advance Directives Directive N: Payers Insurance Date Sequence Insurance Name Policy Number Policy Capps Covered Member ID Capps Member ID Guarantor Name 07/27/2024 1 [facility] - DOS PRIOR TO 2021 (MEDICAID REPLACEMENT - HMO) Adolfo Reyez [id number] Adolfo Reyez 01/28/2025 1 [place] Adolfo Reyez [id number] Adolfo Reyez 07/27/2024 1 [facility] [id number] Adolfo Reyez [id number] Adolfo Reyez 07/27/2024 1 [facility] (MEDICARE REPLACEMENT/A DVANTAGE - HMO) [id number] Adolfo Reyez [id number] Adolfo Reyez 10/24/2024 1 [employer] (POS) [id number] Adolfo Felixder [id number] Adolfo Aissatou 07/27/2024 1 [facility] (MEDICAID HMO) [id number] Adolfo Aissatou [id number] Adolfo Aissatou 07/27/2024 1 [facility] - DOS ON OR AFTER 21 (MEDICAID REPLACEMENT - HMO) Adolfo Reyez [id number] Adolfo Aissatou Notes Date Note Type Note Provider Name and Address Organization Details Recorded Time 11/27/2020 text/html Telephone visit due to Covid-19 precautions. Pt was seen in ED eight days ago for worsening SOB. He is slightly improved. Has apparently not been using albuterol tabs and inhaler as prescribed. His nebulizer does not work. Shraddha Barrow MD Attn: [facility],[address] [place], [address], [facility] 11/27/2020 11:59:21 02/19/2022 text/html Sprained left ankle three days ago. Still with pain and swelling. He is icing the ankle for 15 min intervals. Was seen at urgent care. Xrays revealed no fracture. Also needs med refills Shraddha Barrow MD Attn: [facility],[address] [place], [address], [facility] 02/19/2022 12:51:59 06/24/2022 text/html Productive cough and SOB. Does not use symbicort daily Shraddha Barrow MD Attn: [facility],[address] [place], [address], [facility] 06/24/2022 16:09:40 03/17/2023 text/html Needs med refilled. Has bone spurs. Needs referral to podiatry Shraddha Barrow MD Attn: [facility],[address] [place], [address], [facility] 03/25/2023 15:44:22 07/27/2024 text/html Has had a lot of trouble breathing in the past four months. He has had hemoptysis for two months. Was unable to work on 07/21 and 11/14 due to dyspnea MAUREEN [place], [place] 07/27/2024 16:40:27
--- OUTSIDE RECORDS SUMMARY | 2025-03-26 15:31 | XMS_ITS | Encounter Summary ---
Author Organization [facility] Address [address] [place] [address] Care Team Providers Care Staff Educator Name Role Phone Shraddha Barrow MD Primary Care Provider + [phone] Manuel Osorio MD Unavailable Reason for Visit * Reason Onset Date Comments MEDICATION REFILL 02/18/2025 Encounter Details Date Type Department Care Team (Late st Contact Info) Description 02/18/2025 Refill [facility] - Hematology/Oncology [address] [place] [address] Manuel Osorio MD [address] [place] [address] MEDICATION REFILL Social History Tobacco [...] Recorded Patient Health Questionnaire-2 Score 0 02/16/2025 [facility] of Occupat ional [facility] - Occupational Stress Questionnaire Answer Date Recorded [...] in the past 12 m [facility], were you homeless or living in a penitentiary (including now)? No 09/30/2024 Sex and Gender Information Value Date Recorded Sex Assigned at Male 08/19/2024 9:03 PM IRONING WORKER Legal Sex Male 5:09 AM IRONING WORKER Gender Identity Male 08/19/2024 9:03 PM IRONING WORKER Sexual Orientation Straight 08/19/2024 9: 03 PM IRONING WORKER documented as of this encounter Functional Status [...] Description 03/30/2025 8:40 AM CDT Office Visit [facility] - Hematology/Oncology [address] [place] [phone] Yessenia Kirkpatrick, HOME SECURITY ALARM INSTALLER-INVESTIGATION DIVISION SERGEANT [address] [place] [address] 04/07/2025 2:40 PM CDT Appointment [facility] CAT SCAN [address] [place] [address] Vangie Montero HOME SECURITY ALARM INSTALLER-INVESTIGATION DIVISION SERGEANT [address] [place], [place] [phone] 04/07/2025 3:30 PM CDT Appointment [facility] MRI [address] [place] [address] Lauren Skinner MD [address] [place] [address] 04/08/2025 1:00 PM CDT Office Visit [facility] - Pain Management [address] [place] [address] Manuel Osorio MD [address] [place] [address] Ladarius Egan MD [address] [place] [address] 05/16/2025 9:30 AM CDT Office Visit [facility] - Internal Med [address] [facility], [facility] [place] [address] Yvette Schulz PA-C [address] [place] [address] documented as of this encounter Visit Diagnoses Diagnosis 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
--- OUTSIDE RECORDS SUMMARY | 2025-03-26 15:31 | XMS_ITS | Encounter Summary ---
Author Organization [facility] Address [address] [place] [address] Care Team Providers Care Pari Mutuel Clerk Name Role Phone Shraddha Barrow MD Primary Care Provider + [phone] Manuel Osorio MD Unavailable Reason for Visit * Reason Onset Date Comments MEDICATION REFILL 03/09/2025 Encounter Details Date Type Department Care Team (Late st Contact Info) Description 03/09/2025 Refill [facility] - Hematology/Oncology [address] [place] [address] Manuel Osorio MD [address] [place] [address] MEDICATION REFILL Social History Tobacco [...] [facility] of Occupat ional [facility] - Occupational Stress Questionnaire Answer Date Recorded [...] any time in the past 12 m [facility], were you homeless or living in a fdc (including now)? No 09/30/2024 Sex and Gender Information Value Date Recorded Sex Assigned at Male 08/19/2024 9:03 PM CARGO AND RAMP SERVICES MANAGER Legal Sex Male 5:09 AM CARGO AND RAMP SERVICES MANAGER Gender Identity Male 08/19/2024 9:03 PM CARGO AND RAMP SERVICES MANAGER Sexual Orientation Straight 08/19/2024 9: 03 PM CARGO AND RAMP SERVICES MANAGER documented as of this encounter Functional Status [...] Description 03/30/2025 8:40 AM CDT Office Visit [facility] - Hematology/Oncology [address] [place] [address] Yessenia Kirkpatrick, VISUAL BASIC DEVELOPER-VETERINARY LIVESTOCK INSPECTOR [address] [place] [address] 04/07/2025 2:40 PM CDT Appointment [facility] CAT SCAN [address] [place] [address] Vangie Montero VISUAL BASIC DEVELOPER-VETERINARY LIVESTOCK INSPECTOR [address] [place], [place] [phone] 04/07/2025 3:30 PM CDT Appointment [facility] MRI [address] [place] [address] Lauren Skinner MD [address] [place] [address] 04/08/2025 1:00 PM CDT Office Visit [facility] - Pain Management [address] [place] [address] Manuel Osorio MD [address] [place] [address] Ladarius Egan MD [address] [place] [address] 05/16/2025 9:30 AM CDT Office Visit [facility] - Internal Med [address] [facility], [facility] [place] [address] Yvette Schulz PA-C [address] [place] [address] documented as of this encounter Visit Diagnoses Diagnosis 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
--- OUTSIDE RECORDS SUMMARY | 2025-03-26 15:31 | XMS_ITS | Encounter Summary ---
Author Organization [facility] Address [address] [facility] [address] [place] [address] Care Team Providers Care Enrichment Assistant Name Role Phone Shraddha Barrow MD Primary Care Provider + [phone] Manuel Osorio MD Unavailable Reason for Visit * Reason Onset Date Comments MEDICATION REFILL 09/21/2024 Encounter Details Date Type Department Care Team (Late st Contact Info) Description 09/21/2024 Refill [facility] - Hematology/Oncology [address] [place] [address] Manuel Osorio MD [address] [place] [address] MEDICATION REFILL Social History Tobacco [...] Sex Assigned at Male 08/19/2024 9:03 PM CLINICAL INFORMATICIST Legal Sex Male 5:09 AM CLINICAL INFORMATICIST Gender Identity Male 08/19/2024 9:03 PM CLINICAL INFORMATICIST Sexual Orientation Straight 08/19/2024 9: 03 PM CLINICAL INFORMATICIST documented as of this encounter Functional Status * Is person deaf or have serious hearing difficulty? Answer Date of Assessment Author No 08/16/2024 7:25 PM CLINICAL INFORMATICIST Ondina Branch RN * Is person blind [...] Description 03/30/2025 8:40 AM CDT Office Visit [facility] - Hematology/Oncology [address] [place] [phone] Yessenia Kirkpatrick, 911 EMERGENCY DISPATCHER-UNIX ADMINISTRATOR [address] [place] [address] 04/07/2025 2:40 PM CDT Appointment [facility] CAT SCAN [address] [place] [phone] Vangie Montero APRN-UNIX ADMINISTRATOR [address] [place] [address] 04/07/2025 3:30 PM CDT Appointment [facility] MRI [address] [place] [phone] Lauren Skinner MD [address] [place] [address] 04/08/2025 1:00 PM CDT Office Visit [facility] - Pain Management [address] [place] [address] Manuel Osorio MD [address] [place] [address] Ladarius Egan MD [address] [place] [address] 05/16/2025 9:30 AM CDT Office Visit [facility] - Internal Med [address] [facility] [place] [address] Yvette Schulz PA-C [address] [place] [address] documented as of this encounter Visit Diagnoses Diagnosis 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
--- OUTSIDE RECORDS SUMMARY | 2025-03-26 15:31 | XMS_ITS | Encounter Summary ---
Author Organization [facility] Address [address] [place] [address] Care Team Providers Care Grocery Clerk Name Role Phone Shraddha Barrow MD Primary Care Provider + [phone] Manuel Osorio MD Unavailable Reason for Visit * Reason Onset Date Comments MEDICATION REFILL 12/13/2024 Encounter Details Date Type Department Care Team (Late st Contact Info) Description 12/13/2024 Refill [facility] - Hematology/Oncology [address] [place] [address] Manuel Osorio MD [address] [place] [address] MEDICATION REFILL Social History Tobacco [...] Recorded Patient Health Questionnaire-2 Score 0 08/27/2024 [facility] of Occupat ional [facility] - Occupational Stress Questionnaire Answer [...] time in the past 12 m [facility], were you homeless or living in a fpc (including now)? No 09/30/2024 Sex and Gender Information Value Date Recorded Sex Assigned at Male 08/19/2024 9:03 PM CONFORMAL PAD FORMER Legal Sex Male 5:09 AM CONFORMAL PAD FORMER Gender Identity Male 08/19/2024 9:03 PM CONFORMAL PAD FORMER Sexual Orientation Straight 08/19/2024 9: 03 PM CONFORMAL PAD FORMER documented as of this encounter Functional Status [...] Description 03/30/2025 8:40 AM CDT Office Visit [facility] - Hematology/Oncology [address] [place] [address] Yessenia Kirkpatrick, LOSS PREVENTION OPERATIONS MANAGER-EARLY CHILDHOOD DIRECTOR [address] [place] [phone] 04/07/2025 2:40 PM CDT Appointment [facility] CAT SCAN [address] [place] [phone] Vangie Montero LOSS PREVENTION OPERATIONS MANAGER-EARLY CHILDHOOD DIRECTOR [address] [place], [place] [phone] 04/07/2025 3:30 PM CDT Appointment [facility] MRI [address] [place] [address] Lauren Skinner MD [address] [place] [address] 04/08/2025 1:00 PM CDT Office Visit [facility] - Pain Management [address] [place] [address] Manuel Osorio MD [address] [place] [address] Ladarius Egan MD [address] [place] [address] 05/16/2025 9:30 AM CDT Office Visit [facility] - Internal Med [address] [facility], [facility] [place] [address] Yvette Schulz PA-C [address] [place] [address] documented as of this encounter Visit Diagnoses Diagnosis 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
--- OUTSIDE RECORDS SUMMARY | 2025-03-26 15:31 | XMS_ITS | Encounter Summary ---
Author Organization [facility] Address [address] [place] [address] Care Team Providers Care Laborer Pole Crew Name Role Phone Shraddha Barrow MD Primary Care Provider + [phone] Manuel Osorio MD Unavailable Reason for Visit * Reason Onset Date Comments MEDICATION REFILL 02/11/2025 Encounter Details Date Type Department Care Team (Late st Contact Info) Description 02/11/2025 Refill [facility] - Hematology/Oncology [address] [place] [address] Manuel Osorio MD [address] [place] [address] MEDICATION REFILL Social History Tobacco [...] Recorded Patient Health Questionnaire-2 Score 0 08/27/2024 [facility] [place] of Occupat ional [facility] - Occupational Stress Questionnaire Answer Date [...] time in the past 12 m [facility], were you homeless or living in a care home (including now)? No 09/30/2024 Sex and Gender Information Value Date Recorded Sex Assigned at Male 08/19/2024 9:03 PM MANUFACTURING ENGINEERING MANAGER Legal Sex Male 5:09 AM MANUFACTURING ENGINEERING MANAGER Gender Identity Male 08/19/2024 9:03 PM MANUFACTURING ENGINEERING MANAGER Sexual Orientation Straight 08/19/2024 9: 03 PM MANUFACTURING ENGINEERING MANAGER documented as of this encounter Functional [...] Description 03/30/2025 8:40 AM CDT Office Visit [facility] - Hematology/Oncology [address] [place] [address] Yessenia Kirkpatrick, SAFETY PHYSICIAN-EQUITIES ANALYST [address] [place] [address] 04/07/2025 2:40 PM CDT Appointment [facility] CAT SCAN [address] [place] [address] Vangie Montero SAFETY PHYSICIAN-EQUITIES ANALYST [address] [place], [place] [phone] 04/07/2025 3:30 PM CDT Appointment [facility] MRI [address] [place] [address] Lauren Skinner MD [address] [place] [address] 04/08/2025 1:00 PM CDT Office Visit [facility] - Pain Management [address] [place] [address] Manuel Osorio MD [address] [place] [address] Ladarius Egan MD [address] [place] [address] 05/16/2025 9:30 AM CDT Office Visit [facility] - Internal Med [address] [place], [facility] [place] [address] Yvette Schulz PA-C [address] [place] [address] documented as of this encounter Visit Diagnoses Diagnosis 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
[2025-03-26 16:25] VITALS: BP 117/83; PULSE 91; RESP 20; TEMP 36.3; O2SAT 96
[2025-03-26 18:58] VITALS: BP 138/96; PULSE 89; RESP 20; O2SAT 96
[2025-03-26 19:00] VITALS: BP 136/94; PULSE 92; RESP 18; O2SAT 96
[2025-03-26 19:30] VITALS: BP 134/90; PULSE 81; RESP 18; O2SAT 95
--- NOTE | 2025-03-26 19:53 | ECG_ITS ---
Test Date: 2025-03-26 20:14:44 Measurements Intervals Roebling Rate: 86 P: 81 CT: 167 QRS: -78 QRSD: 101 T: 76 QT: 350 QTc: 419 Interpretive Statements SINUS RHYTHM LEFT AXIS DEVIATION [QRS AXIS < -30] INCOMPLETE RIGHT BUNDLE BRANCH BLOCK [90+ ms QRS DURATION, TERMINAL R IN V1/V2, 40+ ms S IN I/aVL/V4/V5/V6] ABNORMAL ECG No previous ECG available for comparison Electronically Signed On 03-27-2025 08:15:31 CDT by Hunter Wu M.D.
[2025-03-26 20:00] VITALS: BP 113/85; PULSE 84; RESP 18; O2SAT 97
--- NOTE | 2025-03-26 20:02 | ED.EXTPRO ---
HPI - Extremity Problem General Chief complaint: Extremity Problem,Nontraumatic Stated complaint: L leg numbness x 2 days Time Seen by Provider: 03/26/25 19:03 History of Present Illness HPI Narrative: 59-year-old male with a history of metastatic lung cancer presenting to the emergency department with left leg numbness for 2 days. He states that he has cancer metastasized to his brain, right femur, throat and primary source was a non-small cell lung cancer that is currently being treated at [facility] with chemotherapy monthly. Patient states that he has an upcoming PET scan in next few weeks. No history of brain TIAs or strokes. No trauma or injury. No anticoagulation use. No history of DVT or PE. Two days ago he knows that his left lower extremity was numb. He states it feels like weight and like it is asleep. Localized to the hip on down and circumferential without any sparing. No urinary complaints or difficulty ambulating. He states he has good muscle strength and not dragging his foot when he walks. No changes in his upper extremities, no nausea, vomiting, headache, vision changes, dysphonia or facial asymmetry. He called his doctor today and he was told to go the emergency department for workup. Patient thinks it could be secondary to the chemotherapy that he was getting but he never had any reactions to the other doses that he has been getting since July. Related Data Allergies Allergy/AdvReac Type Severity Reaction Status Date / Time No Known Allergies Allergy Unknown Verified 03/26/25 19:01 Review of Systems Review of Systems: As reviewed above in HPI [facility] Family History Family History Mother Acute myocardial infarction Other Hypertension Social History Social History Alcohol intake: current Exam Narrative: GENERAL: [Well-appearing, well-nourished, and in no acute distress.] HEAD: [Normocephalic, atraumatic.] EYES: [PERRLA and EOMI.] ENT: Nares clear, no rhinorrhea or epistaxis. Mucous membranes moist. NECK: Supple. CHEST: [Clear to auscultation. No respiratory distress.] HEART: [Regular rate and rhythm]. No murmur heard. [Normal peripheral pulses.] ABDOMEN: [Soft, nondistended], [nontender], [No rigidity or guarding] EXTREMITIES: Normal range of motion. [No edema.] SKIN: Warm, dry, no rash. NEURO: Left lower extremity with numbness in the hip thigh and leg, circumferential without any sparing, does not cross into the contralateral side. No weakness or ataxia. No facial asymmetry. NIH stroke scale 2. Awake alert oriented. PSYCH: [Normal mood and affect.] Course Vital Signs Vital signs: Vital Signs Temperature 36.3 C L 03/26/25 16:25 Pulse Rate 91 03/26/25 16:25 Respiratory Rate 20 03/26/25 16:25 Blood Pressure 117/83 03/26/25 16:25 Pulse Oximetry 96 03/26/25 16:25 Temperature 36.3 C L 03/26/25 16:25 Pulse Rate 88 03/26/25 22:11 Respiratory Rate 20 03/26/25 22:11 Blood Pressure 130/80 03/26/25 22:11 Pulse Oximetry 95 03/26/25 22:11 Oxygen Delivery Room Air 03/26/25 18:58 MDM - Extremity (Nontraumatic) MDM Narrative Medical decision making narrative: 59-year-old male with a history of metastatic lung cancer presenting to the emergency department with left leg numbness for 2 days. He states that he has cancer metastasized to his brain, right femur, throat and primary source was a non-small cell lung cancer that is currently being treated at [facility] with chemotherapy monthly. Patient states that he has an upcoming PET scan in next few weeks. No history of brain TIAs or strokes. No trauma or injury. No anticoagulation use. No history of DVT or PE. Two days ago he knows that his left lower extremity was numb. He states it feels like weight and like it is asleep. Localized to the hip on down and circumferential without any sparing. No urinary complaints or difficulty ambulating. He states he has good muscle strength and not dragging his foot when he walks. No changes in his upper extremities, no nausea, vomiting, headache, vision changes, dysphonia or facial asymmetry. He called his doctor today and he was told to go the emergency department for workup. Patient thinks it could be secondary to the chemotherapy that he was getting but he never had any reactions to the other doses that he has been getting since July. Patient's NIH stroke scale is 2 for left-sided sensory deficits in the lower extremity. Outside the window for thrombolytics therapy or mechanical thrombectomy given that his symptoms are going on greater than 48 hours. Patient has normal reassuring vital signs with any fever tachycardia, significant blood pressure concerns, hypoxia or tachypnea. Examination with unilateral neurological deficits consistent with subacute stroke concern. Less likely electrolyte imbalances or chemotherapy reaction given the asymmetry and his metastatic disease already involving his brain according to him. Potential for hemorrhagic stroke versus ischemic stroke versus new brain metastasis or spinal metastasis. CT of the head and lumbar spine was ordered as well as stroke workup with labs, imaging and chest x-ray, EKG. Placed on deicer tester. Patient requested [facility] for CT scan. CT angiography shows patent intracranial circulation without any aneurysm. Redemonstration of multiple intracranial masses previously noted consistent with metastatic disease. There is postcontrast enhancement lesions. No dissection, stenosis or occlusion. I discussed the case with the on-call neurologist Dr. Feng who recommended admission for MRI to evaluate based on patient's unilateral neurological deficits with suspicion for stroke rather than metastatic lesion. Discussed with my hospitalist who declined admission to this facility and would prefer transferring him to [facility] where his care is centralized. I discussed this with the patient and they did not want to proceed with transfer and would prefer to leave and be discharged and have their regular doctor take over care. I informed them that this would be against medical advice as my formal recommendations are to transfer him for suspected stroke rule out and they understood the risks and benefits and alternatives and proceeded to sign out AMA. Lab Data 03/26/25 20:15 03/26/25 20:15 Labs: Lab Results 03/26/25 Range/Units 20:15 WBC 7.5 (4.5-10.0) K/mm3 RBC 5.28 (4.6-6.20) M/mm3 Hgb 15.6 (14.0-18.0) g/dL Hct 48.2 (42.0-52.0) % MCV 91.3 (80-100) fl MCH 29.5 (26-34) pg MCHC 32.4 (32-36) g/dl RDW 13.8 (11.5-14.5) % Plt Count 224 (150-375) k/mm3 MPV 9.8 (7.4-10.4) fl Immature Gran % (Auto) 0.3 (0-0.5) % Neut % (Auto) 62.4 (45.5-73.1) % Lymph % (Auto) 23.1 (18.3-44.2) % [place] % (Auto) 10.4 H (2.6-8.5) % Eos % (Auto) 3.3 (0-4.4) % Baso % (Auto) 0.5 (0.2-1.2) % Lymph # (Auto) 1.73 (0.9-3.2) K/mm3 [place] # (Auto) 0.8 H (0.1-0.6) K/mm3 Eos # (Auto) 0.3 (0-0.3) K/mm3 Baso # (Auto) 0.0 (0.0-0.1) K/mm3 Abs Immat Gran (auto) 0.02 (0.00-0.031) K/mm3 Absolute Neuts (auto) 4.7 (1.3-6.7) K/mm3 Absolute Nucleated RBC 0.000 (0.0-0.012) K/mm3 Nucleated RBC % 0.0 (0.0-0.2) % Sodium 134 L (137-145) mmol/L Potassium 4.2 (3.4-5.0) mmol/L Chloride 99 (98-107) mmol/L Carbon Dioxide 29 (22-30) mmol/L Anion Gap 6 (4-12) mmol/L BUN 16 (9-20) mg/dL Creatinine 0.83 (0.7-1.3) mg/dL Estim Creat Clear Calc 75 ml/min Estimated GFR > 60 (59 - ) Glucose 102 (65-110) mg/dL Calcium 9.1 (8.4-10.2) mg/dL Magnesium 2.0 (1.6-2.3) mg/dL Total Bilirubin 0.3 (0.2-1.3) mg/dL AST 36 (17-59) U/L ALT 36 (6-50) U/L Alkaline Phosphatase 68 (38-126) U/L Troponin I < 0.012 (0.000-0.034) ng/mL Total Protein 7.3 (6.3-8.2) g/dL Albumin 3.8 (3.5-5.1) g/dL TSH (Reflex) 1.350 (0.465-4.68) uIU/mL Critical Care Time Critical Care Time Critical Care Time: Yes Total Critical Care Time: 35 Discharge Plan Discharge Clinical Impression: National Institutes of Health Stroke Scale (NIHSS) total score 2, Left leg numbness, Metastasis to brain Patient Disposition: Left Against Medical Advice Condition: Stable Additional Instructions: Your CT scan shows metastatic hyperdense lesions in your brain but no sign of hemorrhage or large acute stroke. Your symptoms with left leg numbness do sound like they could be stroke related and we recommend you go to [facility] via transfer for continued care. You would prefer to go home and have your regular doctor take over care. Return if you have any new or worsening/emergent concerns at any time. Patient Language: Lao Follow-up/Referrals: PHYSICIAN NOT ON STAFF,NONSTAFF [Non-Staff] - Time of Disposition: 01:28 Quality Stroke Scale Stroke Scale 1: Dictation/Comment: Last known well 03/24/2025 in the morning Stroke scale date:: 03/26/25 Stroke scale time:: 20:04 1a Level of consciousness: alert-0 1b Level of consciousness questions: answers both correctly-0 1c Level of consciousness commands: obeys both correctly-0 2 Best gaze: normal-0 3 Visual: no visual loss-0 4 Facial palsy: normal-0 5a Motor: left arm: no drift-0 5b Motor: right arm: no drift-0 6a Motor: left leg: no drift-0 6b Motor: right leg: no drift-0 7 Limb ataxia: absent-0 8 Sensory: sev total sensory loss-2 9 Best language: no aphasia-0 10 Dysarthria: normal-0 11 Extinction and inattention: no abnormality-0 Level:: 2
--- OUTSIDE RECORDS SUMMARY | 2025-03-26 20:09 | XMS_ITS | Encounter Summary ---
Author Organization [facility] Address [address] [place] [address] Care Team Providers Care Prompt Care Rn Name Role Phone Shraddha Barrow MD Primary Care Provider + [phone] Manuel Osorio MD Unavailable Reason for Visit * Reason Onset Date Comments Question 03/26/2025 Encounter Details Date Type Department Care Team (Late st Contact Info) Description 03/26/2025 Telephone [facility] - Hematology/Oncology [address] [place] [address] Rojas Macedo DO [address] [facility] [place] [address] Question Social History Tobacco Use [...] Recorded Patient Health Questionnaire-2 Score 0 02/16/2025 [facility] Occupat ional [facility] - Occupational Stress Questionnaire Answer [...] any time in the past 12 m [facility], were you homeless or living in a retirement (including now)? No 09/30/2024 Sex and Gender Information Value Date Recorded Sex Assigned at Male 08/19/2024 9:03 PM FLOORWALKER Legal Sex Male 5:09 AM FLOORWALKER Gender Identity Male 08/19/2024 9:03 PM FLOORWALKER Sexual Orientation Straight 08/19/2024 9: 03 PM FLOORWALKER documented as of this encounter Functional Status * Is person deaf or have serious hearing difficulty? Answer Date of Assessment Author No 09/30/2024 8:46 PM Gallo aJy RN * Is person blind or have [...] 12:38 PM CDT Was called by the coin machine operator about this patient. Patient was [...] Oncology Fellow Department of Hematology and Oncology [facility] documented in this encounter Plan of Treatment Upcoming Encounters Date Type Department Care Team (Late st Contact Info) Description 03/30/2025 8:40 AM CDT Office Visit [facility] - Hematology/Oncology [address] [place] [phone] Yessenia Kirkpatrick, RETAIL OFFICE MANAGER-FILTER TIP INSPECTOR [address] [place] [phone] 04/07/2025 2:40 PM CDT Appointment [facility] CAT SCAN [address] [place] [phone] Vangie Montero, PEPE-FILTER TIP INSPECTOR [address] [place] [address] 04/07/2025 3:30 PM CDT Appointment [facility] MRI [address] [place] [address] Lauren Skinner MD [address] [place] [phone] 04/08/2025 1:00 PM CDT Office Visit [facility] - Pain Management [address] [place] [phone] Manuel Osorio MD [address] [place] [phone] Ladarius Egan MD [address] [place] [phone] 05/16/2025 9:30 AM CDT Office Visit [facility] - Internal Med [address] [facility] [place] [phone] Yvette Schulz PA-C [address] [place] [address] documented as of this encounter Visit Diagnoses Not on filedocumented in this encounter Care Teams Prompt Care Rn Relationship Specialty [place] [address] [place] [phone] PCP - General 12/01/18 Manuel Osorio MD [address] [place] [address] Hematology and Oncology 12/15/24 documented as of this encounter
--- OUTSIDE RECORDS SUMMARY | 2025-03-26 20:09 | XMS_ITS | Encounter Summary ---
Author Organization [facility] Address [address] [place] [address] Care Team Providers Care Take Up Operator Name Role Phone Shraddha Barrow MD Primary Care Provider + [phone] Manuel Osorio MD Unavailable Reason for Visit * Reason Onset Date Comments MEDICATION REFILL 03/09/2025 Encounter Details Date Type Department Care Team (Late st Contact Info) Description 03/09/2025 Refill [facility] - Hematology/Oncology [address] [place] [address] Manuel Osorio MD [address] [place] [address] MEDICATION REFILL Social History Tobacco [...] Recorded Patient Health Questionnaire-2 Score 0 02/16/2025 [facility] of Occupat ional [facility] - Occupational Stress Questionnaire Answer Date Recorded [...] any time in the past 12 m [facility], were you homeless or living in a fpc (including now)? No 09/30/2024 Sex and Gender Information Value Date Recorded Sex Assigned at Male 08/19/2024 9:03 PM NEAR EAST ARCHEOLOGY PROFESSOR Legal Sex Male 5:09 AM NEAR EAST ARCHEOLOGY PROFESSOR Gender Identity Male 08/19/2024 9:03 PM NEAR EAST ARCHEOLOGY PROFESSOR Sexual Orientation Straight 08/19/2024 9: 03 PM NEAR EAST ARCHEOLOGY PROFESSOR documented as of this encounter Functional Status [...] Description 03/30/2025 8:40 AM CDT Office Visit [facility] - Hematology/Oncology [address] [place] [phone] Yessenia Kirkpatrick, ELECTRICAL MECHANICAL TECHNICIAN-CLINICAL RESOURCE DIRECTOR [address] [place] [phone] 04/07/2025 2:40 PM CDT Appointment [facility] CAT SCAN [address] [place] [phone] Vangie Montero ELECTRICAL MECHANICAL TECHNICIAN-CLINICAL RESOURCE DIRECTOR [address] [place], [place] [phone] 04/07/2025 3:30 PM CDT Appointment [facility] MRI [address] [place] [phone] Lauren Skinner MD [address] [place] [address] 04/08/2025 1:00 PM CDT Office Visit [facility] - Pain Management [address] [place] [address] Manuel Osorio MD [address] [place] [address] Ladarius Egan MD [address] [place] [phone] 05/16/2025 9:30 AM CDT Office Visit [facility] - Internal Med [address] [facility] [place] [address] Yvette Schulz PA-C [address] [place] [address] documented as of this encounter Visit Diagnoses Diagnosis 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
--- OUTSIDE RECORDS SUMMARY | 2025-03-26 20:09 | XMS_ITS | Clinical Summary ---
Author Organization [facility] Address [address] [facility] [place] [address] Care Team Providers Care Control Director Name Role Phone Shraddha Barrow MD Primary Care Provider [phone] Manuel Osorio MD Unavailable Source Comments [facility],non-owned Affiliates and Associated Physician Practices is amultiple site organization consisting of ambulatory clinics and hospital sitesin [place], [place], [place] and [place]. This disclosure is being madepursuant to the Care Everywhere program and may not contain all information available regarding this patient. Last updated 18.[facility] Allergies No known active allergies Medications * [...] nasal sprayIndication s:Seasonal allergic rhinitis, unspecified trigger Newaygo 2 (two) sprays into each nostril once [...] Type Department Care Team Description 03/26/2025 Telephone [facility] - Hematology/Oncology [address] [place] [phone] Rojas Macedo DO Question 03/22/2025 Orders Only [facility] [address] [place] [phone] Reuben Lan, PharmD 03/14/2025 Refill [facility] - Hematology/Oncology [address] [place] [phone] Manuel Osorio MD MEDICATION REFILL 03/10/2025 Travel 03/09/2025 9:40 AM CDT Office Visit [facility] - Hematology/Oncology [address] [place] [phone] Manuel Osorio MD 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, unspecified laterality (HCC) (Primary Dx); Encounter to establish care; Chronic right shoulder pain; Chronic obstructive pulmonary disease, unspecified COPD type (HCC); Smoking addiction 03/09/2025 8:21 AM CDT - 03/09/2025 11:59 PM CDT Hospital Encounter [facility] [address] [place] [address] Shraddha Barrow MD Discharge Disposition: Home or Self Care 03/09/2025 Refill [facility] - Hematology/Oncology [address] [place] [address] Manuel Osoiro MD MEDICATION REFILL 03/09/2025 Telephone [facility] - Internal Med [address] [place] [phone] Robert Rock, RN Appointment; Establish Care 03/09/2025 Telephone [facility] - Internal Med [address] [place] [phone] Shraddha Barrow MD Encounter Opened In Error 03/09/2025 Travel 03/02/2025 Orders Only [facility] [address] [place] [address] Reuben Lan, PharmD 02/25/2025 Telephone [facility] - Hematology/Oncology [address] [place] [phone] Manuel Osorio MD Record Request 02/23/2025 10:00 AM CDT Office Visit [facility] - Hematology/Oncology [address] [place] [phone] Yessenia Kirkpatrick, LADLE HANDLER-WELDING MACHINE OPERATOR PLASMA ARC Seasonal allergic rhinitis, unspecified trigger (Primary Dx); 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); Nicotine dependence with withdrawal, unspecified nicotine product type; Rash 02/21/2025 Refill [facility] - Hematology/Oncology [facility] [place] [address] Manuel Osorio MD MEDICATION REFILL 02/20/2025 Refill [facility] - Hematology/Oncology [address] [place] [phone] Manuel Osorio MD MEDICATION REFILL 02/18/2025 Refill [facility] - Hematology/Oncology [facility] [place] [address] Manuel Osorio MD MEDICATION REFILL 02/18/2025 Refill [facility] - Hematology/Oncology [address] [place] [phone] Manuel Osorio MD MEDICATION REFILL 02/16/2025 9:40 AM CDT Office Visit [facility] - Hematology/Oncology [address] [place] [phone] Montero, Vangie, LADLE HANDLER-WELDING MACHINE OPERATOR PLASMA ARC 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) (Primary Dx); Rash; Cancer associated pain 02/16/2025 8:38 AM CDT - 02/16/2025 11:59 PM CDT Hospital Encounter [facility] [address] [place] [address] Shraddha Barrow MD Discharge Disposition: Home or Self Care 02/16/2025 Refill [facility] - Hematology/Oncology [address] [place] [phone] Manuel Osorio MD MEDICATION REFILL 02/16/2025 Orders Only [facility] [address] [address] Manuel Osorio MD 02/16/2025 Travel 02/11/2025 Refill [facility] - Hematology/Oncology [address] [place] [phone] Manuel Osorio MD MEDICATION REFILL 02/11/2025 Refill [facility] - Hematology/Oncology [address] [place] [phone] Sandrita Ybarra MD MEDICATION REFILL 02/08/2025 Refill [facility] - Hematology/Oncology [address] [place] [phone] Maunel Osorio MD MEDICATION REFILL 02/08/2025 Refill [facility] - Hematology/Oncology [address] [place] [phone] Sandrita Ybarra MD MEDICATION REFILL 02/02/2025 Refill [facility] - Hematology/Oncology [address] [place] [phone] Sandrita Ybarra MD MEDICATION REFILL 02/01/2025 Telephone [facility] - Hematology/Oncology [address] [place] [phone] Марина Snyder, RN Forms/questionnaire s ([facility] Emergency Certificate) 01/27/2025 Refill [facility] - Hematology/Oncology [address] [place] [phone] Manuel Osorio MD MEDICATION REFILL 01/26/2025 9:40 AM CDT Office Visit [facility] - Hematology/Oncology [address] [place] [phone] Manuel Osorio MD Cancer associated pain (Primary Dx); 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); Rash 01/26/2025 8:42 AM CDT - 01/26/2025 11:59 PM CDT Hospital Encounter [facility] [address] [place] [address] Shraddha Barrow MD Discharge Disposition: Home or Self Care 01/26/2025 Travel 01/20/2025 Refill [facility] - Hematology/Oncology [address] [place] [phone] Manuel Osorio MD MEDICATION REFILL 01/20/2025 Refill [facility] - Hematology/Oncology [address] [place] [phone] Manuel Osorio MD MEDICATION REFILL 01/19/2025 Orders Only [facility] [address] [place] [phone] Reuben Lan, PharmD 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, unspecified laterality (HCC) 01/13/2025 Refill [facility] - Hematology/Oncology [address] [place] [phone] Manuel Osorio MD MEDICATION REFILL 01/13/2025 Refill [facility] - Hematology/Oncology [address] [place] [phone] Manuel Osorio MD MEDICATION REFILL 01/07/2025 Telephone [facility] - [address] [phone] Kizzy Limon, RN Appointment 01/07/2025 Refill [facility] - Hematology/Oncology [address] [place] [phone] Manuel Osorio MD MEDICATION REFILL 01/07/2025 Refill [facility] - Hematology/Oncology [address] [place] [phone] Manuel Osorio MD MEDICATION REFILL 01/05/2025 9:40 AM CDT Office Visit [facility] - Hematology/Oncology [address] [place] [phone] Manuel Osorio MD Malignant neoplasm of lung, unspecified laterality, unspecified part of lung (HCC) (Primary Dx); Malignant neoplasm metastatic to brain (HCC); Cancer associated pain; Chronic bronchitis, unspecified chronic bronchitis type (HCC); Dyspnea, unspecified type 01/05/2025 8:33 AM CDT - 01/05/2025 10:59 AM CDT Hospital Encounter [facility] [address] [place] [address] Shraddha Barrow MD Discharge Disposition: Home or Self Care 01/05/2025 Travel 01/03/2025 Refill [facility] - Hematology/Oncology [address] [place] [phone] Manuel Osorio MD MEDICATION REFILL 12/29/2024 12:30 PM CDT - 12/29/2024 11:59 PM CDT Hospital Encounter [facility] [address] [place] [address] Lauren Skinner MD Discharge Disposition: Home or [...] Recorded Patient Health Questionnaire-2 Score 0 02/16/2025 [facility] - Occupational Stress [...] any time in the past 12 m [facility], were you homeless or living in a long term (including now)? No 09/30/2024 Sex and Gender Information Value Date Recorded Sex Assigned at Male 08/19/2024 9:03 PM MACHINE OPERATOR CANE CUTTER Legal Sex Male 5:09 AM MACHINE OPERATOR CANE CUTTER Gender Identity Male 08/19/2024 9:03 PM MACHINE OPERATOR CANE CUTTER Sexual Orientation Straight 08/19/2024 9: 03 PM MACHINE OPERATOR CANE CUTTER Last Filed Vital Signs Vital Sign Reading [...] Description 03/30/2025 8:40 AM CDT Office Visit [facility] - Hematology/Oncology [address] [place] [address] Yessenia Kirkpatrick, LADLE HANDLER-WELDING MACHINE OPERATOR PLASMA ARC [address] [place] [phone] 04/07/2025 2:40 PM CDT Appointment [facility] [address] [place] [phone] Vangie Montero, LADLE HANDLER-WELDING MACHINE OPERATOR PLASMA ARC [address] [place], [place] [phone] 04/07/2025 3:30 PM CDT Appointment [facility] MRI [address] [place] [phone] Lauren Skinner MD [address] [place] [phone] 04/08/2025 1:00 PM CDT Office Visit [facility] - Pain Management [address] [place] [phone] Manuel Osorio MD [address] [place] [phone] Ladarius Egan MD [address] [place] [phone] 05/16/2025 9:30 AM CDT Office Visit [facility] - Internal Med [address] [facility], [place] [phone] Yvette Schulz PA-C [address] [place] [phone] Health Maintenance Due Date Last Done Comments [...] RFLX NAAT QUANT Routine 10/01/2024 4:34 AM MACHINE OPERATOR CANE CUTTER from Last 3 Months or Most Recently Relevant to Health Maintenance Results * (ABNORMAL) CBC W AUTO DIFFERENTIAL (03/09/2025 8:41 AM CDT) Only the most recent of4 resultswithin the time period is included. WBC 6.1 4.0 - 10.7 x10E9/L 03/09/2025 9:01 AM [facility] RBC Count 4.99 4.30 - 5.80 x10E12/L 03/09/2025 9:01 AM [facility] Hemoglobin 15.0 13.3 - 17.5 g/dL 03/09/2025 9:01 AM [facility] Hematocrit 45.1 38.7 - 51.1 % 03/09/2025 9:01 AM [facility] MCV 90.4 80.0 - 98.0 fL 03/09/2025 9:01 AM [facility] MCH 30.1 26.7 - 33.6 pg 03/09/2025 9:01 AM [facility] MCHC 33.3 31.7 - 36.3 g/dL 03/09/2025 9:01 AM [facility] RDW-CV 14.0 11.3 - 14.8 % 03/09/2025 9:01 AM [facility] Platelet Count 213 150 - 420 x10E9/L 03/09/2025 9:01 AM [facility] MPV 9.6 7.8 - 11.4 fL 03/09/2025 9:01 AM [facility] Preliminary Absolute Neutrophil 3.80 1.60 - 7.50 x10E9/L 03/09/2025 9:01 AM [facility] Neutrophil % 62.3 41.0 - 74.0 % 03/09/2025 9:01 AM [facility] Lymphocyte % 21.3 17.0 - 47.0 % 03/09/2025 9:01 AM [facility] Monocyte % 11.6(H) 3.0 - 11.0 % 03/09/2025 9:01 AM [facility] Eosinophil % 4.1 0.0 - 7.0 % 03/09/2025 9:01 AM [facility] Basophil % 0.5 0.0 - 1.6 % 03/09/2025 9:01 AM [facility] Immature Granulocytes % 0.2 0.0 - 1.0 % 03/09/2025 9:01 AM [facility] Neutrophil Absolute 3.80 1.60 - 7.50 x10E9/L 03/09/2025 9:01 AM [facility] Lymphocyte Absolute 1.30 1.00 - 4.40 x10E9/L 03/09/2025 9:01 AM [facility] Monocyte Absolute 0.71 0.15 - 1.00 x10E9/L 03/09/2025 9:01 AM [facility] Eosinophil Absolute 0.25 0.00 - 0.60 x10E9/L 03/09/2025 9:01 AM [facility] Basophil Absolute 0.03 0.00 - 0.13 x10E9/L 03/09/2025 9:01 AM [facility] Blood BLOOD SPECIMEN / Unknown Venipuncture / Unknown 03/09/2025 8:41 AM CDT 03/09/2025 8:53 AM CDT us Manuel Osorio MD LAB - HEMATOLOGY ORDERABLES Candi dong Result [facility] [address] [place] [address], [facility] [phone] * (ABNORMAL) COMPREHENSIVE METABOLIC PANEL (03/09/2025 8:41 AM CDT) Only the most recent of4 resultswithin the time period is included. BUN 19 7 - 26 mg/dL 03/09/2025 10:40 AM [facility] Creatinine 0.79 0.71 - 1.16 mg/dL 03/09/2025 10:40 AM [facility] Sodium 138 136 - 145 mmol/L 03/09/2025 10:40 AM [facility] Potassium 4.0 3.5 - 4.5 mmol/L 03/09/2025 10:40 AM [facility] Chloride 109(H) 98 - 107 mmol/L 03/09/2025 10:40 AM [facility] CO2 24 22 - 29 mmol/L 03/09/2025 10:40 AM [facility] Glucose 100(H) 70 - 99 mg/dL 03/09/2025 10:40 AM [facility] Calcium 9.1 8.4 - 10.2 mg/dL 03/09/2025 10:40 AM [facility] Protein Total 7.4 6.0 - 8.3 g/dL 03/09/2025 10:40 AM [facility] Albumin 3.8 3.4 - 5.0 g/dL 03/09/2025 10:40 AM [facility] Bilirubin Total 0.2 0.2 - 1.2 mg/dL 03/09/2025 10:40 AM [facility] Alkaline Phosphatase 80 40 - 150 U/L 03/09/2025 10:40 AM [facility] ALT 33 5 - 55 U/L 03/09/2025 10:40 AM [facility] AST 26 5 - 34 U/L 03/09/2025 10:40 AM [facility] Anion Gap 5(L) 6 - 16 03/09/2025 10:40 AM [facility] BUN/Creatinine Ratio 24(H) 7 - 23 03/09/2025 10:40 AM [facility] Osmolality Calculated 288 275 - 295 mOsm/kg 03/09/2025 10:40 AM [facility] Albumin/Globulin Ratio 1.1 1.1 - 2.3 03/09/2025 10:40 AM [facility] eGFR by CKD-EPI >90 >=90 mL/min/1.7 3 m2 03/09/2025 10:40 AM [facility] Comment:Estimated Glomerular Filtration Rate (eGFR) calculated using the CKD-EPI Creatinine Equation (2020), per the National Kidney Foundation and [place] [employer]ph[employer] recommendations. Blood BLOOD SPECIMEN / Unknown Venipuncture / Unknown 03/09/2025 8:41 AM CDT 03/09/2025 8:52 AM CDT us Manuel Osorio MD LAB - CHEMISTRY ORDERABLES Final Result [address] [address], [place] [phone] * TSH (03/09/2025 8:41 AM CDT) Only the most recent of4 resultswithin the time period is included. TSH 1.515 0.350 - 4.940 uIU/mL 03/09/2025 9:39 AM T [facility] Blood BLOOD SPECIMEN / Unknown Venipuncture / Unknown 03/09/2025 8:41 AM CDT 03/09/2025 8:52 AM CDT us Manuel Osorio MD LAB - CHEMISTRY ORDERABLES Final Result Performing Organization Address City/[facility]/ZIP Co de Phone Number [address] [address], [place] [phone] * (ABNORMAL) HEPATITIS C AB SCREEN RFLX NAAT QUANT (10/01/2024 4:34 AM MACHINE OPERATOR CANE CUTTER) Hepatitis C Antibody Reactive( A) Non-react connie 10/01/2024 5:47 AM MACHINE OPERATOR CANE CUTTER [facility] Comment:Serum for supplement al Hepatitis C quantitative RNA PCR testing will be reflexively sent out by the lab. Blood BLOOD SPECIMEN / Unknown Venipuncture / Unknown 10/01/2024 4:34 AM MACHINE OPERATOR CANE CUTTER 10/01/2024 4:43 AM MACHINE OPERATOR CANE CUTTER us Aguila Tinoco DO LAB - CHEMISTRY ORDERABLES Fin al Result [facility] [address] [place] [address], [facility] [phone] from Last 3 Months or Most Recently Relevant to Health Maintenance Insurance MEDICAID [place] AET[place] Advance Directives Documents on File Type Date Recorded Patient Consulting Networking Engineer Expl anation Adv Directive/Living Will/POA 08/30/2024 12:44 PM * Full Code (Latest Code Status on File) Date Activated Date Inactivated Comments 09/30/2024 4:21 AM 10/02/2024 7:22 PM Care Teams Control Director Relationship Specialty Start Date End Date Shraddha Barrow MD [address] [place] [address] PCP - General 12/01/18 Manuel Osorio MD [facility] [place] [phone] Hematology and Oncology 12/15/24
--- OUTSIDE RECORDS SUMMARY | 2025-03-26 20:09 | XMS_ITS | Encounter Summary ---
Author Organization [facility] Address [address] [place] [address] Care Team Providers Care Master [place]al Waters Name Role Phone Shraddha Barrow MD Primary Care Provider + [phone] Manuel Osorio MD Unavailable Reason for Visit * Reason Onset Date Comments MEDICATION REFILL 02/18/2025 Encounter Details Date Type Department Care Team (Late st Contact Info) Description 02/18/2025 Refill [facility] - Hematology/Oncology [address] [place] [address] Manuel Osorio MD [address] [place] [address] MEDICATION REFILL Social History Tobacco [...] Recorded Patient Health Questionnaire-2 Score 0 02/16/2025 [facility] - Occupational Stress Questionnaire Answer Date Recorded [...] any time in the past 12 m [facility], were you homeless or living in a mcc (including now)? No 09/30/2024 Sex and Gender Information Value Date Recorded Sex Assigned at Male 08/19/2024 9:03 PM RECOVERY SPECIALIST Legal Sex Male 5:09 AM RECOVERY SPECIALIST Gender Identity Male 08/19/2024 9:03 PM RECOVERY SPECIALIST Sexual Orientation Straight 08/19/2024 9: 03 PM RECOVERY SPECIALIST documented as of this encounter Functional Status [...] Description 03/30/2025 8:40 AM CDT Office Visit [facility] - Hematology/Oncology [address] [place] [phone] Yessenia Kirkpatrick, JEWELRY SALES-FLAME HARDENING MACHINE OPERATOR [address] [place] [phone] 04/07/2025 2:40 PM CDT Appointment [facility] SC[facility] [address] [place] [phone] Vangie Montero JEWELRY SALES-FLAME HARDENING MACHINE OPERATOR [address] [place], [place] [phone] 04/07/2025 3:30 PM CDT Appointment [facility] MRI [address] [place] [phone] Lauren Skinner MD [address] [place] [address] 04/08/2025 1:00 PM CDT Office Visit [facility] - Pain Management [address] [place] [address] Manuel Osorio MD [address] [place] [address] Ladarius Egan MD [address] [place] [phone] 05/16/2025 9:30 AM CDT Office Visit [facility] - Internal Med [address] [facility] [place] [address] Yvette Schulz PA-C [address] [place] [address] documented as of this encounter Visit Diagnoses Diagnosis 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
--- OUTSIDE RECORDS SUMMARY | 2025-03-26 20:09 | XMS_ITS | Encounter Summary ---
Author Organization [facility] Address [address] [place] [address] Care Team Providers Care Biomedical Engineering Aide Name Role Phone Shraddha Barrow MD Primary Care Provider + [phone] Manuel Osorio MD Unavailable Reason for Visit * Reason Onset Date Comments MEDICATION REFILL 02/08/2025 Encounter Details Date Type Department Care Team (Late st Contact Info) Description 02/08/2025 Refill [facility] - Hematology/Oncology [address] [place] [address] Sandrita Ybarra MD [address] [place] [address] MEDICATION REFILL Social History Tobacco [...] Recorded Patient Health Questionnaire-2 Score 0 08/27/2024 [facility] of Occupat ional Health - Occupational Stress [...] time in the past 12 m [facility], were you homeless or living in a snf (including now)? No 09/30/2024 Sex and Gender Information Value Date Recorded Sex Assigned at Male 08/19/2024 9:03 PM BOW MACHINE OPERATOR Legal Sex Male 5:09 AM BOW MACHINE OPERATOR Gender Identity Male 08/19/2024 9:03 PM BOW MACHINE OPERATOR Sexual Orientation Straight 08/19/2024 9: 03 PM BOW MACHINE OPERATOR documented as of this encounter Functional [...] Visit [facility] - Hematology/Oncology [address] [place] [phone] Yessenia Kirkpatrick, STILL PUMP OPERATOR-POWER PROJECT MANAGER [address] [place] [phone] 04/07/2025 2:40 PM CDT Appointment [facility] CAT SCAN [address] [place] [phone] Vangie Montero, STILL PUMP OPERATOR-POWER PROJECT MANAGER [address] [place] [address] 04/07/2025 3:30 PM CDT Appointment [facility] MRI [address] [place] [phone] Lauren Skinner MD [address] [place] [phone] 04/08/2025 1:00 PM CDT Office Visit [facility] - [facility] Management [address] [place] [address] Manuel Osorio MD [address] [place] [address] Ladarius Egan MD [address] [place] [phone] 05/16/2025 9:30 AM CDT Office Visit 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
--- OUTSIDE RECORDS SUMMARY | 2025-03-26 20:09 | XMS_ITS | Encounter Summary ---
Author Organization [facility] Address [address] [place] [address] Care Team Providers Care Shank Stitcher Name Role Phone Shraddha Barrow MD Primary Care Provider + [phone] Manuel Osorio MD Unavailable Reason for Visit * Reason Onset Date Comments MEDICATION REFILL 02/20/2025 Encounter Details Date Type Department Care Team (Late st Contact Info) Description 02/20/2025 Refill [facility] - Hematology/Oncology [address] [place] [address] Manuel Osorio MD [address] [place] [address] MEDICATION REFILL Social History Tobacco [...] Recorded Patient Health Questionnaire-2 Score 0 02/16/2025 [facility] of Occupat ional [facility] - Occupational Stress Questionnaire Answer [...] any time in the past [address] [facility], were you homeless or living in a halfway (including now)? No 09/30/2024 Sex and Gender Information Value Date Recorded Sex Assigned at Male 08/19/2024 9:03 PM RAIL CAR LOADER Legal Sex Male 5:09 AM RAIL CAR LOADER Gender Identity Male 08/19/2024 9:03 PM RAIL CAR LOADER Sexual Orientation Straight 08/19/2024 9: 03 PM RAIL CAR LOADER documented as of this encounter Functional Status [...] Description 03/30/2025 8:40 AM CDT Office Visit [facility] - Hematology/Oncology [address] [place] [phone] Yessenia Kirkpatrick, POTABLE WATER TREATMENT OPERATOR-SCADA OPERATOR [address] [place] [address] 04/07/2025 2:40 PM CDT Appointment [facility] CAT SCAN [address] [place] [address] Vangie Montero POTABLE WATER TREATMENT OPERATOR-SCADA OPERATOR [address] [place], [place] [phone] 04/07/2025 3:30 PM CDT Appointment [facility] MRI [address] [place] [address] Lauren Skinner MD [address] [place] [address] 04/08/2025 1:00 PM CDT Office Visit [facility] - Pain Management [address] [place] [address] Manuel Osorio MD [address] [place] [address] Ladarius Egan MD [address] [place] [address] 05/16/2025 9:30 AM CDT Office Visit [facility] - Internal Med 1225 [facility], [facility] [place] [address] Yvette Schulz PA-C [address] [place] [address] documented as of this encounter Visit Diagnoses Diagnosis 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
--- OUTSIDE RECORDS SUMMARY | 2025-03-26 20:09 | XMS_ITS | Clinical Summary ---
Author Organization [facility] Address [address] [place] [address] Care Team Providers Care Restaurant Hourly Manager Name Role Phone Shraddha Barrow MD Primary [...] age to complete this topic Insurance 2 [place] [address] [place] Care Teams Restaurant Hourly Manager Relationship Specialty Start Date End Date Shraddha Barrow MD PCP - General INTERNAL MEDICINE 01/11/19
--- OUTSIDE RECORDS SUMMARY | 2025-03-26 20:09 | XMS_ITS | Encounter Summary ---
Author Organization [facility] Address [address] [place] [address] Care Team Providers Care Director Career Services Name Role Phone Shraddha Barrow MD Primary Care Provider + [phone] Manuel Osorio MD Unavailable Reason for Visit * Reason Onset Date Comments MEDICATION REFILL 12/13/2024 Encounter Details Date Type Department Care Team (Late st Contact Info) Description 12/13/2024 Refill [facility] - Hematology/Oncology [address] [place] [address] Manuel Osorio MD [address] [place] [address] MEDICATION REFILL Social History Tobacco [...] Recorded Patient Health Questionnaire-2 Score 0 08/27/2024 [facility] of Occupat ional [facility] - Occupational Stress Questionnaire Answer Date [...] any time in the past 12 m [facility], were you homeless or living in a retirement (including now)? No 09/30/2024 Sex and Gender Information Value Date Recorded Sex Assigned at Male 08/19/2024 9:03 PM OYSTER GRADER Legal Sex Male 5:09 AM OYSTER GRADER Gender Identity Male 08/19/2024 9:03 PM OYSTER GRADER Sexual Orientation Straight 08/19/2024 9: 03 PM OYSTER GRADER documented as of this encounter Functional Status [...] 8:40 AM CDT Office Visit [facility] - Hematology/Oncology [address] [place] [phone] Yessenia Kirkpatrick, GRAB DRIVER-COMPUTER TRAINER [address] [place] [address] 04/07/2025 2:40 PM CDT Appointment [facility] CAT SCAN [address] [place] [address] Vangie Montero GRAB DRIVER-COMPUTER TRAINER [address] [place], [place] [phone] 04/07/2025 3:30 PM CDT Appointment [facility] MRI [address] [place] [address] Lauren Skinner MD [address] [place] [address] 04/08/2025 1:00 PM CDT Office Visit [facility] - Pain Management [address] [place] [address] Manuel Osorio MD [address] [place] [address] Ladarius Egan MD [address] [place] [address] 05/16/2025 9:30 AM CDT Office Visit [facility] - Internal Med 1225 [facility], [facility] [place] [address] Yvette Schulz PA-C [address] [place] [address] documented as of this encounter Visit Diagnoses Diagnosis Cancer associated pain Neoplasm related pain (acute) (chronic) documented in this encounter Care Teams Director Career Services Relationship Specialty Start Date End Date Shraddha Barrow MD [address] [place] [address] PCP - General 12/01/18 Manuel Osorio MD [address] [place] [address] Hematology and Oncology 12/15/24 documented as of this encounter
--- OUTSIDE RECORDS SUMMARY | 2025-03-26 20:09 | XMS_ITS | Encounter Summary ---
Author Organization [facility] Address [address] [facility] [place] [address] Care Team Providers Care Salad Maker Name Role Phone Shraddha Barrow MD Primary Care Provider + [phone] Manuel Osorio MD Unavailable Reason for Visit * Reason Onset Date Comments MEDICATION REFILL 12/13/2024 Encounter Details Date Type Department Care Team (Late st Contact Info) Description 12/13/2024 Refill [facility] - Hematology/Oncology [address] [place] [address] Manuel Osorio MD [address] [place] [address] MEDICATION REFILL Social History Tobacco [...] Recorded Patient Health Questionnaire-2 Score 0 08/27/2024 [facility] of Occupat ional [facility] - Occupational Stress Questionnaire Answer [...] any time in the past 12 m [facility], were you homeless or living in a custodial (including now)? No 09/30/2024 Sex and Gender Information Value Date Recorded Sex Assigned at Male 08/19/2024 9:03 PM MAINTENANCE SERVICE TECHNICIAN Legal Sex Male 5:09 AM MAINTENANCE SERVICE TECHNICIAN Gender Identity Male 08/19/2024 9:03 PM MAINTENANCE SERVICE TECHNICIAN Sexual Orientation Straight 08/19/2024 9: 03 PM MAINTENANCE SERVICE TECHNICIAN documented as of this encounter Functional Status [...] 03/30/2025 8:40 AM CDT Office Visit [facility] - Hematology/Oncology [address] [place] [address] Yessenia Kirkpatrick, SANDWICH HAND-HIGH PRESSURE BOILER OPERATOR [address] [place] [address] 04/07/2025 2:40 PM CDT Appointment [facility] CAT SCAN [address] [place] [address] Vangie Montero SANDWICH HAND-HIGH PRESSURE BOILER OPERATOR [address] [place], [place] [phone] 04/07/2025 3:30 PM CDT Appointment [facility] MRI [address] [place] [address] Lauren Skinner MD [address] [place] [address] 04/08/2025 1:00 PM CDT Office Visit [facility] - Pain Management [address] [place] [address] Manuel Osorio MD [address] [place] [address] Ladarius Egan MD [address] [place] [address] 05/16/2025 9:30 AM CDT Office Visit [facility] - Internal Med 1225 [facility], [facility] [place] [address] Yvette Schulz PA-C [address] [place] [address] documented as of this encounter Visit Diagnoses Diagnosis 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
--- OUTSIDE RECORDS SUMMARY | 2025-03-26 20:09 | XMS_ITS | Encounter Summary ---
Author Organization [facility] Address [address] [facility] [place] [address] Care Team Providers Care Black Oxide Operator Name Role Phone Shraddha Barrow MD Primary Care Provider + [phone] Manuel Osorio MD Unavailable Reason for Visit * Reason Onset Date Comments MEDICATION REFILL 02/16/2025 Encounter Details Date Type Department Care Team (Late st Contact Info) Description 02/16/2025 Refill [facility] - Hematology/Oncology [address] [place] [address] Manuel Osorio MD [address] [place] [address] MEDICATION REFILL Social History Tobacco [...] Recorded Patient Health Questionnaire-2 Score 0 02/16/2025 [facility] of Occupat ional [facility] - Occupational Stress Questionnaire Answer Date [...] time in the past 12 m [facility], were you homeless or living in a longterm (including now)? No 09/30/2024 Sex and Gender Information Value Date Recorded Sex Assigned at Male 08/19/2024 9:03 PM TRAY ROOM WORKER Legal Sex Male 5:09 AM TRAY ROOM WORKER Gender Identity Male 08/19/2024 9:03 PM TRAY ROOM WORKER Sexual Orientation Straight 08/19/2024 9: 03 PM TRAY ROOM WORKER documented as of this encounter Functional [...] Description 03/30/2025 8:40 AM CDT Office Visit [facility] - Hematology/Oncology [address] [place] [address] Yessenia Kirkpatrick, SAP ABAP DEVELOPER-CHARITY FUNDRAISER [address] [place] [address] 04/07/2025 2:40 PM CDT Appointment [facility] CAT SCAN [address] [place] [address] Vangie Montero, SAP ABAP DEVELOPER-CHARITY FUNDRAISER [address] [place], [place] [phone] 04/07/2025 3:30 PM CDT Appointment [facility] MRI [address] [place] [address] Lauren Skinner MD [address] [place] [address] 04/08/2025 1:00 PM CDT Office Visit [facility] - Pain Management [address] [place] [address] Manuel Osorio MD [address] [place] [address] Ladarius Egan MD [address] [place] [address] 05/16/2025 9:30 AM CDT Office Visit [facility] - Internal Med [address] [facility] [place] [address] Yvette Schulz PA-C [address] [place] [address] documented as of this encounter Visit Diagnoses Diagnosis 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, unspecified laterality (HCC) documented in this encounter Care Teams Black Oxide Operator Relationship Specialty Start Date End Date Shraddha Barrow MD [address] [place] [address] PCP - General 12/01/18 Manuel Osorio MD [address] [place] [address] Hematology and Oncology 12/15/24 documented as of this encounter
--- OUTSIDE RECORDS SUMMARY | 2025-03-26 20:09 | XMS_ITS | Encounter Summary ---
Author Organization [facility] Address [address] [place] [address] Care Team Providers Care Solutions Development Analyst Name Role Phone Shraddha Barrow MD Primary Care Provider + [phone] Manuel Osorio MD Unavailable Reason for Visit * Reason Onset Date Comments MEDICATION REFILL 09/17/2024 Encounter Details Date Type Department Care Team (Late st Contact Info) Description 09/17/2024 Refill [facility] [address] [place] [address] Manuel Osorio MD [address] [place] [address] MEDICATION REFILL Social History Tobacco [...] Sex Assigned at Male 08/19/2024 9:03 PM LANDSCAPE SPECIALIST Legal Sex Male 5:09 AM LANDSCAPE SPECIALIST Gender Identity Male 08/19/2024 9:03 PM LANDSCAPE SPECIALIST Sexual Orientation Straight 08/19/2024 9: 03 PM LANDSCAPE SPECIALIST documented as of this encounter Functional Status * Is person deaf or have serious hearing difficulty? Answer Date of Assessment Author No 08/16/2024 7:25 PM LANDSCAPE SPECIALIST Ondina Branch RN * Is person blind [...] Description 03/30/2025 8:40 AM CDT Office Visit [facility] - Hematology/Oncology [address] [place] [address] Yessenia Kirkpatrick, WORD PROCESSOR OPERATOR-SOLICITOR PATENT [address] [place] [address] 04/07/2025 2:40 PM CDT Appointment [facility] CAT SCAN [address] [place] [address] Vangie Montero APRN-SOLICITOR PATENT [address] [place] [address] 04/07/2025 3:30 PM CDT Appointment [facility] MRI [address] [place] [address] Lauren Skinner MD [address] [place] [address] 04/08/2025 1:00 PM CDT Office Visit [facility] - Pain Management [address] [place] [address] Manuel Osorio MD [facility] [place] [address] Ladarius Egan MD [facility] [place] [address] 05/16/2025 9:30 AM CDT Office Visit [facility] - Internal Med 1225 [facility], [place] [address] Yvette Schulz PA-C [address] [place] [address] documented as of this encounter Visit Diagnoses Diagnosis 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, unspecified laterality (HCC) documented in this encounter Additional Health Concerns Infection Onset Date Last Indicated Resolved Time COVID-19 Under Investigation 09/30/2024 09/30/2024 09/30/2024 4:56 AM LANDSCAPE SPECIALIST documented as of this encounter Care Teams Solutions Development Analyst Relationship Specialty Start Date End Date Shraddha Barrow MD [address] [place] [address] PCP - General 12/01/18 Manuel Osorio MD [address] [place] [phone] Hematology and Oncology 12/15/24 documented as of this encounter
--- OUTSIDE RECORDS SUMMARY | 2025-03-26 20:09 | XMS_ITS | Encounter Summary ---
Author Organization [facility] Address [address] [place] [address] Care Team Providers Care Financial Service Rep Name Role Phone Shraddha Barrow MD Primary Care Provider + [phone] Manuel Osorio MD Unavailable Encounter Details Date Type Department Care Team (Late st Contact Info) Description 03/22/2025 Orders Only [facility] [address] [place] [phone] Reuben Lan, PharmD Social History Tobacco Use [...] Recorded Patient Health Questionnaire-2 Score 0 02/16/2025 [facility] of Occupat ional Health - Occupational Stress [...] any time in the past 12 m [facility], were you homeless or living in a alf (including now)? No 09/30/2024 Sex and Gender Information Value Date Recorded Sex Assigned at Male 08/19/2024 9:03 PM SENIOR INVESTMENT ANALYST Legal Sex Male 5:09 AM SENIOR INVESTMENT ANALYST Gender Identity Male 08/19/2024 9:03 PM SENIOR INVESTMENT ANALYST Sexual Orientation Straight 08/19/2024 9: 03 PM SENIOR INVESTMENT ANALYST documented as of this encounter Functional Status [...] Visit [facility] - Hematology/Oncology [address] [place] [address] Yessenia Kirkpatrick, CATCHER PLUG-CRIMINAL JUSTICE SOCIAL WORKER [address] [place] [address] 04/07/2025 2:40 PM CDT Appointment [facility] CAT SCAN [address] [place] [address] Vangie Montero CATCHER PLUG-CRIMINAL JUSTICE SOCIAL WORKER [address] [place], [place] [phone] 04/07/2025 3:30 PM CDT Appointment [facility] MRI [address] [place] [address] Lauren Skinner MD [address] [place] [address] 04/08/2025 1:00 PM CDT Office Visit [facility] - Pain Management [address] [place] [address] Manuel Osorio MD [address] [place] [address] Ladarius Egan MD [facility] [place] [address] 05/16/2025 9:30 AM CDT Office Visit [facility] - Internal Med 1225 [facility], [place] [address] Yvette Schulz PA-C [address] [place] [address] documented as of this encounter Visit Diagnoses Not on filedocumented in this encounter Care Teams Financial Service Rep Relationship Specialty Start Date End Date Shraddha Barrow MD [address] [place] [phone] PCP - General 12/01/18 Manuel Osorio MD [address] [place] [address] Hematology and Oncology 12/15/24 documented as of this encounter
--- OUTSIDE RECORDS SUMMARY | 2025-03-26 20:09 | XMS_ITS | Encounter Summary ---
Author Organization [facility] Address [address] [facility] [place] [address] Care Team Providers Care Manager Culinary Name Role Phone Shraddha Barrow MD Primary Care Provider + [phone] Manuel Osorio MD Unavailable Reason for Visit * Reason Onset Date Comments MEDICATION REFILL 02/11/2025 Encounter Details Date Type Department Care Team (Late st Contact Info) Description 02/11/2025 Refill [facility] - Hematology/Oncology [address] [place] [address] Manuel Osorio MD [address] [place] [address] MEDICATION REFILL Social History Tobacco [...] Recorded Patient Health Questionnaire-2 Score 0 08/27/2024 [facility] of Occupat ional [facility] - Occupational Stress Questionnaire Answer Date [...] any time in the past 12 m [facility], were you homeless or living in a chcf (including now)? No 09/30/2024 Sex and Gender Information Value Date Recorded Sex Assigned at Male 08/19/2024 9:03 PM MINES INSPECTOR Legal Sex Male 5:09 AM MINES INSPECTOR Gender Identity Male 08/19/2024 9:03 PM MINES INSPECTOR Sexual Orientation Straight 08/19/2024 9: 03 PM MINES INSPECTOR documented as of this encounter Functional Status [...] Description 03/30/2025 8:40 AM CDT Office Visit [facility] - Hematology/Oncology [address] [place] [address] Yessenia Kirkpatrick, GUARD DANCE HALL-OFFICE HELPER [address] [place] [address] 04/07/2025 2:40 PM CDT Appointment [facility] CAT SCAN [address] [place] [phone] Vangie Montero GUARD DANCE HALL-OFFICE HELPER [address] [place], [place] [phone] 04/07/2025 3:30 PM CDT Appointment [facility] MRI [address] [place] [address] Lauren Skinner MD [address] [place] [address] 04/08/2025 1:00 PM CDT Office Visit [facility]ician Group - Pain Management [address] [place] [address] Manuel Osorio MD [address] [place] [address] Ladarius Egan MD [address] [place] [address] 05/16/2025 9:30 AM CDT Office Visit [facility] - Internal Med 1225 [facility] [place] [address] Yvette Schulz PA-C [address] [place] [address] documented as of this encounter Visit Diagnoses Diagnosis 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
--- OUTSIDE RECORDS SUMMARY | 2025-03-26 20:09 | XMS_ITS ---
Author Organization [facility] Address [address] [facility] [place] [address] Care Team Providers Care Volunteer Firefighter Name Role Phone Shraddha Barrow MD Primary Care Provider [phone] Manuel Osorio MD Unavailable Active Problems Problem [...]
--- OUTSIDE RECORDS SUMMARY | 2025-03-26 20:09 | XMS_ITS | Encounter Summary ---
Author Organization [facility] Address [address] [facility] [place] [address] Care Team Providers Care Line Mover Name Role Phone Shraddha Barrow MD Primary Care Provider + [phone] Manuel Osorio MD Unavailable Reason for Visit * Reason Onset Date Comments MEDICATION REFILL 09/21/2024 Encounter Details Date Type Department Care Team (Late st Contact Info) Description 09/21/2024 Refill [facility] - Hematology/Oncology [address] [place] [address] Manuel Osorio MD [address] [place] [address] MEDICATION REFILL Social History Tobacco [...] Sex Assigned at Male 08/19/2024 9:03 PM PROFILING MACHINE SET UP OPERATOR TOOL Legal Sex Male 5:09 AM PROFILING MACHINE SET UP OPERATOR TOOL Gender Identity Male 08/19/2024 9:03 PM PROFILING MACHINE SET UP OPERATOR TOOL Sexual Orientation Straight 08/19/2024 9: 03 PM PROFILING MACHINE SET UP OPERATOR TOOL documented as of this encounter Functional Status * Is person deaf or have serious hearing difficulty? Answer Date of Assessment Author No 08/16/2024 7:25 PM PROFILING MACHINE SET UP OPERATOR TOOL Ondina Branch RN * Is person blind [...] Description 03/30/2025 8:40 AM CDT Office Visit [facility] Group - Hematology/Oncology [address] [place] [phone] Yessenia Kirkpatrick, REACTOR FUELING SUPERVISOR-ARMHOLE BASTER JUMPBASTING [address] [place] [address] 04/07/2025 2:40 PM CDT Appointment [facility] CAT SCAN [address] [place] [address] Vangie Montero APRN-ARMHOLE BASTER JUMPBASTING [address] [place] [address] 04/07/2025 3:30 PM CDT Appointment [facility] MRI [address] [place] [address] Lauren Skinner MD [address] [place] [address] 04/08/2025 1:00 PM CDT Office Visit [facility] - Pain Management [address] [place] [address] Manuel Osorio MD [address] [place] [address] Ladarius Egan MD [address] [place] [address] 05/16/2025 9:30 AM CDT Office Visit [facility] - Internal Med 1225 [facility], [place] [address] Yvette Schulz PA-C [address] [place] [address] documented as of this encounter Visit Diagnoses Diagnosis 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, unspecified laterality (HCC) documented in this encounter Additional Health Concerns Infection Onset Date Last Indicated Resolved Time COVID-19 Under Investigation 09/30/2024 09/30/2024 09/30/2024 4:56 AM PROFILING MACHINE SET UP OPERATOR TOOL documented as of this encounter Care Teams Line Mover Relationship Specialty Start Date End Date Shraddha Barrow MD [address] [place] [address] PCP - General 12/01/18 Manuel Osorio MD [address] [place] [address] Hematology and Oncology 12/15/24 documented as of this encounter
--- OUTSIDE RECORDS SUMMARY | 2025-03-26 20:10 | XMS_ITS | Encounter Summary ---
Author Organization [facility] Address [address] [place] [address] Care Team Providers Care Sales Vice President Name Role Phone Shraddha Barrow MD Primary Care Provider + [phone] Manuel Osorio MD Unavailable Reason for Visit * Reason Onset Date Comments MEDICATION REFILL 02/02/2025 Encounter Details Date Type Department Care Team (Late st Contact Info) Description 02/02/2025 Refill [facility] - Hematology/Oncology [address] [place] [address] Sandrita Ybarra MD [address] [place] [address] MEDICATION REFILL Social History Tobacco [...] Recorded Patient Health Questionnaire-2 Score 0 08/27/2024 [facility] of Occupat ional Health - Occupational Stress [...] any time in the past 12 m [facility], were you homeless or living in a skilled nursing (including now)? No 09/30/2024 Sex and Gender Information Value Date Recorded Sex Assigned at Male 08/19/2024 9:03 PM MAINTENANCE DISPATCHER Legal Sex Male 5:09 AM MAINTENANCE DISPATCHER Gender Identity Male 08/19/2024 9:03 PM MAINTENANCE DISPATCHER Sexual Orientation Straight 08/19/2024 9: 03 PM MAINTENANCE DISPATCHER documented as of this encounter Functional Status [...] Description 03/30/2025 8:40 AM CDT Office Visit [facility] - Hematology/Oncology [address] [place] [phone] Yessenia Kirkaptrick, SPONGE CLIPPER[employer]DING CAKE DESIGNER [address] [place] [phone] 04/07/2025 2:40 PM CDT Appointment [facility] CAT SCAN [address] [place] [phone] Vangie Montero, SPONGE CLIP[employer] CAKE DESIGNER [address] [place], [place] [phone] 04/07/2025 3:30 PM CDT Appointment [facility] MRI [address] [place] [phone] Lauren Skinner MD [address] [place] [address] 04/08/2025 1:00 PM CDT Office Visit [facility] - Pain Management [address] [place] [address] [place] [address] [place] [phone] Ladarius Egan MD [address] [place] [phone] 05/16/2025 9:30 AM CDT Office Visit [facility] - Internal Med [address] [facility], [place] [phone] Yvette Schulz PA-C [address] [place] [address] documented as of this encounter Visit Diagnoses Diagnosis 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, unspecified laterality (HCC) documented in this encounter Care Teams Sales Vice President Relationship Specialty Start Date End Date Shraddha Barrow MD [address] [place] [address] PCP - General 12/01/18 Manuel Osorio MD [address] [place] [address] Hematology and Oncology 12/15/24 documented as of this encounter
[2025-03-26 20:21] LABS: Hematocrit 48.2 % (42.0-52.0); Hemoglobin 15.6 g/dL (14.0-18.0); Immature Granulocyte Percent A 0.3 % (0-0.5); Lymphocytes Absolute Auto 1.73 K/mm3 (0.9-3.2); Mean Corpuscular HGB Conc 32.4 g/dl (32-36); Mean Corpuscular Hemoglobin 29.5 pg (26-34); Mean Corpuscular Volume 91.3 fl (80-100); Nucleated Red Blood Cells Absolute Auto 0.000 K/mm3 (0.0-0.012); Nucleated Red Blood Cells Perc 0.0 % (0.0-0.2); Platelet Count Result 224 k/mm3 (150-375); Red Blood Count 5.28 M/mm3 (4.6-6.20); White Blood Count 7.5 K/mm3 (4.5-10.0)
[2025-03-26 20:43] LABS: Alanine Aminotransferase 36 U/L (6-50); Albumin Level 3.8 g/dL (3.5-5.1); Alkaline Phosphatase 68 U/L (38-126); Anion Gap 6 mmol/L (4-12); Aspartate Amino Transferase 36 U/L (17-59); Bilirubin,Total 0.3 mg/dL (0.2-1.3); Blood Urea Nitrogen 16 mg/dL (9-20); Calcium 9.1 mg/dL (8.4-10.2); Carbon Dioxide 29 mmol/L (22-30); Chloride 99 mmol/L (98-107); Estimated CRCL calculation 75 ml/min; Estimated Glomerular Filt Rate > 60; Glucose 102 mg/dL (65-110); Magnesium 2.0 mg/dL (1.6-2.3); Potassium 4.2 mmol/L (3.4-5.0); Sodium 134 mmol/L (137-145); Total Protein 7.3 g/dL (6.3-8.2)
[2025-03-26 20:54] LABS: Troponin I < 0.012 ng/mL (0.000-0.034)
[2025-03-26] MEDS: LORazepam INJ (*CRX) 2 MG/ML VIAL 0.5 MG IV PUSH (21:02)
[2025-03-26 21:13] LABS: Thyroid Stimulating Hormone Reflex 1.350 uIU/mL (0.465-4.68)
[2025-03-26 22:11] VITALS: BP 130/80; PULSE 88; RESP 20; O2SAT 95
== END 2025-03-27 01:37 | disposition left against medical advice (07) ==
PROVIDERS: Emergency Provider Student in an Organized Health Care Education/Training Program
DX: R20.0 Anesthesia of skin (principal); C34.90 Malignant neoplasm of unspecified part of unspecified bronchus or lung; C79.31 Secondary malignant neoplasm of brain; C79.51 Secondary malignant neoplasm of bone; C79.89 Secondary malignant neoplasm of other specified sites; Z79.60 Long term (current) use of unspecified immunomodulators and immunosuppressants
CPT/HCPCS: 36415; 70450; 70496; 70498; 71045; 72131; 80053; 83735; 84443; 84484; 85025; 93005; 96374; 99284; J2060; Q9967

== ENCOUNTER 2025-05-30 09:41 | Outpatient (CLI) | payer MEDICAID, SELFPAY ==
--- OUTSIDE RECORDS SUMMARY | 2025-05-30 10:39 | XMS_ITS | Encounter Summary ---
Author Organization [facility] Address [address] [place] [address] Care Team Providers Care After School Program Assistant Name Role Phone Shraddha Barrow MD Primary Care Provider + [phone] Manuel Osorio MD Unavailable Reason for Visit * Reason Onset Date Comments MEDICATION REFILL 09/21/2024 Encounter Details Date Type Department Care Team (Late st Contact Info) Description 09/21/2024 Refill [facility] - Hematology/Oncology [address] [place] [address] Manuel Osorio MD [address] [place] [address] MEDICATION REFILL Social History Tobacco Use Types Packs/Day Years Used Date Smoking Tobacco: Every Day Cigarettes 1 46.7 Started: 1979 Smokeless Tobacco: Never Alcohol Use [...] Sex Assigned at Male 08/19/2024 9:03 PM FITNESS CLUB MANAGER Legal Sex Male 5:09 AM FITNESS CLUB MANAGER Gender Identity Male 08/19/2024 9:03 PM FITNESS CLUB MANAGER Sexual Orientation Straight 08/19/2024 9: 03 PM FITNESS CLUB MANAGER documented as of this encounter Functional Status * Is person deaf or have serious hearing difficulty? Answer Date of Assessment Author No 08/16/2024 7:25 PM FITNESS CLUB MANAGER Ondina Branch RN * Is person blind or have serious difficulty seeing? Answer Date of Assessment Author No 08/16/2024 7:25 PM Ondina Samuel RN * Does person have serious difficulty walking/climbing stairs? Answer Date of Assessment Author No 08/16/2024 7:25 PM FITNESS CLUB MANAGER Ondina Branch RN * Does person have difficulty dressing/bathing? [...] Care Team (Late st Contact Info) Description 06/10/2025 8:00 AM CDT Appointment [facility] [address] [place] [address] Shraddha Barrow MD [address] [place] [address] 06/10/2025 8:40 AM CDT Office Visit [facility] - Hematology/Oncology [address] [place] [phone] Manuel Osorio MD [address] [place] [phone] 06/30/2025 2:30 PM CDT Office Visit [facility] - Pulmonology [address] [facility] [place] [phone] Diana Swain MD [address] [place] [phone] 07/27/2025 9:30 AM FITNESS CLUB MANAGER Appointment [facility] MRI [address] [place] [phone] Lauren Skinner MD [address] [place] [phone] 08/24/2025 3:30 PM FITNESS CLUB MANAGER Office Visit [facility] - Internal Med [address] [facility] [place] [phone] Nirav Wang MD [address] [place] [address] documented as of this encounter Visit Diagnoses Diagnosis 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
--- OUTSIDE RECORDS SUMMARY | 2025-05-30 10:39 | XMS_ITS | Encounter Summary ---
Author Organization [facility] Address [address] [place] [address] Care Team Providers Care Automotive Quality Engineer Name Role Phone Shraddha Barrow MD Primary Care Provider + [phone] Manuel Osorio MD Unavailable Reason for Visit * Reason Onset Date Comments MEDICATION REFILL 02/18/2025 Encounter Details Date Type Department Care Team (Late st Contact Info) Description 02/18/2025 Refill [facility] - Hematology/Oncology [address] [place] [address] Manuel Osorio MD [address] [place] [address] MEDICATION REFILL Social History Tobacco [...] Recorded Patient Health Questionnaire-2 Score 0 02/16/2025 [facility] of Occupat ional [facility] - Occupational Stress Questionnaire Answer Date Recorded [...] any time in the past 12 m [facility], were you homeless or living in a prison (including now)? No 09/30/2024 Sex and Gender Information Value Date Recorded Sex Assigned at Male 08/19/2024 9:03 PM REGULATORY PRODUCT MANAGER Legal Sex Male 5:09 AM REGULATORY PRODUCT MANAGER Gender Identity Male 08/19/2024 9:03 PM REGULATORY PRODUCT MANAGER Sexual Orientation Straight 08/19/2024 9: 03 PM REGULATORY PRODUCT MANAGER documented as of this encounter Functional [...] Info) Description 06/10/2025 8:00 AM CDT Appointment [facility] [address] [place] [address] [place] [address] [place] [phone] 06/10/2025 8:40 AM CDT Office Visit [facility] - Hematology/Oncology [address] [place] [phone] [place] [address] [place] [phone] 06/30/2025 2:30 PM CDT Office Visit [facility] - Pulmonology [address] [place] [phone] [place] [address] [place] [phone] 07/27/2025 9:30 AM REGULATORY PRODUCT MANAGER Appointment [facility] MRI [facility] [place] [phone] Lauren Skinner MD [address] [place] [phone] 08/24/2025 3:30 PM REGULATORY PRODUCT MANAGER Office Visit [facility] - Internal Med [address] [place] [address] [place] [address] Nirav Wang MD [address] [place] [address] documented as of this encounter Visit Diagnoses Diagnosis 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
--- OUTSIDE RECORDS SUMMARY | 2025-05-30 10:39 | XMS_ITS | Encounter Summary ---
Author Organization [facility] Address [address] [facility] [place] [address] Care Team Providers Care Brand Sales Manager Name Role Phone Shraddha Barrow MD Primary Care Provider + [phone] Manuel Osorio MD Unavailable Reason for Visit * Reason Onset Date Comments MEDICATION REFILL 03/09/2025 Encounter Details Date Type Department Care Team (Late st Contact Info) Description 03/09/2025 Refill [facility] - Hematology/Oncology [address] [place] [address] Manuel Osorio MD [address] [place] [address] MEDICATION REFILL Social History Tobacco [...] Recorded Patient Health Questionnaire-2 Score 0 02/16/2025 [facility] of Occupat ional [facility] - Occupational Stress Questionnaire Answer Date [...] any time in the past 12 m [facility], were you homeless or living in a group home (including now)? No 09/30/2024 Sex and Gender Information Value Date Recorded Sex Assigned at Male 08/19/2024 9:03 PM BIOFUELS PRODUCT MANAGER Legal Sex Male 5:09 AM BIOFUELS PRODUCT MANAGER Gender Identity Male 08/19/2024 9:03 PM BIOFUELS PRODUCT MANAGER Sexual Orientation Straight 08/19/2024 9: 03 PM BIOFUELS PRODUCT MANAGER documented as of this encounter [...] Info) Description 06/10/2025 8:00 AM CDT Appointment [facility] [address] [place] [address] [place] [address] [place] [phone] 06/10/2025 8:40 AM CDT Office Visit [facility] - Hematology/Oncology [address] [place] [phone] [place] [address] [place] [phone] 06/30/2025 2:30 PM CDT Office Visit [facility] - Pulmonology [address] [place] [phone] [place] [address] [place] [phone] 07/27/2025 9:30 AM BIOFUELS PRODUCT MANAGER Appointment [facility] MRI [facility] [place] [phone] Lauren Skinner MD [address] [place] [phone] 08/24/2025 3:30 PM BIOFUELS PRODUCT MANAGER Office Visit [facility] - Internal Med [address] [place] [address] [place] [address] Nirav Wang MD [address] [place] [address] documented as of this encounter Visit Diagnoses Diagnosis 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
--- OUTSIDE RECORDS SUMMARY | 2025-05-30 10:39 | XMS_ITS | Encounter Summary ---
Author Organization [facility] Address [address] [facility] [place] [address] Care Team Providers Care Sewing Machine Mechanic Name Role Phone Shraddha Barrow MD Primary Care Provider + [phone] Manuel Osorio MD Unavailable Encounter Details Date Type Department Care Team (Late st Contact Info) Description 05/24/2025 Orders Only [facility] - Hematology/Oncology [address] [place] [address] Manuel Osorio MD [address] [place] [address] Social History Tobacco Use Types Packs/Day Years Used Date Smoking Tobacco: Every Day Cigarettes 1 46.7 Started: 1979 Smokeless Tobacco: Never Alcohol Use Standard Drinks/Week Comments Not Currently 0 (1 standard drink = 0.6 oz pur e alcohol) AUDIT-C Answer Date Recorded Q1: How often do you have a drink containing alc ohol? Patient declined 05/08/2025 Q2: How many drinks containi ng alcohol do you have on a typical day when you are drinking? Patient declined 05/08/2025 Q3: How often do you have si x or more drinks on one occasion? Patient declined 05/08/2025 Overall Financial Resource Strain (CARDIA) Answe r Date Recorded How hard is it for you to pa y for the very basics like food, housing, medical care, and heating? Not hard at all 05/07/2025 PHQ-2 Answer Date Recorded Patient Health Questionnaire-2 Score 0 02/16/2025 [facility] [place] of Occupat ional Health - Occupational Stress Questionnaire Answer Date Recorded Do you feel stress - tense, restless, nervous, or anxious, or unable to sleep at night because your mind is troubled all the time - these days? Not at all 05/07/2025 Hunger Vital Sign Answer Date Recorded Within the past 12 months, y ou worried that your food would run out before you got the money to buy more. Never true 05/07/20 25 Within the past 12 months, t he food you bought just didn't last and you didn't have money to get more. Never true 05/07/2025 PRAPARE - Transportation Answer Date Re corded In the past 12 months, has l ack of transportation kept you from medical appointments or from getting medications? No 04/10 In the past 12 months, has l ack of transportation kept you from meetings, work, or from getting things needed for daily living? No 05/07/2025 Housing Stability Vital Sign Answer Manny e Recorded In the last 12 months, was t here a time when you were not able to pay the mortgage or rent on time? No 05/07/2025 In the past 12 months, how m any times have you moved where you were living? 0 05/07/2025 At any time in the past 12 m [facility], were you homeless or living in a prison (including now)? No 05/07/2025 Sex and Gender Information Value Date Recorded Sex Assigned at Male 08/19/2024 9:03 PM HOG SLAUGHTERER Legal Sex Male 5:09 AM HOG SLAUGHTERER Gender Identity Male 08/19/2024 9:03 PM HOG SLAUGHTERER Sexual Orientation Straight 08/19/2024 9: 03 PM HOG SLAUGHTERER documented as of this encounter Functional Status * Is person deaf or have serious hearing difficulty? Answer Date of Assessment Author No 05/07/2025 10:26 AM Gracy Sparrow RN * Is person blind or have serious difficulty seeing? Answer Date of Assessment Author No 05/07/2025 10:26 AM Gracy Sparrow RN * Does person have serious difficulty walking/climbing stairs? Answer Date of Assessment Author No 05/07/2025 10:26 AM Gracy Sparrow RN * Does person have difficulty dressing/bathing? Answer Date of Assessment Author No 05/07/2025 10:26 AM CDT Gracy Knowles RN * Does person have difficulty doing errands alone? Answer Date of Assessment Author No 05/07/2025 10:26 AM MIGUELT Gracy Knowles RN documented as of this encounter Mental Status * Does person have difficulty concentrating/remembering/making decisions? Answer Entry Date Author No 05/07/2025 10:26 AM MIGUELT Gracy Knowles RN documented in this encounter Plan of Treatment Upcoming Encounters Date Type Department Care Team (Late st Contact Info) Description 06/10/2025 8:00 AM CDT Appointment [facility] [address] [place] [address] [place] [address] [place] [phone] 06/10/2025 8:40 AM CDT Office Visit [facility] - Hematology/Oncology [address] [place] [phone] Manuel Osorio MD [address] [place] [phone] 06/30/2025 2:30 PM CDT Office Visit [facility] - Pulmonology [address] [place] [phone] [place] [address] [place] [phone] 07/27/2025 9:30 AM HOG SLAUGHTERER Appointment [facility] MRI [address] [place] [phone] Lauren Skinner MD [address] [place] [phone] 08/24/2025 3:30 PM HOG SLAUGHTERER Office Visit [facility] - Internal Med [address] [place] [phone] Nirav Wang MD [address] [place] [address] documented as of this encounter Visit Diagnoses Not on filedocumented in this encounter Care Teams Sewing Machine Mechanic Relationship Specialty Start Date End Date Shraddha Barrow MD [address] [place] [phone] PCP - General 12/01/18 Manuel Osorio MD [address] [place] [phone] Hematology and Oncology 12/15/24 documented as of this encounter
--- OUTSIDE RECORDS SUMMARY | 2025-05-30 10:39 | XMS_ITS ---
Author Organization [facility] Address [address] [place] [address] Care Team Providers Care Any [employer] Deliverer Name Role Phone Shraddha Barrow MD Primary Care Provider + [phone] Manuel Osorio MD Unavailable Active Problems Problem Noted Date Diagnosed Date Bilateral hearing loss 05/13/2025 Metastasis to brain 05/13/2025 Acute cough 2025 Cancer associated pain 2025 Chronic hypoxic respiratory failure 2025 Assessment & Plan (05/08/2025 1:56 PM CDT): -Patient is on 2L O2 PRN at home, does not wear consistently - Home inhaler/neb regimen: Albuterol PRN, Breztri BID, Duoneb PRN - During recent admission, patient developed COPD exacerbation due to RLL PNA, treated with cefe, azithro, and prednisone -Today he is resting comfortably on room air and feels that he is at his respiratory baseline Plan: Continue home oxygen at 2 Liters Continue home inhalers and nebs Assessment & Plan (05/07/2025 11:21 AM CDT): -Patient is on 2L O2 PRN at home, does not wear consistently - Home inhaler/neb regimen: Albuterol PRN, Breztri BID, Duoneb PRN - During recent admission, patient developed COPD exacerbation due to RLL PNA, treated with cefe, azithro, and prednisone -Today he is resting comfortably on room air and feels that he is at his respiratory baseline Plan: -Continue home inhalers (Ordered breztri as symbicort) -Duoneb PRN Assessment & Plan (2025 2:26 PM CDT): {HCCREFRESHBPA (Optional):43511} -Patient is on 2L O2 PRN at home, does not wear consistently - Home inhaler/neb regimen: Albuterol PRN, Breztri BID, Duoneb PRN - During recent admission, patient developed COPD exacerbation due to RLL PNA, treated with cefe, azithro, and prednisone -Today he is resting comfortably on room air and feels that he is at his respiratory baseline Plan: -Continue home inhalers (Ordered breztri as symbicort) -Duoneb PRN -Obtain CXR? {HCCREFRESHBPA (Optional):54982} Hyperglycemia due to diabetes mellitus Assessment & Plan (05/08/2025 1:56 PM CDT): -Last A1c: 6.7 05/03/25 -Home regimen: None -Last B Plan: Outpatient follow up Assessment & Plan (05/07/2025 11:21 AM CDT): -Last A1c: 6.7 05/03/25 -Home regimen: None -Last B Plan: -Continue SSI 0-6 TID WC -Continue hypoglycemic protocol -Continue low carb diet Assessment & Plan (2025 2:26 PM CDT): {HCCREFRESHBPA (Optional):24194} -Last A1c: 6.7 05/03/25 -Home regimen: None -Last B Plan: -Continue SSI 0-6 TID WC -Continue hypoglycemic protocol -Continue low carb diet Tobacco use 2025 Assessment & Plan (05/08/2025 1:56 PM CDT): - 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 -Brain MRI 08/2024 showing nodules in right parietal and left frontal lobes -Has undergone several cycels of carbo/etop/atezo therapy with some treatment response on 12/2024 CTAP -Started on Tarlatamab 04/2025 and was admitted after this for COPD exacerbation/PNA and treated with tocilizumab and steroids for presumed CRS Plan: -Readmitted for CRS and ICANS monitoring, oncology consulted, appreciate recs -Continue home Keppra for seizure ppx given brain mets -Neuro checks q8h -Reporting forehead rash after radiation therapy, continue home kenalog, Calamine PRN -Nicotine gum Assessment & Plan (2025 2:32 PM CDT): -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, 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 -Brain MRI 08/2024 showing nodules in right parietal and left frontal lobes -Has undergone several cycels of carbo/etop/atezo therapy with some treatment response on 12/2024 CTAP -Started on Tarlatamab 04/2025 and was admitted after this for COPD exacerbation/PNA and treated with tocilizumab and steroids for presumed CRS Plan: -Readmitted for CRS and ICANS monitoring, oncology consulted, appreciate recs -Continue home Keppra for seizure ppx given brain mets -Neuro checks q8h -Reporting forehead rash after radiation therapy, continue home kenalog, Calamine PRN -Nicotine gum History of cancer metastatic to brain 2025 Assessment & Plan (05/08/2025 1:56 PM CDT): - 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 -Brain MRI 08/2024 showing nodules in right parietal and left frontal lobes -Has undergone several cycels of carbo/etop/atezo therapy with some treatment response on 12/2024 CTAP -Started on Tarlatamab 04/2025 and was admitted after this for COPD exacerbation/PNA and treated with tocilizumab and steroids for presumed CRS Plan: -Readmitted for CRS and ICANS monitoring, oncology consulted, appreciate recs -Continue home Keppra for seizure ppx given brain mets -Neuro checks q8h -Reporting forehead rash after radiation therapy, continue home kenalog, Calamine PRN -Nicotine gum Assessment & Plan (2025 2:32 PM CDT): -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, 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 -Brain MRI 08/2024 showing nodules in right parietal and left frontal lobes -Has undergone several cycels of carbo/etop/atezo therapy with some treatment response on 12/2024 CTAP -Started on Tarlatamab 04/2025 and was admitted after this for COPD exacerbation/PNA and treated with tocilizumab and steroids for presumed CRS Plan: -Readmitted for CRS and ICANS monitoring, oncology consulted, appreciate recs -Continue home Keppra for seizure ppx given brain mets -Neuro checks q8h -Reporting forehead rash after radiation therapy, continue home kenalog, Calamine PRN -Nicotine gum Seasonal allergies 2025 Assessment & Plan (05/08/2025 1:56 PM CDT): -Continue home loratadine and flonase spray Assessment & Plan (05/07/2025 11:21 AM CDT): -Continue home loratadine and flonase spray Assessment & Plan (2025 2:32 PM CDT): -Continue home loratadine and flonase spray GERD (gastroesophageal reflux disease) Assessment & Plan (05/08/2025 1:56 PM CDT): -Continue home pantoprazole Assessment & Plan (05/07/2025 11:21 AM CDT): -Continue home pantoprazole Assessment & Plan (2025 2:32 PM CDT): -Continue home pantoprazole 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 04/09 Assessment & Plan (05/08/2025 1:56 PM CDT): - 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 -Brain MRI 08/2024 showing nodules in right parietal and left frontal lobes -Has undergone several cycels of carbo/etop/atezo therapy with some treatment response on 12/2024 CTAP -Started on Tarlatamab 04/2025 and was admitted after this for COPD exacerbation/PNA and treated with tocilizumab and steroids for presumed CRS Plan: -Readmitted for CRS and ICANS monitoring, oncology consulted, appreciate recs -Continue home Keppra for seizure ppx given brain mets -Neuro checks q8h -Reporting forehead rash after radiation therapy, continue home kenalog, Calamine PRN -Nicotine gum Assessment & Plan (2025 2:32 PM CDT): -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, 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 -Brain MRI 08/2024 showing nodules in right parietal and left frontal lobes -Has undergone several cycels of carbo/etop/atezo therapy with some treatment response on 12/2024 CTAP -Started on Tarlatamab 04/2025 and was admitted after this for COPD exacerbation/PNA and treated with tocilizumab and steroids for presumed CRS Plan: -Readmitted for CRS and ICANS monitoring, oncology consulted, appreciate recs -Continue home Keppra for seizure ppx given brain mets -Neuro checks q8h -Reporting forehead rash after radiation therapy, continue home kenalog, Calamine PRN -Nicotine gum Hyponatremia with increased serum osmolality Assessment & Plan (05/04/2025 11:01 PM CDT): - Na 133, glucose 250 Plan > A1c > CTM Assessment & Plan (05/03/2025 3:04 PM CDT): - Na 133, glucose 250 Plan > A1c > CTM Hypophosphatemia 05/02/2025 Assessment & Plan (05/04/2025 11:01 PM CDT): > Replace electrolytes Assessment & Plan (05/03/2025 7:27 AM CDT): > Replace electrolytes Assessment & Plan (05/02/2025 3:19 PM CDT): > Replace electrolytes 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 Assessment & Plan (05/08/2025 1:56 PM CDT): - 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 -Brain MRI 08/2024 showing nodules in right parietal and left frontal lobes -Has undergone several cycels of carbo/etop/atezo therapy with some treatment response on 12/2024 CTAP -Started on Tarlatamab 04/2025 and was admitted after this for COPD exacerbation/PNA and treated with tocilizumab and steroids for presumed CRS Plan: -Readmitted for CRS and ICANS monitoring, oncology consulted, appreciate recs -Continue home Keppra for seizure ppx given brain mets -Neuro checks q8h -Reporting forehead rash after radiation therapy, continue home kenalog, Calamine PRN -Nicotine gum Assessment & Plan (2025 2:32 PM CDT): -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, 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 -Brain MRI 08/2024 showing nodules in right parietal and left frontal lobes -Has undergone several cycels of carbo/etop/atezo therapy with some treatment response on 12/2024 CTAP -Started on Tarlatamab 04/2025 and was admitted after this for COPD exacerbation/PNA and treated with tocilizumab and steroids for presumed CRS Plan: -Readmitted for CRS and ICANS monitoring, oncology consulted, appreciate recs -Continue home Keppra for seizure ppx given brain mets -Neuro checks q8h -Reporting forehead rash after radiation therapy, continue home kenalog, Calamine PRN -Nicotine gum Assessment & Plan (05/04/2025 11:01 PM CDT): IMPROVING - AHRF DDX: COPD exacerbation due to pneumonia vs. CRS - Respiratory failure likely from COPD exacerbation due to pneumonia. - If no improvement, suspect pulmonary embolism - Wells score moderate risk - At home is on 2.5 L by nasal cannula - In brief, desaturated and was requiring HFNC - Previous CXR already demonstrating possible developing PNA - Infectious workup and empiric abx started. - Cultures NGTD - MRSA negative. Plan: - Wean HFNC as tolerated to NC, goal 88% - F/u cultures -- NGTD - Empiric abx for pna: cefepime for 7 days total (05/06/25) and azithromycin (EOT today) - Heme/Onc consulted, appreciate assistance, suspected CRS and gave dex and tocilizumab - CTM for CRS - Per Heme/Onc: ok to discharge once at baseline oxygen requirement (2.5 L) - COPD exacerbation: Albuterol-ipratropium Q4H, Fluticasone QD, Incentive spirometry, Prednisone 40 mg QD (EOT 05/04/25, 5d) - Will ensure patient receives prescribed ynkymmmxhy-fjnqdluupvuxdu-tgpszvslzi (BREZTRI) prior to d/c -- couldn't refill, out of pocket cost very expensive - Pulm outpatient follow up -PT OT, appreciate assistance Assessment & Plan (05/03/2025 3:11 PM CDT): IMPROVING - AHRF DDX: COPD exacerbation due to pneumonia vs. CRS - Respiratory failure likely from COPD exacerbation due to pneumonia. - If no improvement, suspect pulmonary embolism - Wells score moderate risk - At home is on 2.5 L by nasal cannula - In brief, desaturated and was requiring HFNC - Previous CXR already demonstrating possible developing PNA - Infectious workup and empiric abx started. - Cultures NGTD - MRSA negative. Plan: - Wean HFNC as tolerated to NC, goal 88% - F/u cultures -- NGTD - Empiric abx for pna: cefepime for 7 days total (05/06/25) and azithromycin (EOT today) - Heme/Onc consulted, appreciate assistance, suspected CRS and gave dex and tocilizumab - CTM for CRS - Per Heme/Onc: ok to discharge once at baseline oxygen requirement (2.5 L) - COPD exacerbation: Albuterol-ipratropium Q4H, Fluticasone QD, Incentive spirometry, Prednisone 40 mg QD (EOT 05/04/25, 5d) - Will ensure patient receives prescribed zidjuqcnxz-kaltudmrlifphu-nhepniiknk (BREZTRI) prior to d/c - Pulm outpatient follow up -PT OT, appreciate assistance Assessment & Plan (05/02/2025 3:19 PM CDT): - At home is on 2-3 L by nasal cannula - Respiratory failure possibly from COPD exacerbation due to pneumonia. If no improvement, suspect pulmonary embolism - Wells score moderate risk See progress note from Dr. Rush on 04/29/25 for additional details. In brief, desaturated and was requiring HFNC. Previous CXR already demonstrating possible developing PNA. Infectious workup and empiric abx started. Onc suspected CRS and gave dex and tocilizumab. Cultures NGTD, weaning down modestly on HFNC. MRSA negative. Plan: - Wean HFNC as tolerated to NC, goal 88% - F/u cultures -- NGTD - Empiric abx for pna: cefepime for 7 days total (05/06/25) and azithromycin (EOT today) - CTM for CRS - COPD exacerbation: - Albuterol-ipratropium Q4H - Fluticasone QD - Incentive spirometry - Prednisone 40 mg QD (EOT 05/02/25) - Will ensure patient receives prescribed tlodccqrkk-xnxlaqbvjafvom-dcuwfdbtxy (BREZTRI) prior to d/c - Pulm outpatient follow up -PT OT, appreciate assistance Assessment & Plan (05/01/2025 11:08 AM CDT): - At home is on 2-3L DE See progress note from Dr. Rush on 04/29/25 for additional details. In brief, desaturated and was requiring HFNC. Previous CXR already demonstrating possible developing PNA. Infectious workup and empiric abx started. Onc suspected CRS and gave dex and tocilizumab. Cultures NGTD, weaning down modestly on HFNC. Plan: - Wean HFNC as tolerated to NC - F/u cultures - Empiric abx for pna: cefepime/azithromycin - CTM for CRS - COPD exacerbation: - Duonebs Q4H - Flonase QD - Incentive spirometry - Prednisone 40mg QD (EOT 05/02/25) - Will ensure patient receives prescribed Breztri prior to d/c - Pulm outpatient follow up Assessment & Plan (04/30/2025 11:18 AM CDT): - At home is on 2-3L DE See progress note from Dr. Rush on 04/29/25 for additional details. In brief, desaturated and was requiring HFNC. Previous CXR already demonstrating possible developing PNA. Infectious workup and empiric abx started. Onc suspected CRS and gave dex and tocilizumab. Will continue to follow repeat CXR and cultures. Plan: - F/u cultures - Empiric abx for pna: cefepime/azithromycin - CTM for CRS - COPD exacerbation: - Duonebs Q4H - Flonase QD - Incentive spirometry - Prednisone 40mg QD (EOT 05/02/25) Assessment & Plan (04/29/2025 8:47 AM CDT): - At home is on 2-3L NC See progress note from Dr. Rush on 04/29/25 for additional details. In brief, desaturated and was requiring HFNC. Previous CXR already demonstrating possible developing PNA. Infectious workup and empiric abx started. Onc suspected CRS and gave dex and tocilizumab. Will continue to follow repeat CXR and cultures. Plan: - F/u cultures, CXR - Empiric abx for pna: cefepime/azithromycin - CTM for CRS - COPD exacerbation: - Duonebs Q4H - Flonase QD - Incentive spirometry - Prednisone 40mg QD (EOT 05/02/25) PNA (pneumonia) 04/29/2025 Assessment & Plan (05/04/2025 11:01 PM CDT): IMPROVING - AHRF DDX: COPD exacerbation due to pneumonia vs. CRS - Respiratory failure likely from COPD exacerbation due to pneumonia. - If no improvement, suspect pulmonary embolism - Wells score moderate risk - At home is on 2.5 L by nasal cannula - In brief, desaturated and was requiring HFNC - Previous CXR already demonstrating possible developing PNA - Infectious workup and empiric abx started. - Cultures NGTD - MRSA negative. Plan: - Wean HFNC as tolerated to NC, goal 88% - F/u cultures -- NGTD - Empiric abx for pna: cefepime for 7 days total (05/06/25) and azithromycin (EOT today) - Heme/Onc consulted, appreciate assistance, suspected CRS and gave dex and tocilizumab - CTM for CRS - Per Heme/Onc: ok to discharge once at baseline oxygen requirement (2.5 L) - COPD exacerbation: Albuterol-ipratropium Q4H, Fluticasone QD, Incentive spirometry, Prednisone 40 mg QD (EOT 05/04/25, 5d) - Will ensure patient receives prescribed uxythglmyw-lpglntayglbeeq-adlzrbncld (BREZTRI) prior to d/c -- couldn't refill, out of pocket cost very expensive - Pulm outpatient follow up -PT OT, appreciate assistance Assessment & Plan (05/03/2025 3:11 PM CDT): IMPROVING - AHRF DDX: COPD exacerbation due to pneumonia vs. CRS - Respiratory failure likely from COPD exacerbation due to pneumonia. - If no improvement, suspect pulmonary embolism - Wells score moderate risk - At home is on 2.5 L by nasal cannula - In brief, desaturated and was requiring HFNC - Previous CXR already demonstrating possible developing PNA - Infectious workup and empiric abx started. - Cultures NGTD - MRSA negative. Plan: - Wean HFNC as tolerated to NC, goal 88% - F/u cultures -- NGTD - Empiric abx for pna: cefepime for 7 days total (05/06/25) and azithromycin (EOT today) - Heme/Onc consulted, appreciate assistance, suspected CRS and gave dex and tocilizumab - CTM for CRS - Per Heme/Onc: ok to discharge once at baseline oxygen requirement (2.5 L) - COPD exacerbation: Albuterol-ipratropium Q4H, Fluticasone QD, Incentive spirometry, Prednisone 40 mg QD (EOT 05/04/25, 5d) - Will ensure patient receives prescribed mflceodyqq-imqljqktmlyepx-deadbubhrh (BREZTRI) prior to d/c - Pulm outpatient follow up -PT OT, appreciate assistance Assessment & Plan (05/02/2025 3:19 PM CDT): - At home is on 2-3 L by nasal cannula - Respiratory failure possibly from COPD exacerbation due to pneumonia. If no improvement, suspect pulmonary embolism - Wells score moderate risk See progress note from Dr. Rush on 04/29/25 for additional details. In brief, desaturated and was requiring HFNC. Previous CXR already demonstrating possible developing PNA. Infectious workup and empiric abx started. Onc suspected CRS and gave dex and tocilizumab. Cultures NGTD, weaning down modestly on HFNC. MRSA negative. Plan: - Wean HFNC as tolerated to NC, goal 88% - F/u cultures -- NGTD - Empiric abx for pna: cefepime for 7 days total (05/06/25) and azithromycin (EOT today) - CTM for CRS - COPD exacerbation: - Albuterol-ipratropium Q4H - Fluticasone QD - Incentive spirometry - Prednisone 40 mg QD (EOT 05/02/25) - Will ensure patient receives prescribed rlixmlyqqc-twvwrixsysdpmq-uztopbsics (BREZTRI) prior to d/c - Pulm outpatient follow up -PT OT, appreciate assistance Assessment & Plan (05/01/2025 11:08 AM CDT): - At home is on 2-3L NC See progress note from Dr. Rush on 04/29/25 for additional details. In brief, desaturated and was requiring HFNC. Previous CXR already demonstrating possible developing PNA. Infectious workup and empiric abx started. Onc suspected CRS and gave dex and tocilizumab. Cultures NGTD, weaning down modestly on HFNC. Plan: - Wean HFNC as tolerated to NC - F/u cultures - Empiric abx for pna: cefepime/azithromycin - CTM for CRS - COPD exacerbation: - Duonebs Q4H - Flonase QD - Incentive spirometry - Prednisone 40mg QD (EOT 05/02/25) - Will ensure patient receives prescribed Breztri prior to d/c - Pulm outpatient follow up Assessment & Plan (04/30/2025 11:18 AM CDT): - At home is on 2-3L NC See progress note from Dr. Rush on 04/29/25 for additional details. In brief, desaturated and was requiring HFNC. Previous CXR already demonstrating possible developing PNA. Infectious workup and empiric abx started. Onc suspected CRS and gave dex and tocilizumab. Will continue to follow repeat CXR and cultures. Plan: - F/u cultures - Empiric abx for pna: cefepime/azithromycin - CTM for CRS - COPD exacerbation: - Duonebs Q4H - Flonase QD - Incentive spirometry - Prednisone 40mg QD (EOT 05/02/25) Assessment & Plan (04/29/2025 8:47 AM CDT): - At home is on 2-3L NC See progress note from Dr. Rush on 04/29/25 for additional details. In brief, desaturated and was requiring HFNC. Previous CXR already demonstrating possible developing PNA. Infectious workup and empiric abx started. Onc suspected CRS and gave dex and tocilizumab. Will continue to follow repeat CXR and cultures. 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 - Admitted for planned observation after initiation of tarlatamab chemotherapy in onc clinic. - Underwent port placement by interventional nephro 04/27. 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 - Admitted for planned observation after initiation of tarlatamab chemotherapy in onc clinic. - Underwent port placement by interventional nephro 04/27. 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 Admitted for planned observation after initiation of tarlatamab chemotherapy in onc clinic. Underwent port placement by interventional nephro 04/27. 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 Admitted for planned observation after initiation of tarlatamab chemotherapy in onc clinic. Underwent port placement by interventional nephro 04/27. 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 Admitted for planned observation after initiation of tarlatamab chemotherapy in onc clinic. Underwent port placement by interventional nephro 04/27. 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 Admitted for planned observation after initiation of tarlatamab chemotherapy in onc clinic. Underwent port placement by interventional nephro 04/27. 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 Admitted for planned observation after initiation of tarlatamab chemotherapy in onc clinic. Underwent port placement by interventional nephro 04/27. 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 Admitted for planned observation after initiation of tarlatamab chemotherapy in onc clinic. Underwent port placement by interventional nephro 04/27. - Resume home Morphine CR & Oxycodone regimen - Resume home Keppra - Antiemetics PRN - Q8H neuro checks per Onc - Onc recs - Possible discharge tomorrow if stable Moderate protein malnutrition 04/21/2025 Assessment & Plan (04/22/2025 2:41 PM CDT): Nutrition c/s COPD without exacerbation 04/20/2025 Assessment & Plan (05/08/2025 1:56 PM CDT): -Patient is on 2L O2 PRN at home, does not wear consistently - Home inhaler/neb regimen: Albuterol PRN, Breztri BID, Duoneb PRN - During recent admission, patient developed COPD exacerbation due to RLL PNA, treated with cefe, azithro, and prednisone -Today he is resting comfortably on room air and feels that he is at his respiratory baseline Plan: Continue home oxygen at 2 Liters Continue home inhalers and nebs Assessment & Plan (05/07/2025 11:21 AM CDT): -Patient is on 2L O2 PRN at home, does not wear consistently - Home inhaler/neb regimen: Albuterol PRN, Breztri BID, Duoneb PRN - During recent admission, patient developed COPD exacerbation due to RLL PNA, treated with cefe, azithro, and prednisone -Today he is resting comfortably on room air and feels that he is at his respiratory baseline Plan: -Continue home inhalers (Ordered breztri as symbicort) -Duoneb PRN Assessment & Plan (2025 2:26 PM CDT): {HCCREFRESHBPA (Optional):04645} -Patient is on 2L O2 PRN at home, does not wear consistently - Home inhaler/neb regimen: Albuterol PRN, Breztri BID, Duoneb PRN - During recent admission, patient developed COPD exacerbation due to RLL PNA, treated with cefe, azithro, and prednisone -Today he is resting comfortably on room air and feels that he is at his respiratory baseline Plan: -Continue home inhalers (Ordered breztri as symbicort) -Duoneb PRN -Obtain CXR? {HCCREFRESHBPA (Optional):36103} Assessment & Plan (05/04/2025 11:01 PM CDT): IMPROVING - AHRF DDX: COPD exacerbation due to pneumonia vs. CRS - Respiratory failure likely from COPD exacerbation due to pneumonia. - If no improvement, suspect pulmonary embolism - Wells score moderate risk - At home is on 2.5 L by nasal cannula - In brief, desaturated and was requiring HFNC - Previous CXR already demonstrating possible developing PNA - Infectious workup and empiric abx started. - Cultures NGTD - MRSA negative. Plan: - Wean HFNC as tolerated to NC, goal 88% - F/u cultures -- NGTD - Empiric abx for pna: cefepime for 7 days total (05/06/25) and azithromycin (EOT today) - Heme/Onc consulted, appreciate assistance, suspected CRS and gave dex and tocilizumab - CTM for CRS - Per Heme/Onc: ok to discharge once at baseline oxygen requirement (2.5 L) - COPD exacerbation: Albuterol-ipratropium Q4H, Fluticasone QD, Incentive spirometry, Prednisone 40 mg QD (EOT 05/04/25, 5d) - Will ensure patient receives prescribed eqshgyyytb-mgeaaqkfcjnedz-csbbbittjm (BREZTRI) prior to d/c -- couldn't refill, out of pocket cost very expensive - Pulm outpatient follow up -PT OT, appreciate assistance Assessment & Plan (05/03/2025 3:11 PM CDT): IMPROVING - AHRF DDX: COPD exacerbation due to pneumonia vs. CRS - Respiratory failure likely from COPD exacerbation due to pneumonia. - If no improvement, suspect pulmonary embolism - Wells score moderate risk - At home is on 2.5 L by nasal cannula - In brief, desaturated and was requiring HFNC - Previous CXR already demonstrating possible developing PNA - Infectious workup and empiric abx started. - Cultures NGTD - MRSA negative. Plan: - Wean HFNC as tolerated to NC, goal 88% - F/u cultures -- NGTD - Empiric abx for pna: cefepime for 7 days total (05/06/25) and azithromycin (EOT today) - Heme/Onc consulted, appreciate assistance, suspected CRS and gave dex and tocilizumab - CTM for CRS - Per Heme/Onc: ok to discharge once at baseline oxygen requirement (2.5 L) - COPD exacerbation: Albuterol-ipratropium Q4H, Fluticasone QD, Incentive spirometry, Prednisone 40 mg QD (EOT 05/04/25, 5d) - Will ensure patient receives prescribed xogbmxebdp-yyyjzgwfhmtxtf-kenzdihodv (BREZTRI) prior to d/c - Pulm outpatient follow up -PT OT, appreciate assistance Assessment & Plan (05/02/2025 3:19 PM CDT): - At home is on 2-3 L by nasal cannula - Respiratory failure possibly from COPD exacerbation due to pneumonia. If no improvement, suspect pulmonary embolism - Wells score moderate risk See progress note from Dr. Rush on 04/29/25 for additional details. In brief, desaturated and was requiring HFNC. Previous CXR already demonstrating possible developing PNA. Infectious workup and empiric abx started. Onc suspected CRS and gave dex and tocilizumab. Cultures NGTD, weaning down modestly on HFNC. MRSA negative. Plan: - Wean HFNC as tolerated to NC, goal 88% - F/u cultures -- NGTD - Empiric abx for pna: cefepime for 7 days total (05/06/25) and azithromycin (EOT today) - CTM for CRS - COPD exacerbation: - Albuterol-ipratropium Q4H - Fluticasone QD - Incentive spirometry - Prednisone 40 mg QD (EOT 05/02/25) - Will ensure patient receives prescribed ytlbmfhrsk-vlfxvugogpgvse-ohyghxkelj (BREZTRI) prior to d/c - Pulm outpatient follow up -PT OT, appreciate assistance Assessment & Plan (05/01/2025 11:08 AM CDT): - At home is on 2-3L NC See progress note from Dr. Rush on 04/29/25 for additional details. In brief, desaturated and was requiring HFNC. Previous CXR already demonstrating possible developing PNA. Infectious workup and empiric abx started. Onc suspected CRS and gave dex and tocilizumab. Cultures NGTD, weaning down modestly on HFNC. Plan: - Wean HFNC as tolerated to NC - F/u cultures - Empiric abx for pna: cefepime/azithromycin - CTM for CRS - COPD exacerbation: - Duonebs Q4H - Flonase QD - Incentive spirometry - Prednisone 40mg QD (EOT 05/02/25) - Will ensure patient receives prescribed Breztri prior to d/c - Pulm outpatient follow up Assessment & Plan (04/30/2025 11:18 AM CDT): - At home is on 2-3L NC See progress note from Dr. Rush on 04/29/25 for additional details. In brief, desaturated and was requiring HFNC. Previous CXR already demonstrating possible developing PNA. Infectious workup and empiric abx started. Onc suspected CRS and gave dex and tocilizumab. Will continue to follow repeat CXR and cultures. Plan: - F/u cultures - Empiric abx for pna: cefepime/azithromycin - CTM for CRS - COPD exacerbation: - Duonebs Q4H - Flonase QD - Incentive spirometry - Prednisone 40mg QD (EOT 05/02/25) Assessment & Plan (04/29/2025 8:47 AM CDT): - At home is on 2-3L NC See progress note from Dr. Rush on 04/29/25 for additional details. In brief, desaturated and was requiring HFNC. Previous CXR already demonstrating possible developing PNA. Infectious workup and empiric abx started. Onc suspected CRS and gave dex and tocilizumab. Will continue to follow repeat CXR and cultures. Plan: - F/u cultures, CXR - Empiric abx for pna: cefepime/azithromycin - CTM for CRS - COPD exacerbation: - Duonebs Q4H - Flonase QD - Incentive spirometry - Prednisone 40mg QD (EOT 05/02/25) Assessment & Plan (04/28/2025 9:45 AM CDT): Stable. Uses 2L at home, now on 4L NC after starting tarlatamab. Will have 6min walk test performed with PT/OT. Plan: - Duonebs PRN while inpatient - 6min walk with PT/OT Assessment & Plan (04/27/2025 3:53 PM CDT): Stable. Uses 2L at home. - Duonebs PRN while inpatient - Resume home regimen at discharge Assessment & Plan (04/22/2025 2:41 PM CDT): Continue duonebs, azithromycin 500 x3 days eot 04/21 prednisone 40 mg for total 5 days eot 04/23 Resume dexamethasone after completion of Prednisone Pt completed inpatient radiation sessions with Rad Onc Continue home pain regimen: morphine 15 mg q8H and oxycodone 10 mg q6H prn Continue keppra Wean off supp oxygen as tolerated, on PRN supp oxygen at home Assessment & Plan (04/21/2025 10:19 AM CDT): Continue duonebs, azithromycin 500 x3 days eot 04/21 prednisone 40 mg for total 5 days eot 04/23 Resume dexamethasone after completion of Prednisone I called Rad Onc for inpatient radiation Continue home pain regimen: morphine 15 mg q8H and oxycodone 10 mg q6H prn Continue keppra Wean off supp oxygen as tolerated, on PRN supp oxygen at home, will need walk oxygen test prior to d/c Assessment & Plan (04/21/2025 2:39 PM CDT): ABG with improvement, off BIPAP currently Continue duonebs, azithromycin 500 x3 days, prednisone 40 mg for total 5 days Resume dexamethasone after completion of Prednisone Wean off supp oxygen as tolerated, on PRN supp oxygen at home, will need walk oxygen test prior to d/c Assessment & Plan (04/20/2025 2:30 AM CDT): Gas improved after BiPAP and tx with nebs and steroid Continue NIPPV during sleep/naps Continue duonebs, azithromycin 500 x3 days, prednisone 40 mg x4 more days Resume dexamethasone after Call rad onc in AM to see if they wish to continue radiation therapy while inpatient Continue home pain regimen: morphine 15 mg q8H and oxycodone 10 mg q6H prn Continue keppra Dyspnea, unspecified type 04/19/2025 Assessment & Plan (04/22/2025 2:41 PM CDT): Continue duonebs, azithromycin 500 x3 days eot 04/21 prednisone 40 mg for total 5 days eot 04/23 Resume dexamethasone after completion of Prednisone Pt completed inpatient radiation sessions with Rad Onc Continue home pain regimen: morphine 15 mg q8H and oxycodone 10 mg q6H prn Continue keppra Wean off supp oxygen as tolerated, on PRN supp oxygen at home Assessment & Plan (04/21/2025 10:19 AM CDT): Continue duonebs, azithromycin 500 x3 days eot 04/21 prednisone 40 mg for total 5 days eot 04/23 Resume dexamethasone after completion of Prednisone I called Rad Onc for inpatient radiation Continue home pain regimen: morphine 15 mg q8H and oxycodone 10 mg q6H prn Continue keppra Wean off supp oxygen as tolerated, on PRN supp oxygen at home, will need walk oxygen test prior to d/c Assessment & Plan (04/21/2025 2:39 PM CDT): ABG with improvement, off BIPAP currently Continue duonebs, azithromycin 500 x3 days, prednisone 40 mg for total 5 days Resume dexamethasone after completion of Prednisone Wean off supp oxygen as tolerated, on PRN supp oxygen at home, will need walk oxygen test prior to d/c Assessment & Plan (04/20/2025 2:30 AM CDT): Gas improved after BiPAP and tx with nebs and steroid Continue NIPPV during sleep/naps Continue duonebs, azithromycin 500 x3 days, prednisone 40 mg x4 more days Resume dexamethasone after Call rad onc in AM to see if they wish to continue radiation therapy while inpatient Continue home pain regimen: morphine 15 mg q8H and oxycodone 10 mg q6H prn Continue keppra SOB (shortness of breath) 04/19/2025 Dyspnea and respiratory abnormalities 04/19/2025 Acute on chronic respiratory failure with hypoxi a 04/19/2025 Assessment & Plan (05/04/2025 11:01 PM CDT): IMPROVING - AHRF DDX: COPD exacerbation due to pneumonia vs. CRS - Respiratory failure likely from COPD exacerbation due to pneumonia. - If no improvement, suspect pulmonary embolism - Wells score moderate risk - At home is on 2.5 L by nasal cannula - In brief, desaturated and was requiring HFNC - Previous CXR already demonstrating possible developing PNA - Infectious workup and empiric abx started. - Cultures NGTD - MRSA negative. Plan: - Wean HFNC as tolerated to NC, goal 88% - F/u cultures -- NGTD - Empiric abx for pna: cefepime for 7 days total (05/06/25) and azithromycin (EOT today) - Heme/Onc consulted, appreciate assistance, suspected CRS and gave dex and tocilizumab - CTM for CRS - Per Heme/Onc: ok to discharge once at baseline oxygen requirement (2.5 L) - COPD exacerbation: Albuterol-ipratropium Q4H, Fluticasone QD, Incentive spirometry, Prednisone 40 mg QD (EOT 05/04/25, 5d) - Will ensure patient receives prescribed xtauvrjirb-xrdbqkistiwelj-xwmeezaaqq (BREZTRI) prior to d/c -- couldn't refill, out of pocket cost very expensive - Pulm outpatient follow up -PT OT, appreciate assistance Assessment & Plan (05/03/2025 3:11 PM CDT): IMPROVING - AHRF DDX: COPD exacerbation due to pneumonia vs. CRS - Respiratory failure likely from COPD exacerbation due to pneumonia. - If no improvement, suspect pulmonary embolism - Wells score moderate risk - At home is on 2.5 L by nasal cannula - In brief, desaturated and was requiring HFNC - Previous CXR already demonstrating possible developing PNA - Infectious workup and empiric abx started. - Cultures NGTD - MRSA negative. Plan: - Wean HFNC as tolerated to NC, goal 88% - F/u cultures -- NGTD - Empiric abx for pna: cefepime for 7 days total (05/06/25) and azithromycin (EOT today) - Heme/Onc consulted, appreciate assistance, suspected CRS and gave dex and tocilizumab - CTM for CRS - Per Heme/Onc: ok to discharge once at baseline oxygen requirement (2.5 L) - COPD exacerbation: Albuterol-ipratropium Q4H, Fluticasone QD, Incentive spirometry, Prednisone 40 mg QD (EOT 05/04/25, 5d) - Will ensure patient receives prescribed zcujdvshhw-mpnsuxwlxupwpo-akqvjssprf (BREZTRI) prior to d/c - Pulm outpatient follow up -PT OT, appreciate assistance Assessment & Plan (05/02/2025 3:19 PM CDT): - At home is on 2-3 L by nasal cannula - Respiratory failure possibly from COPD exacerbation due to pneumonia. If no improvement, suspect pulmonary embolism - Wells score moderate risk See progress note from Dr. Rush on 04/29/25 for additional details. In brief, desaturated and was requiring HFNC. Previous CXR already demonstrating possible developing PNA. Infectious workup and empiric abx started. Onc suspected CRS and gave dex and tocilizumab. Cultures NGTD, weaning down modestly on HFNC. MRSA negative. Plan: - Wean HFNC as tolerated to NC, goal 88% - F/u cultures -- NGTD - Empiric abx for pna: cefepime for 7 days total (05/06/25) and azithromycin (EOT today) - CTM for CRS - COPD exacerbation: - Albuterol-ipratropium Q4H - Fluticasone QD - Incentive spirometry - Prednisone 40 mg QD (EOT 05/02/25) - Will ensure patient receives prescribed vpevavorbl-uitdgskqlbguyp-zlzaadvvpn (BREZTRI) prior to d/c - Pulm outpatient follow up -PT OT, appreciate assistance Assessment & Plan (04/22/2025 2:41 PM CDT): Continue duonebs, azithromycin 500 x3 days eot 04/21 prednisone 40 mg for total 5 days eot 04/23 Resume dexamethasone after completion of Prednisone Pt completed inpatient radiation sessions with Rad Onc Continue home pain regimen: morphine 15 mg q8H and oxycodone 10 mg q6H prn Continue keppra Wean off supp oxygen as tolerated, on PRN supp oxygen at home Assessment & Plan (04/21/2025 10:19 AM CDT): Continue duonebs, azithromycin 500 x3 days eot 04/21 prednisone 40 mg for total 5 days eot 04/23 Resume dexamethasone after completion of Prednisone I called Rad Onc for inpatient radiation Continue home pain regimen: morphine 15 mg q8H and oxycodone 10 mg q6H prn Continue keppra Wean off supp oxygen as tolerated, on PRN supp oxygen at home, will need walk oxygen test prior to d/c Assessment & Plan (04/21/2025 2:39 PM CDT): ABG with improvement, off BIPAP currently Continue duonebs, azithromycin 500 x3 days, prednisone 40 mg for total 5 days Resume dexamethasone after completion of Prednisone Wean off supp oxygen as tolerated, on PRN supp oxygen at home, will need walk oxygen test prior to d/c Assessment & Plan (04/20/2025 2:30 AM CDT): Gas improved after BiPAP and tx with nebs and steroid Continue NIPPV during sleep/naps Continue duonebs, azithromycin 500 x3 days, prednisone 40 mg x4 more days Resume dexamethasone after Call rad onc in AM to see if they wish to continue radiation therapy while inpatient Continue home pain regimen: morphine 15 mg q8H and oxycodone 10 mg q6H prn Continue keppra Seasonal allergic rhinitis 02/23/2025 Nicotine dependence with withdrawal 02/23/2025 Hypoxia 09/30/2024 Assessment & Plan (04/22/2025 2:41 PM CDT): Continue duonebs, azithromycin 500 x3 days eot 04/21 prednisone 40 mg for total 5 days eot 04/23 Resume dexamethasone after completion of Prednisone Pt completed inpatient radiation sessions with Rad Onc Continue home pain regimen: morphine 15 mg q8H and oxycodone 10 mg q6H prn Continue keppra Wean off supp oxygen as tolerated, on PRN supp oxygen at home Assessment & Plan (04/21/2025 10:19 AM CDT): Continue duonebs, azithromycin 500 x3 days eot 04/21 prednisone 40 mg for total 5 days eot 04/23 Resume dexamethasone after completion of Prednisone I called Rad Onc for inpatient radiation Continue home pain regimen: morphine 15 mg q8H and oxycodone 10 mg q6H prn Continue keppra Wean off supp oxygen as tolerated, on PRN supp oxygen at home, will need walk oxygen test prior to d/c Assessment & Plan (04/21/2025 2:39 PM CDT): ABG with improvement, off BIPAP currently Continue duonebs, azithromycin 500 x3 days, prednisone 40 mg for total 5 days Resume dexamethasone after completion of Prednisone Wean off supp oxygen as tolerated, on PRN supp oxygen at home, will need walk oxygen test prior to d/c Assessment & Plan (04/20/2025 2:30 AM CDT): Gas improved after BiPAP and tx with nebs and steroid Continue NIPPV during sleep/naps Continue duonebs, azithromycin 500 x3 days, prednisone 40 mg x4 more days Resume dexamethasone after Call rad onc in AM to see if they wish to continue radiation therapy while inpatient Continue home pain regimen: morphine 15 mg q8H and oxycodone 10 mg q6H prn Continue keppra Malignant neoplasm of lung, unspecified laterality, unspecified part of lung 09/30/2024 Assessment & Plan (04/22/2025 2:41 PM CDT): Resume dexamethasone after completion of Prednisone Rad Onc will continue to follow outpatient Has right iliac and left proximal femur mets with significant pain, Continue home pain regimen: morphine 15 mg q8H and oxycodone 10 mg q6H prn Continue keppra 500 mg BID for seizure ppx Pantoprazole 40 mg daily for GI ppx Assessment & Plan (04/21/2025 10:19 AM CDT): Resume dexamethasone after completion of Prednisone Discussed with Rad Onc, resume treatment while inpatient (does not need to remain inpatient to complete therapy. Once medically optimized, can resume outpatient) Has right iliac and left proximal femur mets with significant pain, Continue home pain regimen: morphine 15 mg q8H and oxycodone 10 mg q6H prn Continue keppra 500 mg BID for seizure ppx Added Pantoprazole 40 mg daily for GI ppx Assessment & Plan (04/20/2025 1:48 PM CDT): Resume dexamethasone after completion of Prednisone Discussed with Rad Onc, resume treatment while inpatient (does not need to remain inpatient to complete therapy. Once medically optimized, can resume outpatient) Has right iliac and left proximal femur mets with significant pain, Continue home pain regimen: morphine 15 mg q8H and oxycodone 10 mg q6H prn Continue keppra 500 mg BID for seizure ppx Added Pantoprazole 40 mg daily for GI ppx Assessment & Plan (04/20/2025 2:30 AM CDT): Gas improved after BiPAP and tx with nebs and steroid Continue NIPPV during sleep/naps Continue duonebs, azithromycin 500 x3 days, prednisone 40 mg x4 more days Resume dexamethasone after Call rad onc in AM to see if they wish to continue radiation therapy while inpatient Continue home pain regimen: morphine 15 mg q8H and oxycodone 10 mg q6H prn Continue keppra Malignant neoplasm metastatic to brain Assessment & Plan (04/22/2025 2:41 PM CDT): Resume dexamethasone after completion of Prednisone Rad Onc will continue to follow outpatient Has right iliac and left proximal femur mets with significant pain, Continue home pain regimen: morphine 15 mg q8H and oxycodone 10 mg q6H prn Continue keppra 500 mg BID for seizure ppx Pantoprazole 40 mg daily for GI ppx Assessment & Plan (04/21/2025 10:19 AM CDT): Resume dexamethasone after completion of Prednisone Discussed with Rad Onc, resume treatment while inpatient (does not need to remain inpatient to complete therapy. Once medically optimized, can resume outpatient) Has right iliac and left proximal femur mets with significant pain, Continue home pain regimen: morphine 15 mg q8H and oxycodone 10 mg q6H prn Continue keppra 500 mg BID for seizure ppx Added Pantoprazole 40 mg daily for GI ppx Assessment & Plan (04/20/2025 1:48 PM CDT): Resume dexamethasone after completion of Prednisone Discussed with Rad Onc, resume treatment while inpatient (does not need to remain inpatient to complete therapy. Once medically optimized, can resume outpatient) Has right iliac and left proximal femur mets with significant pain, Continue home pain regimen: morphine 15 mg q8H and oxycodone 10 mg q6H prn Continue keppra 500 mg BID for seizure ppx Added Pantoprazole 40 mg daily for GI ppx Assessment & Plan (04/20/2025 2:30 AM CDT): Gas improved after BiPAP and tx with nebs and steroid Continue NIPPV during sleep/naps Continue duonebs, azithromycin 500 x3 days, prednisone 40 mg x4 more days Resume dexamethasone after Call rad onc in AM to see if they wish to continue radiation therapy while inpatient Continue home pain regimen: morphine 15 mg q8H and oxycodone 10 mg q6H prn Continue keppra Acute nonintractable headache, unspecified heada raz type 09/30/2024 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 08/27/2024 Complete tear of right rotator cuff 12/04/2018 Current Treatment and Therapy Plans SMALL CELL LUNG MET EXTENSIVE STAGE (TARLATAMAB) Q14 DAYS* Plan Start Date: 04/07/2025 Plan Provider:Manuel Osorio MD Linked Problems Small cell carcinoma of hilu m of lung, unspecified laterality (HCC) Treatment Medications Current Day (Day 1 5, Cycle 2 - Planned for 06/10/2025) Next Day (Day 1, Cycle 3 - Planned for 06/24/2025) tarlatamab (Imdelltra) 10 mg IV infusiontarlatamab (Imdelltra) infusion tarlatamab-dlle (Imdelltra) 10 mg, IV soln stabilizer 13 mL in NaCl IV 0.9 % 250.2 mL IVPB tarlatamab-dlle (Imdelltra) 10 mg, IV soln stabilizer 13 mL in NaCl IV 0.9 % 250.2 mL IVPB Past Treatment and Therapy Plans ONCOLOGY TREATMENT Plan Name Start Date Discontinue Date Treatment Medications Discontinue Reason Plan Provider Cycles SMALL CELL LUNG MET EXTENSIVE STAGE (ATEZOLIZUMAB CARBOPLATIN ETOPOSIDE) Q21 DAYS --> MAINTENANCE (ATEZOLIZUMAB ) Q21 DAYS 024 04/08/2025 atezolizumab (Tecentriq) infusionCARBOplatin (Paraplatin) Infusion (AUC Dosing)etoposide (Vepesid)etoposide (Vepesid) 1000 mL infusion Progression Manuel Osorio MD 10 of 18 cycles started Radiation Treatments * Course C1_Brain 04/11/2025 - 04/25/2025 Treatment Period Energy Fraction Dose Fractions Total Dose Plans Planned #[id number] 04/11/2025 - 04/25/2025 0 3,000 cGy Reference Points Delivered Brain 04/11/2025 - 04/25/2025 3,000 cGy Lifetime Dose Tracking * Chemical Lifetime Dose Automatic Entry Manual Entr y CTDI(vol) 644 mGy 644 mGy 0 mGy Dose Length Product 1,215.9 mGy-cm 1,215.9 mGy-cm 0 mG y-cm Carboplatin 2,999 mg 2,999 mg 0 mg Resolved Problems Problem Noted Date Diagnosed Date Resolved Date Rash 02/23/2025 03/23/2025
--- OUTSIDE RECORDS SUMMARY | 2025-05-30 10:39 | XMS_ITS | Encounter Summary ---
Author Organization [facility] Address [address] [place] [address] Care Team Providers Care Supervisor Pyrotechnic Loading Name Role Phone Shraddha Barrow MD Primary Care Provider + [phone] Manuel Osorio MD Unavailable Reason for Visit * Reason Onset Date Comments MEDICATION REFILL 02/11/2025 Encounter Details Date Type Department Care Team (Late st Contact Info) Description 02/11/2025 Refill [facility] - Hematology/Oncology [address] [place] [address] Manuel Osorio MD [address] [place] [address] MEDICATION REFILL Social History Tobacco [...] Recorded Patient Health Questionnaire-2 Score 0 08/27/2024 [facility] of Occupat ional [facility] - Occupational Stress Questionnaire Answer Date [...] any time in the past 12 m [facility], were you homeless or living in a detention (including now)? No 09/30/2024 Sex and Gender Information Value Date Recorded Sex Assigned at Male 08/19/2024 9:03 PM CORPSMAN Legal Sex Male 5:09 AM CORPSMAN Gender Identity Male 08/19/2024 9:03 PM CORPSMAN Sexual Orientation Straight 08/19/2024 9: 03 PM CORPSMAN documented as of this encounter Functional Status [...] Info) Description 06/10/2025 8:00 AM CDT Appointment [facility] [address] [place] [address] [place] [address] [place] [phone] 06/10/2025 8:40 AM CDT Office Visit [facility] - Hematology/Oncology [address] [place] [phone] [place] [address] [place] [phone] 06/30/2025 2:30 PM CDT Office Visit [facility] - Pulmonology [address] [place] [phone] [place] [address] [place] [phone] 07/27/2025 9:30 AM CORPSMAN Appointment [facility] MRI [facility] [place] [phone] Lauren Skinner MD [address] [place] [phone] 08/24/2025 3:30 PM CORPSMAN Office Visit [facility] - Internal Med [address] [place] [address] [place] [address] Nirav Wang MD [address] [place] [address] documented as of this encounter Visit Diagnoses Diagnosis 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
--- OUTSIDE RECORDS SUMMARY | 2025-05-30 10:39 | XMS_ITS | Encounter Summary ---
Author Organization [facility] Address [address] [place] [address] Care Team Providers Care Pumping Station Supervisor Name Role Phone Shraddha Barrow MD Primary Care Provider + [phone] Manuel Osorio MD Unavailable Reason for Visit * Reason Onset Date Comments MEDICATION REFILL 09/17/2024 Encounter Details Date Type Department Care Team (Late st Contact Info) Description 09/17/2024 Refill [facility] [address] [place] [address] Manuel Osorio MD [address] [place] [address] MEDICATION REFILL Social History Tobacco [...] Sex Assigned at Male 08/19/2024 9:03 PM REDUCTION FURNACE OPERATOR Legal Sex Male 5:09 AM REDUCTION FURNACE OPERATOR Gender Identity Male 08/19/2024 9:03 PM REDUCTION FURNACE OPERATOR Sexual Orientation Straight 08/19/2024 9: 03 PM REDUCTION FURNACE OPERATOR documented as of this encounter Functional Status * Is person deaf or have serious hearing difficulty? Answer Date of Assessment Author No 08/16/2024 7:25 PM REDUCTION FURNACE OPERATOR Ondina Branch RN * Is person blind or have serious difficulty seeing? Answer Date of Assessment Author No 08/16/2024 7:25 PM Ondina Samuel RN * Does person have serious difficulty walking/climbing stairs? Answer Date of Assessment Author No 08/16/2024 7:25 PM REDUCTION FURNACE OPERATOR Ondina Branch RN * Does person have [...] Info) Description 06/10/2025 8:00 AM CDT Appointment [facility] [address] [place] [address] Shraddha Barrow MD [address] [place] [address] 06/10/2025 8:40 AM CDT Office Visit [facility] - Hematology/Oncology [address] [place] [address] Manuel Osorio MD [address] [place] [phone] 06/30/2025 2:30 PM CDT Office Visit [facility] - Pulmonology [address] [facility], [place] [phone] Diana Swain MD [address] [place] [address] 07/27/2025 9:30 AM REDUCTION FURNACE OPERATOR Appointment [facility] MRI [address] [place] [address] Lauren Skinner MD [address] [place] [phone] 08/24/2025 3:30 PM REDUCTION FURNACE OPERATOR Office Visit [facility] - Internal Med [address] [facility], [place] [phone] Nirav Wang MD [address] [place] [address] documented as of this encounter Visit Diagnoses Diagnosis 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
--- OUTSIDE RECORDS SUMMARY | 2025-05-30 10:39 | XMS_ITS | Encounter Summary ---
Author Organization [facility] Address [address] [facility] [place] [address] Care Team Providers Care Administrative Dietitian Name Role Phone Shraddha Barrow MD Primary Care Provider + [phone] Manuel Osorio MD Unavailable Reason for Visit * Reason Onset Date Comments MEDICATION REFILL 02/02/2025 Encounter Details Date Type Department Care Team (Late st Contact Info) Description 02/02/2025 Refill [facility] - Hematology/Oncology [address] [place] [address] Sandrita Ybarra MD [address] [place] [address] MEDICATION REFILL Social History Tobacco [...] Recorded Patient Health Questionnaire-2 Score 0 08/27/2024 [facility] of Occupat ional Health - Occupational Stress [...] Sex Assigned at Male 08/19/2024 9:03 PM CRANBERRY BOG SUPERVISOR Legal Sex Male 5:09 AM CRANBERRY BOG SUPERVISOR Gender Identity Male 08/19/2024 9:03 PM CRANBERRY BOG SUPERVISOR Sexual Orientation Straight 08/19/2024 9: 03 PM CRANBERRY BOG SUPERVISOR documented as of this encounter Functional Status [...] Info) Description 06/10/2025 8:00 AM CDT Appointment [facility] [address] [place] [address] Shraddha Barrow MD [address] [place] [phone] 06/10/2025 8:40 AM CDT Office Visit [facility] - Hematology/Oncology [facility] [place] [address] [place] [address] [place] [phone] 06/30/2025 2:30 PM CDT Office Visit [facility] - Pulmonology [address] [facility] [place] [phone] Diana Swain MD [address] [place] [phone] 07/27/2025 9:30 AM CRANBERRY BOG SUPERVISOR Appointment [facility] MRI [address] [place] [phone] Lauren Skinner MD [address] [place] [phone] 08/24/2025 3:30 PM CRANBERRY BOG SUPERVISOR Office Visit [facility] - Internal Med [address] [facility] [place] [address] Nirav Wang MD [address] [place] [address] documented as of this encounter Visit Diagnoses Diagnosis 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
--- OUTSIDE RECORDS SUMMARY | 2025-05-30 10:39 | XMS_ITS | Encounter Summary ---
Author Organization [facility] Address [address] [place] [address] Care Team Providers Care Network Manager Name Role Phone Shraddha Barrow MD Primary Care Provider + [phone] Manuel Osorio MD Unavailable Reason for Visit * Reason Onset Date Comments MEDICATION REFILL 12/13/2024 Encounter Details Date Type Department Care Team (Late st Contact Info) Description 12/13/2024 Refill [facility] - Hematology/Oncology [address] [place] [address] Manuel Osorio MD [address] [place] [address] MEDICATION REFILL Social History Tobacco [...] Recorded Patient Health Questionnaire-2 Score 0 08/27/2024 [facility] of Occupat ional [facility] - [...] any time in the past 12 m [facility], were you homeless or living in a jail (including now)? No 09/30/2024 Sex and Gender Information Value Date Recorded Sex Assigned at Male 08/19/2024 9:03 PM THEOLOGY TEACHER Legal Sex Male 5:09 AM THEOLOGY TEACHER Gender Identity Male 08/19/2024 9:03 PM THEOLOGY TEACHER Sexual Orientation Straight 08/19/2024 9: 03 PM THEOLOGY TEACHER documented as of this encounter Functional Status [...] Info) Description 06/10/2025 8:00 AM CDT Appointment [facility] [address] [place] [address] [place] [address] [place] [phone] 06/10/2025 8:40 AM CDT Office Visit [facility] - Hematology/Oncology [address] [place] [phone] [place] [address] [place] [phone] 06/30/2025 2:30 PM CDT Office Visit [facility] - Pulmonology [address] [place] [phone] [place] [address] [place] [phone] 07/27/2025 9:30 AM THEOLOGY TEACHER Appointment [facility] [place] [phone] Lauren Skinner MD [address] [place] [phone] 08/24/2025 3:30 PM THEOLOGY TEACHER Office Visit [facility] - Internal Med [address] [place] [address] [place] [address] Nirav Wang MD [address] [place] [address] documented as of this encounter Visit Diagnoses Diagnosis 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
--- OUTSIDE RECORDS SUMMARY | 2025-05-30 10:39 | XMS_ITS | Encounter Summary ---
Author Organization [facility] Address [address] [place] [address] Care Team Providers Care Doughnut Icer Machine Name Role Phone Shraddha Barrow MD Primary Care Provider + [phone] Manuel Osorio MD Unavailable Reason for Visit * Reason Onset Date Comments MEDICATION REFILL 02/20/2025 Encounter Details Date Type Department Care Team (Late st Contact Info) Description 02/20/2025 Refill [facility] - Hematology/Oncology [address] [place] [address] Manuel Osorio MD [address] [place] [address] MEDICATION REFILL Social History Tobacco [...] Recorded Patient Health Questionnaire-2 Score 0 02/16/2025 [facility] of Occupat ional [facility] - Occupational Stress Questionnaire Answer [...] any time in the past 12 m [facility], were you homeless or living in a group home (including now)? No 09/30/2024 Sex and Gender Information Value Date Recorded Sex Assigned at Male 08/19/2024 9:03 PM DEPUTY SHERIFF GENERALIST/BAILIFF Legal Sex Male 5:09 AM DEPUTY SHERIFF GENERALIST/BAILIFF Gender Identity Male 08/19/2024 9:03 PM DEPUTY SHERIFF GENERALIST/BAILIFF Sexual Orientation Straight 08/19/2024 9: 03 PM DEPUTY SHERIFF GENERALIST/BAILIFF documented as of this encounter Functional Status [...] 8:00 AM CDT Appointment [facility] [address] [place] [address] [place] [address] [place] [phone] 06/10/2025 8:40 AM CDT Office Visit [facility] - Hematology/Oncology [address] [place] [phone] [place] [address] [place] [phone] 06/30/2025 2:30 PM CDT Office Visit [facility] - Pulmonology [address] [place] [phone] [place] [address] [place] [phone] 07/27/2025 9:30 AM DEPUTY SHERIFF GENERALIST/BAILIFF Appointment [facility] MRI [facility] [place] [phone] Lauren Skinner MD [address] [place] [phone] 08/24/2025 3:30 PM DEPUTY SHERIFF GENERALIST/BAILIFF Office Visit [facility] - Internal Med [address] [place] [address] [place] [address] Nirav Wang MD [address] [place] [address] documented as of this encounter Visit Diagnoses Diagnosis 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
--- OUTSIDE RECORDS SUMMARY | 2025-05-30 10:39 | XMS_ITS | Encounter Summary ---
Author Organization [facility] Address [address] [place] [address] Care Team Providers Care Home Based Assistant Name Role Phone Shraddha Barrow MD Primary Care Provider + [phone] Manuel Osorio MD Unavailable Reason for Visit * Reason Onset Date Comments MEDICATION REFILL 12/13/2024 Encounter Details Date Type Department Care Team (Late st Contact Info) Description 12/13/2024 Refill [facility] - Hematology/Oncology [address] [place] [address] Manuel Osorio MD [address] [place] [address] MEDICATION REFILL Social History Tobacco [...] Recorded Patient Health Questionnaire-2 Score 0 08/27/2024 [facility] [place] of Occupat ional [facility] - Occupational Stress Questionnaire Answer Date [...] time in the past 12 m [facility], were you homeless or living in a longterm (including now)? No 09/30/2024 Sex and Gender Information Value Date Recorded Sex Assigned at Male 08/19/2024 9:03 PM BARTENDER SERVER Legal Sex Male 5:09 AM BARTENDER SERVER Gender Identity Male 08/19/2024 9:03 PM BARTENDER SERVER Sexual Orientation Straight 08/19/2024 9: 03 PM BARTENDER SERVER documented as of this encounter Functional Status [...] Info) Description 06/10/2025 8:00 AM CDT Appointment [facility] [address] [place] [address] [place] [address] [place] [phone] 06/10/2025 8:40 AM CDT Office Visit [facility] Group - Hematology/Oncology [address] [place] [phone] [place] [address] [place] [phone] 06/30/2025 2:30 PM CDT Office Visit [facility]ician Group - Pulmonology [address] [place] [phone] [place] [address] [place] [phone] 07/27/2025 9:30 AM BARTENDER SERVER Appointment [facility] MRI [facility] [place] [phone] Lauren Skinner MD [address] [place] [phone] 08/24/2025 3:30 PM BARTENDER SERVER Office Visit [facility] Physician Group - Internal Med [address] [place] [address] [place] [address] Nirav Wang MD [address] [place] [address] documented as of this encounter Visit Diagnoses Diagnosis 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
--- OUTSIDE RECORDS SUMMARY | 2025-05-30 10:39 | XMS_ITS | Clinical Summary ---
Author Organization [facility] Address [address] [place] [address] Care Team Providers Care Shuttle Hand Name Role Phone Shraddha Barrow MD Primary [...] Vaccines (1 of 2) 2014 COVID-19 Vaccine (1 - 2023-2 5 season) 2025 RSV Immunization or 60+ Years (1 - [...] age to complete this topic Insurance 2 [place] [address] [place] Care Teams Shuttle Hand Relationship Specialty Start Date End Date Shraddha Barrow MD PCP - General INTERNAL MEDICINE 01/11/19
--- OUTSIDE RECORDS SUMMARY | 2025-05-30 10:39 | XMS_ITS | Clinical Summary ---
Author Organization [facility] Address [address] [place] [address] Care Team Providers Care Director Of Regional Sales Name Role Phone Shraddha Barrow MD Primary Care Provider + [phone] Manuel Osorio MD Unavailable Source Comments [facility],non-owned Affiliates and Associated Physician Practices is amultiple site organization consisting of ambulatory clinics and hospital sitesin [place], [place], [place] and [place]. This disclosure is being madepursuant to the Care Everywhere program and may not contain all information available regarding this patient. Last updated 18.[facility] Allergies No known active allergies Medications * Be aware that medications may not be up to date on this document. Alwaysverify current medications with the patient. 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, unspecified laterality (HCC) Take 1 (one) tablet by mouth every 6 hours as needed for Nausea/Vomit ing 30 tablet 6 04/14/20 25 Active ondansetron, disintegrating, (Zofran ODT) 4 MG tablet Take 1 (one) tablet by mouth every 6 hours as needed for Nausea/Vomit ing Allow tablet to dissolve on the tongue Active pantoprazole EC (Protonix) 40 MG tablet Take 1 (one) tablet by mouth once daily 30 tablet 04/23/20 25 Active benzonatate (Tessalon) 200 MG capsuleIndicati ons:Cough Take 1 (one) capsule by mouth 3 times daily as needed for Cough Reasons: Cough 90 capsule 1 05/06/20 25 Active nicotine polacrilex (Nicorette) 4 MG gumIndications: Nicotine Dependence Take 1 (one) Each by mouth as needed for Smoking Cessation Reasons: Nicotine Addiction 100 Each 1 05/06/20 25 Active fluticasone propionate (Flonase) 50 MCG/ACT nasal sprayIndication s:Seasonal allergic rhinitis, unspecified trigger SHAKE LIQUID AND USE 2 SPRAYS IN EACH NOSTRIL DAILY 16 g 3 05/20/20 25 Active oxyCODONE CR 12hr (OxyCONTIN) 10 MG tabletIndicatio ns:Chronic Pain Take 1 (one) tablet by mouth every 12 hours Reasons: Chronic Pain 60 tablet 05/23/20 25 Active budesonide-form oterol (Symbicort) 160-4.5 MCG/ACT inhaler Inhale 2 (two) puffs by mouth 2 times daily 10.2 g 1 05/24/20 25 Active tiotropium (Spiriva Respimat) 2.5 MCG/ACT inhaler Inhale 2 (two) puffs by mouth once daily 4 g 1 05/24/20 25 Active nicotine (Nicoderm CQ) 14 MG/24HR patchIndication s:Tobacco use Apply 1 (one) patch to skin once daily 90 patch 3 05/27/20 25 Active senna-docusate (Senokot-S) 8.6-50 MG tablet Take 2 (two) tablets by mouth once daily 100 tablet 2 05/27/20 25 Active cetirizine (ZyrTEC) 10 MG chew tabletIndicatio ns:Seasonal allergic rhinitis, unspecified trigger Take 1 (one) tablet by mouth once daily 30 tablet 05/30/20 25 Active guaiFENesin ER 12hr (Mucinex) 600 MG tabletIndicatio ns:Seasonal allergic rhinitis, unspecified trigger Take 1 (one) tablet by mouth every 12 hours 60 tablet 05/30/20 25 Active albuterol-iprat ropium (Duo-Neb) 0.5-2.5 (3) MG/3ML nebulizer solution Inhale 3 mL by mouth every 4 hours as needed for Shortness of Breath or Wheezing 360 mL 3 08/16/20 24 025 Discontinued ibuprofen (Motrin) 200 MG tablet Take 2 (two) tablets by mouth every 6 hours as needed for Pain 400- 600 mg 025 Discontinued(Tx Complete) Breztri Aerosphere 160-9-4.8 MCG/ACT inhaler Inhale 2 (two) puffs by mouth 11/19/19 25 025 Discontinued senna-docusate (Senokot-S) 8.6-50 MG tablet Take 2 (two) tablets by mouth once daily 100 tablet 2 02/23/20 25 025 Discontinued(Re order) cetirizine (ZyrTEC) 10 MG chew tabletIndicatio ns:Seasonal allergic rhinitis, unspecified trigger Take 1 (one) tablet by mouth once daily (chew and swallow) 30 tablet 02/24/20 25 025 Discontinued guaiFENesin ER 12hr (Mucinex) 600 MG tabletIndicatio ns:Seasonal allergic rhinitis, unspecified trigger Take 1 (one) tablet by mouth every 12 hours 60 tablet 02/24/20 25 025 Discontinued(Re order) benzonatate (Tessalon) 200 MG capsuleIndicati ons:Cough Take 1 (one) capsule by mouth 3 times daily as needed for Cough Reasons: Cough 90 capsule 1 02/24/20 25 025 Discontinued(Re order) fluticasone propionate (Flonase) 50 MCG/ACT nasal sprayIndication s:Seasonal allergic rhinitis, unspecified trigger [place] 2 (two) sprays into each nostril once daily 1 Each 02/24/20 25 025 Discontinued LORazepam (Ativan) 0.5 MG tablet Take 1 (one) tablet by mouth once as needed for Anxiety (take one tablet 30 minutes prior to MRI scan; take another 5 minutes before if needed) 2 tablet 03/09/20 25 025 Discontinued(Tx Complete) morphine CR 12hr (MS Contin) 15 MG tabletIndicatio ns: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) Take 1 (one) tablet by mouth every 8 hours for 40 doses 40 tablet 04/22/20 25 025 Discontinued(Tx Complete) oxyCODONE, immediate release, (Roxicodone) 10 MG tabletIndicatio ns: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, unspecified laterality (HCC) Take 1 (one) tablet by mouth every 6 hours as needed for Pain (pain) 40 tablet 04/22/20 25 025 Discontinued(Li st Clean-Up) budeson-glycopy rrol-formoterol (Breztri) 160-9-4.8 MCG/ACT inhaler Inhale 2 (two) puffs by mouth 2 times daily 10.7 g 1 05/04/20 25 025 Discontinued(Do se Adjustment) oxyCODONE CR 12hr (OxyCONTIN) 10 MG tabletIndicatio ns:Chronic Pain Take 1 (one) tablet by mouth every 12 hours Reasons: Chronic Pain 60 tablet 05/06/20 25 025 Discontinued(Li st Clean-Up) nicotine (Nicoderm CQ) 14 MG/24HR patchIndication s:Tobacco use Apply 1 (one) patch to skin once daily 90 patch 05/19/20 25 025 Discontinued(Re order) cetirizine (ZyrTEC) 10 MG chew tabletIndicatio ns:Seasonal allergic rhinitis, unspecified trigger CHEW AND SWALLOW 1 TABLET BY MOUTH EVERY DAY 30 tablet 05/20/20 25 025 Discontinued(Re order) Active Problems Problem Noted Date Diagnosed Date [...] & Plan (2025 2:26 PM CDT): {HCCREFRESHBPA (Optional):02309} -Patient is on 2L O2 PRN at [...] as symbicort) -Duoneb PRN -Obtain CXR? {HCCREFRESHBPA (Optional):29430} Hyperglycemia due to diabetes mellitus Assessment & Plan (05/08/2025 1:56 PM CDT): -Last A1c: 6.7 05/03/25 -Home regimen: None -Last B Plan: Outpatient follow up Assessment & Plan (05/07/2025 11:21 AM CDT): -Last A1c: 6.7 05/03/25 -Home regimen: None -Last B Plan: -Continue SSI 0-6 TID WC -Continue hypoglycemic protocol -Continue low carb diet Assessment & Plan (2025 2:26 PM CDT): {HCCREFRESHBPA (Optional):40196} -Last A1c: 6.7 05/03/25 -Home regimen: None [...] 5d) - Will ensure patient receives prescribed ibnklhsndf-kognrrsakxfktp-kpktlbtfkp (BREZTRI) prior to d/c -- couldn't refill, [...] 5d) - Will ensure patient receives prescribed hdquwtsybf-mvzmzzhckexjyw-tqsgsrarjx (BREZTRI) prior to d/c - Pulm outpatient [...] 05/02/25) - Will ensure patient receives prescribed bpvtdwfewv-ixqveawpzwdcmw-cfykhykygt (BREZTRI) prior to d/c - Pulm outpatient [...] 5d) - Will ensure patient receives prescribed exzvlpotut-yzzawvopqtbsgj-skwyfanznh (BREZTRI) prior to d/c -- couldn't refill, [...] 5d) - Will ensure patient receives prescribed hlgclecraz-stjrqxyrgykxqw-ctacpgbhmu (BREZTRI) prior to d/c - Pulm outpatient [...] 05/02/25) - Will ensure patient receives prescribed pdqvaoeeco-gvhuoedfqrjtfm-yxheglvgmh (BREZTRI) prior to d/c - Pulm outpatient [...] & Plan (2025 2:26 PM CDT): {HCCREFRESHBPA (Optional):31301} -Patient is on 2L O2 PRN at [...] as symbicort) -Duoneb PRN -Obtain CXR? {HCCREFRESHBPA (Optional):94896} Assessment & Plan (05/04/2025 11:01 PM CDT): [...] 5d) - Will ensure patient receives prescribed wcaywyzbfg-fbrgoovjyjocxm-bzqxzygghd (BREZTRI) prior to d/c -- couldn't refill, [...] 5d) - Will ensure patient receives prescribed vcwqguxuco-becctoadwnsoja-acqvtnlhsh (BREZTRI) prior to d/c - Pulm outpatient [...] 05/02/25) - Will ensure patient receives prescribed zlvkzhzero-hsorgmopibruxk-mtqzdnxlhh (BREZTRI) prior to d/c - Pulm outpatient [...] Continue duonebs, azithromycin 500 x3 days eot 8 prednisone 40 mg for total 5 days [...] 5d) - Will ensure patient receives prescribed xyzknlvcdh-laizxnnanlhznd-pzrbvljokf (BREZTRI) prior to d/c -- couldn't refill, [...] 5d) - Will ensure patient receives prescribed lvutrbfbys-egvymvvbuvoium-cicdemmhxv (BREZTRI) prior to d/c - Pulm outpatient [...] 05/02/25) - Will ensure patient receives prescribed eboxjvgfyy-qncgdrmdkrqktw-rgezzoibvd (BREZTRI) prior to d/c - Pulm outpatient [...] Encounters Date Type Department Care Team Description 05/29/2025 Refill [facility] - Hematology/Oncolog y [address] [place] [address] Yessenia Kirkpatrick, PEPE-HARRY MEDICATION REFILL 05/29/2025 Refill [facility] - Hematology/Oncolog y [address] [place] [address] Manuel Osorio MD MEDICATION REFILL 05/28/2025 Refill [facility] - Hematology/Oncolog y [address] [place] [address] Yessenia Kirkpatrick, PEPE-SCHEDULING MANAGER MEDICATION REFILL 05/27/2025 8:40 AM CDT Office Visit [facility] - Hematology/[place]olog [place] [address] [place] [address] Manuel Osorio MD 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 [address] [place] [address] Shraddha Barrow MD Discharge Disposition: Home or Self Care 05/27/2025 Travel 05/26/2025 [facility]phone [facility] [address] [place] [address] Manuel Osorio MD Appointment (Patient confirmed appointment for tomorrow 05/27/2025) 05/24/2025 Orders Only [facility] - Hematology/Oncolog y [address] [place] [address] Manuel Osorio MD 05/24/2025 Telephone Transitional Care at [facility] [address] [place] [address] Uzma Armenta PharmD Rx Medication Issue 05/24/2025 Telephone [facility] - Hematology/Oncolog y [address] [place] [address] Manuel Osorio MD Medication Prior Auth Request 05/24/2025 Telephone [facility] - Hematology/Oncolog y [address] [place] [address] Manuel Osorio MD Medication Prior Auth Request 05/23/2025 Refill [facility] - Hematology/Oncolog y [address] [place] [address] Manuel Osorio MD MEDICATION REFILL 05/23/2025 Telephone [facility]colog y [address] [place] [address] Manuel Osorio MD Medication Prior Auth Request 05/23/2025 Telephone [facility] - Hematology/Oncolog y [address] [place] [address] Manuel Osorio MD Medication Prior Auth Request 05/23/2025 Telephone [facility] - Hematology/Oncolog y [address] [place] [address] Manuel Osorio MD Medication Prior Auth Request 05/19/2025 10:30 AM CDT Office Visit Transitional Care at [address] [address] Tobacco use (Primary Dx); 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); History of cancer metastatic to brain; COPD without exacerbation (HCC) 05/19/2025 Refill [facility] - Hematology/[place]colog y [address] [place] [address] Yessenia Kirkpatrick, WEB PAGE DESIGNER-SCHEDULING MANAGER Refill Request 05/18/2025 Telephone Transitional Care at [address] [address] Olive Walsh RN Scheduling 05/18/2025 Travel 05/13/2025 8:40 AM CDT Office Visit [facility] - Hematology/Oncolog y [address] [place] [address] Yessenia Kirkpatrick, JAZ Cancer associated pain (Primary Dx); 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 [address] [place] [address] Shraddha Barrow MD Discharge Disposition: Home or Self Care 05/13/2025 Travel 05/12/2025 Telephone Transitional Care at [address] [phone] Yohana Osorio, business rules developer 05/11/2025 Telephone [facility] - Hematology/Oncolog y [address] [place] [address] Yessenia Kirkpatrick, PEPE-HARRY Appointment (Patient unavailable/left voice message) 05/11/2025 Telephone [facility] - Social Work [address] [place] [phone] Olive Boyer MSW Follow-up 05/11/2025 Transitional Care Transitional Care at [address] [phone] Eliza Dumont, business rules developer 2025 12:12 PM CDT - 05/08/2025 2:52 PM CDT Hospital Encounter [facility] AC[facility] [address] [place] [phone] Manuel Osorio MD Kilani, Yassine, MD Hospitalist Discharge Disposition: Home or Self Care 2025 8:40 AM CDT Office Visit [facility] - Hematology/Oncolog y [address] [place] [phone] Manuel Osorio MD Emrich, Lindsey J, WEB PAGE DESIGNER-SCHEDULING MANAGER COPD with exacerbation (HCC) (Primary Dx); Nicotine dependence with withdrawal, unspecified nicotine product type; 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); Acute cough; Cancer associated pain 2025 8:00 AM CDT - 2025 12:11 PM CDT Hospital Encounter [facility] [address] [place] [address] Shraddha Barrow MD Discharge Disposition: Home or Self Care 2025 Orders Only [facility] - Hematology/Oncolog y [address] [place] [address] Yessenia Kirkpatrick, PEPE-HARRY 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, unspecified laterality (HCC) 2025 Refill [facility]Oncolog y [address] [place] [address] Yessenia Kirkpatrick APRN-HARRY MEDICATION REFILL 2025 Orders Only [facility]Oncolog y [address] [place] [address] Manuel Osorio MD 2025 Travel 05/05/2025 Travel 05/05/2025 Telephone Transitional Care at [address] [address] Yohana Osorio, business rules developer 05/05/2025 Telephone Transitional Care at [address] [address] Yohana Osorio, business rules developer 05/04/2025 Telephone [facility] - Hematology/Oncolog y [address] [place] [address] Yessenia Kirkpatrick, WEB PAGE DESIGNER-SCHEDULING MANAGER Appointment (Unable to leave message, possibly disconnected) 05/02/2025 Orders Only [facility] - Rad/Onc [address] [place] [address] Lauren Skinner MD Malignant neoplasm metastatic to brain (HCC) ; Extensive stage primary small cell carcinoma of lung (HCC) 04/27/2025 2:38 PM CDT - 05/04/2025 5:24 PM CDT Hospital Encounter [facility] [address] [place] [address] Manuel Osorio MD Nguyen, Christopher, DO Ishiyama, Takaaki, MD Fritz, Adam, MD Hematology/Oncology Discharge Disposition: Home or Self Care 04/27/2025 10:30 AM CDT - 04/27/2025 2:37 PM CDT Hospital Encounter [facility] [address] [place] [address] Shraddha Barrow MD Discharge Disposition: Home or Self Care 04/27/2025 6:32 AM CDT - 04/27/2025 10:30 AM CDT Hospital Encounter [facility] [address] [place] [address] Manuel Osorio MD Interven Radiology Discharge Disposition: Home or Self Care 04/27/2025 Travel 04/26/2025 1:00 PM CDT Office Visit [facility] - Hematology/Oncolog y [address] [place] [address] Yessenia Kirkpatrick, WEB PAGE DESIGNER-SCHEDULING MANAGER 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) (Primary Dx); Malignant neoplasm metastatic to brain (HCC); Muscle weakness (generalized) 04/26/2025 Telephone [facility] [address] [place] [address] Eliza Clifton, SIMONA Appointment 04/26/2025 Travel 04/26/2025 Telephone Transitional Care at [address] [address] Yohana Osorio, business rules developer 04/25/2025 1:00 PM CDT - 04/25/2025 11:59 PM CDT Hospital Encounter [facility] RAD ONC [address] [place] [address] Lauren Skinner MD Discharge Disposition: Home or Self Care 04/25/2025 Telephone Transitional Care at [address] [phone] Jami Staton RN Transitional Care 04/21/2025 9:45 AM CDT - 04/21/2025 11:59 PM CDT Hospital Encounter [facility] [address] [place] [address] Lauren Skinner MD Discharge Disposition: Home or Self Care 04/19/2025 12:17 PM CDT - 04/22/2025 2:14 PM CDT Hospital Encounter [facility] [address] [place] [phone] Garrett Andino MD Yogendran, MD Dagoberto Baxter Rania, MD Cumming, MD Ana Ruvalcaba Akrin, MD Emergency Medicine Discharge Disposition: Home or Self Care 04/19/2025 11:00 AM CDT Office Visit [facility] - Hematology/Oncolog y [address] [place] [phone] Geeta Arthur WEB PAGE DESIGNER-SCHEDULING MANAGER Acute cough (Primary Dx); 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) 04/19/2025 Telephone [facility] - Hematology/Oncolog y [address] [place] [phone] Geeta Arthur WEB PAGE DESIGNER-SCHEDULING MANAGER Appointment (See notes) 04/19/2025 Orders Only [facility] - Hematology/Oncolog y [address] [place] [phone] Manuel Osorio MD 04/19/2025 Orders Only [facility] - Hematology/Oncolog y [address] [place] [phone] Geeta Arthur WEB PAGE DESIGNER-SCHEDULING MANAGER Acute cough ; 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) 04/19/2025 Travel 04/18/2025 1:00 PM CDT - 04/18/2025 11:59 PM CDT Hospital Encounter [facility] ON[facility] [address] [place] [address] Lauren Skinner MD Discharge Disposition: Home or Self Care 04/18/2025 Orders Only [facility] - Hematology/Oncolog y [address] [place] [phone] Geeta Arthur APRN-SCHEDULING MANAGER Acute cough 04/15/2025 2:10 PM CDT - 04/15/2025 11:59 PM CDT Hospital Encounter [facility] [address] [place] [address] Lauren Skinner MD Discharge Disposition: Home or Self Care 04/14/2025 1:05 PM CDT - 04/14/2025 11:59 PM CDT Hospital Encounter [facility] [address] [place] [phone] Lauren Skinner MD Discharge Disposition: Home or Self Care 04/14/2025 1:00 PM CDT - 04/14/2025 1:04 PM CDT Hospital Encounter [facility] [address] [place] [address] Lauren Skinner MD Discharge Disposition: Home or Self Care 04/14/2025 Oncology Treatment Summary [facility] [address] [place] [address] Unknown, Provider 04/13/2025 1:00 PM CDT - 04/13/2025 11:59 PM CDT Hospital Encounter [facility] [address] [place] [address] Lauren Skinner MD Discharge Disposition: Home or Self Care 04/12/2025 12:45 PM CDT - 04/12/2025 11:59 PM CDT Hospital Encounter [facility] [address] [place] [address] Lauren Skinner MD Discharge Disposition: Home or Self Care 04/11/2025 12:41 PM CDT - 04/11/2025 11:59 PM CDT Hospital Encounter [facility] [address] [place] [address] Lauren Skinner MD Dombrowski, John J, MD Discharge Disposition: Home or Self Care 04/08/2025 12:42 PM CDT - 04/08/2025 11:59 PM CDT Hospital Encounter [facility] [address] [place] [address] Lauren Skinner MD Discharge Disposition: Home or Self Care 04/08/2025 10:30 AM CDT - 04/08/2025 12:41 PM CDT Hospital Encounter [facility] [address] [place] [address] Lauren Skinner MD Discharge Disposition: Home or Self Care 04/08/2025 9:20 AM CDT Office Visit [facility] - Hematology/Oncolog y [address] [place] [phone] Manuel Osorio MD 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) (Primary Dx); 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, unspecified laterality (HCC); Cancer associated pain; Altered mental status, unspecified altered mental status type; Metastasis to brain (HCC) 04/08/2025 8:08 AM CDT - 04/08/2025 10:29 AM CDT Hospital Encounter [facility] [address] [place] [address] Shraddha Barrow MD Discharge Disposition: Home or Self Care 04/08/2025 Travel 04/08/2025 Refill [facility] - Hematology/Oncolog y [address] [place] [phone] Yesi Hatch MD MEDICATION REFILL 04/07/2025 3:30 PM CDT - 04/07/2025 11:59 PM CDT Hospital Encounter [facility] MRI [address] [place] [address] Lauren Skinner MD Discharge Disposition: Home or Self Care 04/07/2025 2:05 PM CDT - 04/07/2025 3:29 PM CDT Hospital Encounter [facility] CAT SCAN [address] [place] [address] Vangie Montero APRN-SCHEDULING MANAGER Discharge Disposition: Home or Self Care 04/07/2025 Travel 04/07/2025 Telephone [facility] - Hematology/Oncolog y [address] [place] [address] Manuel Osorio MD Question 04/05/2025 Telephone [facility] - Social Work [address] [address] Olive Boyer, CLINICAL ALLERGIST Follow-up 03/31/2025 Orders Only [facility] [address] [place] [address] Paulette Hamm, PharmD 03/30/2025 Telephone [facility] [address] [place] [address] Melissa Briones, RN Appointment 03/26/2025 Telephone [facility] - Hematology/Oncolog y [address] [place] [phone] Rojas Macedo DO Question 03/22/2025 Orders Only [facility] [address] [place] [address] Reuben Lan, PharmD 03/14/2025 Refill [facility] - Hematology/Oncolog y [address] [place] [phone] Manuel Osorio MD MEDICATION REFILL 03/10/2025 Travel 03/09/2025 9:40 AM CDT Office Visit [facility] - Hematology/Oncolog y [address] [place] [phone] Manuel Osorio MD 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, unspecified laterality (HCC) (Primary Dx); Encounter to establish care; Chronic right shoulder pain; Chronic obstructive pulmonary disease, unspecified COPD type (HCC); Smoking addiction 03/09/2025 8:21 AM CDT - 03/09/2025 11:59 PM CDT Hospital Encounter [facility] [address] [place] [address] Shraddha Barrow MD Discharge Disposition: Home or Self Care 03/09/2025 Refill [facility] - Hematology/Oncolog y [address] [place] [phone] Manuel Osorio MD MEDICATION REFILL 03/09/2025 Telephone [facility] - Internal Med [address] [facility], [place] [address] Robert Rock, SIMONA Appointment; Establish Care 03/09/2025 Telephone [facility] - Internal Med [address] [facility], [place] [phone] Shraddha Barrow MD Encounter Opened In Error 03/09/2025 Travel 03/02/2025 Orders Only [facility] [address] [place] [phone] Reuben Lan, RichD from Last 3 Months Social History Tobacco Use Types Packs/Day Years Used Date Smoking Tobacco: Every Day Cigarettes 1 46.7 Started: 1979 Smokeless Tobacco: Never Tobacco Cessation:Ready to Q uit: Yes; Counseling Given: Not Answered Alcohol Use Standard [...] Recorded Patient Health Questionnaire-2 Score 0 02/16/2025 [facility] of Occupat ional Health - Occupational Stress [...] any time in the past 12 m [facility], were you homeless or living in a senior living (including now)? No 05/07/2025 Sex and Gender Information Value Date Recorded Sex Assigned at Male 08/19/2024 9:03 PM PROMOTION PRODUCER Legal Sex Male 5:09 AM PROMOTION PRODUCER Gender Identity Male 08/19/2024 9:03 PM PROMOTION PRODUCER Sexual Orientation Straight 08/19/2024 9: 03 PM PROMOTION PRODUCER Last Filed Vital Signs Vital Sign Reading Time Taken Comments Blood Pressure 115/78 05/27/2025 8:27 AM CDT copied per pt Pulse 99 05/27/2025 8:27 AM CDT Temperature 36.4 C (97.6 F) 05/27/2025 8:27 AM CDT Respiratory Rate 22 05/27/2025 8:27 AM CDT Oxygen Saturation 96% 05/27/2025 8:2 7 AM CDT Inhaled Oxygen Concentration 30% 11:07 PM CDT Weight 81 kg (178 lb 9.2 oz) 05/27/2025 8:27 AM CDT Height 167.6 cm (5' 6) 05/19/2025 10:4 0 AM CDT Body Mass Index 28.82 05/19/2025 10:40 AM CDT Plan of Treatment Upcoming Encounters Date Type Department Care Team (Late st Contact Info) Description 06/10/2025 8:00 AM CDT Appointment [facility] [address] [place] [phone] Shraddha Barrow MD [address] [place] [address] 06/10/2025 8:40 AM CDT Office Visit [facility] - Hematology/Oncology [address] [place] [phone] Manuel Osorio MD [address] [place] [phone] 06/30/2025 2:30 PM CDT Office Visit [facility] - Pulmonology [address] [place] [phone] Diana Swain MD [address] [place] [phone] 07/27/2025 9:30 AM PROMOTION PRODUCER Appointment [facility] [address] [place] [phone] Lauren Skinner MD [address] [place] [phone] 08/24/2025 3:30 PM PROMOTION PRODUCER Office Visit [facility] - Internal Med [address] [place] [phone] Nirav Wang MD [address] [place] [phone] Health Maintenance Due Date Last Done Comments COLOGUARD (AGES 45-75) - COLON CA SCREENING 1964 COLON MONITORING 1964 COLONOSCOPY - COLON CA SCREENING 1964 CT COLONOGRAPHY - COLON CA SCREENING 1964 Colorectal Cancer Screening 1964 FIT - COLON CA SCREENING 1964 FLEX SIG - COLON CA SCREENING 1964 HIV SCREENING 1979 DTAP/TDAP/TD VACCINES (1 - Tdap) 1983 PNEUMOCOCCAL VACCINE 50+ (1 of 2 - PCV) 1983 ZOSTER VACCINE (1 of 2) 1983 DIABETES-STATIN 2004 LUNG CANCER SCREENING 2014 COVID-19 VACCINE (3 - Pfizer risk series) 05/24/2021 04/26/2021, 03/31/2021 HEPATITIS B VACCINE (1 of 3 - Risk 3-dose series) 2024 Respiratory Syncytial Virus (RSV) Vaccine Pt: or over 60 yrs (1 - Risk 60-74 years 1-dose series) 2024 DIABETES - URINE PROTEIN SCREENING 09/08/2024 DIABETES RETINOPATHY SCREENING 2025 DIABETES-FOOT EXAM WITH MONOFILAMENT 2025 INFLUENZA VACCINE (#1) 2025 07/27/2024 DIABETES-HGB A1C 11/03/2025 05/03/2025 DIABETES-SERUM CREATININE 05/27/20262024, 05/13/2025, 05/07/2025, Additional history exists HEPATITIS C SCREENING Completed [...] on patient's age to complete this topic Medical Devices Implanted Type Area Kennel Technician Device Identifier Shelf Expiration Date Model / Serial / Lot Port Implinfn Powerport Clrvu Argd Deonna Implanted:Qty: 1 on 04/27/2025 by Dario Thornton MD at [facility] Right: Chest [employer] 06/07/2026 [id number] / / [id number] Procedures Procedure Name Priority Date/Time Associated Diagnosis Comments COMPREHENSIVE METABOLIC PANEL STAT 05/27/2025 8:16 AM CDT 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, unspecified laterality (HCC) CBC W AUTO DIFFERENTIAL STAT 05/27/2025 8:16 AM CDT 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, unspecified laterality (HCC) COMPREHENSIVE METABOLIC PANEL STAT 05/13/2025 7:57 AM CDT 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, unspecified laterality (HCC) CBC W AUTO DIFFERENTIAL STAT 05/13/2025 7:57 AM CDT 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, unspecified laterality (HCC) GLUCOSE - POINT OF CARE Routine 05/08/2025 12:01 PM CDT GLUCOSE - POINT OF CARE Routine 05/08/2025 7:59 AM CDT MAGNESIUM BLOOD Routine 05/07/2025 11:06 PM CDT Chronic hypoxic respiratory failure (HCC) RENAL FUNCTION PANEL AM Draw 05/07/2025 11:06 PM CDT Chronic hypoxic respiratory failure (HCC) CBC W AUTO DIFFERENTIAL AM Draw 05/07/2025 11:06 PM CDT Chronic hypoxic respiratory failure (HCC) GLUCOSE - POINT OF CARE Routine 05/07/2025 8:30 PM CDT XR CHEST 1VW Routine 05/07/2025 6:13 PM CDT Fever in other diseases GLUCOSE - POINT OF CARE Routine 05/07/2025 5:39 PM CDT CULTURE BLOOD STAT 05/07/2025 5:16 PM CDT CULTURE BLOOD STAT 05/07/2025 5:16 PM CDT URINALYSIS REFLEX TO MICROSCOPIC NO CULTURE Routine 05/07/2025 5:11 PM CDT GLUCOSE - POINT OF CARE Routine 05/07/2025 12:25 PM CDT GLUCOSE - POINT OF CARE Routine 05/07/2025 9:01 AM CDT MAGNESIUM BLOOD Routine 2025 11:39 PM CDT Chronic hypoxic respiratory failure (HCC) RENAL FUNCTION PANEL AM Draw 2025 11:39 PM CDT Chronic hypoxic respiratory failure (HCC) CBC W AUTO DIFFERENTIAL AM Draw 2025 11:39 PM CDT Chronic hypoxic respiratory failure (HCC) GLUCOSE - POINT OF CARE Routine 2025 8:39 PM CDT GLUCOSE - POINT OF CARE Routine 2025 5:00 PM CDT COMPREHENSIVE METABOLIC PANEL STAT 2025 8:23 AM CDT 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, unspecified laterality (HCC) CBC W AUTO DIFFERENTIAL STAT 2025 8:23 AM CDT 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, unspecified laterality (HCC) GLUCOSE - POINT OF CARE Routine 05/04/2025 12:09 PM CDT GLUCOSE - POINT OF CARE Routine 05/04/2025 8:22 AM CDT COMPREHENSIVE METABOLIC PANEL Routine 05/03/2025 10:56 PM CDT CBC W AUTO DIFFERENTIAL Routine 05/03/2025 10:56 PM CDT PHOSPHORUS BLOOD Routine 05/03/2025 10:5 6 PM CDT MAGNESIUM BLOOD Routine 05/03/2025 10:56 PM CDT GLUCOSE - POINT OF CARE Routine 05/03/2025 9:30 PM CDT GLUCOSE - POINT OF CARE Routine 05/03/2025 4:35 PM CDT GLUCOSE - POINT OF CARE Routine 05/03/2025 11:15 AM CDT HEMOGLOBIN A1C Routine 05/03/2025 8:25 AM CDT COMPREHENSIVE METABOLIC PANEL Routine 05/02/2025 10:22 PM CDT CBC W AUTO DIFFERENTIAL Routine 05/02/2025 10:22 PM CDT PHOSPHORUS BLOOD Routine 05/02/2025 10:2 2 PM CDT MAGNESIUM BLOOD Routine 05/02/2025 10:22 PM CDT COMPREHENSIVE METABOLIC PANEL Routine 05/02/2025 12:19 AM CDT CBC W AUTO DIFFERENTIAL Routine 05/02/2025 12:19 AM CDT PHOSPHORUS BLOOD Routine 05/02/2025 12:1 9 AM CDT MAGNESIUM BLOOD Routine 05/02/2025 12:19 AM CDT COMPREHENSIVE METABOLIC PANEL Routine 05/01/2025 12:09 AM CDT CBC W AUTO DIFFERENTIAL Routine 05/01/2025 12:09 AM CDT PHOSPHORUS BLOOD Routine 05/01/2025 12:0 9 AM CDT MAGNESIUM BLOOD Routine 05/01/2025 12:09 AM CDT PHOSPHORUS BLOOD Routine 05/01/2025 12:0 9 AM CDT MAGNESIUM BLOOD Routine 05/01/2025 12:09 AM CDT MRSA PCR STAT 04/30/2025 10:14 AM CDT COMPREHENSIVE METABOLIC PANEL Routine 04/29/2025 9:51 PM CDT CBC W AUTO DIFFERENTIAL Routine 04/29/2025 9:51 PM CDT PHOSPHORUS BLOOD Routine 04/29/2025 9:51 PM CDT MAGNESIUM BLOOD Routine 04/29/2025 9:51 PM CDT LACTIC ACID BLOOD STAT 04/29/2025 5:5 2 AM CDT CULTURE BLOOD Timed 04/29/2025 5:52 AM CDT CULTURE BLOOD Timed 04/29/2025 5:52 AM CDT XR CHEST 1VW PORTABLE STAT 04/29/2025 5:42 AM CDT 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, unspecified laterality (HCC) BLOOD GAS+COOX+ELECTROLYTES +METAB VENOUS STAT 04/29/2025 5:22 AM CDT PHOSPHORUS BLOOD Routine 04/29/2025 4:15 AM CDT MAGNESIUM BLOOD Routine 04/29/2025 4:15 AM CDT COMPREHENSIVE METABOLIC PANEL AM Draw 04/29/2025 4:15 AM CDT CBC W AUTO DIFFERENTIAL AM Draw 04/29/2025 4:15 AM CDT XR CHEST 1VW PORTABLE Routine 04/28/2025 3:34 PM CDT Moderate protein malnutrition (HCC) COPD without exacerbation (HCC) PT EVAL AND TREAT Routine 04/28/2025 7:3 1 AM CDT COMPREHENSIVE METABOLIC PANEL AM Draw 04/27/2025 11:19 PM CDT CBC W AUTO DIFFERENTIAL AM Draw 04/27/2025 11:19 PM CDT IR RIZWANA CATH INSERT Routine 04/27/2025 9:30 AM CDT 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, unspecified laterality (HCC) COMPREHENSIVE METABOLIC PANEL STAT 04/27/2025 7:18 AM CDT 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) CBC W AUTO DIFFERENTIAL STAT 04/27/2025 7:18 AM CDT 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) RAD ONC ARIA SESSION SUMMARY Routine 04/25/2025 1:41 PM CDT CARDIAC EKG ORDER 04/22/2025 1:0 1 PM CDT RAD ONC ARIA SESSION SUMMARY Routine 04/22/2025 9:11 AM CDT RAD ONC ARIA SESSION SUMMARY Routine 04/21/2025 10:12 AM CDT RAD ONC ARIA SESSION SUMMARY Routine 04/20/2025 1:09 PM CDT CARDIAC EKG ORDER 04/20/2025 11: 14 AM CDT PHOSPHORUS BLOOD STAT 04/20/2025 4:01 AM CDT MAGNESIUM BLOOD STAT 04/20/2025 4:01 AM CDT CBC W/O DIFFERENTIAL STAT 04/20/2025 4:01 AM CDT BASIC METABOLIC PANEL (CALCIUM TOTAL) STAT 04/20/2025 4:01 AM CDT EKG 12-LEAD STAT 04/19/2025 6:29 PM CDT SOB (shortness of breath) Dyspnea, unspecified type Hypoxia Dyspnea and respiratory abnormalities Acute hypercapnic respiratory failure (HCC) BLOOD GASES VALENTINE + COOX PANEL Timed 04/19/2025 6:06 PM CDT BLOOD GASES VALENTINE + COOX PANEL STAT 04/19/2025 3:07 PM CDT B-TYPE NATRIURETIC PEPTIDE STAT 04/19/2025 3:[address] ANGIO CHEST PULM EMBOLISM STAT 04/19/2025 2:00 PM CDT SOB (shortness of breath) XR CHEST 1VW PORTABLE STAT 04/19/2025 1:54 PM CDT SOB (shortness of breath) TROPONIN-I HIGH SENSITIVE REFLEX 1HOUR Timed 04/19/2025 1:45 PM CDT EKG 12-LEAD STAT 04/19/2025 12:39 PM CDT SOB (shortness of breath) TROPONIN-I HIGH SENSITIVE BASELINE + 1HR STAT 04/19/2025 12:23 PM CDT PT-INR STAT 04/19/2025 12:23 PM CDT MAGNESIUM BLOOD STAT 04/19/2025 12:23 PM CDT LIPASE BLOOD STAT 04/19/2025 12:23 PM CDT LACTIC ACID BLOOD REFLEX TO REPEAT STAT 04/19/2025 12:23 PM CDT COMPREHENSIVE METABOLIC PANEL STAT 04/19/2025 12:23 PM CDT CBC W AUTO DIFFERENTIAL STAT 04/19/2025 12:23 PM CDT RAD ONC ARIA SESSION SUMMARY Routine 04/18/2025 1:17 PM CDT RAD ONC ARIA SESSION SUMMARY Routine 04/15/2025 2:24 PM CDT RAD ONC ARIA SESSION SUMMARY Routine 04/14/2025 1:12 PM CDT RAD ONC ARIA SESSION SUMMARY Routine 04/13/2025 1:14 PM CDT RAD ONC ARIA SESSION SUMMARY Routine 04/12/2025 1:06 PM CDT RAD ONC ARIA SESSION SUMMARY Routine 04/11/2025 1:17 PM CDT TSH Routine 04/08/2025 8:30 AM CDT 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, unspecified laterality (HCC) COMPREHENSIVE METABOLIC PANEL Routine 04/08/2025 8:30 AM CDT 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, unspecified laterality (HCC) CBC W AUTO DIFFERENTIAL Routine 04/08/2025 8:30 AM CDT 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 WBC 8.1 4.0 - 10.7 x10E9/L 05/27/2025 8:23 AM [facility] RBC Count 4.79 4.30 - 5.80 x10E12/L 05/27/2025 8:23 AM [facility] Hemoglobin 14.2 13.3 - 17.5 g/dL 05/27/2025 8:23 AM [facility] Hematocrit 42.3 38.7 - 51.1 % 05/27/2025 8:23 AM [facility] MCV 88.3 80.0 - 98.0 fL 05/27/2025 8:23 AM [facility] MCH 29.6 26.7 - 33.6 pg 05/27/2025 8:23 AM [facility] MCHC 33.6 31.7 - 36.3 g/dL 05/27/2025 8:23 AM [facility] RDW-CV 14.8 11.3 - 14.8 % 05/27/2025 8:23 AM [facility] Platelet Count 183 150 - 420 x10E9/L 05/27/2025 8:23 AM [facility] MPV 8.9 7.8 - 11.4 fL 05/27/2025 8:23 AM [facility] Preliminary Absolute Neutrophil 6.06 1.60 - 7.50 x10E9/L 05/27/2025 8:23 AM [facility] Neutrophil % 75.1(H) 41.0 - 74.0 % 05/27/2025 8:23 AM [facility] Lymphocyte % 9.8(L) 17.0 - 47.0 % 05/27/2025 8:23 AM [facility] Monocyte % 10.5 3.0 - 11.0 % 05/27/2025 8:23 AM [facility] Eosinophil % 3.6 0.0 - 7.0 % 05/27/2025 8:23 AM [facility] Basophil % 0.6 0.0 - 1.6 % 05/27/2025 8:23 AM [facility] Immature Granulocytes % 0.4 0.0 - 1.0 % 05/27/2025 8:23 AM [facility] Neutrophil Absolute 6.06 1.60 - 7.50 x10E9/L 05/27/2025 8:23 AM [facility] Lymphocyte Absolute 0.79(L) 1.00 - 4.40 x10E9/L 05/27/2025 8:23 AM [facility] Monocyte Absolute 0.85 0.15 - 1.00 x10E9/L 05/27/2025 8:23 AM [facility] Eosinophil Absolute 0.29 0.00 - 0.60 x10E9/L 05/27/2025 8:23 AM [facility] Basophil Absolute 0.05 0.00 - 0.13 x10E9/L 05/27/2025 8:23 AM [facility] Blood BLOOD SPECIMEN / Unknown Venipuncture / Unknown 05/27/2025 8:16 AM CDT 05/27/2025 8:18 AM CDT us Manuel Osorio MD LAB - HEMATOLOGY ORDERABLES Candi dong Result [facility] [address] [place] [phone], [facility] [phone] * COMPREHENSIVE METABOLIC PANEL (05/27/2025 8:16 AM CDT) Only the most recent of14 resultswithin the time period is included. BUN 12 7 - 26 mg/dL 05/27/2025 8:43 AM [facility] Creatinine 0.77 0.71 - 1.16 mg/dL 05/27/2025 8:43 AM [facility] Sodium 137 136 - 145 mmol/L 05/27/2025 8:43 AM [facility] Potassium 3.8 3.5 - 4.5 mmol/L 05/27/2025 8:43 AM [facility] Chloride 105 98 - 107 mmol/L 05/27/2025 8:43 AM [facility] CO2 26 22 - 29 mmol/L 05/27/2025 8:43 AM [facility] Glucose 85 70 - 99 mg/dL 05/27/2025 8:43 AM [facility] Calcium 8.9 8.4 - 10.2 mg/dL 05/27/2025 8:43 AM [facility] Protein Total 6.6 6.0 - 8.3 g/dL 05/27/2025 8:43 AM [facility] Albumin 4.2 3.4 - 5.0 g/dL 05/27/2025 8:43 AM [facility] Bilirubin Total 0.6 0.2 - 1.2 mg/dL 05/27/2025 8:43 AM [facility] Alkaline Phosphatase 71 40 - 150 U/L 05/27/2025 8:43 AM [facility] ALT 21 5 - 55 U/L 05/27/2025 8:43 AM [facility] AST 16 5 - 34 U/L 05/27/2025 8:43 AM [facility] Anion Gap 6 6 - 16 05/27/2025 8:43 AM [facility] BUN/Creatinine Ratio 16 7 - 23 05/27/2025 8:43 AM [facility] Osmolality Calculated 283 275 - 295 mOsm/kg 05/27/2025 8:43 AM [facility] Albumin/Globulin Ratio 1.8 1.1 - 2.3 05/27/2025 8:43 AM [facility] eGFR by CKD-EPI >90 >=90 mL/min/1.7 3 m2 05/27/2025 8:43 AM [facility] Comment:Estimated Glomerular Filtration Rate (eGFR) calculated using the CKD-EPI Creatinine Equation (2020), per the National Kidney Foundation and [place] [employer] of Neph[employer] recommendations. Blood BLOOD SPECIMEN / Unknown Venipuncture / Unknown 05/27/2025 8:16 AM T 05/27/2025 8:18 AM [facility] us Manuel Osorio MD LAB - CHEMISTRY ORDERABLES Final Result [address] [address], [facility] [phone] * (ABNORMAL) GLUCOSE - POINT OF CARE (05/08/2025 12:01 PM CDT) Only the most recent of13 resultswithin the time period is included. [facility] Glucose WB/POC 123(H) 70 - 99 mg/dL 05/08/2025 12:02 PM T [facility] Specimen Type Arterial/C apillary 05/08/2025 12:02 PM T [facility] Blood BLOOD SPECIMEN / Unknown 05/08/2025 12:01 PM CDT 05/08/2025 12:02 PM CDT Pedro Cortes MD LAB - POINT OF CARE ORDERABLES Final Result [address] [address], [facility] [phone] * (ABNORMAL) RENAL FUNCTION PANEL (05/07/2025 11:06 PM CDT) Only the most recent of2 resultswithin the time period is included. [facility] BUN 17 7 - 26 mg/dL 05/07/2025 11:41 PM [facility] Creatinine 0.71 0.71 - 1.16 mg/dL 05/07/2025 11:41 PM [facility] Sodium 131(L) 136 - 145 mmol/L 05/07/2025 11:41 PM [facility] Potassium 4.1 3.5 - 4.5 mmol/L 05/07/2025 11:41 PM [facility] Chloride 100 98 - 107 mmol/L 05/07/2025 11:41 PM [facility] CO2 26 22 - 29 mmol/L 05/07/2025 11:41 PM [facility] Glucose 146(H) 70 - 99 mg/dL 05/07/2025 11:41 PM [facility] Albumin 2.9(L) 3.4 - 5.0 g/dL 05/07/2025 11:41 PM [facility] Calcium 7.7(L) 8.4 - 10.2 mg/dL 05/07/2025 11:41 PM [facility] Phosphorus 3.1 2.8 - 5.1 mg/dL 05/07/2025 11:41 PM [facility] Anion Gap 5(L) 6 - 16 05/07/2025 11:41 PM [facility] BUN/Creatinine Ratio 24(H) 7 - 23 05/07/2025 11:41 PM [facility] Osmolality Calculated 276 275 - 295 mOsm/kg 05/07/2025 11:41 PM [facility] eGFR by CKD-EPI >90 >=90 mL/min/1.7 3 m2 05/07/2025 11:41 PM [facility] Comment:Estimated Glomerular Filtration Rate (eGFR) calculated using the CKD-EPI Creatinine Equation (2020), per the National Kidney Foundation and [place] [employer] Nephrology recommendations. Blood BLOOD SPECIMEN / Unknown Venipuncture / Unknown 05/07/2025 11:06 PM CDT 05/07/2025 11:10 PM CDT us Manuel Osorio MD LAB - CHEMISTRY ORDERABLES Final Result [address] [address], [facility] [phone] * MAGNESIUM BLOOD (05/07/2025 11:06 PM CDT) Only the most recent of11 resultswithin the time period is included. Magnesium 1.6 1.6 - 2.6 mg/dL 05/07/2025 11:40 PM T [facility] Blood BLOOD SPECIMEN / Unknown Venipuncture / Unknown 05/07/2025 11:06 PM CDT 05/07/2025 11:10 PM CDT us Manuel Osorio MD LAB - CHEMISTRY ORDERABLES Final Result [address] [address], [place] [phone] * XR Chest 1Vw (05/07/2025 6:13 PM CDT) Anatomical Region Laterality Modality Chest Digital Radiogra phy 05/08/2025 8:52 AM CDT Narrative 05/08/2025 10:14 AM CDT PROCEDURE: XR CHEST 1VW, DATE/TIME OF EXAM: 05/07/2025 6:13 PM, LOCATION [facility] INDICATION: R50.81: Fever in other diseases ADDITIONAL CLINICAL INFORMATION: Ordering Provider Reason For Exam: Technologist Note: Additional: COMPARISON: Chest x-ray 04/29/2025 FINDINGS/IMPRESSION: Right IJ approach central venous catheter in the superior vena cava. Improved aeration of the bilateral lungs. Right lower lobe opacities could represent atelectasis or residual pneumonia. Right upper lobe atelectasis. No pleural effusion or pneumothorax.Normal pulmonary vasculature.The cardiomediastinal silhouette is normal. > Dictated by Isiah Dow MD, (residential green building designer). > Dictated by Mechanic Foreman IPb have personally reviewed and interpreted this examination/study. > Interpreting Provider: Pb Willis on 05/08/2025 10:14 AM Procedure Note Pb Willis MD - 05/08/2025 PROCEDURE: XR CHEST 1VW, DATE/TIME OF EXAM: 05/07/2025 6:13 PM, LOCATION [facility] INDICATION: R50.81: Fever in other diseases ADDITIONAL CLINICAL INFORMATION: Ordering Provider Reason For Exam: Technologist Note: Additional: COMPARISON: Chest x-ray 04/29/2025 FINDINGS/IMPRESSION: Right IJ approach central venous catheter in the superior vena cava. Improved aeration of the bilateral lungs. Right lower lobe opacitiescould represent atelectasis or residual pneumonia. Right upper lobeatelectasis. No pleural effusion or pneumothorax.Normal pulmonary vasculature.The cardiomediastinal silhouette is normal. > Dictated by Isiah Dow MD, (residential green building designer). > Dictated by Mechanic Foreman Pb Caruso have personally reviewed and interpreted this examination/study. > Interpreting Provider: Pb Willis on 05/08/2025 10:14 AM us Pedro Cortes MD DIAGNOSTIC IMAGING ORDERABLES Final Result * CULTURE BLOOD (05/07/2025 5:16 PM CDT) Only the most recent of4 resultswithin the time period is included. Culture No growth day 5 BLANCA 05/12/2025 7:31 PM CDT [facility] Blood PERIPHERAL BLOOD / Unknown Venipuncture / Unknown 05/07/2025 5:16 PM CDT 05/07/2025 5:32 PM CDT us Pedro Cortes MD LAB - MICROBIOLOGY ORDERABLES Final Result [facility] [address] [place] [address], [facility] [phone] * (ABNORMAL) URINALYSIS REFLEX TO MICROSCOPIC NO CULTURE (05/07/2025 5:11 PM CDT) Color UA Yellow Yellow, Straw 05/07/2025 5:42 PM CDT [facility] Clarity UA Clear Clear 05/07/2025 5:42 PM CDT [facility] Glucose UA Normal Normal 05/07/2025 5:42 PM CDT [facility] Bilirubin UA Negative Negative 05/07/2025 5:42 PM CDT [facility] Ketone UA Negative Negative 05/07/2025 5:42 PM CDT [facility] Specific [place] UA 1.021 1.005 - 1.030 05/07/2025 5:42 PM CDT [facility] Blood UA Trace(A) Negative 05/07/2025 5:42 PM CDT [facility] pH UA 6.5 5.0 - 8.0 05/07/2025 5:42 PM CDT [facility] Protein UA Negative Negative 05/07/2025 5:42 PM CDT [facility] Urobilinogen UA Normal Normal mg/dL 025 5:42 PM CDT [facility] Nitrite UA Negative Negative 05/07/2025 5:42 PM CDT [facility] Leukocyte Esterase UA Negative Negative 05/07/2025 5:42 PM CDT [facility] RBC UA 0-2 0 - 5 # /hpf 05/07/2025 5:42 PM CDT [facility] WBC UA 0-5 0 - 5 # /hpf 05/07/2025 5:42 PM CDT [facility] Bacteria UA None Seen None Seen 05/07/2025 5:42 PM CDT [facility] Squamous Epithelial Cells None Seen 0 - 5 /hpf 05/07/2025 5:42 PM CDT [facility] Mucus UA 1+ /LPF 05/07/2025 5:42 PM CDT [facility] Urine URINE SPECIMEN OBTAINED BY CLEAN CATCH PROCEDURE / Unknown Collection / Unknown 05/07/2025 5:11 PM CDT 05/07/2025 5:32 PM CDT Pedro Cortes MD LAB - URINALYSIS ORDERABLES Fi nal Result Performing Organization Address City/[facility]/ZIP Co de Phone Number [address] [address], [place] [phone] * (ABNORMAL) PHOSPHORUS BLOOD (05/03/2025 10:56 PM CDT) Only the most recent of8 resultswithin the time period is included. Phosphorus 2.7(L) 2.8 - 5.1 mg/dL 05/03/2025 11:29 PM CDT [facility] Blood BLOOD SPECIMEN / Unknown Venipuncture / Unknown 05/03/2025 10:56 PM CDT 05/03/2025 11:03 PM CDT us Sachin Anders MD LAB - CHEMISTRY ORDERABLES F inal Result [address] [address], [place] [phone] * (ABNORMAL) HEMOGLOBIN A1C (05/03/2025 8:25 AM CDT) Hemoglobin A1c 6.7(H) <=5.6 % 05/03/2025 9:49 AM CDT [facility] Estimated Average Glucose 146 mg/dL 05/03/2025 9:49 AM CDT [facility] Comment: HbA1c Interpretation: Normal : < 5.7% Pre-diabetes: 5.7-6.4% Diabetes: Equal to or greater than 6.5% Test results diagnostic of diabetes should be repeated for confirmation. Treatment target values recommended by ADA and other clinical organizations should be used to evaluate metabolic control in patients. Reference: [place] [employer], Standards of Care in Diabetes -2020 In patients 70 years and older consider HbA1c target range of 7.0-7.5% (Reference: Sachin Nj et al. JAMDA. 2012) The Se[employer] assay for the measurement of HbA1c is a National Glycohemoglobin Standardization Program (NGSP) certified method. Blood BLOOD SPECIMEN / Unknown Line Draw / Unknown 05/03/2025 8:25 AM CDT 05/03/2025 9:03 AM CDT Sachin Anders MD LAB - CHEMISTRY ORDERABLES F inal Result [facility] [address] [place] [address], [place] [phone] * MRSA PCR (04/30/2025 10:14 AM CDT) [facility] MRSA DNA by PCR Not detected Not detected 04/30/2025 3:17 PM CDT [facility] Microbiology SPECIMEN FROM NASAL FOSSAE / Unknown Collection / Unknown 04/30/2025 10:14 AM CDT 04/30/2025 10:[address] [facility] - 04/30/2025 3:17 PM CDT Methicillin-resistant Staphylococcus aureus (MRSA) DNA is not detected (presumed not colonized with MRSA). Sachin Anders MD LAB - MICROBIOLOGY ORDERABLE S Final Result [facility] [address] [place] [address], [facility] [phone] * LACTIC ACID BLOOD (04/29/2025 5:52 AM CDT) Lactic Acid-Stat 0.9 <=2.0 mmol/L 04/29/2025 6:25 AM CDT [facility] Blood BLOOD SPECIMEN / Unknown Venipuncture / Unknown 04/29/2025 5:52 AM CDT 04/29/2025 6:00 AM CDT us Sachin Anders MD LAB - CHEMISTRY ORDERABLES F inal Result [facility] [address] [place] [address], [facility] [phone] * XR Chest 1Vw Portable (04/29/2025 5:42 AM CDT) Only the most recent of3 resultswithin the time period is included. Anatomical Region Laterality Modality Chest Digital Radiogra phy 04/29/2025 3:45 PM CDT Impressions 04/29/2025 3:47 PM CDT Impression: Unchanged right internal jugular port.. Patchy opacity in the right lung base concerning for aspiration an unchanged. There is bibasilar, right greater than left atelectasis. There is a trace right pleural effusion. There is no pneumothorax The cardiomediastinal silhouette is normal for portable technique. 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, unspecified laterality (HCC) ADDITIONAL CLINICAL INFORMATION: Ordering Provider Reason For Exam: acute hypoxic respirtory failure Technologist Note: Additional: COMPARISON: 04/28/2025, XR CHEST 1VW PORTABLE Procedure Note Tano Connolly MD - 04/29/2025 PROCEDURE: XR CHEST 1VW PORTABLE, DATE/TIME OF EXAM: 04/29/2025 5:42AM, LOCATION [facility] INDICATION: C34.00: 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 Patchy opacity in the right lung base concerning for aspiration an unchanged. There is bibasilar, right greater than left atelectasis.There is a trace right pleural effusion. There is no pneumothorax The cardiomediastinal silhouette is normal for portable technique. > Interpreting Provider: Tano Connolly MD on 04/29/2025 3:47 PM us Sachin Anders MD DIAGNOSTIC IMAGING ORDERABLE S Final Result * (ABNORMAL) BLOOD GAS+COOX+ELECTROLYTES+METAB VENOUS (04/29/2025 5:22 AM [facility] [place]) pH Venous 7.41 7.32 - 7.42 pH 04/29/2025 5:28 AM [facility] pO2 Venous 37 35 - 40 mmHg 04/29/2025 5:28 AM [facility] pCO2 Venous 66(H) 40 - 50 mmHg 04/29/2025 5:28 AM [facility] HCO3 Venous 41.8(H) 20 - 30 mmol/L 04/29/2025 5:28 AM [facility] Base Excess Venous 13.8(H) -2.0 - 2.0 mmol/L 04/29/2025 5:28 AM [facility] Oxyhemoglobin Venous 65.5 % 04/09 5:28 AM [facility] Deoxyhemoglobin (HHB) Venous % 32.4 % 04/29/2025 5:28 AM [facility] Methemoglobin <0.8 0.0 - 2.0 % 04/29/2025 5:28 AM [facility] Carboxyhemoglobin 1.9 0.0 - 2.0 % 2024 5:28 AM [facility] O2 Content Venous 13.0 Interpret within clinical context ml/dL 04/29/2025 5:28 AM [facility] Hemoglobin by COOX 14.2 12.0 - 17.6 g/dL 04/29/2025 5:28 AM [facility] O2 Saturation Venous 67(L) >=70 % 04/09 5:28 AM [facility] Sodium Whole Blood 135 135 - 145 mmol/L 04/29/2025 5:28 AM [facility] Potassium Whole Blood 3.9 3.5 - 5.5 mmol/L 04/29/2025 5:28 AM [facility] Chloride WB 93 78 - 107 mmol/L 04/29/2025 5:28 AM [facility] Calcium Ionized 1.15 mmol/L 5:28 AM [facility] Ionized Calcium pH Adjusted 1.15(L) 1.19 - 1.34 mmol/L 04/29/2025 5:28 AM [facility] Anion Gap (AG) Arterial 0(L) 6 - 16 mmol/L 04/29/2025 5:28 AM [facility] Glucose WB 141(H) 70 - 99 mg/dL 04/29/2025 5:28 AM [facility] Lactic Acid Whole Blood 0.7 <=2.0 mmol/L 04/29/2025 5:28 AM [facility] Blood BLOOD SPECIMEN / Unknown Venipuncture / Unknown 04/29/2025 5:22 AM CDT 04/29/2025 5:24 AM CDT Narrative [facility] - 04/29/2025 5:28 AM CDT Carboxyhemoglobin Normal Concentration: Non-smokers: 0-2%; Smokers: 0-9%; Toxic: >20% us Sachin Anders MD LAB - BLOOD GASES ORDERABLES Final Result [address] [address], [facility] [phone] * IR Rizwana Cath Insert (04/27/2025 9:30 AM CDT) Anatomical Region Laterality Modality Chest X-Ray Angiograph y 04/27/2025 9:39 AM CDT Narrative 04/27/2025 9:41 AM CDT PROCEDURE: IR RIZWANA CATH INSERT DATE/TIME OF EXAM: 04/27/2025 9:32 AM CLINICAL INFORMATION: None relevant/not provided if blank. 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 Attending: Meghann Thornton M.D. Procedures performed: 1. Insertion of tunneled central venous catheter with single lumen subcutaneous port 2. Fluoroscopic guidance for central venous catheter procedure. 3. Ultrasound guidance for vascular access with permanent recording. 4. Moderate sedation This patient was referred for placement of a port-a-cath for medications. Following informed consent the patient was taken to the angiography suite and places on the fluoroscopy table. The skin of the right neck and chest was prepared with chlorhexidine and sterile drapes were applied. Under real time ultrasound guidance, the right internal jugular vein was accessed with a micropuncture needle, a veronica scale image was recorded and a microfilament wire was advanced to the central veins under fluoroscopic guidance. This allowed the placement of a 5 Ukrainian trocar which in turn allowed the placement of a 0.035 guidewire which was manipulated into the IVC. A site for the port was chosen on the chest wall and anesthetized with lidocaine. A 1 inch incision was made and a subcutaneous pocket was created by blunt dissection. Using a metal tunneling device, the catheter was brought through a subcutaneous tunnel to the venotomy incision and prepared for insertion. A peel-away sheath was inserted over the guidewire and the inner stylet was removed. The catheter was inserted through the sheath which was then removed. The catheter was adjusted for length under fluoroscopy such that the tip was at the junction of the SVC and RA. The port was attached and flushed easily and where locked with heparin and inserted into the subcutaneous pocket. The subcutaneous tissue was approximated with interrupted 3-0 Vicryl and the incision was closed with a running 4-0 Vicryl subcuticular suture. The wound and the venotomy incision were sealed with Dermabond. Moderate sedation on this adult patient was ordered by me, administered intravenously in my presence, and monitored by the procedure nurse as an independent trained observer who was present throughout the procedure. The following parameters were monitored: oxygen saturation, heart rate, blood pressure, and response to care. Intra-service sedation start time was 0904 and end time was 0935 during which I was present. Total physician intra-service sedation time was 31 minutes. For details on pre-moderate sedation and post-moderate sedation patient evaluation, please review the evaluation forms in [facility]. For details on monitored clinical parameters during the intra-service sedation time, please review the procedure nurse documentation in [facility]. I was present for the entire procedure. > Interpreting Provider: Demetris Thornton MD on 04/27/2025 9:41 AM Procedure Note Dario Thornton MD - 04/27/2025 PROCEDURE: IR RIZWANA CATH INSERT DATE/TIME OF EXAM: 04/27/2025 9:32 AM CLINICAL INFORMATION: None relevant/not provided if blank. 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 Attending: Meghann Thornton M.D. Procedures performed: 1. Insertion of tunneled central venous catheter with single lumen subcutaneous port 2. Fluoroscopic guidance for central venous catheter procedure. 3. Ultrasound guidance for vascular access with permanent recording. 4. Moderate sedation This patient was referred for placement of a port-a-cath formedications. Following informed consent the patient was taken to the angiographysuite and places on the fluoroscopy table. The skin of the right neck andchest was prepared with chlorhexidine and sterile drapes were applied. Underreal time ultrasound guidance, the right internal jugular vein was accessedwith a micropuncture needle, a veronica scale image was recorded and amicrofilament wire was advanced to the central veins under fluoroscopic guidance. This allowed the placement of a 5 Ukrainian trocar which in turn allowed the placement of a 0.035 guidewire which was manipulated into the IVC. Asite for the port was chosen on the chest wall and anesthetized withlidocaine. A 1 inch incision was made and a subcutaneous pocket was created byblunt dissection. Using a metal tunneling device, the catheter was brought through a subcutaneous tunnel to the venotomy incision and prepared for insertion.A peel-away sheath was inserted over the guidewire and the inner styletwas removed. The catheter was inserted through the sheath which was then removed. The catheter was adjusted for length under fluoroscopy suchthat the tip was at the junction of the SVC and RA. The port was attached and flushed easily and where locked with heparin and inserted into the subcutaneous pocket. The subcutaneous tissue was approximated with interrupted 3-0 Vicryl and the incision was closed with a running 4-0 Vicryl subcuticular suture. The wound and the venotomy incision weresealed with Dermabond. Moderate sedation on this adult patient was ordered by me, administered intravenously in my presence, and monitored by the procedure nurse as an independent trained observer who was present throughout the procedure.The following parameters were monitored: oxygen saturation, heart rate,blood pressure, and response to care. Intra-service sedation start time [id number] and end time was 934 during which I was present. Total physician intra-service sedation time was 31 minutes. For details on pre-moderate sedation and post-moderate sedation patient evaluation, please reviewthe evaluation forms in [facility]. For details on monitored clinical parameters during the intra-service sedation time, please review the procedurenurse documentation in [facility]. I was present for the entire procedure. > Interpreting Provider: Demetris Thornton MD on 04/27/2025 9:41 AM Manuel Osorio MD IR ORDERABLES Final Result * Rad Onc Aria Session Summary (04/25/2025 1:41 PM CDT) Course ID [id number] RAD ONC TREATMENT Course First Treatment Date 04/11/2025 1:11 PM RAD ONC TREATMENT Reference Point ID Brain RAD ONC TREATMENT Reference Point Dosage Given to Date 30 Gy RAD ONC TREATMENT Reference Point Session Dosage Given 3 Gy RAD ONC TREATMENT Plan ID #[id number] RAD ONC TREATMENT Plan Fractions Treated to Date 10 RAD ONC TREATMENT Plan Total Fractions Prescribed 10 RAD ONC TREATMENT Plan Total Prescribed Dose 3000 cGy RAD ONC TREATMENT 04/25/2025 1:41 PM CDT us Provider Unknown RADIATION ONCOLOGY ORDERABLES F inal Result RAD ONC TREATMENT * CARDIAC EKG ORDER (04/22/2025 1:01 PM CDT) Only the most recent of2 resultswithin the time period is included. Narrative 04/22/2025 1:01 PM CDT Ordered by an unspecified provider. us Scanned Document CARDIAC SERVICES ORDERABLES Fin al Result * Rad Onc Aria Session Summary (04/22/2025 9:11 AM CDT) Course ID [id number] RAD ONC TREATMENT Course First Treatment Date 04/11/2025 1:11 PM RAD ONC TREATMENT Reference Point ID Brain RAD ONC TREATMENT Reference Point Dosage Given to Date 27 Gy RAD ONC TREATMENT Reference Point Session Dosage Given 3 Gy RAD ONC TREATMENT Plan ID #[id number] RAD ONC TREATMENT Plan Fractions Treated to Date 9 RAD ONC TREATMENT Plan Total Fractions Prescribed 10 RAD ONC TREATMENT Plan Total Prescribed Dose 3000 cGy RAD ONC TREATMENT 04/22/2025 9:11 AM CDT Provider Unknown RADIATION ONCOLOGY ORDERABLES F inal Result RAD ONC TREATMENT * Rad Onc Aria Session Summary (04/21/2025 10:12 AM CDT) Course ID [id number] RAD ONC TREATMENT Course First Treatment Date 04/11/2025 1:11 PM RAD ONC TREATMENT Reference Point ID Brain RAD ONC TREATMENT Reference Point Dosage Given to Date 24 Gy RAD ONC TREATMENT Reference Point Session Dosage Given 3 Gy RAD ONC TREATMENT Plan ID #[id number] RAD ONC TREATMENT Plan Fractions Treated to Date 8 RAD ONC TREATMENT Plan Total Fractions Prescribed 10 RAD ONC TREATMENT Plan Total Prescribed Dose 3000 cGy RAD ONC TREATMENT 04/21/2025 10:1 2 AM CDT us Provider Unknown RADIATION ONCOLOGY ORDERABLES F inal Result RAD ONC TREATMENT * Rad Onc Aria Session Summary (04/20/2025 1:09 PM CDT) Course ID [id number] RAD ONC TREATMENT Course First Treatment Date 04/11/2025 1:11 PM RAD ONC TREATMENT Reference Point ID Brain RAD ONC TREATMENT Reference Point Dosage Given to Date 21 Gy RAD ONC TREATMENT Reference Point Session Dosage Given 3 Gy RAD ONC TREATMENT Plan ID #[id number] RAD ONC TREATMENT Plan Fractions Treated to Date 7 RAD ONC TREATMENT Plan Total Fractions Prescribed 10 RAD ONC TREATMENT Plan Total Prescribed Dose 3000 cGy RAD ONC TREATMENT 04/20/2025 1:09 PM CDT us Provider Unknown RADIATION ONCOLOGY ORDERABLES F inal Result RAD ONC TREATMENT * (ABNORMAL) CBC W/O DIFFERENTIAL (04/20/2025 4:01 AM CDT) WBC 16.3(H) 4.0 - 10.7 x10E9/L 04/20/2025 4:20 AM [facility] RBC Count 5.14 4.30 - 5.80 x10E12/L 04/20/2025 4:20 AM [facility] Hemoglobin 15.3 13.3 - 17.5 g/dL 04/20/2025 4:20 AM [facility] Hematocrit 46.2 38.7 - 51.1 % 04/20/2025 4:20 AM [facility] MCV 89.9 80.0 - 98.0 fL 04/20/2025 4:20 AM [facility] MCH 29.8 26.7 - 33.6 pg 04/20/2025 4:20 AM [facility] MCHC 33.1 31.7 - 36.3 g/dL 04/20/2025 4:20 AM [facility] RDW-CV 14.3 11.3 - 14.8 % 04/20/2025 4:20 AM [facility] Platelet Count 195 150 - 420 x10E9/L 04/20/2025 4:20 AM [facility] MPV 9.5 7.8 - 11.4 fL 04/20/2025 4:20 AM [facility] Blood BLOOD SPECIMEN / Unknown Venipuncture / Unknown 04/20/2025 4:01 AM CDT 04/20/2025 4:16 AM CDT us Zeeshan Barth MD LAB - HEMATOLOGY ORDERABLES Final Result [facility] [address] [place] [address] [phone] * (ABNORMAL) BASIC METABOLIC PANEL (CALCIUM TOTAL) (04/20/2025 4:01 AM CDT) BUN 15 7 - 26 mg/dL 04/20/2025 4:44 AM [facility] Creatinine 0.64(L) 0.71 - 1.16 mg/dL 04/20/2025 4:44 AM [facility] Sodium 137 136 - 145 mmol/L 04/20/2025 4:44 AM [facility] Potassium 4.3 3.5 - 4.5 mmol/L 04/20/2025 4:44 AM [facility] Chloride 101 98 - 107 mmol/L 04/20/2025 4:44 AM [facility] CO2 32(H) 22 - 29 mmol/L 04/20/2025 4:44 AM [facility] Glucose 130(H) 70 - 99 mg/dL 04/20/2025 4:44 AM [facility] Calcium 9.0 8.4 - 10.2 mg/dL 04/20/2025 4:44 AM [facility] Anion Gap 4(L) 6 - 16 04/20/2025 4:44 AM [facility] BUN/Creatinine Ratio 23 7 - 23 04/20/2025 4:44 AM [facility] Osmolality Calculated 287 275 - 295 mOsm/kg 04/20/2025 4:44 AM [facility] eGFR by CKD-EPI >90 >=90 mL/min/1.7 3 m2 04/20/2025 4:44 AM [facility] Comment:Estimated Glomerular Filtration Rate (eGFR) calculated using the CKD-EPI Creatinine Equation (2020), per the National Kidney Foundation and [place] [employer]ph[employer] recommendations. Blood BLOOD SPECIMEN / Unknown Venipuncture / Unknown 04/20/2025 4:01 AM CDT 04/20/2025 4:16 AM T us Zeeshan Barth MD LAB - CHEMISTRY ORDERABLES F inal Result [facility] [address] [place] [address], [facility] [phone] * EKG 12-Lead (04/19/2025 6:29 PM CDT) Only the most recent of2 resultswithin the time period is included. Ventricular Rate 72 BPM [facility] Atrial Rate 72 BPM [facility] P-R Interval 134 ms [facility] QRS Duration ms 96 ms [facility] Q-T Interval ms 356 ms [facility] QTC Calculation (Bezet) 389 ms [facility] Calculated P [place] 72 degrees [facility] Calculated R [place] -55 degrees [facility] Calculated T [place] 77 degrees [facility] Interpretation EKG NORMAL SINUS RHYTHM LEFT AXIS DEVIATION LOW VOLTAGE QRS INCOMPLETE RIGHT BUNDLE BRANCH BLOCK ABNORMAL ECG WHEN COMPARED WITH ECG OF 19-APR-2025 12:39, BORDERLINE CRITERIA FOR ANTERIOR INFARCT IS NO LONGER PRESENT Confirmed by JORGE JEONG MD ([id number]) on 04/23/2025 10:22:11 PM [facility] 04/19/2025 6:29 PM CDT 04/23/2025 10:22 PM CDT us Vinny Saunders MD ECG ORDERABLES Edited Resu lt - Final [facility] * (ABNORMAL) BLOOD GASES VALENTINE + COOX PANEL (04/19/2025 6:06 PM CDT) Only the most recent of2 resultswithin the time period is included. Pathologist [facility] pH Venous 7.32 7.32 - 7.42 pH 04/19/2025 6:11 PM CDT [facility] pO2 Venous 117(H) 35 - 40 mmHg 04/19/2025 6:11 PM CDT [facility] pCO2 Venous 55(H) 40 - 50 mmHg 04/19/2025 6:11 PM CDT [facility] HCO3 Venous 28.3 20 - 30 mmol/L 04/19/2025 6:11 PM CDT [facility] Base Excess Venous 0.8 -2.0 - 2.0 mmol/L 04/19/2025 6:[facility] Venous 95.6 % 04/08 6:11 PM [facility] Deoxyhemoglobin (HHB) Venous % 1.0 % 04/19/2025 6:11 PM [facility] Methemoglobin <0.8 0.0 - 2.0 % 04/19/2025 6:11 PM [facility] Carboxyhemoglobin 2.8(H) 0.0 - 2.0 % 2024 6:11 PM [facility] O2 Content Venous 21.9 Interpret within clinical context ml/dL 04/19/2025 6:11 PM [facility] Hemoglobin by COOX 16.2 12.0 - 17.6 g/dL 04/19/2025 6:11 PM [facility] O2 Saturation Venous 99 >=70 % 04/08 6:11 PM [facility] FI O2 Mixed Venous 40.0 % 2024 6:11 PM [facility] Blood BLOOD SPECIMEN / Unknown Venipuncture / Unknown 04/19/2025 6:06 PM CDT 04/19/2025 6:08 PM [facility] - 04/19/2025 6:11 PM [facility] Carboxyhemoglobin Normal Concentration: Non-smokers: 0-2%; Smokers: 0-9%; Toxic: >20% us Vinny Saunders MD LAB - BLOOD GASES ORDERABLE S Final Result [facility] [address] [place] [address] [phone] * B-TYPE NATRIURETIC PEPTIDE (04/19/2025 3:07 PM CDT) BNP 38 <100 pg/mL 04/19/2025 4:05 PM [facility] Comment: A decision threshold of 100 pg/mL has been demonstrated to provide the maximal combination of sensitivity, specificity and predictive value for the diagnosis of congestive heart failure (CHF). Virtually all patients with no evidence of CHF have BNP values less than 100 pg/mL. A BNP value greater than 100 pg/mL is consistent with the diagnosis of CHF in the appropriate clinical setting. In a study of 693 patients (male and female) with diagnosed CHF, the following values were determined based on the NYHA functional classification system: NYHA Functional Class Mean Valule (pg/mL) % >100 pg/mL I 320 58.1 II 432 73.0 III 656 79.0 IV 1635 98.3 Blood BLOOD SPECIMEN / Unknown Venipuncture / Unknown 04/19/2025 3:07 PM CDT 04/19/2025 3:11 PM CDT us Vinny Saunders MD LAB - CHEMISTRY ORDERABLES Final Result [address] [address], [facility] [phone] * CT Angio Chest Pulm Embolism (04/19/2025 2:00 PM CDT) Anatomical Region Laterality Modality Chest Computed Tomogra phy 04/19/2025 2:14 PM CDT Impressions 04/19/2025 3:35 PM CDT Impression: 1.No evidence of acute pulmonary embolism. 2.Grossly unchanged appearance of the right hilar mass/conglomerate lymphadenopathy which extends into the mediastinum and the right middle and lower lobes, biopsy proven to be a small cell carcinoma. 3.Extensive upper lobe predominant emphysematous change. > Dictated by Vinh Victoria MD (residential green building designer). > Dictated by Vinh Victoria MD 04/19/2025 2:14 PM > Dictated by Mechanic Foreman I, Tano Connolly MD have personally reviewed and interpreted this examination/study. > Interpreting Provider: Tano Connolly MD on 04/19/2025 3:35 PM Narrative 04/19/2025 3:35 PM CDT PROCEDURE: CT ANGIO CHEST PULM EMBOLISM DATE/TIME OF EXAM: 04/19/2025 2:03 PM CLINICAL INFORMATION: None relevant/not provided if blank. Indication: R06.02: SOB (shortness of breath) Additional History: COMPARISON: CT chest, abdomen and pelvis 04/07/2025 TECHNIQUE: CT of the chest was performed following the uneventful administration of 75 mL of Isovue 370 intravenous contrast according to a pulmonary embolism protocol. Multiplanar reconstructions were created. Findings: Study Quality This examination for the diagnosis of pulmonary embolism is adequate. Pulmonary Arteries: No evidence of acute pulmonary embolism. Thoracic Vasculature: Trace calcification of the thoracic aorta. Lower Neck and Axillae: Redemonstrated conglomerate lymphadenopathy in the right superior, anterior mediastinum, series 5 image 42. Lungs: Centrilobular and paraseptal emphysema is present. Unchanged appearance of a large soft tissue mass or conglomerate lymphadenopathy centered within the right rosangela extending along the bronchi/vasculature into the right middle and lower lobes, for example series 6 image 42 and 52. Unchanged, discrete 1.6 cm right upper lobe nodule, series 6 image 51. In addition there are 2 small subpleural nodules at the left lung apex also unchanged. No pleural fluid or pneumothorax is present. Similar mild right lower lobe scarring or aspiration. Heart and Pericardium: The cardiac chambers are normal in size. No pericardial fluid or thickening is present. Mediastinum and Rosangela: Similar appearance of the patient's right hilar mass lesion which extends into the mediastinum biopsy-proven to be small cell carcinoma. Bones and Chest Wall: Bone windows demonstrate no suspicious lytic or blastic lesions. The visible osseous structures are intact. Degenerative changes are seen in the spine. Upper Abdomen: Bilateral adrenal nodules noted on prior CT are not well visualized on this study, better seen and characterized on the prior CT. Otherwise, the visible organs of the upper abdomen are without gross abnormality. Procedure Note Tano Connolly MD - 04/19/2025 PROCEDURE: CT ANGIO CHEST PULM EMBOLISM DATE/TIME OF EXAM: 04/19/2025 2:03 PM CLINICAL INFORMATION: None relevant/not provided if blank. Indication: R06.02: SOB (shortness of breath) Additional History: COMPARISON: CT chest, abdomen and pelvis 04/07/2025 TECHNIQUE: CT of the chest was performed following the uneventful administration of 75 mL of Isovue 370 intravenous contrast according toa pulmonary embolism protocol. Multiplanar reconstructions were created. Findings: Study Quality This examination for the diagnosis of pulmonary embolism is adequate. Pulmonary Arteries: No evidence of acute pulmonary embolism. Thoracic Vasculature: Trace calcification of the thoracic aorta. Lower Neck and Axillae: Redemonstrated conglomerate lymphadenopathy in the right superior,anterior mediastinum, series 5 image 42. Lungs: Centrilobular and paraseptal emphysema is present. Unchanged appearanceof a large soft tissue mass or conglomerate lymphadenopathy centered within the right rosangela extending along the bronchi/vasculature into the right middle and lower lobes, for example series 6 image 42 and 52. Unchanged, discrete 1.6 cm right upper lobe nodule, series 6 image 51. In addition there are 2 small subpleural nodules at the left lung apex alsounchanged. No pleural fluid or pneumothorax is present. Similar mild right lowerlobe scarring or aspiration. Heart and Pericardium: The cardiac chambers are normal in size. No pericardial fluid orthickening is present. Mediastinum and Rosangela: Similar appearance of the patient's right hilar mass lesion whichextends into the mediastinum biopsy-proven to be small cell carcinoma. Bones and Chest Wall: Bone windows demonstrate no suspicious lytic or blastic lesions. The visible osseous structures are intact. Degenerative changes are seen inthe spine. Upper Abdomen: Bilateral adrenal nodules noted on prior CT are not well visualized onthis study, better seen and characterized on the prior CT. Otherwise, the visible organs of the upper abdomen are without gross abnormality. Impression: 1.No evidence of acute pulmonary embolism. 2.Grossly unchanged appearance of the right hilar mass/conglomerate lymphadenopathy which extends into the mediastinum and the right middleand lower lobes, biopsy proven to be a small cell carcinoma. 3.Extensive upper lobe predominant emphysematous change. > Dictated by Vinh Victoria MD (residential green building designer). > Dictated by Vinh Victoria MD 04/19/2025 2:14 PM > Dictated by Mechanic Foreman I, Tano Connolly MD have personally reviewed and interpreted this examination/study. > Interpreting Provider: Tano Connolly MD on 04/19/2025 3:35 PM us Garrett Andino MD CT ORDERABLES Final Result * TROPONIN-I HIGH SENSITIVE REFLEX 1HOUR (04/19/2025 1:45 PM CDT) Troponin I High Sensitive 7 <=35 ng/L 04/19/2025 2:49 PM CDT [facility] Delta Troponin I HS 3 <6 ng/L 04/19/2025 2:49 PM CDT [facility] [facility] Blood BLOOD SPECIMEN / Unknown Venipuncture / Unknown 04/19/2025 1:45 PM CDT 04/19/2025 2:02 PM CDT Garrett Andino MD LAB - CHEMISTRY ORDERABLES Final Result [address] [address], [place] [phone] * LACTIC ACID BLOOD REFLEX TO REPEAT (04/19/2025 12:23 PM CDT) Lactic Acid-Stat 1.4 <=2.0 mmol/L 04/19/2025 1:01 PM CDT [facility] Blood BLOOD SPECIMEN / Unknown Venipuncture / Unknown 04/19/2025 12:23 PM CDT 04/19/2025 12:33 PM CDT Garrett Andino MD LAB - CHEMISTRY ORDERABLES Final Result Performing Organization Address City/[facility]/ZIP Co de Phone Number [address] [address], [place] [phone] * TROPONIN-I HIGH SENSITIVE BASELINE + 1HR (04/19/2025 12:23 PM CDT) Pathologist [facility] Troponin I High Sensitive 4 <=35 ng/L 04/19/2025 1:13 PM CDT [facility] Blood BLOOD SPECIMEN / Unknown Venipuncture / Unknown 04/19/2025 12:23 PM CDT 04/19/2025 12:33 PM CDT Garrett Andino MD LAB - CHEMISTRY ORDERABLES Final Result Performing Organization Address City/[facility]/ZIP Co de Phone Number [address] [address], [place] [phone] * (ABNORMAL) PT-INR (04/19/2025 12:23 PM CDT) PT 11.6(L) 12.1 - 14.8 Seconds 04/19/2025 1:01 PM CDT [facility] INR 0.8 See Comment 04/19/2025 1:01 PM CDT [facility] Comment:The suggested therap eutic range for standard coumadin (warfarin) therapy is an INR of 2.0-3.0. For high-risk patients (Mechanical Mitral Valve Prosthesis, etc.), the suggested prophylactic therapeutic range is an INR of 2.5-3.5. Blood BLOOD SPECIMEN / Unknown Venipuncture / Unknown 04/19/2025 12:23 PM CDT 04/19/2025 12:28 PM CDT Garrett Andino MD LAB - COAGULATION ORDERABLES Fin al Result Performing Organization Address City/[facility]/ZIP Co de Phone Number [address] [address], [place] [phone] * LIPASE BLOOD (04/19/2025 12:23 PM CDT) Lipase 25 8 - 78 U/L 04/19/2025 1:08 PM CDT [facility] Blood BLOOD SPECIMEN / Unknown Venipuncture / Unknown 04/19/2025 12:23 PM CDT 04/19/2025 12:33 PM CDT Narrative [facility] - 04/19/2025 1:08 PM CDT Lipase results from the Fluoresentric Alinity analyzer may not be comparable with other methodologies. us Garrett Andino MD LAB - CHEMISTRY ORDERABLES Final Result Performing Organization Address City/[facility]/ZIP Co de Phone Number [address] [address], [place] [phone] * Rad Onc Aria Session Summary (04/18/2025 1:17 PM CDT) Course ID [id number] RAD ONC TREATMENT Course First Treatment Date 04/11/2025 1:11 PM RAD ONC TREATMENT Reference Point ID Brain RAD ONC TREATMENT Reference Point Dosage Given to Date 18 Gy RAD ONC TREATMENT Reference Point Session Dosage Given 3 Gy RAD ONC TREATMENT Plan ID #[id number] RAD ONC TREATMENT Plan Fractions Treated to Date 6 RAD ONC TREATMENT Plan Total Fractions Prescribed 10 RAD ONC TREATMENT Plan Total Prescribed Dose 3000 cGy RAD ONC TREATMENT 04/18/2025 1:17 PM CDT us Provider Unknown RADIATION ONCOLOGY ORDERABLES F inal Result Performing Organization Address [facility] Co de Phone Number RAD ONC TREATMENT * Rad Onc Aria Session Summary (04/15/2025 2:24 PM CDT) Course ID [id number] RAD ONC TREATMENT Course First Treatment Date 04/11/2025 1:11 PM RAD ONC TREATMENT Reference Point ID Brain RAD ONC TREATMENT Reference Point Dosage Given to Date 15 Gy RAD ONC TREATMENT Reference Point Session Dosage Given 3 Gy RAD ONC TREATMENT Plan ID #[id number] RAD ONC TREATMENT Plan Fractions Treated to Date 5 RAD ONC TREATMENT Plan Total Fractions Prescribed 10 RAD ONC TREATMENT Plan Total Prescribed Dose 3000 cGy RAD ONC TREATMENT 04/15/2025 2:24 PM CDT us Provider Unknown RADIATION ONCOLOGY ORDERABLES F inal Result Performing Organization Address [facility] Co de Phone Number RAD ONC TREATMENT * Rad Onc Aria Session Summary (04/14/2025 1:12 PM CDT) Course ID [id number] RAD ONC TREATMENT Course First Treatment Date 04/11/2025 1:11 PM RAD ONC TREATMENT Reference Point ID Brain RAD ONC TREATMENT Reference Point Dosage Given to Date 12 Gy RAD ONC TREATMENT Reference Point Session Dosage Given 3 Gy RAD ONC TREATMENT Plan ID #[id number] RAD ONC TREATMENT Plan Fractions Treated to Date 4 RAD ONC TREATMENT Plan Total Fractions Prescribed 10 RAD ONC TREATMENT Plan Total Prescribed Dose 3000 cGy RAD ONC TREATMENT 04/14/2025 1:12 PM CDT us Provider Unknown RADIATION ONCOLOGY ORDERABLES F inal Result RAD ONC TREATMENT * Rad Onc Aria Session Summary (04/13/2025 1:14 PM CDT) Course ID [id number] RAD ONC TREATMENT Course First Treatment Date 04/11/2025 1:11 PM RAD ONC TREATMENT Reference Point ID Brain RAD ONC TREATMENT Reference Point Dosage Given to Date 9 Gy RAD ONC TREATMENT Reference Point Session Dosage Given 3 Gy RAD ONC TREATMENT Plan ID #[id number] RAD ONC TREATMENT Plan Fractions Treated to Date 3 RAD ONC TREATMENT Plan Total Fractions Prescribed 10 RAD ONC TREATMENT Plan Total Prescribed Dose 3000 cGy RAD ONC TREATMENT 04/13/2025 1:14 PM CDT us Provider Unknown RADIATION ONCOLOGY ORDERABLES F inal Result Performing Organization Address [facility] Co de Phone Number RAD ONC TREATMENT * Rad Onc Aria Session Summary (04/12/2025 1:06 PM CDT) Course ID [id number] RAD ONC TREATMENT Course First Treatment Date 04/11/2025 1:11 PM RAD ONC TREATMENT Reference Point ID Brain RAD ONC TREATMENT Reference Point Dosage Given to Date 6 Gy RAD ONC TREATMENT Reference Point Session Dosage Given 3 Gy RAD ONC TREATMENT Plan ID #[id number] RAD ONC TREATMENT Plan Fractions Treated to Date 2 RAD ONC TREATMENT Plan Total Fractions Prescribed 10 RAD ONC TREATMENT Plan Total Prescribed Dose 3000 cGy RAD ONC TREATMENT 04/12/2025 1:06 PM CDT us Provider Unknown RADIATION ONCOLOGY ORDERABLES F inal Result Performing Organization Address [facility] Co de Phone Number RAD ONC TREATMENT * Rad Onc Aria Session Summary (04/11/2025 1:17 PM CDT) Course ID [id number] RAD ONC TREATMENT Course First Treatment Date 04/11/2025 1:11 PM RAD ONC TREATMENT Reference Point ID Brain RAD ONC TREATMENT Reference Point Dosage Given to Date 3 Gy RAD ONC TREATMENT Reference Point Session Dosage Given 3 Gy RAD ONC TREATMENT Plan ID #[id number] RAD ONC TREATMENT Plan Fractions Treated to Date 1 RAD ONC TREATMENT Plan Total Fractions Prescribed 10 RAD ONC TREATMENT Plan Total Prescribed Dose 3000 cGy RAD ONC TREATMENT 04/11/2025 1:17 PM CDT us Provider Unknown RADIATION ONCOLOGY ORDERABLES F inal Result RAD ONC TREATMENT * TSH (04/08/2025 8:30 AM CDT) Only the most recent of2 resultswithin the time period is included. 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 2.No midline shift. 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 EXAMINATION: Magnetic resonance imaging (MRI) of the brain without and with contrast CONTRAST: GADOBUTROL 1 MMOL/ML IV SSM SO:8 mL TECHNIQUE: MRI of the brain was performed prior to and following the uneventful administration of 8 mL intravenous GADAVIST contrast according to a tumor protocol. COMPARISON: MRI of the brain from 12/24/2024. FINDINGS: Compared to the prior MRI of the brain from 12/24/2024: There has been interval development of numerous supratentorial and infratentorial, varying size enhancing lesions, the largest is located in the right parasagittal frontoparietal region and measures approximately 2.4 x 6 2.0 x 2.6 cm in the transaxial and craniocaudal dimensions, (series 16, image 21, and series 18, image 15), with surrounding T2/FLAIR hyperintensity, compatible with vasogenic edema resulting in mild local mass effect on the adjacent structures but no significant midline shift. There is associated susceptibility artifacts, compatible with hemorrhagic metastases. Additional region of susceptibility artifacts associated with a 11.6 mm lesion in the right lateral superior frontal lobe. There is intrinsic T1 hyperintensity in the larger above-mentioned parasagittal right frontoparietal lesion and adjacent smaller superior lateral frontal lesion, compatible with evolving subacute blood products. Several of these lesions demonstrated restricted diffusion Additional rounded lesion in the parasagittal left frontal lobe measuring up to 1.2 cm, (series 16, image 22), and a 1.0 cm in the lateral anterior right frontal lobe, (series 16, image 21). A 1.0 cm enhancing lesion is also noted in the left cerebellar hemisphere, (series 16, image 6). Additional smaller lesions in the bilateral cerebral and cerebellar hemispheres are also noted. Many of of these lesions are associated with restricted diffusion and few are associated with susceptibility artifacts, compatible with hemorrhagic metastases. The majority of lesions are associated with restricted diffusion. 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 No evidence of acute or chronic hemorrhage is identified. No evidence of acute cerebral infarction is otherwise seen. There is mild cerebral volume loss with associated ex vacuo ventricular dilatation. No midline shift is seen. Periventricular and subcortical white matter FLAIR hyperintensities likely represent sequelae of chronic small vessel ischemic disease. The corpus callosum and sella appear grossly stable. The posterior fossa, brainstem, and craniocervical junction appear otherwise grossly stable. Other than mild paranasal sinus disease, the visualized portions of the orbits, paranasal sinuses, and mastoids appear normal. Normal flow voids are demonstrated in the carotid arteries and basilar artery. Decreased T1 bone marrow signal is a nonspecific finding but can be seen in the setting of anemia or bone marrow infiltration. Clinical correlation is recommended. The calvarium and visualized cervical spine appear otherwise grossly unremarkable. 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 EXAMINATION: Magnetic resonance imaging (MRI) of the brain without andwith contrast CONTRAST: GADOBUTROL 1 MMOL/ML IV SSM SO:8 mL TECHNIQUE: MRI of the brain was performed prior to and following the uneventful administration of 8 mL intravenous GADAVIST contrastaccording to a tumor protocol. COMPARISON: MRI of the brain from 12/24/2024. FINDINGS: Compared to the prior MRI of the brain from 12/24/2024: There has been interval development of numerous supratentorial and infratentorial,varying size enhancing lesions, the largest is located in the right parasagittal frontoparietal region and measures approximately 2.4 x 6 2.0 x 2.6 cm in the transaxial and craniocaudal dimensions, (series 16, image 21, and series 18, image 15), with surrounding T2/FLAIR hyperintensity,compatible with vasogenic edema resulting in mild local mass effect on the adjacent structures but no significant midline shift. There is associated susceptibility artifacts, compatible with hemorrhagic metastases. Additional region of susceptibility artifacts associated with a 11.6 mm lesion in the right lateral superior frontal lobe. There is intrinsic T1 hyperintensity in the larger above-mentioned parasagittal right frontoparietal lesion and adjacent smaller superior lateral frontallesion, compatible with evolving subacute blood products. Several of theselesions demonstrated restricted diffusion Additional rounded lesion in the parasagittal left frontal lobemeasuring up to 1.2 cm, (series 16, image 22), and a 1.0 cm in the lateralanterior right frontal lobe, (series 16, image 21). A 1.0 cm enhancing lesion is also noted in the left cerebellar hemisphere, (series 16, image 6). Additional smaller lesions in the bilateral cerebral and cerebellar hemispheres are also noted. Many of of these lesions are associated with restricted diffusion and few are associated with susceptibilityartifacts, compatible with hemorrhagic metastases. The majority of lesions are associated with restricted diffusion. 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 No evidence of acute or chronic hemorrhage is identified. No evidence of acute cerebral infarction is otherwise seen. There is mild cerebralvolume loss with associated ex vacuo ventricular dilatation. No midline shiftis seen. Periventricular and subcortical white matter FLAIRhyperintensities likely represent sequelae of chronic small vessel ischemic disease. The corpus callosum and sella appear grossly stable. The posterior fossa, brainstem, and craniocervical junction appear otherwise grossly stable. Other than mild paranasal sinus disease, the visualized portions of the orbits, paranasal sinuses, and mastoids appear normal. Normal flow voids are demonstrated in the carotid arteries and basilar artery. DecreasedT1 bone marrow signal is a nonspecific finding but can be seen in thesetting of anemia or bone marrow infiltration. Clinical correlation isrecommended. The calvarium and visualized cervical spine appear otherwise grossly unremarkable. 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 2.No midline shift. > Interpreting Provider: Ira Silver MD on 04/14/2025 9:19 AM us Lauren Skinner MD MR ORDERABLES Final Resu lt * CT Chest Abdomen Pelvis W Cont (04/07/2025 2:25 PM CDT) Anatomical Region Laterality Modality Chest, Abdomen, Pelvis Computed Tomography 04/07/2025 2:39 PM CDT Impressions 04/07/2025 7:01 PM CDT Impression: 1. Interval increase in size of previously noted mediastinal lymph nodes with evidence of new paratracheal lymph node involvement representing disease progression. 2. Interval increase in size of the primary hilar mass and increase in size of involvement in the inferior portion the right upper lung as well as the posterior right lower lung representing disease progression. 3. Stable appearing bilateral adrenal nodules when compared to 08/24/2024. Continued attention on follow-up imaging. 4. Unchanged osseous metastases in the right iliac bone and left lesser trochanteric region of the femur, better visualized on prior PET/CT. > Dictated by Luis Miguel Graham Dr, MD (residential green building designer). > Dictated by Luis Miguel Graham Dr 04/07/2025 2:39 PM > Dictated by Mechanic Foreman I, Pb Willis have personally reviewed and interpreted this examination/study. 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 TECHNIQUE: CT of the chest, abdomen, and pelvis was performed after the uneventful administration of 100 mL of Isovue 370 intravenous contrast according to standard protocol. This exam is limited due to motion artifact. Findings: Chest: Lower Neck and Axillae: New 2.9 cm right paratracheal lymph node likely progression of metastatic small cell carcinoma. Lungs: Bilateral emphysematous change. Extension of small cell carcinoma into the inferior portion of the right upper lobe with increased size in existing the solid nodule (series 4 image 61) as well as extension into the posterior aspect of the right lower lobe which appears to be new. These both suggest progression of small cell carcinoma. Additionally in the left lung apex there is two subcentimeter nodules which are not definitively metastatic disease but should continue to be followed. Heart and Pericardium: The cardiac chambers are normal in size. No pericardial fluid or thickening is present. Mediastinum and Rosangela: Significant increase in size of patient's primary right hilar solid lesion previously biopsied to be small cell carcinoma. Lesion currently measures 7.8 x 4.2 cm in addition there are multiple involved hilar lymph nodes which have have increased in size as well (series 5 image 55) as well as a new involvement right upper paratracheal lymph node measuring 2.9 cm, also representing progression of disease (series 5 image 49) Thoracic Vasculature: Mild calcification of the aortic loop. Abdomen/pelvis: Liver: Normal Gallbladder and Bile Ducts: Normal. Spleen: Normal. Pancreas: Normal. Adrenals: There is a 2.7 cm right adrenal nodule and a 1.6 cm left adrenal nodules appear unchanged in size and characteristic compared to scan 12/09/2024. Kidneys: Very small non-obstructing stones bilateral inferior poles of the kidneys. Gastrointestinal: The stomach and visualized loops of large and small bowel are unremarkable. Normal appendix. Multiple diverticuli along the sigmoid colon without signs of surrounding inflammation. Mesentery/Peritoneum/Retroperitoneum: No free intraperitoneal air. No free fluid in the abdomen or pelvis. Bladder: Normal. Reproductive Organs: Normal size prostate with scattered small calcifications. Abdominal Vasculature: Atherosclerotic calcification of the abdominal aorta primarily the distal branches including the common, external, and internal iliac arteries Bones: Previously noted left proximal femur, right proximal femur and right posterior iliac lesions concerning for metastases remain unchanged in size Soft tissues: Normal. 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 TECHNIQUE: CT of the chest, abdomen, and pelvis was performed after the uneventful administration of 100 mL of Isovue 370 intravenous contrast according to standard protocol. This exam is limited due to motion artifact. Findings: Chest: Lower Neck and Axillae: New 2.9 cm right paratracheal lymph node likely progression ofmetastatic small cell carcinoma. Lungs: Bilateral emphysematous change. Extension of small cell carcinoma intothe inferior portion of the right upper lobe with increased size in existing the solid nodule (series 4 image 61) as well as extension into the posterior aspect of the right lower lobe which appears to be new. These both suggest progression of small cell carcinoma. Additionally in theleft lung apex there is two subcentimeter nodules which are not definitively metastatic disease but should continue to be followed. Heart and Pericardium: The cardiac chambers are normal in size. No pericardial fluid orthickening is present. Mediastinum and Rosangela: Significant increase in size of patient's primary right hilar solidlesion previously biopsied to be small cell carcinoma. Lesion currentlymeasures 7.8 x 4.2 cm in addition there are multiple involved hilar lymph nodes which have have increased in size as well (series 5 image 55) as well asa new involvement right upper paratracheal lymph node measuring 2.9 cm,also representing progression of disease (series 5 image 49) Thoracic Vasculature: Mild calcification of the aortic loop. Abdomen/pelvis: Liver: Normal Gallbladder and Bile Ducts: Normal. Spleen: Normal. Pancreas: Normal. Adrenals: There is a 2.7 cm right adrenal nodule and a 1.6 cm left adrenal nodules appear unchanged in size and characteristic compared to scan 12/09/2024. Kidneys: Very small non-obstructing stones bilateral inferior poles of thekidneys. Gastrointestinal: The stomach and visualized loops of large and small bowel areunremarkable. Normal appendix. Multiple diverticuli along the sigmoid colon withoutsigns of surrounding inflammation. Mesentery/Peritoneum/Retroperitoneum: No free intraperitoneal air. No free fluid in the abdomen or pelvis. Bladder: Normal. Reproductive Organs: Normal size prostate with scattered small calcifications. Abdominal Vasculature: Atherosclerotic calcification of the abdominal aorta primarily thedistal branches including the common, external, and internal iliac arteries Bones: Previously noted left proximal femur, right proximal femur and right posterior iliac lesions concerning for metastases remain unchanged in size Soft tissues: Normal. Impression: 1. Interval increase in size of previously noted mediastinal lymph nodes with evidence of new paratracheal lymph node involvement representing disease progression. 2. Interval increase in size of the primary hilar mass and increase insize of involvement in the inferior portion the right upper lung as well asthe posterior right lower lung representing disease progression. 3. Stable appearing bilateral adrenal nodules when compared to08/24/2024. Continued attention on follow-up imaging. 4. Unchanged osseous metastases in the right iliac bone and left lesser trochanteric region of the femur, better visualized on prior PET/CT. > Dictated by Luis Miguel Graham Dr, MD (residential green building designer). > Dictated by Luis Miguel Graham Dr 04/07/2025 2:39 PM > Dictated by Mechanic Foreman I, Pb Willis have personally reviewed and interpreted this examination/study. > Interpreting Provider: Pb Willis on 04/07/2025 7:01 PM us Vangie Montero WEB PAGE DESIGNER-SCHEDULING MANAGER CT ORDERABLES Final Resul t * (ABNORMAL) HEPATITIS C AB SCREEN RFLX NAAT QUANT (10/01/2024 4:34 AM PROMOTION PRODUCER) Hepatitis C Antibody Reactive( A) Non-react connie 10/01/2024 5:47 AM PROMOTION PRODUCER [facility] Comment:Serum for supplement al Hepatitis C quantitative RNA PCR testing will be reflexively sent out by the lab. 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 Adv Directive/Living Will/POA 08/30/2024 12:44 PM * LIMITED RESUSCITATION-PRIOR AND AFTER ARREST (Latest Code Status on File) Date Activated Date Inactivated Comments 2025 1:22 PM 05/08/2025 3:57 PM Question Answer Comments Limited Resuscitation: No Chest Compress ionNo Intubation, No Invasive Ventilation * Full Code Date Activated Date Inactivated Comments 04/27/2025 2:56 PM 05/04/2025 6:24 PM * LIMITED RESUSCITATION-PRIOR AND AFTER ARREST Date Activated Date Inactivated Comments 04/20/2025 12:46 AM 04/22/2025 3:19 PM Question Answer Comments Limited Resuscitation: No Chest Compress ionNo Intubation, No Invasive Ventilation * Full Code Date Activated Date Inactivated Comments 09/30/2024 4:21 AM 10/02/2024 7:22 PM Care Teams Director Of Regional Sales Relationship Specialty Start Date End Date Shraddha Barrow MD [address] [place] [phone] PCP - General 12/01/18 Manuel Osorio MD [address] [place] [phone] Hematology and Oncology 12/15/24
--- OUTSIDE RECORDS SUMMARY | 2025-05-30 10:39 | XMS_ITS | Encounter Summary ---
Author Organization [facility] Address [address] [place] [address] Care Team Providers Care Evaluation Specialist Name Role Phone Shraddha Barrow MD Primary Care Provider + [phone] Manuel Osorio MD Unavailable Reason for Visit * Reason Onset Date Comments MEDICATION REFILL 05/29/2025 Encounter Details Date Type Department Care Team (Late st Contact Info) Description 05/29/2025 Refill [facility] - Hematology/Oncology [address] [place] [address] Yessenia Kirkpatrick, MEDICAL HEALTH RESEARCHER-SHAG TRUCK DRIVER [address] [place] [address] MEDICATION REFILL Social History Tobacco [...] Recorded Patient Health Questionnaire-2 Score 0 02/16/2025 [facility] of Occupat ional Health - Occupational Stress [...] any time in the past 12 m [facility], were you homeless or living in a intermediate (including now)? No 05/07/2025 Sex and Gender Information Value Date Recorded Sex Assigned at Male 08/19/2024 9:03 PM CHIMNEY BUILDER BRICK Legal Sex Male 5:09 AM CHIMNEY BUILDER BRICK Gender Identity Male 08/19/2024 9:03 PM CHIMNEY BUILDER BRICK Sexual Orientation Straight 08/19/2024 9: 03 PM CHIMNEY BUILDER BRICK documented as of this encounter Functional Status [...] Knowles RN * Does person have difficulty dressing/bathing? Answer Date of Assessment Author No 05/07/2025 10:26 AM CDT Gracy Knowles RN * Does person have difficulty doing errands alone? Answer Date of Assessment Author No 05/07/2025 10:26 AM MIGUELT Gracy Knowles RN documented as of this encounter Mental Status * Does person have difficulty concentrating/remembering/making decisions? Answer Entry Date Author No 05/07/2025 10:26 AM CDT Gracy Knowles RN documented in this encounter Plan of Treatment Upcoming Encounters Date Type Department Care Team (Late st Contact Info) Description 06/10/2025 8:00 AM CDT Appointment [facility] [address] [place] [address] [place] [address] [place] [phone] 06/10/2025 8:40 AM CDT Office Visit [facility] - Hematology/Oncology [address] [place] [phone] Manuel Osorio MD [address] [place] [address] 06/30/2025 2:30 PM CDT Office Visit [facility] - Pulmonology [address] [facility], [place] [phone] Diana Swain MD [address] [place] [phone] 07/27/2025 9:30 AM CHIMNEY BUILDER BRICK Appointment [facility] [address] [place] [phone] Lauren Skinner MD [address] [place] [phone] 08/24/2025 3:30 PM CHIMNEY BUILDER BRICK Office Visit [facility] - Internal Med [address] [facility], [place] [address] Nirav Wang MD [address] [place] [address] documented as of this encounter Visit Diagnoses Diagnosis Seasonal allergic rhinitis, unspecified trigger documented in this encounter Care Teams Evaluation Specialist Relationship Specialty Start [place] [address] [place] [phone] PCP - General 12/01/18 Manuel Osorio MD [address] [place] [address] Hematology and Oncology 12/15/24 documented as of this encounter
--- OUTSIDE RECORDS SUMMARY | 2025-05-30 10:39 | XMS_ITS | Encounter Summary ---
Author Organization [facility] Address [address] [place] [address] Care Team Providers Care Trapper Animal Name Role Phone Shraddha Barrow MD Primary Care Provider + [phone] Manuel Osorio MD Unavailable Reason for Visit * Reason Onset Date Comments MEDICATION REFILL 05/29/2025 Encounter Details Date Type Department Care Team (Late st Contact Info) Description 05/29/2025 Refill [facility] - Hematology/Oncology [address] [place] [address] Manuel Osorio MD [address] [place] [address] MEDICATION REFILL Social History Tobacco [...] Recorded Patient Health Questionnaire-2 Score 0 02/16/2025 [facility] of Occupat ional [facility] - Occupational Stress Questionnaire Answer [...] any time in the past 12 m [facility], were you homeless or living in a care home (including now)? No 05/07/2025 Sex and Gender Information Value Date Recorded Sex Assigned at Male 08/19/2024 9:03 PM SHIPFITTER HELPER Legal Sex Male 5:09 AM SHIPFITTER HELPER Gender Identity Male 08/19/2024 9:03 PM SHIPFITTER HELPER Sexual Orientation Straight 08/19/2024 9: 03 PM SHIPFITTER HELPER documented as of this encounter Functional Status [...] 05/07/2025 10:26 AM MIGUELT Gracy Knowles RN * Does person have [...] Info) Description 06/10/2025 8:00 AM CDT Appointment [facility] [address] [place] [address] Shraddha Barrow MD [address] [place] [phone] 06/10/2025 8:40 AM CDT Office Visit [facility] - Hematology/Oncology [address] [place] [phone] Manuel Osorio MD [address] [place] [address] 06/30/2025 2:30 PM CDT Office Visit [facility] - Pulmonology [address] [facility], [place] [address] Diana Swain MD [address] [place] [address] 07/27/2025 9:30 AM SHIPFITTER HELPER Appointment [facility] [address] [place] [phone] Lauren Skinner MD [address] [place] [address] 08/24/2025 3:30 PM SHIPFITTER HELPER Office Visit [facility] - Internal Med [address] [facility], [place] [address] Nirav Wang MD [address] [place] [address] documented as of this encounter Visit Diagnoses Not on filedocumented in this encounter Care Teams Trapper Animal Relationship Specialty Start [place] [address] [place] [phone] PCP - General 12/01/18 Manuel Osorio MD [address] [place] [address] Hematology and Oncology 12/15/24 documented as of this encounter
--- OUTSIDE RECORDS SUMMARY | 2025-05-30 10:39 | XMS_ITS | Encounter Summary ---
Author Organization [facility] Address [address] [place] [address] Care Team Providers Care Html Web Developer Name Role Phone Shraddha Barrow MD Primary Care Provider + [phone] Manuel Osorio MD Unavailable Reason for Visit * Reason Onset Date Comments MEDICATION REFILL 02/16/2025 Encounter Details Date Type Department Care Team (Late st Contact Info) Description 02/16/2025 Refill [facility] - Hematology/Oncology [address] [place] [address] Manuel Osorio MD [address] [place] [address] MEDICATION REFILL Social History Tobacco [...] Recorded Patient Health Questionnaire-2 Score 0 02/16/2025 [facility] of Occupat ional [facility] - Occupational Stress Questionnaire Answer Date Recorded [...] any time in the past 12 m [facility], were you homeless or living in a nursing home (including now)? No 09/30/2024 Sex and Gender Information Value Date Recorded Sex Assigned at Male 08/19/2024 9:03 PM STRAWHAT BLOCKING OPERATOR Legal Sex Male 5:09 AM STRAWHAT BLOCKING OPERATOR Gender Identity Male 08/19/2024 9:03 PM STRAWHAT BLOCKING OPERATOR Sexual Orientation Straight 08/19/2024 9: 03 PM STRAWHAT BLOCKING OPERATOR documented as of this encounter Functional [...] Info) Description 06/10/2025 8:00 AM CDT Appointment [facility] [address] [place] [address] Shraddha Barrow MD [facility] [place] [address] 06/10/2025 8:40 AM CDT Office Visit [facility] - Hematology/Oncology [address] [place] [address] Manuel Osorio MD [address] [place] [address] 06/30/2025 2:30 PM CDT Office Visit [facility] - Pulmonology [address] [facility], [place] [address] Diana Swain MD [facility] [place] [address] 07/27/2025 9:30 AM STRAWHAT BLOCKING OPERATOR Appointment [facility] [address] [place] [phone] Lauren Skinner MD [address] [place] [address] 08/24/2025 3:30 PM STRAWHAT BLOCKING OPERATOR Office Visit [facility] - Internal Med [address] [facility], [place] [address] Nirav Wang MD [address] [place] [address] documented as of this encounter Visit Diagnoses Diagnosis 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
--- OUTSIDE RECORDS SUMMARY | 2025-05-30 10:39 | XMS_ITS | Encounter Summary ---
Author Organization [facility] Address [address] [place] [address] Care Team Providers Care Public Health Assistant Name Role Phone Shraddha Barrow MD Primary Care Provider + [phone] Manuel Osorio MD Unavailable Reason for Visit * Reason Onset Date Comments MEDICATION REFILL 02/08/2025 Encounter Details Date Type Department Care Team (Late st Contact Info) Description 02/08/2025 Refill [facility] - Hematology/Oncology [address] [place] [address] Sandrita Ybarra MD [address] [place] [address] MEDICATION REFILL Social History Tobacco [...] Recorded Patient Health Questionnaire-2 Score 0 08/27/2024 [facility] [place] of Occupat ional Health - Occupational Stress [...] time in the past [address] [facility], were you homeless or living in a [place] health care facility (including now)? No 09/30/2024 Sex and Gender Information Value Date Recorded Sex Assigned at Male 08/19/2024 9:03 PM FACULTY SUPPORT COORDINATOR Legal Sex Male 5:09 AM FACULTY SUPPORT COORDINATOR Gender Identity Male 08/19/2024 9:03 PM FACULTY SUPPORT COORDINATOR Sexual Orientation Straight 08/19/2024 9: 03 PM FACULTY SUPPORT COORDINATOR documented as of this encounter Functional Status [...] Info) Description 06/10/2025 8:00 AM CDT Appointment [facility] [address] [place] [address] Shraddha Barrow MD [address] [place] [address] 06/10/2025 8:40 AM CDT Office Visit [facility] - Hematology/Oncology [address] [place] [address] Manuel Osorio MD [address] [place] [address] 06/30/2025 2:30 PM CDT Office Visit [facility] - Pulmonology [address] [facility], [place] [address] Diana Swain MD [address] [place] [address] 07/27/2025 9:30 AM FACULTY SUPPORT COORDINATOR Appointment [facility] [address] [place] [phone] Lauren Skinner MD [address] [place] [address] 08/24/2025 3:30 PM FACULTY SUPPORT COORDINATOR Office Visit [facility] - Internal Med [address] [facility] [place] [address] Nirav Wang MD [address] [place] [address] documented as of this encounter Visit Diagnoses Diagnosis 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
--- OUTSIDE RECORDS SUMMARY | 2025-05-30 10:39 | XMS_ITS | Encounter Summary ---
Author Organization [facility] Address [address] [facility] [place] [address] Care Team Providers Care New Car Inspector Name Role Phone Shraddha Barrow MD Primary Care Provider + [phone] Manuel Osorio MD Unavailable Reason for Visit * Reason Onset Date Comments MEDICATION REFILL 05/28/2025 Encounter Details Date Type Department Care Team (Late st Contact Info) Description 05/28/2025 Refill [facility] - Hematology/Oncology [address] [place] [address] Yessenia Kirkpatrick, STUDENT SERVICES ADVISOR-ORACLE EBS CONSULTANT [address] [place] [address] MEDICATION REFILL Social History Tobacco [...] Recorded Patient Health Questionnaire-2 Score 0 02/16/2025 [facility] of Occupat ional Health - Occupational Stress [...] time in the past 12 m [facility], were you homeless or living in a [facility] (including now)? No 05/07/2025 Sex and Gender Information Value Date Recorded Sex Assigned at Male 08/19/2024 9:03 PM STRUCTURAL ENGINEERING TECHNICIAN Legal Sex Male 5:09 AM STRUCTURAL ENGINEERING TECHNICIAN Gender Identity Male 08/19/2024 9:03 PM STRUCTURAL ENGINEERING TECHNICIAN Sexual Orientation Straight 08/19/2024 9: 03 PM STRUCTURAL ENGINEERING TECHNICIAN documented as of this encounter Functional [...] Description 06/10/2025 8:00 AM CDT Appointment [facility] [address] [place] [address] [place] [address] [place] [phone] 06/10/2025 8:40 AM CDT Office Visit [facility] - Hematology/Oncology [address] [place] [address] Manuel Osorio MD [address] [place] [address] 06/30/2025 2:30 PM CDT Office Visit [facility] - Pulmonology [address] [facility], [place] [phone] Diana Swain MD [address] [place] [address] 07/27/2025 9:30 AM STRUCTURAL ENGINEERING TECHNICIAN Appointment [facility] [address] [place] [address] Lauren Skinner MD [address] [place] [phone] 08/24/2025 3:30 PM STRUCTURAL ENGINEERING TECHNICIAN Office Visit [facility] - Internal Med [address] [facility], [place] [address] Nirav Wang MD [address] [place] [address] documented as of this encounter Visit Diagnoses Diagnosis Seasonal allergic rhinitis, unspecified trigger documented in this encounter Care Teams New Car Inspector Relationship Specialty Start [place] [address] [place] [phone] PCP - General 12/01/18 Manuel Osorio MD [address] [place] [address] Hematology and Oncology 12/15/24 documented as of this encounter
== END 2025-05-30 09:42 | disposition home or self-care (01) ==
LOC: ANHAUDIO 09:42
DX: H90.3 Sensorineural hearing loss, bilateral (principal); H93.13 Tinnitus, bilateral; C34.00 Malignant neoplasm of unspecified main bronchus
CPT/HCPCS: 92557; 92567